=== PATIENT | female | born 1955 | race Caucasian/White ===

== ENCOUNTER 2020-06-11 09:13 | Outpatient (CLI) | payer MEDICARE, SELFPAY ==
--- NOTE | ~2020-06-11 | MM_ITS ---
EXAMINATION: MM screening gricel BI w marion HISTORY: Screening TECHNIQUE: Craniocaudal and mediolateral oblique 3-D tomosynthesis images were obtained and synthetic 2-D images were generated. CAD analysis was submitted and interpreted. COMPARISON: Comparison to multiple prior studies sequentially, with oldest reviewed study dated 01/23. BREAST PARENCHYMAL COMPOSITION: There are scattered areas of fibroglandular density. FINDINGS: Stable benign-appearing right breast mass, lower central right breast. There is no evidence of suspicious mass, calcification, or architectural distortion to suggest malignancy in either breas t. There has been no suspicious interval change. IMPRESSION: 1. No mammographic evidence of malignancy. 2. Recommend routine screening mammography in one year. BI-RADS Category 2: Benign finding(s). Reviewed, dictated and finalized at location A. S AND MERCHANDISING ASSOCIATE
== END 2020-06-11 09:14 | disposition home or self-care (01) ==
LOC: ANHIMG 09:18
PROVIDERS: PCP Family Medicine; Visit Provider Nurse Practitioner Family
DX: Z12.31 Encounter for screening mammogram for malignant neoplasm of breast (principal)
CPT/HCPCS: 77063; 77067

== ENCOUNTER 2022-03-26 09:38 | Outpatient (CLI) | payer MEDICARE, SELFPAY ==
--- NOTE | ~2022-03-26 | XR_ITS ---
EXAMINATION: XR chest 2V 03/26/2022 10:04 INDICATION: Cardiac murmur PROCEDURE: 2 view chest COMPARISON: No prior studies for comparison. FINDINGS: The lungs are clear. The cardiomediastinal silhouette is within normal limits. There are no pleural effusions. There is no pneumothorax suspected. IMPRESSION: 1: NO ACUTE CARDIOPULMONARY DISEASE. Reviewed, dictated and finalized at location A.
--- NOTE | ~2022-03-26 | XR_ITS ---
EXAMINATION: XR lumbar spine 2-3V DATE: 03/26/2022 10:04 INDICATION: Lumbago with sciatica TECHNIQUE: Anteroposterior and lateral views of the lumbar spine, and cone-down lateral view of the l umbosacral junction were obtained. COMPARISON: None. FINDINGS: Evaluation is limited by osteopenia and patient body habitus which obscures fine bone detail. Alignme nt is normal. Transitional lumbosacral segment. Lumbarized on the right and sacralized on the left wi th 4 more cephalad nonrib-bearing lumbar segments. Vertebral body heights are normal. Multilevel mild disc height loss and mild degenerative endplate changes throughout the lumbar spine. 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 Persistent at least moderate multilevel facet osteoarthritis. Osteoarthritis at the bilate ral sacroiliac joints. IMPRESSION: 1. Mild lumbar spondylosis with transitional lumbosacral segment. 2. Bilateral sacral iliac osteoarthritis. 3. Evaluation somewhat limited by osteopenia and patient body habitus which limits assessment of fine bone detail. Reviewed, dictated and finalized at location B. IMPRESSION: 1. Mild lumbar spondylosis with transitional lumbosacral segment. 2. Bilateral sacral iliac osteoarthritis. 3. Evaluation somewhat limited by osteopenia and patient body habitus which adler its assessment of fine bone detail.
--- NOTE | 2022-03-26 10:09 | ECG_ITS ---
Measurements Intervals [place] Rate: 74 P: 67 NC: 145 QRS: -37 QRSD: 113 T: 32 QT: 398 QTc: 443 Interpretive Statements SINUS RHYTHM LEFT AXIS DEVIATION NO PREVIOUS ECG AVAILABLE FOR COMPARISON Electronically Signed On 03-26-2022 14:56:08 CDT by Jasiel Nguyen M.D.
[2022-03-26 10:15] LABS: Cholesterol 155 mg/dL (0-200); HDL Direct 36 mg/dL; Triglycerides 103 mg/dL (<150)
[2022-03-26 10:26] LABS: LDL Cholesterol Direct 85 mg/dL
== END 2022-03-26 09:39 | disposition home or self-care (01) ==
LOC: ANHLAB 09:39
PROVIDERS: PCP Family Medicine; Visit Provider Nurse Practitioner Family
DX: E78.5 Hyperlipidemia, unspecified (principal); M54.40 Lumbago with sciatica, unspecified side; R01.1 Cardiac murmur, unspecified; M47.896 Other spondylosis, lumbar region; M53.3 Sacrococcygeal disorders, not elsewhere classified
CPT/HCPCS: 36415; 71046; 72100; 80061; 93005

== ENCOUNTER 2022-04-10 13:24 | Outpatient (CLI) | payer MEDICARE, SELFPAY ==
--- NOTE | 2022-04-10 13:38 | ECHO_ITS ---
Patient Info Name: Evon Sanchez Age: 66 years : 1955 Gender: Female Ht: 63 in Wt: 180 lbs BSA: 1.94 m2 HR: 73 bpm BP: 124 / 76 mmHg Technical Quality: Good Exam Date: 04/10/2022 2:32 PM Exam Location: [facility] Patient Status: Outpatient Admit Date: 04/10/2022 Staff Ordering Physician: Dara Tate NP Covered Buckle Assembler: Alva Blackburn RDCS Attending Provider: Dara Tate NP Referring Physician: Bebeto SUAREZ; Exam Type: CA echo doppler color flow Study Info Indications - CARDIAC MURMUR Complete two-dimensional, color flow and Doppler transthoracic echocardiogram is performed. Summary 1. Complete two-dimensional, color flow and Doppler transthoracic echocardiogram is performed. 2. Left ventricular chamber dimension is normal. 3. Left ventricular systolic function is normal, estimated at 55-60%. 4. The left ventricular diastolic function is grade I diastolic dysfunction. 5. E/e' 10 is mildly elevated. 6. Left atrial chamber dimension is mildly enlarged. 7. There is mild aortic valve sclerosis. 8. There is mild mitral valve regurgitation. 9. No pulmonary hypertension, estimated pulmonary arterial systolic pressure is 38 mmHg. Left Ventricle E/e' 10 is mildly elevated. Left ventricular chamber dimension is normal. Left ventricular systolic function is normal, estimated at 55-60%. The left ventricular diastolic function is grade I diastolic dysfunction. Right Ventricle Right ventricular chamber dimension is normal. Right ventricular systolic function is normal. Left Atria Left atrial chamber dimension is mildly enlarged. Right Atria Right atrial chamber dimension is normal. Aortic Valve The aortic valve is trileaflet. There is mild aortic valve sclerosis. There is no aortic valve stenosis. There is no aortic valve regurgitation. Pulmonic Valve There is no pulmonic regurgitation. Mitral Valve There is no mitral valve stenosis. There is mild mitral valve regurgitation. Tricuspid Valve There is no tricuspid valve regurgitation. No pulmonary hypertension, estimated pulmonary arterial systolic pressure is 38 mmHg. Pericardium/Pleural There is no pericardial effusion. Inferior Vena Cava Normal inferior vena cava with >50% collapse upon inspiration consistent with normal right atrial pressure, 5 mmHg. Aorta The aortic root size at the sinus of Valsalva is normal. Left Ventricular Outflow Tract Name Value Normal LVOT 2D LVOT Diameter 2.0 cm LVOT Doppler LVOT Peak Gradient 6 mmHg LVOT Mean Gradient 3 mmHg LVOT VTI 24 cm LVOT VTI/AV VTI Ratio 0.7 LVOT Stroke Volume 78 ml LVOT CO 16.7 l/min LVOT CI 8.6 l/min/m2 Mitral Valve Name Value Normal
--- NOTE | 2022-04-15 12:39 | WPDHOLTEREM ---
Holter/Event Monitor Holter/Event Monitor Date of procedure: 04/10/22 Holter/Event Procedure: 48 Hr Holter Monitor Indications: Murmur Conclusion: 1. 48 hour holter monitor on 04/10/22. 2. Predominant rhythm is sinus rhythm. HR range 55-112 bpm; average HR 78 bpm. 3. There are 194 premature supraventricular complexes and 3 supraventricular couplets. There are 2 episodes of atrial tachycardia, fastest at 158 bpm and longest lasted 4 beats. 4. There are 9,480 premature ventricular complexes, 10 ventricular couplets, 1 ventricular triplet and 1,773 ventricular trigeminy. No ventricular tachycardia. 5. No sinoatrial or atrioventricular blocks. No significant pauses greater than 2 seconds. 6. No symptoms available for correlation.
== END 2022-04-10 13:25 | disposition home or self-care (01) ==
PROVIDERS: PCP Family Medicine; Visit Provider Nurse Practitioner Family
DX: R01.1 Cardiac murmur, unspecified (principal); I34.0 Nonrheumatic mitral (valve) insufficiency
CPT/HCPCS: 93225; 93226; 93306

== ENCOUNTER 2022-05-15 13:48 | Outpatient (CLI) | payer MEDICARE, SELFPAY ==
--- NOTE | ~2022-05-15 | MM_ITS ---
EXAMINATION: MM screening gricel BI w marion HISTORY: Screening mammogram TECHNIQUE: Craniocaudal and mediolateral oblique 3-D tomosynthesis images were obtained and synthetic 2-D images were generated. CAD analysis was submitted and interpreted. COMPARISON: 06/11/2020, 08/22/2018, 05/19/2016, 04/02/2014 bilateral screening mammogram examinations BREAST PARENCHYMAL COMPOSITION: There are scattered areas of fibroglandular density. FINDINGS: Stable mild fibroglandular asymmetry. Scattered bilateral benign calcifications. There is n o evidence of suspicious mass, calcification, or architectural distortion to suggest malignancy in ei ther breast. There has been no suspicious interval change. IMPRESSION: 1. No mammographic evidence of malignancy. 2. Recommend routine screening mammography in one year. BI-RADS Category 2: Benign finding(s). Reviewed, dictated and finalized at location A. SCAPE FOREMAN
--- NOTE | ~2022-05-15 | DEXA_ITS ---
Bone Density Report Name: BAILEY MCKEON Age: 66 Sex: Female Ethnicity: White Date of : 1955 Indication: postmenopausal; screening for osteoporosis; height loss; Referring Provider: LEI MARTINO Study: Bone densitometry was performed. Exam Date: May 15, 2022 Accession number: [id number] Bone Density: Region BMD T-score Z-score Classification AP Spine(L1-L4) 0.755 -2.7 -0.6 Osteoporosis Femoral Neck (Left) 0.462 -3.5 -1.8 Osteoporosis Total Hip (Left) 0.665 -2.3 -0.8 Osteopenia Femoral Neck (Right) 0.517 -3.0 -1.3 Osteoporosis Total Hip (Right) 0.616 -2.7 -1.2 Osteoporosis Total Hip Mean 0.640 -2.5 -1.0 Osteoporosis World Health Organization criteria for BMD impression classify patients as: Normal (T-score at or above -1.0), Osteopenia (T-score between -1.0 and -2.5), or Osteoporosis (T-score at or below -2.5). 10-year Fracture Risk: FRAX not reported because: Some T-score for Spine Total or Hip Total or Femoral Neck at or below -2.5 Clinical Information Provided by Patient: Has used the following medications: Vitamin D, Calcium Patient maximum height was 63.5 Menopause Age: 47 Does not regularly consume dairy products Drinks caffeinated beverages Onset of menses at age 11 Number of children 0 Impression: The patient has osteoporosis, based on the Left Femoral Neck T-score. Discussion: INCREASED RISK OF FRACTURE. BONE DENSITY IS UNDESIRABLY LOW AT ONE OR MORE SKELETAL SITES, CONSISTENT WITH POSTMENOPAUSAL OSTEOPOROSIS. This patient's lowest T-score meets the World Health Organization's (WHO) criteria for osteoporosis at one or more sites (T-score -2.5 or below). In untreated patients, the risk of osteoporotic fracture increases approximately two-fold for each 1.0 SD decrease in T-score. Low bone density is not the only risk factor for fracture; also consider factors such as patient's age, frailty or poor health, risk of falling, risk of injury, previous osteoporotic fracture, family history of osteoporosis, cigarette smoking, low body weight, etc. Not everyone with low bone mineral density has osteoporosis; osteomalacia and other metabolic bone disorders should also be considered. Patients who have osteoporosis should be evaluated for specific diseases and conditions (secondary causes) that may cause or contribute to bone loss. The [place] Association of Clinical Endocrinologists (AACE) and National Osteoporosis Foundation (NOF) recommend pharmacologic intervention for all postmenopausal women whose T-score is in this range. The patient should follow a healthful lifestyle (good nutrition with adequate calcium and vitamin D, and appropriate weight-bearing exercise). Follow-Up: Consider a repeat BMD and Vertebral Fracture Assessment (VFA) exam in 2 years or sooner if medically
== END 2022-05-15 13:49 | disposition home or self-care (01) ==
LOC: ANHIMG 13:53
PROVIDERS: PCP Family Medicine; Visit Provider Family Medicine
DX: Z12.31 Encounter for screening mammogram for malignant neoplasm of breast (principal); M81.0 Age-related osteoporosis without current pathological fracture; M85.852 Other specified disorders of bone density and structure, left thigh
CPT/HCPCS: 77063; 77067; 77080

== ENCOUNTER 2022-06-03 12:04 | Outpatient (CLI) | payer MEDICARE, SELFPAY ==
[2022-06-03 15:34] LABS: Basophils Percent Auto 0.7 % (0.2-1.2); Eosinophils Absolute Auto 0.1 K/mm3 (0-0.3); Eosinophils Percent Auto 1.4 % (0-4.4); Hematocrit 37.5 % (37.0-47.0); Hemoglobin 11.2 g/dL (12.0-15.0); Immature Granulocyte Absolute 0.01 K/mm3 (0.00-0.031); Immature Granulocyte Percent A 0.2 % (0-0.5); Lymphocytes Percent Auto 30.4 % (18.3-44.2); Mean Corpuscular HGB Conc 29.9 g/dl (32-36); Mean Corpuscular Hemoglobin 31.9 pg (26-34); Mean Corpuscular Volume 106.8 fl (80-100); Monocytes Absolute Auto 0.5 K/mm3 (0.1-0.6); Monocytes Percent Auto 12.6 % (2.6-8.5); Neutrophils Absolute Auto 2.3 K/mm3 (1.3-6.7); Neutrophils Percent Auto 54.7 % (45.5-73.1); Platelet Count Result 209 k/mm3 (150-375); Red Blood Count 3.51 M/mm3 (4.2-5.4); Red Cell Distribution Width 19.1 % (11.5-14.5); White Blood Count 4.3 K/mm3 (4.5-10.0)
[2022-06-03 15:40] LABS: Add Urine Microscopic? YES; Appearance Urine Slightly Cloudy (Clear); Bilirubin Urine Negative (Negative); Blood Urine 1+ (Negative); Color Urine Light Yellow (Yellow); Glucose Urine UA Negative (Negative); Ketones Urine Negative (Negative); Leukocyte Esterase Ur Negative LEU/UL (Negative); Nitrate Urine Negative (Negative); Protein Urine Trace mg/dL (Negative); Specific Grav Ur >= 1.030 (1.001-1.035); Urobilinogen Urine 0.2 mg/dL (<2.0); pH Urine 5.5 (5.0-9.0)
[2022-06-03 15:46] LABS: INR 1.2; Prothrombin Time 14.6 Seconds (11.1-14.7)
[2022-06-03 15:47] LABS: Partial Thromboplastin Time 26.1 SECONDS (22.3-36.8)
[2022-06-03 15:53] LABS: Mucus Urine Rare /lpf; Squamous Epithelial Cell Urine Rare /hpf (Few)
[2022-06-03 15:54] LABS: Albumin Level 3.8 g/dL (3.5-5.1); Anion Gap 1 mmol/L (8-16); Blood Urea Nitrogen 26 mg/dL (7-17); Calcium 13.3 mg/dL (8.4-10.2); Carbon Dioxide 29 mmol/L (22-30); Chloride 105 mmol/L (98-107); Estimated Glomerular Filt Rate 28; Glucose 90 mg/dL (65-110); Potassium 4.4 mmol/L (3.4-5.0); Sodium 135 mmol/L (137-145)
[2022-06-03 16:22] LABS: Urine Cotinine NEGATIVE
[2022-06-03 17:02] LABS: Hemoglobin A1C 5.6 % (<5.7)
[2022-06-03 17:52] LABS: Platelet Estimate Adequate (Adequate); Schistocytes None Seen (NORMAL)
[2022-06-03 17:53] LABS: Anisocytosis 2+ (NORMAL); Hypochromasia 1+ (NORMAL)
== END 2022-06-03 12:05 | disposition home or self-care (01) ==
PROVIDERS: PCP Family Medicine; Visit Provider Orthopaedic Surgery
DX: M17.11 Unilateral primary osteoarthritis, right knee (principal); Z01.818 Encounter for other preprocedural examination
CPT/HCPCS: 80048; 80307; 81001; 82040; 83036; 85025; 85610; 85730; 87081

== ENCOUNTER 2022-06-07 10:22 | Inpatient (IN) | payer MEDICARE, SELFPAY ==
[2022-06-07] VITALS (25 sets, daily range): BP systolic 103–131; BP diastolic 50–79; PULSE 79–89; RESP 16–24; TEMP 28.8–37.2; O2SAT 89–100; BMI 31.1
--- NOTE | ~2022-06-07 | CT_ITS ---
EXAMINATION: CT lumbar spine wo con DATE: 06/07/2022 13:01 INDICATION: 3 months of worsening low back pain. TECHNIQUE: Computed tomography (CT) of the lumbar spine was performed without intravenous contrast. A utomated exposure control and iterative reconstruction technique were employed. The dose-length produ ct was 1077.08 mGy-cm. COMPARISON: None FINDINGS: Alignment is normal. Vertebral body heights are normal. No evident fracture. Sensitivity for nondispl aced fracture is however decreased by marked diffuse spotty osteopenia suggesting presence of numerou s small lytic lesions throughout all of the visualized bones. At multiple locations there appears be associated endosteal scalloping suggesting this related to widespread lytic bone lesions such as in t he setting of multiple myeloma or metastatic disease. Larger and more definitive 1.5 cm lytic lesion at the right sacral ala with central soft tissue density. Transitional L5 segment, sacralized on the left. There is moderate disc height loss at T11-T12 and mild to moderate disc height loss at L4-L5. T here are multilevel disc bulges from T11-T12 through L4-L5 resulting in multilevel mild central canal stenosis. Multilevel moderate bilateral lumbar facet osteoarthritis. This contributes to multilevel neural foraminal stenosis, moderate severity bilaterally at L4-L5 and mild at the remaining lumbar le vels. Mild atelectasis in the bilateral posterior sulci. Coarse calcifications at the atrophic uterus likely chronic degeneration due to fibroids. Paravertebral soft tissues are otherwise unremarkable. IMPRESSION: 1. Innumerable small lytic lesions throughout the visualized bones with larger 1.5 cm lytic lesion at the right sacral ala most suspicious for multiple myeloma with differential including other lytic me tastatic disease. 2. Mild to moderate lumbar spondylosis. No evident acute osseous abnormality although sensitivity for nondisplaced fractures decreased due to the marked diffuse osteopenia and lytic bone disease.. Reviewed, dictated and finalized at location A. ILLUSTRATOR IMPRESSION: 1. Innumerable small lytic lesions throughout the visualized bones with larger 1.5 cm lytic lesion at the right sacral ala most suspicious for multiple myelom a with differential including other lytic metastatic disease. 2. Mild to moderate lumbar spondylosis. No evident acute osseous abnormality al though sensitivity for nondisplaced fractures decreased due to the marked diffu se osteopenia and lytic bone disease..
--- NOTE | ~2022-06-07 | MR_ITS ---
EXAMINATION: MR lumbar spine wo con DATE: 06/15/2022 13:38 INDICATION: Back pain. TECHNIQUE: Magnetic resonance imaging (MRI) of the lumbar spine was performed without intravenous con trast. COMPARISON: CT lumbar spine 06/07/2022 FINDINGS: L5 is a transitional segment. There is 3 mm retrolisthesis of L1 and L2. There is mild glass or mirror inspector homar anterior wedging of T11 vertebral body. There are Schmorl's nodes at multiple levels. There is wi despread increased T2-weighted signal intensity and decreased T1-weighted signal intensity in the bon e marrow of all bones. There is severely decreased disc height at T10-T11, moderately decreased disc height at T11-T12, mildly decreased disc height at T12-L1, severely decreased disc at L1-L2, mildly d ecreased disc height at L2-L3 and L3-L4, and severely decreased disc height at L4-L5. The distal spin al cord signal intensity is normal. The conus medullaris is at L1-L2. There is a 7.3 cm cyst in left kidney. The following disc levels are specifically discussed: L1-L2: The disc is bulging. There is severe bilateral facet joint osteoarthritis. There is mild bilat eral neural foraminal stenosis. There is mild central canal stenosis. L2-L3: The disc is bulging. There is moderate bilateral facet joint osteoarthritis. There is mild tino ateral neural foraminal stenosis. There is mild central canal stenosis. L3-L4: The disc is bulging and has an annular fissure. There is moderate right and severe left facet joint osteoarthritis. There is mild bilateral neural foraminal stenosis. There is mild central canal stenosis. L4-L5: The disc is bulging and has an annular fissure. There is severe bilateral facet joint osteoart hritis. There is mild bilateral neural foraminal stenosis. There is mild central canal stenosis. L5-S1: The disc does not extend beyond the endplate margin. There is no facet joint hypertrophy. Ther e is no neural foraminal stenosis. There is no central canal stenosis. IMPRESSION: 1. Widespread abnormal bone marrow signal intensity suspicious for multiple myeloma. 2. Severe lumbar spondylosis. Reviewed, dictated and finalized at location A. OR ENLISTED ADVISOR IMPRESSION: 1. Widespread abnormal bone marrow signal intensity suspicious for multiple mye francois. 2. Severe lumbar spondylosis.
--- NOTE | ~2022-06-07 | US_ITS ---
EXAMINATION: US venous doppler [facility] DATE: 06/08/2022 15:34 INDICATION: hypoxia, elevated d dimer . TECHNIQUE: Grayscale images without and with compression and Doppler images of the bilateral lower ex tremity veins were obtained. COMPARISON: None FINDINGS: The right common femoral vein, profunda (deep) femoral vein, femoral vein, popliteal vein, peroneal v ein, posterior tibial veins, gastrocnemius vein, and greater saphenous vein are patent. The left common femoral vein, profunda femoral vein, femoral vein, popliteal vein, peroneal vein, pos terior tibial veins, gastrocnemius vein, and greater saphenous vein are patent. IMPRESSION: 1. Patent bilateral lower extremity veins. No evidence of deep venous thrombosis. Reviewed, dictated and finalized at location K. TTER IMPRESSION: 1. Patent bilateral lower extremity veins. No evidence of deep venous thrombos is.
--- NOTE | ~2022-06-07 | US_ITS ---
EXAMINATION: US renal BI DATE: 06/08/2022 15:34 INDICATION: Acute kidney injury TECHNIQUE: Multiple grayscale and Doppler ultrasound images of the kidneys were obtained. COMPARISON: None. FINDINGS: The right kidney measures 11.0 x 4.0 x 5.2 cm. The left kidney measures 11.8 x 6.1 x 6.3 cm. The kidn eys demonstrate increased parenchymal echogenicity. 6.9 cm simple left renal cyst There is no hydrone phrosis. The bladder is not visualized and likely decompressed. IMPRESSION: Medical renal disease. 6.9 cm simple left renal cyst. Bladder not visualized and likely decompressed. Reviewed, dictated and finalized at location K. MARKER INSTALLER IMPRESSION: Medical renal disease. 6.9 cm simple left renal cyst. Bladder not visualized an d likely decompressed.
--- NOTE | ~2022-06-07 | BM_ITS ---
EXAMINATION: CCL bone marrow asp w bx diag ORDER COMPLETED DATE: 06/10/2022 09:42 INDICATION: Hypercalcemia. TECHNIQUE: A time-out was performed to verify the patient's name, date of , and procedure to b e performed. The procedure including the risks and benefits was discussed with the patient. Risks dis cussed included bleeding, infection, nerve injury and allergic reaction. The patient understood the r isks and agreed to proceed. The skin overlying the right posterior iliac spine was prepped and draped in usual sterile fashion. Anesthetic was administered with 1% lidocaine subcutaneously. Moderate co nscious sedation was achieved with 25 mcg fentanyl IV. An 11 gauge needle was inserted into the ilium with fluoroscopic guidance. Unsuccessful attempt was made bone marrow aspiration. An 8 gauge needle was then inserted into the ilium with fluoroscopic guidance. 2 core bone marrow biopsy specimens were obtained, one placed in formalin and the second in a sterile cup for bone marrow smear. The needle w as removed and the entry site was cleaned and dressed. There were no immediate complications. A tota l of 9 fluoroscopic images were recorded. Fluoroscopy exposure time was 0.1 minutes. FINDINGS: Real-time fluoroscopy demonstrates the biopsy needle tip overlying the left posterior iliac spine. IMPRESSION: 1. Successful fluoroscopic guided bone marrow biopsy. 2. Dry tap with unsuccessful fluoroscopic guided bone marrow aspiration. Therefore a second core biop sy specimens was obtained for marrow smear. Reviewed, dictated and finalized at location A. FORCE MANAGEMENT ANALYST IMPRESSION: 1. Successful fluoroscopic guided bone marrow biopsy. 2. Dry tap with unsuccessful fluoroscopic guided bone marrow aspiration. Theref ore a second core biopsy specimens was obtained for marrow smear.
--- NOTE | ~2022-06-07 | XR_ITS ---
EXAMINATION: XR chest 1V portable DATE: 06/08/2022 07:35 INDICATION: Shortness of breath TECHNIQUE: frontal view of the chest was obtained. COMPARISON: Chest radiograph dated 06/07/22 FINDINGS: Diffuse patchy airspace opacities throughout both lungs. No pleural effusion or pneumothorax. The car diomediastinal silhouette is normal. IMPRESSION: 1. Diffuse patchy bilateral lung disease consistent with pulmonary edema or pneumonia. Reviewed, dictated and finalized at location A. OPHYSICIST IMPRESSION: 1. Diffuse patchy bilateral lung disease consistent with pulmonary edema or pne umonia.
--- NOTE | ~2022-06-07 | CT_ITS ---
EXAMINATION: CT brain wo con DATE: 06/07/2022 13:01 INDICATION: Altered mental status. Lethargy. TECHNIQUE: Computed tomography (CT) of the head was performed without intravenous contrast. Sagittal and coronal reconstructions were performed. The mA was adjusted according to patient size. Iterative reconstruction technique was employed. The dose-length product was 605.33 mGy-cm. COMPARISON: None FINDINGS: No acute intracranial hemorrhage, acute infarction or abnormal extra axial fluid collection. There is mild scattered white matter hypoattenuation consistent with chronic small vessel ischemic disease. Ventricles are normal and symmetric. No mass/mass effect. The orbits, paranasal sinuses and mastoid a ir cells are normal. IMPRESSION: 1. No acute intracranial process. 2. Mild scattered white matter hypoattenuation consistent with chronic small vessel ischemic disease. Reviewed, dictated and finalized at location A. ER WRAPPER IMPRESSION: 1. No acute intracranial process. 2. Mild scattered white matter hypoattenuation consistent with chronic small ve ssel ischemic disease.
--- NOTE | ~2022-06-07 | NM_ITS ---
EXAMINATION: NM pulmonary perfusion DATE: 06/07/2022 15:40 INDICATION: Positive d-dimer/troponin. Hypoxic upon arrival TECHNIQUE: 5.1 mCi Tc-99m MAA was administered intravenously for perfusion images. Scintigraphic imag es of the chest were obtained. COMPARISON: X-ray chest, same date. FINDINGS: Perfusion images show no defects. IMPRESSION: 1. Low probability for pulmonary embolism. Reviewed, dictated and finalized at location K. EL ENGINEER
--- NOTE | ~2022-06-07 | XR_ITS ---
EXAMINATION: XR chest 2V DATE: 06/07/2022 12:37 INDICATION: Hypoxia TECHNIQUE: frontal and lateral views of the chest were obtained. COMPARISON: Chest radiograph dated 03/26/2022 FINDINGS: Pulmonary vascular congestion with increased interstitial pattern with perihilar cuffing and mild pat jessi airspace opacities in the deep and mid to lower lung zones, right greater than left. No pleural e ffusion or pneumothorax. The cardiomediastinal silhouette is normal. IMPRESSION: 1. Pulmonary vascular congestion with interstitial and airspace opacities in the mid and lower lung z ones with differential including pulmonary edema or pneumonia. Reviewed, dictated and finalized at location A. AND SCENERY MAKER IMPRESSION: 1. Pulmonary vascular congestion with interstitial and airspace opacities in th e mid and lower lung zones with differential including pulmonary edema or pneum onia.
--- NOTE | ~2022-06-07 | XR_ITS ---
EXAMINATION: XR chest 2V Exam Date/Time: 06/10/2022 18:00 GENERAL CLAIMS AGENT HISTORY: sob Comparison: 06/09/2022. RESULT: Lines, tubes, and devices: None. Lungs and pleura: Unchanged bilateral patchy airspace disease, diffuse reticular opacities, and aravind stinct vessels. The lateral view is limited by overlying artifact. Cardiomediastinal silhouette: Stable cardiomegaly. Other: No acute osseous or upper abdominal finding. IMPRESSION: Grossly unchanged pulmonary opacities likely representing mild pulmonary edema. Reviewed, dictated and finalized at location K. RAL CLAIMS AGENT
--- NOTE | ~2022-06-07 | XR_ITS ---
Clinical Indication: Shortness of breath AP and lateral views of the chest: Comparison: 06/08/2022 Findings: Extensive bilateral airspace disease is markedly improved from prior exam, probable minimal residual bibasilar haziness. Probable small pleural effusions on lateral view. Cardiomediastinal isaiah houette is within normal limits. Bones and soft tissues are unremarkable. Impression: Extensive bilateral airspace disease is markedly improved from prior exam, with probable minimal resi dual bibasilar haziness. This could reflect minimal residual pulmonary edema. Probable small pleural effusions on lateral view. Reviewed, dictated and finalized at location . CLEANER Impression: Extensive bilateral airspace disease is markedly improved from prior exam, with probable minimal residual bibasilar haziness. This could reflect minimal resid ual pulmonary edema. Probable small pleural effusions on lateral view.
--- NOTE | ~2022-06-07 | US_ITS ---
EXAMINATION: US right upper quadrant DATE: 06/15/2022 14:39 INDICATION: Elevated liver enzymes TECHNIQUE: Multiple grayscale and Doppler ultrasound images of the right upper quadrant were obtained . COMPARISON: None available. FINDINGS: The visualized portions of the pancreas are normal. The liver is normal with normal echogen icity and echotexture. No surface nodularity. Normal hepatopetal flow in the main portal vein. The ga llbladder is mildly distended. Gallbladder sludge. No wall thickening or pericholecystic fluid. The c ommon bile duct measures 5 mm. There was no sonographic Godoy sign. IMPRESSION: Mild gallbladder hydrops with gallbladder sludge. Otherwise normal right upper quadrant ultrasound fi ndings. Reviewed, dictated and finalized at location K. RATORY COORDINATOR IMPRESSION: Mild gallbladder hydrops with gallbladder sludge. Otherwise normal right upper quadrant ultrasound findings.
--- NOTE | 2022-06-07 11:50 | ECG_ITS ---
Measurements Intervals [place] Rate: 84 P: 63 WV: 156 QRS: -23 QRSD: 97 T: 71 QT: 309 QTc: 365 Interpretive Statements SINUS RHYTHM NONSPECIFIC T-WAVE ABNORMALITY BORDERLINE ECG COMPARED TO ECG 03/26/2022 10:14:06 T-WAVE ABNORMALITY NOW PRESENT Electronically Signed On 06-07-2022 15:55:33 REPRODUCTIVE ENDOCRINOLOGIST by Kaushik Lea M.D.
[2022-06-07 12:13] LABS: Basophils Percent Auto 0.1 % (0.2-1.2); Hematocrit 33.7 % (37.0-47.0); Hemoglobin 10.6 g/dL (12.0-15.0); Immature Granulocyte Absolute 0.06 K/mm3 (0.00-0.031); Immature Granulocyte Percent A 0.6 % (0-0.5); Lymphocytes Absolute Auto 0.65 K/mm3 (0.9-3.2); Lymphocytes Percent Auto 6.8 % (18.3-44.2); Mean Corpuscular HGB Conc 31.5 g/dl (32-36); Mean Corpuscular Hemoglobin 32.3 pg (26-34); Mean Corpuscular Volume 102.7 fl (80-100); Mean Platelet Volume 10.1 fl (7.4-10.4); Monocytes Absolute Auto 0.8 K/mm3 (0.1-0.6); Monocytes Percent Auto 8.3 % (2.6-8.5); Neutrophils Percent Auto 84.2 % (45.5-73.1); Nucleated Red Blood Cells Perc 0.3 % (0.0-0.2); Platelet Count Result 191 k/mm3 (150-375); Red Blood Count 3.28 M/mm3 (4.2-5.4); Red Cell Distribution Width 18.9 % (11.5-14.5); White Blood Count 9.5 K/mm3 (4.5-10.0)
--- NOTE | 2022-06-07 12:14 | ED.BACK ---
HPI - Back Pain/Injury General Chief Complaint: Back Pain/Injury <RADHA Sebastian Last Filed: 06/07/22 19:28> Stated Complaint: low back pain for 3 months <RADHA Sebastian Last Filed: 06/07/22 19:28> Time Seen by Provider: 06/07/22 11:02 <RADHA Sebastian Last Filed: 06/07/22 19:28> Source: patient and family <RADHA Sebastian Last Filed: 06/07/22 19:28> Mode of arrival: EMS <RADHA Sebastian Last Filed: 06/07/22 19:28> Limitations: no limitations <RADHA Sebastian Last Filed: 06/07/22 19:28> History of Present Illness HPI Narrative: Patient is a 66 y/o female who presents to the ED via EMS with c/o low back pain. Patient reports having progressively worsening low back pain over the last 3 months. She has had outpatient x-ray imaging and is scheduled to undergo MRI in June. She reports having worsening pain since Wednesday. She is currently taking a Medrol Dosepak, but has not tried anything further for pain. Sister at bedside does report patient has been increasingly lethargic over the last couple days as well. Patient denies any urinary or bowel incontinence, saddle anesthesia, abdominal pain, nausea, vomiting, fevers. Patient was noted to be hypoxic upon arrival with oxygenation in the upper 70s, low 80s. She does not appear to be in respiratory distress. No tachypnea. Patient denies feeling short of breath. Denies chest pain. Denies BLE edema, recent long distance travel, Hx of blood clots. <RADHA Sebastian Last Filed: 06/07/22 19:28> Related Data Home Medications: Home Medications Medication Instructions Recorded Confirmed calcium carb-ergocalciferol (vit 1 tablet PO BID 06/03/22 06/07/22 D2) 600 mg calcium-200 unit tablet multivitamin 1 tablet PO DAILY 06/03/22 06/07/22 famotidine 20 mg tablet 20 mg PO DAILY 06/07/22 06/07/22 sulfamethoxazole 800 1 tablet PO DAILY 06/07/22 06/07/22 mg-trimethoprim 160 mg tablet methylprednisolone 4 mg tablets in See Rx Instructions .Route .COMPLEX 06/08/22 06/08/22 a dose pack <Rekha Boykin PA-C - Last Filed: 06/07/22 19:28> Allergies/Adverse Reactions: Allergies Allergy/AdvReac Type Severity Reaction Status Date / Time meloxicam AdvReac Palpitations, Verified 06/03/22 14:23 SHORTNESS OF BREATH <Rekha Boykin PA-C - Last Filed: 06/07/22 19:28> Review of Systems Review of Systems: CONSTITUTIONAL: Denies fever, chills, or sweats. ENT: Denies rhinorrhea, congestion, sore throat. CARDIOVASCULAR: Denies chest pain, palpitations, or BLE edema. RESPIRATORY: Denies cough or dyspnea. GASTROINTESTINAL: Denies abdominal pain, nausea, vomiting. GENITOURINARY: Denies incontinence, dysuria or hematuria. MUSCULOSKELETAL: Reports low back pain. NEUROLOGIC: Reports lethargy. Denies headache, numbness, or weakness. 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 <Rekha Boykin PA-C - Last Filed: 06/07/22 19:28> Family History Family History: Family History Father Lung cancer Mother Sibling No
[2022-06-07 12:17] LABS: Alveolar/Arterial O2 Gradient 143.7 mmHg; Base Excess ABG 4.4 mEq/l (+/-2.0); Carboxyhemoglobin 1.1 % THb (0-2.0); Fractional Inspired Oxygen 36 %; Methemoglobin ABG 0.2 %THb (0-1.5); Oxygen Content ABG 15.2 %vol (16.0-22.0); Oxygen Saturation ABG 95.1 % (95.0-100.0); Oxyhemoglobin 91.3 % THb (90.0-100.0); PCO2 ABG 37.9 mmHg (35.0-45.0); PO2 FiO2 Ratio Arterial Blood 1.92 %; Reduced Hemoglobin 7.4 %THb (0-5.0); Total Hemoglobin 11.8 g/dL (12.0-18.0); pH ABG 7.486 (7.350-7.450)
[2022-06-07 12:18] LABS: Device NASAL CANNULA; Modified Allen's Test Pass; Site Drawn RIGHT RADIAL
[2022-06-07 12:23] LABS: INR 1.3
[2022-06-07 12:24] LABS: Partial Thromboplastin Time 20.7 SECONDS (22.3-36.8)
[2022-06-07 12:34] LABS: Alanine Aminotransferase 21 U/L (6-35); Albumin Level 3.4 g/dL (3.5-5.1); Alkaline Phosphatase 122 U/L (38-126); Anion Gap 0 mmol/L (8-16); Aspartate Amino Transferase 54 U/L (14-36); Bilirubin,Total 1.3 mg/dL (0.2-1.3); Blood Urea Nitrogen 69 mg/dL (7-17); Carbon Dioxide 31 mmol/L (22-30); Chloride 100 mmol/L (98-107); D Dimer 2.35 ug/mL (<0.48); Estimated CRCL calculation 19 ml/min; Estimated Glomerular Filt Rate 18; Glucose 122 mg/dL (65-110); Potassium 4.1 mmol/L (3.4-5.0); Sodium 131 mmol/L (137-145)
[2022-06-07 12:38] LABS: NT Pro B Type Natriuretic Pept 9720 pg/mL (5-100); Troponin I 0.429 ng/mL (0.000-0.034)
[2022-06-07 12:40] LABS: Calcium 15.6 mg/dL (8.4-10.2)
[2022-06-07 12:54] LABS: Influenza A QL RT-PCR Negative (Negative); Influenza B QL RT-PCR Negative (Negative); SARS-CoV-2 RNA PCR Negative
[2022-06-07] MEDS: SODIUM CHLORIDE 0.9% IV 1,000 ML 999 ML IV CONT (13:14)
[2022-06-07] MEDS: SODIUM CHLORIDE 0.9% IV 1,000 ML 100 ML IV CONT (14:32)
[2022-06-07 14:52] LABS: Add Urine Microscopic? YES; Appearance Urine Clear (Clear); Bilirubin Urine Negative (Negative); Blood Urine Trace-Intact (Negative); Color Urine Light Yellow (Yellow); Glucose Urine UA Negative (Negative); Ketones Urine Negative (Negative); Leukocyte Esterase Ur Negative LEU/UL (Negative); Nitrate Urine Negative (Negative); Protein Urine Trace mg/dL (Negative); Specific Grav Ur >= 1.030 (1.001-1.035); Urobilinogen Urine 0.2 mg/dL (<2.0); pH Urine 5.5 (5.0-9.0)
--- NOTE | 2022-06-07 15:00 | PM.IMHP ---
H&P: HPI History of Present Illness Date/Time: 06/07/22 15:00 Chief Complaint: Back pain. Narrative: This is a very pleasant 66-year-old female with degenerative joint disease, hyperlipidemia, and GERD who presented to the ED via EMS from home for evaluation of back pain. 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 Initially she tried to tough it out but eventually ended up seeing a chiropractor about a month after her pain started though that did not help her much. She was seen at her doctor's office at the beginning of March and she was prescribed meloxicam and cyclobenzaprine. X-rays of the lumbar spine showed mild lumbar spondylosis with transitional lumbosacral segment and bilateral sacroiliac osteoarthritis though exam was somewhat limited due to osteopenia and body habitus. During that visit she was reportedly found to have a new murmur and was sent for an echocardiogram (normal LV systolic function with an EF estimated 55 to 60%, grade 1 diastolic dysfunction, mild left atrial enlargement, mild mitral valve regurgitation) and a 48 hour Holter monitor (predominant sinus rhythm with 2 episodes of atrial tachycardia and a high volume of PVCs with no reports of shortness of breath, chest pain, palpitations, near-syncope, etcetera). Unfortunately her back pain has continued to worsen and she now has constant, aching pain in the low back with frequent sharp shooting pain into the hips, worse with movement and weight-bearing. She was prescribed a Medrol Dosepak per Dr. Alford a few days ago as her severe low back pain has started to affect her mobility (she is scheduled to have her right knee replaced on 06/17/2022). The steroids have not helped thus far. The last couple of days she has developed nausea and vomiting and she is constipated which is unusual for her. Her last good bowel movement was well over 4 days ago. She goes on to say that her appetite has been poor for the past 2.5 months which she believes is related to the back pain and she has lost approximately 22 pounds. This morning she got up to let her dog outside to the bathroom and at that time she felt almost suddenly short of breath and had sensations of racing heart. After speaking with her sister she decided to come in for evaluation. On arrival to triage her SpO2 was 89% on room air and she is currently on 4 liters with oxygen levels in the mid to upper 90s; other vital signs were stable. Chest x-ray showed pulmonary vascular congestion with interstitial and airspace opacities in the mid and lower lung zones. Labs were significant for a macrocytic anemia, sodium 131, potassium 4.1, BUN 69, creatinine 2.60, calcium 15.6, phosphorus 7.2, magnesium 1.7, BUN 69, creatinine 2.60, troponin 0.429, proBNP 9720, D-dimer 2.35. V/Q scan showed low probability for pulmonary embolism. Brain CT showed no acute intracranial process but did note multiple lytic lesions throughout the skull suspicious for multiple myeloma. Lumbar spine CT showed innumerable small lytic lesions throughout the visualized bones suspicious for multiple myeloma as well. EKG showed a sinus rhythm with nonspecific T-wave abnormalities. She is being admitted in this setting for further workup. Review of Systems Review of Systems: Twelve systems were reviewed. She denies confusion and mental fog but seems to process things slowly during our discussions. No abdominal pain. She denies fever, chills, and sweats. She has not noticed any swollen lymph nodes. No headache or neck ache. No vertigo. She denies focal weakness and paresthesias. No saddle anesthesia. Urine output has declined a bit. No hematuria, dysuria, or symptoms of kidney stones. She denies chest pain and pleuritic pain. No orthopnea, paroxysmal nocturnal dyspnea, or lower extremity edema. No history of venous thromboembolism. She has not noticed any rash or lesions. No synco
[2022-06-07 15:07] LABS: RBC Urine 0-2 /hpf (0-2); WBC Urine 0-3 /hpf
[2022-06-07] MEDS: ZOLEDRONIC ACID 4 MG/100 ML 100 ML 400 MG IVPB (15:36)
--- NOTE | 2022-06-07 15:44 | PC.NURSE ---
1540 Attempted to call IMU to see if RN had questions, RN unavailable. Told her that pt will be up by 1600.
--- NOTE | 2022-06-07 16:08 | PDONCCN ---
HPI - Date of Consult Date/Time: 06/07/22 16:08 Primary Care Provider: Herman Ruff MD - Consult Narrative Reason for consult: lytic bone lesions hypercacemia possible myeloma Narrative: Evon Sanchez is a 66 year old female presented with progressive low back pain -she was scheduled for knee surgery and noted to have an elevated creatinine upon admission to the ER Cr 2.[address] of spine multiple lytic lesions suggestive of lymphoma. she denies history of malignanct pain has been progressive recentlt noted contipation decreased O2 sat noted with abnormal CXR Review of Systems - Review of Systems All systems reviewed & are unremarkable except as noted in HPI and bel - Constitutional Reports anorexia - Cardiovascular Reports shortness of breath causing sudden awakening - Gastrointestinal Reports constipation - Musculoskeletal Reports back pain PMFSH Medical History: Medical History (Last Reviewed 06/07/22 @ 12:16 by Rekha Boykin PA-C) Arthritis BMI 32.0-32.9,adult Dysphagia, unspecified Gastroesophageal reflux disease with esophagitis Left knee DJD Osteoporosis 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 Other Diabetes mellitus Family history of coronary artery disease Family history of lung cancer Family history of osteoarthritis - Social History Social History: Social History (Last Reviewed 06/07/22 @ 12:16 by Rekha Boykin PA-C) Gender Identity: Gender identity (if verbalized by the patient): Female Alcohol Use: Alcohol intake: current Alcohol use details: Occasional Substance Use: Substance use: never Substance use type: does not use Others: Spiritual care concerns: No Smoking Status: Smoking status: Former smoker Tobacco type: cigarettes Second hand tobacco smoke exposure: Yes Smoking end date: 12/12/02 Smoking Pack-years: Smoking packs per day: 1 Smoking cigarettes per day: 20.0 Years smoked: 30 Smoking pack-years: 30.00 Exam - Vital Signs Vital Signs - 24 hr 06/07/22 11:01 06/07/22 11:18 06/07/22 11:38 Temperature 37.2 C Pulse Rate 88 86 Respiratory Rate 16 Blood Pressure 116/58 L Pulse Oximetry 89 L 90 Oxygen Delivery Room Air Room Air Oxygen Flow Rate 06/07/22 11:31 06/07/22 11:37 06/07/22 11:46 Temperature Pulse Rate 84 84 88 Respiratory Rate 23 H 17 16 Blood Pressure 114/60 114/60 118/63 Pulse Oximetry 97 98 94 Oxygen Delivery Oxygen Flow Rate 06/07/22 11:30 06/07/22 12:00 06/07/22 12:15 Temperature Pulse Rate 85 84 Respiratory Rate 23 H 24 H Blood Pressure 107/62 110/61 Pulse Oximetry 90 95 95 Oxygen Delivery Nasal Cannula Oxygen Flow Rate 4 06/07/22 13:03 06/07/22 13:16 06/07/22 13:31 Temperature Pulse Rate 83 79 80 Respiratory Rate 19 23 H 21 H Blood Pressure 119/63 119/52 L 120/63 Pulse Oximetry 99 99 97 Oxygen Delivery Oxygen Flow Rate 06/07/22 13:45 06/07/22 14:00 06/07/22 15:57 Temperature Pulse Rate 80 79 82 Respiratory Rate 18 22 H 23 H Blood Pressure 122/58 L 114/60 Pulse Oximetry 98 95 Oxygen Delivery Oxygen Flow Rate 06/07/22 14:15 06/07/22 14:31 06/07/22 14:46 Temperature Pulse Rate 80 81 83 Respiratory Rate 20 20 21 H Blood Pressure 122/63 130/63 123/79 Pulse Oximetry 97 98 99 Oxygen Delivery Oxygen Flow Rate 06/07/22 15:01 Temperature Pulse Rate 80 Respiratory Rate 20 Blood Pressure 103/54 L Pulse Oximetry 100 Oxygen Delivery Oxygen Flow Rate - Exam HEENT: EOMI
--- NOTE | 2022-06-07 16:29 | ADMGEN ---
This patient, Evon Sanchez, was admitted to IMU Room 213-01 at 1625. Patient/family oriented to hospital policies and general routines including ID bracelet, bed and alarms, visiting hours, pain management, procedures, bathroom and other care routines, personal items, smoking policy, room service/diet, and visiting hours. Information on how to activate the Rapid Response Team has been discussed. Patient/Family are encouraged to report perceived risks to care and to ask questions if they do not understand what they are told or what they should do.
[2022-06-07 16:41] LABS: Magnesium 1.7 mg/dL (1.6-2.3); Phosphorus 7.2 mg/dL (2.5-4.5)
[2022-06-07 17:04] LABS: Troponin I 0.514 ng/mL (0.000-0.034)
[2022-06-07] MEDS: SODIUM CHLORIDE 0.9% IV 1,000 ML 80 ML IV CONT (19:18)
[2022-06-07] MEDS: fentaNYL (*CRX) 12 MCG PATCH TRANSDERM (19:19)
[2022-06-07 20:04] LABS: Troponin I 0.429 ng/mL (0.000-0.034)
[2022-06-08] VITALS (20 sets, daily range): BP systolic 103–127; BP diastolic 48–65; PULSE 89–97; RESP 12–36; TEMP 36.5–37.1; O2SAT 84–98; BMI 31.1
[2022-06-08 04:50] LABS: Hematocrit 32.7 % (37.0-47.0); Hemoglobin 10.1 g/dL (12.0-15.0); Mean Corpuscular HGB Conc 30.9 g/dl (32-36); Mean Corpuscular Hemoglobin 32.4 pg (26-34); Mean Corpuscular Volume 104.8 fl (80-100); Mean Platelet Volume 10.3 fl (7.4-10.4); Platelet Count Result 180 k/mm3 (150-375); Red Blood Count 3.12 M/mm3 (4.2-5.4); Red Cell Distribution Width 18.5 % (11.5-14.5)
[2022-06-08 05:09] LABS: Alanine Aminotransferase 19 U/L (6-35); Albumin Level 2.9 g/dL (3.5-5.1); Alkaline Phosphatase 107 U/L (38-126); Anion Gap 2 mmol/L (8-16); Aspartate Amino Transferase 39 U/L (14-36); Bilirubin,Total 0.7 mg/dL (0.2-1.3); Blood Urea Nitrogen 71 mg/dL (7-17); Carbon Dioxide 27 mmol/L (22-30); Chloride 104 mmol/L (98-107); Estimated CRCL calculation 20 ml/min; Estimated Glomerular Filt Rate 20; Glucose 109 mg/dL (65-110); Sodium 133 mmol/L (137-145)
[2022-06-08 05:18] LABS: Calcium 14.5 mg/dL (8.4-10.2)
[2022-06-08 05:43] LABS: Magnesium 1.5 mg/dL (1.6-2.3); Phosphorus 6.3 mg/dL (2.5-4.5)
[2022-06-08 05:55] LABS: Thyroid Stimulating Hormone Reflex 0.933 uIU/mL (0.465-4.68)
--- NOTE | 2022-06-08 07:31 | PM.IMPN ---
Progress Note: A&P Assessment and Plan (1) Acute respiratory failure with hypoxia: Code(s): J96.01 - Acute respiratory failure with hypoxia Status: Acute Assessment and Plan: Unsure of etiologies, suspect pneumonia, continue antibiotics Follow-up blood cultures (2) Acute kidney injury: Code(s): N17.9 - Acute kidney failure, unspecified Status: Acute Assessment and Plan: Appreciate nephrology consultation, still pending, improving (3) Elevated troponin: Code(s): R77.8 - Other specified abnormalities of plasma proteins Status: Acute Assessment and Plan: Follow-up echo, echo from March 2022 showed an EF of 55-60% with grade 1 diastolic function, no significant valvular abnormality, no pulmonary hypertension (4) Lytic lesion of bone on x-ray: Code(s): M89.9 - Disorder of bone, unspecified Status: Acute Assessment and Plan: Multiple lytic bone lesions in the pelvis, vertebrae, and skull most concerning for multiple myeloma given other findings. Serum immunofixation and protein electrophoresis have been obtained and are pending. [place] as needed for pain, oncology concern for multiple myeloma, appreciate consultation (5) Hypercalcemia: Code(s): E83.52 - Hypercalcemia Status: Acute Assessment and Plan: Appreciate nephrology consultation as well as Oncology, she may need calcitonin, monitor (6) Back pain: Code(s): M54.9 - Dorsalgia, unspecified Status: Acute Assessment and Plan: Continue fentanyl patch, [place] as needed Plan DVT prophylaxis with Lovenox GI prophylaxis with Pepcid Code status full code Subjective Date/time seen: 06/08/22 07:31 Interval history: No overnight events noted. Still short of breath. No nausea, vomiting or diarrhea. No fevers or chills. States her pain is consistent. Review of Systems Review of Systems: 12 point review of systems was assessed and was negative except as noted in the HPI Exam Narrative: General: Appears somewhat uncomfortable, short of breath and a little bit of pain, 96% on 6 L high-flow HEENT: Atraumatic, normocephalic, mucous membranes moist CV: Regular rate and rhythm, S1, S2 Lungs: Clear to auscultation bilaterally, no rales or crackles noted, no wheezes, good air entry Abdomen: Soft, nontender, nondistended Extremities: Normal to inspection Skin: No rashes noted, no lesions or wounds seen Objective Data Vital Signs Vital Signs: Vital Signs - 24 hr 06/07/22 11:01 06/07/22 11:18 06/07/22 11:38 Temperature 99.0 F Pulse Rate 88 86 Respiratory Rate 16 Blood Pressure 116/58 L Pulse Oximetry 89 L 90 Oxygen Delivery Room Air Room Air Oxygen Flow Rate 06/07/22 11:31 06/07/22 11:37 06/07/22 11:46 Temperature Pulse Rate 84 84 88 Respiratory Rate 23 H 17 16 Blood Pressure 114/60 114/60 118/63 Pulse Oximetry 97 98 94 Oxygen Delivery Oxygen Flow Rate 06/07/22 11:30 06/07/22 12:00 06/07/22 12:15 Temperature Pulse Rate 85 84 Respiratory Rate 23 H 24 H Blood Pressure 107/62 110/61 Pulse Oximetry 90 95 95 Oxygen Delivery Nasal Cannula Oxygen Flow Rate 4 06/07/22 13:03 06/07/22 13:16 06/07/22 13:31 Temperature Pulse Rate 83 79 80 Respiratory Rate 19 23 H 21 H Blood Pressure 119/63 119/52 L 120/63 Pulse Oximetry 99 99 97 Oxygen Delivery Oxygen Flow Rate 06/07/22 13:45 06/07/22 14:00 06/07/22 15:57 Temperature Pulse Rate 80 79 82 Respiratory Rate 18 22 H 23 H Blood Pressure 122/58 L 114/60 Pulse Oximetry 98 95 Oxygen Delivery Oxygen Flow Rate 06/07/22 14:15 06/07/22 14:31 06/07/22 14:46 Temperature Pulse Rate 80 81 83 Respiratory Rate 20 20 21 H Blood Pressure 122/63 130/63 123/79 Pulse Oximetry 97 98 99 Oxygen Delivery Oxygen Flow Rate 06/07/22 15:01 06/07/22 16:46 06/07/22 18:00 Temperature 97.0 F L Pulse Rate 80 84 85 Respiratory Rate 20 2
[2022-06-08] MEDS: FUROSEMIDE INJ 40 MG/4 ML VIAL IV PUSH (07:33)
[2022-06-08] MEDS: MULTIVITAMINS THERAPEUTIC TAB (*BKC) 1 TABLET PO (08:29)
[2022-06-08] MEDS: FAMOTIDINE 20 MG TABLET PO (08:29)
[2022-06-08] MEDS: WATER FOR IRRIGATION, STERILE 1,000 ML BOTTLE 1000 ML (08:30)
--- NOTE | 2022-06-08 13:48 | WPDONCPN ---
Progress Note: A/P - Additional Plan likely Myeloma with CT Findings and elevated protein consider initiating therapy once diagnosis is confirmed - Time Spent With Patient Total time spent is greater than 50% in coordination of care (as documented) at patient's floor/unit and/or counseling patient: 15 - 25 minutes Subjective Interval history: pain better on Fentany patch but she is very somnolent renal function only somewhat improved will await renal input re need for dialysis as hydration has been problematic Review of Systems - Review of Systems All systems reviewed & are unremarkable except as noted in HPI and bel Exam Vital signs: Temp Pulse Resp BP Pulse Ox O2 Del Method O2 Flow Rate 36.7 C 90 12 121/60 96 High Flow Nasal Cannula 6 06/08/22 12:00 06/08/22 12:00 06/08/22 12:00 06/08/22 12:00 06/08/22 12:00 06/08/22 12:00 06/08/22 12:00 - Constitutional moderate distress PN: Objective Data - Labs CBC & Chem 7: 06/08/22 04:38 06/08/22 04:38 Labs: Laboratory Results - last 24 hr 06/07/22 06/07/22 06/07/22 14:43 16:09 16:09 WBC RBC Hgb Hct MCV MCH MCHC RDW Plt Count MPV Sodium Potassium Chloride Carbon Dioxide Anion Gap BUN Creatinine Estim Creat Clear Calc Estimated GFR Glucose Calcium Phosphorus 7.2 H Magnesium 1.7 Total Bilirubin AST ALT Alkaline Phosphatase Troponin I 0.514 H* Total Protein Albumin TSH (Reflex) PTH Intact Urine Color Light yellow Urine Appearance Clear Urine pH 5.5 Ur Specific [place] >= 1.030 Urine Protein Trace Urine Glucose (UA) Negative Urine Ketones Negative Ur Blood (Man) Trace-intact Urine Nitrate Negative Urine Bilirubin Negative Urine Urobilinogen 0.2 Leukocyte Esterase Rfl Negative Urine RBC 0-2 Urine WBC 0-3 06/07/22 06/07/22 06/08/22 16:10 19:12 04:38 WBC 8.0 RBC 3.12 L Hgb 10.1 L Hct 32.7 L MCV 104.8 H MCH 32.4 MCHC 30.9 L RDW 18.5 H Plt Count 180 MPV 10.3 Sodium Potassium Chloride Carbon Dioxide Anion Gap BUN Creatinine Estim Creat Clear Calc Estimated GFR Glucose Calcium Phosphorus Magnesium Total Bilirubin AST ALT Alkaline Phosphatase Troponin I 0.429 H* Total Protein Albumin TSH (Reflex) PTH Intact Cancelled Urine Color Urine Appearance Urine pH Ur Specific [place] Urine Protein Urine Glucose (UA) Urine Ketones Ur Blood (Man) Urine Nitrate Urine Bilirubin Urine Urobilinogen Leukocyte Esterase Rfl Urine RBC Urine WBC 06/08/22 06/08/22 06/08/22 04:38 04:38 04:38 WBC RBC Hgb Hct MCV MCH MCHC RDW Plt Count MPV Sodium 133 L Potassium 4.0 Chloride 104 Carbon Dioxide 27 Anion Gap 2 L BUN 71 H Creatinine 2.40 H Estim Creat Clear Calc 20 Estimated GFR 20 L Glucose 109 Calcium 14.5 H Phosphorus 6.3 H Magnesium 1.5 L Total Bilirubin 0.7 AST 39 H ALT 19 Alkaline Phosphatase 107 Troponin I Total Protein 9.0 H Albumin 2.9 L TSH (Reflex) 0.933 PTH Intact Urine Color Urine Appearance Urine pH Ur Specific [place] Urine Protein Urine Glucose (UA) Urine Ketones Ur Blood (Man) Urine Nitrate Urine Bilirubin Urine Urobilinogen Leukocyte Esterase Rfl Urine RBC Urine WBC
--- NOTE | 2022-06-08 16:45 | PM.CNNEP ---
Assessment and Plan Assessment and plan (1) Acute kidney injury: Code(s): N17.9 - Acute kidney failure, unspecified Status: Acute Assessment and Plan: the patient has acute kidney injury. Her baseline creatinine is normal at about 1.0. On the she had some blood work done at showed a creatinine of 1.8 then yesterday at admission it was up to 2.6 and today is down to 2.4. The high creatinine could be from several issues. The patient does have the hypercalcemia. Hypercalcemia inhibits ROMK and so acts like a loop diuretic. She probably has not been eating or drinking all that well so she could be dehydrated. The creatinine has improved a little bit overnight. She could have myeloma kidney. This might present with light chains in the urine. The dipstick shows no protein but would not continuous pickling line pickler light chains. Will see what the quantitative urine protein to creatinine ratio shows. If this is the case then the creatinine generally would not have improved. Amyloidosis can affect the kidneys and make the creatinine higher but usually she has albuminuria and on dipstick this was not the case. At this point we could do a kidney biopsy however I am not sure would change anything because the patient is probably going to get treatment for multiple myeloma. If the creatinine does not continue to improve or if there is question about the diagnosis we could do a biopsy at that point. In the meantime will give another dose of diuretics to get the patient out of heart failure. Then we can give fluid and diuretics to eduardo the calcium out. Will give Calcitonin to reduce the calcium levels acutely and the patient got Salkum drowned K acid last night to give a longer-term hypocalcemic affect. (2) Back pain: Code(s): M54.9 - Dorsalgia, unspecified Status: Acute Assessment and Plan: The patient has lytic lesions explaining the pain. It is likely that the patient has multiple myeloma but we are waiting for the immuno fix to come back. Unfortunately these are send outs and take several days to come back. Discussed with and he is going to do a bone marrow tomorrow. (3) Hypercalcemia: Code(s): E83.52 - Hypercalcemia Status: Acute Assessment and Plan: The patient's calcium is very high. This is likely due to myeloma. Because she is so sleepy I will give Calcitonin. She received zoledronic acid last night. (4) Acute respiratory failure with hypoxia: Code(s): J96.01 - Acute respiratory failure with hypoxia Status: Acute Assessment and Plan: Giving Lasix to treat volume overload History of Present Illness Reason for Consult Consult date: 06/08/22 Chief Complaint Chief complaint: Multiple Myeloma, KYLIE, hypercalcemia, acute resp f History of Present Illness Narrative: Evon is a very pleasant 66-year-old lady who has multiple medical problems including hyperlipidemia, GERD, osteoarthritis, dysphagia, vitamin-D deficiency, and osteoporosis. The patient came in the hospital because of back pain. She has been having problems since late January. She saw chiropractor for a while which did not help. She went to her PCP office was given cyclobenzaprine and meloxicam. She went to see Dr. Alford who prescribed a Medrol Dosepak. But nothing seemed to were she decided to come to the emergency room because of that. Along the way the she also developed some shortness of breath. In the ER she was evaluated. Chest x-ray showed pulmonary edema. Her oxygenation showed 89% on room air. Radiology revealed multiple lytic lesions. Labs showed a high total protein in the low albumin and a creatinine that was elevated and a Calcium that was very high. The patient was admitted. Hematology saw the patient and feels that this is probably multiple myeloma. She was given zoledronic acid for the high calcium yesterday afternoon. Because of
[2022-06-08] MEDS: FUROSEMIDE INJ 40 MG/4 ML VIAL 20 MG IV PUSH (17:41)
[2022-06-08] MEDS: ENOXAPARIN 30 MG/0.3 ML SYRINGE SUB-Q (17:42)
[2022-06-08 18:00] LABS: Creatine Kinase 21 U/L (30-135)
[2022-06-08 18:16] LABS: Creatinine Urine 51.8 mg/dL; Total Protein Urine Random 45 mg/dL; Ur Ttl Prot Creatinine Ratio 0.87 mg/mg (0-0.20)
[2022-06-08 18:17] LABS: Urea Random Urine 661 MG/DL
[2022-06-08 18:21] LABS: Sodium Urine Random 53 meq/L
[2022-06-08] MEDS: CALCITONIN SALMON INJ 400 UNITS/2 ML VIAL 320 UNITS SUB-Q (20:48)
[2022-06-09] VITALS (18 sets, daily range): BP systolic 103–123; BP diastolic 53–63; PULSE 87–98; RESP 18–28; TEMP 36.6–36.9; O2SAT 91–97
[2022-06-09 05:06] LABS: Hemoglobin 9.6 g/dL (12.0-15.0); Mean Corpuscular Hemoglobin 31.5 pg (26-34); Mean Corpuscular Volume 101.6 fl (80-100); Mean Platelet Volume 10.2 fl (7.4-10.4); Platelet Count Result 169 k/mm3 (150-375); Red Blood Count 3.05 M/mm3 (4.2-5.4); Red Cell Distribution Width 18.4 % (11.5-14.5); White Blood Count 5.8 K/mm3 (4.5-10.0)
[2022-06-09 05:16] LABS: Anion Gap 2 mmol/L (8-16); Blood Urea Nitrogen 72 mg/dL (7-17); Carbon Dioxide 32 mmol/L (22-30); Chloride 98 mmol/L (98-107); Estimated CRCL calculation 19 ml/min; Estimated Glomerular Filt Rate 19; Glucose 105 mg/dL (65-110); Phosphorus 3.7 mg/dL (2.5-4.5); Potassium 3.4 mmol/L (3.4-5.0); Sodium 132 mmol/L (137-145)
[2022-06-09] MEDS: CALCITONIN SALMON INJ 400 UNITS/2 ML VIAL 320 UNITS SUB-Q ×2 (10:57→20:41)
[2022-06-09] MEDS: FAMOTIDINE 20 MG TABLET PO (10:58)
[2022-06-09] MEDS: MULTIVITAMINS THERAPEUTIC TAB (*BKC) 1 TABLET PO (10:58)
--- NOTE | 2022-06-09 11:48 | PM.PNNEP ---
Progress Note: A&P Assessment and Plan (1) Acute kidney injury: Code(s): N17.9 - Acute kidney failure, unspecified Status: Acute Assessment and Plan: the patient has acute kidney injury. Her baseline creatinine is normal at about 1.0. renal ultrasound shows some increased echogenicity. Normal kidney size 1 simple cyst on the left S a FENA is non pre renal. Fractional excretion of urea is also non pre renal. She has 870 mg of protein per g of creatinine. CPK is not elevated she has an elevated creatinine. Possibilities include: Myeloma kidney. She does have some protein in the urine. We are waiting for SPEP and UPEP. She is going to have a bone marrow biopsy today. If this is positive she will get treatment anyway. Dehydration which is unlikely because she was volume overloaded on admission and had to get diuretics. She could be pre renal if her cardiac function is bad. An echocardiogram is pending. Results of hypercalcemia. She could have nephrocalcinosis. Will check a KUB to see if this is the case. It is unlikely that she has amyloidosis with the low amount of protein that she has in her urine. Her creatinine has remained stable. Of course she is getting diuretics also. Will repeat a chest x-ray to see where we are with the fluid. If it is better we can reduce the diuretics. That may help the creatinine to get better. At this point will get a chest x-ray. Her diuretics are on hold right now. Repeat labs in the morning long discussion with daughter and grandson (2) Back pain: Code(s): M54.9 - Dorsalgia, unspecified Status: Acute Assessment and Plan: The patient has lytic lesions explaining the pain. It is likely that the patient has multiple myeloma but we are waiting for the immuno fix to come back. Unfortunately these are send outs and take several days to come back. Discussed with and he is going to do a bone marrow tomorrow. (3) Hypercalcemia: Code(s): E83.52 - Hypercalcemia Status: Acute Assessment and Plan: The patient's calcium is very high. This is likely due to myeloma. the patient's calcium is come down to 11 will continue the Calcitonin for now and the zoledronic acid will be longer-term solution. Ultimately treatment of the alleged myeloma, once diagnosed, is going to be needed to keep the calcium from going back up. (4) Acute respiratory failure with hypoxia: Code(s): J96.01 - Acute respiratory failure with hypoxia Status: Acute Assessment and Plan: Flo is on hold. She looks more comfortable. Will check a chest x-ray in the morning Subjective Date/time seen: 06/09/22 11:48 Interval history: Abiodun is feeling better today. She is less sleepy but still tired. Speech is less slurred. No shortness of breath today. Review of Systems Cardiovascular: Cardiovascular: Reports no additional cardiovascular complaints Respiratory: Respiratory: Reports no additional respiratory complaints Gastrointestinal: Gastrointestinal: Reports no additional gastrointestinal complaints Genitourinary: Genitourinary: Reports no additional female genitourinary complaints Exam Narrative: WDWN in NAD skin no rash head ncat lungs Rare crackles at the bases cor reg no rub abd BS+ nontender and soft ext no edema. Objective Data Vital Signs Vital Signs: Vital Signs - 24 hr 06/08/22 12:00 06/08/22 12:00 06/08/22 12:00 Temperature 98.1 F Pulse Rate 90 90 Respiratory Rate 12 Blood Pressure 121/60 Pulse Oximetry 98 96 Oxygen Delivery High Flow Nasal Cannula Oxygen Flow Rate 6 06/08/22 14:00 06/08/22 16:00 06/08/22 16:00 Temperature 98.7 F Pulse Rate 90 90 90 Respiratory Rate 30 H Blood Pressure 105/57 L Pulse Oximetry 93 Oxygen Delivery Oxygen Flow Rate 06/08/22 16:00 06/08/22 18:00 06/08/22 20:00 Temperature 98.
--- NOTE | 2022-06-09 12:08 | PM.IMPN ---
Progress Note: A&P Assessment and Plan (1) Acute respiratory failure with hypoxia: Code(s): J96.01 - Acute respiratory failure with hypoxia Status: Acute Assessment and Plan: Unsure of etiologies, suspect pneumonia, continue antibiotics, currently on rocephin and azithromycin which was started on 06/07 (2) Acute kidney injury: Code(s): N17.9 - Acute kidney failure, unspecified Status: Acute Assessment and Plan: Appreciate nephrology consultation, BUN and creatinine slightly worse today, monitor (3) Elevated troponin: Code(s): R77.8 - Other specified abnormalities of plasma proteins Status: Acute Assessment and Plan: Follow-up echo, echo from March 2022 showed an EF of 55-60% with grade 1 diastolic function, no significant valvular abnormality, no pulmonary hypertension 06/09: Echo performed this morning, report still pending (4) Lytic lesion of bone on x-ray: Code(s): M89.9 - Disorder of bone, unspecified Status: Acute Assessment and Plan: Multiple lytic bone lesions in the pelvis, vertebrae, and skull most concerning for multiple myeloma given other findings. Serum immunofixation and protein electrophoresis have been obtained and are pending. [place] as needed for pain, oncology concern for multiple myeloma, appreciate consultation 06/09: Bone marrow biopsy planned for tomorrow (5) Hypercalcemia: Code(s): E83.52 - Hypercalcemia Status: Acute Assessment and Plan: Appreciate nephrology consultation as well as Oncology, she may need calcitonin, monitor 06/09: Calcium down to 11 today, continue to monitor (6) Back pain: Code(s): M54.9 - Dorsalgia, unspecified Status: Acute Assessment and Plan: Continue fentanyl patch, [place] as needed Plan DVT prophylaxis with Lovenox GI prophylaxis with Pepcid Code status full code Subjective Date/time seen: 06/09/22 12:08 Interval history: No overnight events noted. Somewhat short of breath, about the same as yesterday. No nausea, vomiting or diarrhea. No fevers or chills. Review of Systems Review of Systems: 12 point review of systems was assessed and was negative except as noted in the HPI Exam Narrative: General: A little short of breath, stable HEENT: Atraumatic, normocephalic, mucous membranes moist CV: Regular rate and rhythm, S1, S2 Lungs: Clear to auscultation bilaterally, no rales or crackles noted, no wheezes, good air entry Abdomen: Soft, nontender, nondistended Extremities: Normal to inspection Skin: No rashes noted, no lesions or wounds seen Objective Data Vital Signs Vital Signs: Vital Signs - 24 hr 06/08/22 14:00 06/08/22 16:00 06/08/22 16:00 Temperature 98.7 F Pulse Rate 90 90 90 Respiratory Rate 30 H Blood Pressure 105/57 L Pulse Oximetry 93 Oxygen Delivery Oxygen Flow Rate 06/08/22 16:00 06/08/22 18:00 06/08/22 20:00 Temperature 98.0 F Pulse Rate 90 95 Respiratory Rate 18 Blood Pressure 118/54 L Pulse Oximetry 96 94 Oxygen Delivery High Flow Nasal Cannula Oxygen Flow Rate 4 06/08/22 20:00 06/08/22 20:18 06/08/22 20:00 Temperature Pulse Rate Respiratory Rate Blood Pressure 118/54 L 120/65 Pulse Oximetry 94 Oxygen Delivery High Flow Nasal Cannula Oxygen Flow Rate 4 06/08/22 22:51 06/08/22 20:00 06/08/22 22:00 Temperature 97.8 F Pulse Rate 95 94 95 Respiratory Rate 18 Blood Pressure 103/48 L Pulse Oximetry 94 Oxygen Delivery Oxygen Flow Rate 06/09/22 00:00 06/09/22 02:00 06/09/22 00:00 Temperature Pulse Rate 94 96 Respiratory Rate Blood Pressure Pulse Oximetry 94 Oxygen Delivery High Flow Nasal Cannula Oxygen Flow Rate 4 06/09/22 04:00 06/09/22 04:00 06/09/22 04:00 Temperature 97.9 F Pulse Rate 95 98 Respiratory Rate 20 Blood Pressure 119/55 L Pulse Oximetry 95 97 Oxygen Delivery High Flow Nasal C
[2022-06-09] MEDS: ENOXAPARIN 30 MG/0.3 ML SYRINGE SUB-Q (18:15)
[2022-06-09] MEDS: HYDROcodone/acetaminophen (*CRX) 5-325 MG TABLET 1 TAB PO (20:40)
--- NOTE | 2022-06-09 22:23 | ECHO_ITS ---
Patient Info Name: Evon Sanchez Age: 66 years : 1955 Gender: Female Ht: 62 in Wt: 172 lbs BSA: 1.88 m2 HR: 96 bpm BP: 127 / 63 mmHg Heart Rhythm: Sinus Rhythm Technical Quality: Fair Exam Date: 06/09/2022 9:43 AM Exam Location: [facility] Pulmonary Patient Status: Inpatient Admit Date: 06/08/2022 Staff Ordering Physician: Naomie Mar PA-C Check Inspector: Dariela Arita RDCS Attending Provider: Korey Sorto MD Referring Physician: Isabela CONCEPCION; Exam Type: CA echo doppler color flow Study Info Indications - elevated troponin, bnp Complete two-dimensional, color flow and Doppler transthoracic echocardiogram is performed. Summary 1. Complete two-dimensional, color flow and Doppler transthoracic echocardiogram is performed. 2. Left ventricular chamber dimension is normal. 3. Left ventricular systolic function is normal, estimated at 60-65%. 4. There is no increased left ventricular wall thickness. 5. The left ventricular diastolic function is normal. 6. There is mild aortic valve sclerosis. 7. There is mild to moderate aortic valve stenosis with a peak velocity of 234 cm/s, mean gradient of 13 mmHg, and aortic valve area of 1.4 cm2. 8. There is trace tricuspid valve regurgitation. 9. Mild pulmonary hypertension, estimated pulmonary arterial systolic pressure is 37 mmHg. Left Ventricle Left ventricular chamber dimension is normal. Left ventricular systolic function is normal, estimated at 60-65%. There is no increased left ventricular wall thickness. The left ventricular diastolic function is normal. Right Ventricle Right ventricular chamber dimension is normal. Right ventricular systolic function is normal. Left Atria Left atrial chamber dimension is normal. Right Atria Right atrial chamber dimension is normal. Aortic Valve The aortic valve is probable trileaflet. There is mild aortic valve sclerosis. There is mild to moderate aortic valve stenosis with a peak velocity of 234 cm/s, mean gradient of 13 mmHg, and aortic valve area of 1.4 cm2. There is no aortic valve regurgitation. Pulmonic Valve The pulmonic valve is normal. There is mild pulmonic regurgitation. Mitral Valve The mitral valve has thickened leaflets. There is trace mitral valve regurgitation. The mitral valve annulus is mildly calcified. Tricuspid Valve The tricuspid valve leaflets are normal. There is trace tricuspid valve regurgitation. Mild pulmonary hypertension, estimated pulmonary arterial systolic pressure is 37 mmHg. Pericardium/Pleural The pericardium appears normal. There is no pericardial effusion. Inferior Vena Cava Dilated inferior vena cava with <50% collapse upon inspiration consistent with elevated right atrial pressure, 10 mmHg. Aorta The aortic root size at the sinus of Valsalva is normal. Left Ventricular Outflow Tract Name Value Normal LVOT 2D LVOT Diameter 2.0 cm LVOT Doppler LVOT Peak Gradient 4 mmHg LVOT Mean Gradient 2 mmHg LVOT VTI 18 cm LVOT VT
[2022-06-10] VITALS (15 sets, daily range): BP systolic 92–107; BP diastolic 48–54; PULSE 78–89; RESP 18–20; TEMP 36.4–36.8; O2SAT 95–99
[2022-06-10 05:17] LABS: INR 1.3; Prothrombin Time 15.7 Seconds (11.1-14.7)
[2022-06-10 05:28] LABS: Anion Gap 2 mmol/L (8-16); Blood Urea Nitrogen 66 mg/dL (7-17); Calcium 9.3 mg/dL (8.4-10.2); Carbon Dioxide 31 mmol/L (22-30); Chloride 98 mmol/L (98-107); Estimated CRCL calculation 23 ml/min; Estimated Glomerular Filt Rate 23; Glucose 108 mg/dL (65-110); Phosphorus 3.7 mg/dL (2.5-4.5); Sodium 131 mmol/L (137-145)
[2022-06-10 08:14] LABS: Hematocrit 30.1 % (37.0-47.0); Hemoglobin 9.2 g/dL (12.0-15.0); Mean Corpuscular HGB Conc 30.6 g/dl (32-36); Mean Corpuscular Hemoglobin 32.1 pg (26-34); Mean Corpuscular Volume 104.9 fl (80-100); Mean Platelet Volume 10.5 fl (7.4-10.4); Platelet Count Result 172 k/mm3 (150-375); Red Blood Count 2.87 M/mm3 (4.2-5.4); Red Cell Distribution Width 18.1 % (11.5-14.5); White Blood Count 4.1 K/mm3 (4.5-10.0)
[2022-06-10] MEDS: HYDROcodone/acetaminophen (*CRX) 5-325 MG TABLET 1 TAB PO (08:18)
[2022-06-10] MEDS: MORPHINE SULFATE (*CRX) 2 MG/ML INJ 1 MG IV PUSH (08:19)
--- NOTE | 2022-06-10 08:58 | WPDMODSED ---
Moderate Sedation Note-Pt Data Patient Data Diagnosis: hypercalcemia Present Complaint: diffuse pain Procedure to be performed/Plan: bone marrow biopsy Allergies Allergy/AdvReac Type Severity Reaction Status Date / Time meloxicam AdvReac Palpitations, Verified 06/03/22 14:23 SHORTNESS OF BREATH Home Medications Medication Instructions Recorded Confirmed Type calcium carb-ergocalciferol (vit 1 tablet PO BID 06/03/22 06/07/22 History D2) 600 mg calcium-200 unit tablet multivitamin 1 tablet PO DAILY 06/03/22 06/07/22 History famotidine 20 mg tablet 20 mg PO DAILY 06/07/22 06/07/22 History sulfamethoxazole 800 1 tablet PO DAILY 06/07/22 06/07/22 History mg-trimethoprim 160 mg tablet methylprednisolone 4 mg tablets in See Rx Instructions .Route .COMPLEX 06/08/22 06/08/22 History a dose pack Current Medications: Active Medications Acetaminophen (Acetaminophen 325 Mg Tablet) 650 mg PO Q6H PRN PRN Reason: Mild Pain (1-3) or Fever Hydrocodone Bitart/Acetaminophen (Hydrocodone/Acetaminophen (*Crx) 5-325 Mg Tablet) 1 tab PO Q4H PRN PRN Reason: Pain Rated 4-6 Last Admin: 06/10/22 08:18 Dose: 1 tab Calcitonin [place] (Calcitonin [place] Inj 400 Units/2 Ml Vial) 320 units SUB-Q Q12H [facility] Stop: 06/11/22 09:01 Last Admin: 06/09/22 20:41 Dose: 320 units Enoxaparin Sodium (Enoxaparin 30 Mg/0.3 Ml Syringe) 30 mg SUB-Q Q24H [facility] Last Admin: 06/09/22 18:15 Dose: 30 mg Famotidine (Famotidine 20 Mg Tablet) 20 mg PO DAILY [facility] Last Admin: 06/09/22 10:58 Dose: 20 mg Fentanyl (Fentanyl (*Crx) 12 Mcg Patch) 12 mcg TRANSDERM Q72HR [facility] Last Admin: 06/07/22 19:19 Dose: 12 mcg Ceftriaxone Sodium/Dextrose (Rocephin 1 Gm/D5w 50 Ml) 1 gm in 50 mls @ 100 mls/hr IVPB DAILY@2100 [place] Last Infusion: 06/09/22 21:15 Dose: Infused Azithromycin (Zithromax) 500 mg in 250 mls @ 250 mls/hr IVPB DAILY@2100 [place] Last Infusion: 06/09/22 22:30 Dose: Infused Morphine Sulfate (Morphine Sulfate (*Crx) 2 Mg/Ml Inj) 1 mg IV PUSH Q3HR PRN PRN Reason: Pain Rated 4-6 Last Admin: 06/10/22 08:19 Dose: 1 mg Multivitamins Therapeutic (Multivitamins Therapeutic Tab (*Bkc)) 1 tablet PO DAILY [facility] Last Admin: 06/09/22 10:58 Dose: 1 tablet Sedation/Anesthesia: No previous sedation/anesthesia problems (including family history). 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 Family History Family History Father Lung cancer Mother Sibling No problems noted. Other Diabetes mellitus Family history of coronary artery disease Family history of lung cancer Family history of osteoarthritis Social History Social History Social History: Surrogate medical decision maker: Polly Seth, sister. Code status: Full code. Smoking packs per day: 1 Smoking cigarettes per day: 20.0 Years smoked: 30 Smoking pack-years: 30.00 Smoking status: Former smoker Tobacco type: cigarettes Second hand tobacco smoke exposure: Yes Smoking end date: 12/12/02 Alcohol intake: current Alcohol use details: Occasional alcohol use in moderation. Substance use: never Substance use type: does not use Lack of Transportation: No Lack of Food: Never True Current Housing: I Have Housing Concerned About Future Housing: No Difficulty Paying Gas/Electric Bills: No Difficulty Paying for Meds: No Currently Unemployed: No Ed
[2022-06-10] MEDS: CALCITONIN SALMON INJ 400 UNITS/2 ML VIAL 320 UNITS SUB-Q ×2 (10:12→20:05)
[2022-06-10] MEDS: FAMOTIDINE 20 MG TABLET PO (10:12)
[2022-06-10] MEDS: MULTIVITAMINS THERAPEUTIC TAB (*BKC) 1 TABLET PO (10:12)
[2022-06-10] MEDS: fentaNYL (*CRX) 12 MCG PATCH TRANSDERM (10:22)
--- NOTE | 2022-06-10 11:31 | PM.IMPN ---
Progress Note: A&P Assessment and Plan (1) Acute respiratory failure with hypoxia: Code(s): J96.01 - Acute respiratory failure with hypoxia Status: Acute Assessment and Plan: Unsure of etiologies, suspect pneumonia, continue antibiotics, currently on rocephin and azithromycin which was started on 06/07 Volume overload versus pneumonia Diuresis on hold due to renal dysfunction. Repeat chest x-ray with marked improvement in extensive bilateral airspace disease. BNP elevated at 9720 Continue Rocephin and azithromycin for pneumonia. (2) Acute kidney injury: Code(s): N17.9 - Acute kidney failure, unspecified Status: Acute Assessment and Plan: Appreciate nephrology consultation, BUN and creatinine slightly worse today, monitor Cr upto 1.8 was normal back in July Renal ultrasound with no hydronephrosis CK normal Possible myeloma kidney workup in progress. (3) Elevated troponin: Code(s): R77.8 - Other specified abnormalities of plasma proteins Status: Acute Assessment and Plan: Follow-up echo, echo from March 2022 showed an EF of 55-60% with grade 1 diastolic function, no significant valvular abnormality, no pulmonary hypertension 06/09: Echo EF 60-65% [id number] aortic valve stenosis. Mild pulmonary hypertension. No significant other valvular abnormalities. (4) Lytic lesion of bone on x-ray: Code(s): M89.9 - Disorder of bone, unspecified Status: Acute Assessment and Plan: Multiple lytic bone lesions in the pelvis, vertebrae, and skull most concerning for multiple myeloma given other findings. Serum immunofixation and protein electrophoresis have been obtained and are pending. [place] as needed for pain, oncology concern for multiple myeloma, appreciate consultation Status post bone marrow biopsy 06/10 (5) Hypercalcemia: Code(s): E83.52 - Hypercalcemia Status: Acute Assessment and Plan: Appreciate nephrology consultation as well as Oncology, started on calcitonin Calcium is improved down to normal 06/10. Admission calcium of 15.6 SPEP UPEP pending PTH RP pending (6) Back pain: Code(s): M54.9 - Dorsalgia, unspecified Status: Acute Assessment and Plan: Continue fentanyl patch, [place] as needed Plan DVT prophylaxis with Lovenox GI prophylaxis with Pepcid Code status full code Subjective Date/time seen: 06/10/22 11:31 Interval history: Chart reviewed. Patient little groggy today likely from the sedation from the biopsy earlier today. Mildly confused as well. Denies shortness of breath. Denies any chest pain. Review of Systems Review of Systems: All systems reviewed & are unremarkable except as noted in HPI and below Exam Narrative: General: Mildly confused somnolent but just at sedation not in acute distress HEENT: Atraumatic, normocephalic, mucous membranes moist CV: Regular rate and rhythm, S1, S2 Lungs: Coarse breath sounds bilaterally not in respiratory distress Abdomen: Soft, nontender, nondistended Extremities: Normal to inspection Skin: No rashes noted, no lesions or wounds seen Objective Data Vital Signs Vital Signs: Vital Signs - 24 hr 06/09/22 12:30 06/09/22 16:38 06/09/22 12:00 Temperature 98.5 F 98.4 F Pulse Rate 97 93 92 Respiratory Rate 18 22 H Blood Pressure 123/63 103/53 L Pulse Oximetry 96 91 Oxygen Delivery Oxygen Flow Rate 06/09/22 14:00 06/09/22 16:00 06/09/22 16:00 Temperature Pulse Rate 91 98 Respiratory Rate Blood Pressure Pulse Oximetry 95 Oxygen Delivery High Flow Therapy with Na Oxygen Flow Rate 5 06/09/22 12:00 06/09/22 18:00 06/09/22 20:00 Temperature Pulse Rate 95 Respiratory Rate Blood Pressure 117/58 L Pulse Oximetry 93 Oxygen Delivery High Flow Therapy with Na Oxygen Flow Rate 4 06/09/22 20:00 06/09/22 20:00 06/09/22 23:12 Temperature 97.9 F 98.0 F Pulse Rate 95 87 R
[2022-06-10] MEDS: POTASSIUM CHLORIDE 20 MEQ TABLET 40 MEQ PO (12:34)
--- NOTE | 2022-06-10 12:44 | P.PNNP_ITS ---
Progress Note: A&P Assessment and Plan (1) Acute kidney injury: Code(s): N17.9 - Acute kidney failure, unspecified Status: Acute Assessment and Plan: * baseline creatinine runs around 1.0mg/dl * evaluation to date: * renal ultrasound with some increased echogenicity and simple cyst on left * FeNA and FeUrea are non-prerenal * moderate proteinuria (~ 870mg) noted * CPK not elevated * suspicion falls on myeloma kidney * fluctuations in creatinine could also be related to diuretics * follow-up on bone marrow biopsy * if inconclusive, consider renal biopsy(?) (2) Acute respiratory failure with hypoxia: Code(s): J96.01 - Acute respiratory failure with hypoxia Status: Acute Assessment and Plan: * unclear etiology but suspect pneumonia * continue antibiotics, currently on rocephin and azithromycin which was started on 06/07 * diuresis on hold due to renal dysfunction * continue current therapy (3) Hypercalcemia: Code(s): E83.52 - Hypercalcemia Status: Acute Assessment and Plan: * quite elevated on admission * now in normal range s/p Zometa and calcitonin * ultimately, if she does have MM, treatment of that with keep Ca++ stable (4) Back pain: Code(s): M54.9 - Dorsalgia, unspecified Status: Acute Assessment and Plan: * presumably secondary to lytic lesions * follow-up on bone marrow biopsy * Hem/Onc following Will continue to follow. Subjective Date/time seen: 06/10/22 12:44 Chart reviewed -- assuming care from Dr. Hylton; a bit groogy/confused on my visit (presumably due to sedation she received earlier today for bone marrow biopsy); however, denies any acute complaints at this time; no issues overnight or earlier this AM. Exam Narrative: General: confused female in NAD Heart: normal S1 and S2; no rub Lungs: coarse breath sounds Abdomen: soft, nontender, nondistended, positive bowel sounds Extremities: no cyanosis or clubbing; no edema Skin: warm and dry Objective Data Vital Signs Vital Signs: Vital Signs Temp Pulse Resp BP Pulse Ox O2 Del Method O2 Flow Rate 06/10/22 12:00 95 High Flow Therapy with Na 5 06/10/22 12:00 78 06/10/22 12:36 97.5 F L 83 18 96/54 L 97 06/10/22 10:00 78 06/10/22 08:00 87 06/10/22 08:00 95 High Flow Therapy with Na 5 06/10/22 06:00 86 06/10/22 04:00 97.9 F 88 20 106/48 L 95 06/10/22 04:00 88 06/10/22 04:00 95 High Flow Therapy with Na 5 06/10/22 02:00 87 06/10/22 00:00 97 High Flow Therapy with Na 5 06/10/22 00:00 87 06/09/22 22:00 90 06/09/22 20:00 95 06/09/22 23:12 98.0 F 87 18 121/57 L 97 06/09/22 20:00 96 High Flow Therapy with Na 5 06/09/22 20:00 97.9 F 95 20 117/58 L 96 06/09/22 20:00 117/58 L 06/09/22 18:00 95 Intake/Output Intake/Output: Intake & Output 06/07/22 06/08/22 06/09/22 06/10/22 23:59 23:59 23:59 23:59 Intake Total 1250 1074 700 550 Output Total 150 2700 1550 400 Balance 7691 -0091 -282 150 Meds/Results Medications:
--- NOTE | 2022-06-10 12:44 | PM.PNNEP ---
Progress Note: A&P Assessment and Plan (1) Acute kidney injury: Code(s): N17.9 - Acute kidney failure, unspecified Status: Acute Assessment and Plan: baseline creatinine runs around 1.0mg/dl evaluation to date: renal ultrasound with some increased echogenicity and simple cyst on left FeNA and FeUrea are non-prerenal moderate proteinuria (~ 870mg) noted CPK not elevated suspicion falls on myeloma kidney fluctuations in creatinine could also be related to diuretics follow-up on bone marrow biopsy if inconclusive, consider renal biopsy(?) (2) Acute respiratory failure with hypoxia: Code(s): J96.01 - Acute respiratory failure with hypoxia Status: Acute Assessment and Plan: unclear etiology but suspect pneumonia continue antibiotics, currently on rocephin and azithromycin which was started on 06/07 diuresis on hold due to renal dysfunction continue current therapy (3) Hypercalcemia: Code(s): E83.52 - Hypercalcemia Status: Acute Assessment and Plan: quite elevated on admission now in normal range s/p Zometa and calcitonin ultimately, if she does have MM, treatment of that with keep Ca++ stable (4) Back pain: Code(s): M54.9 - Dorsalgia, unspecified Status: Acute Assessment and Plan: presumably secondary to lytic lesions follow-up on bone marrow biopsy Hem/Onc following Will continue to follow. Subjective Date/time seen: 06/10/22 12:44 Chart reviewed -- assuming care from Dr. Hylton; a bit groogy/confused on my visit (presumably due to sedation she received earlier today for bone marrow biopsy); however, denies any acute complaints at this time; no issues overnight or earlier this AM. Exam Narrative: General: confused female in NAD Heart: normal S1 and S2; no rub Lungs: coarse breath sounds Abdomen: soft, nontender, nondistended, positive bowel sounds Extremities: no cyanosis or clubbing; no edema Skin: warm and dry Objective Data Vital Signs Vital Signs: Vital Signs Temp Pulse Resp BP Pulse Ox O2 Del Method O2 Flow Rate 06/10/22 12:00 95 High Flow Therapy with Na 5 06/10/22 12:00 78 06/10/22 12:36 97.5 F L 83 18 96/54 L 97 06/10/22 10:00 78 06/10/22 08:00 87 06/10/22 08:00 95 High Flow Therapy with Na 5 06/10/22 06:00 86 06/10/22 04:00 97.9 F 88 20 106/48 L 95 06/10/22 04:00 88 06/10/22 04:00 95 High Flow Therapy with Na 5 06/10/22 02:00 87 06/10/22 00:00 97 High Flow Therapy with Na 5 06/10/22 00:00 87 06/09/22 22:00 90 06/09/22 20:00 95 06/09/22 23:12 98.0 F 87 18 121/57 L 97 06/09/22 20:00 96 High Flow Therapy with Na 5 06/09/22 20:00 97.9 F 95 20 117/58 L 96 06/09/22 20:00 117/58 L 06/09/22 18:00 95 Intake/Output Intake/Output: Intake & Output 06/07/22 06/08/22 06/09/22 06/10/22 23:59 23:59 23:59 23:59 Intake Total 1250 1074 700 550 Output Total 150 2700 1550 400 Balance 1100 -1626 -850 150 Meds/Results Medications: Active Medications Generic Name Dose Route Start Last Admin Trade Name Freq PRN Reason Stop Dose Admin Acetaminophen 650 mg 06/07/22 22:23 Acetaminophen 325 Mg Tablet PO Q6H PRN Mild Pain (1-3) or Fever Hydrocodone Bitart/Acetaminophen 1 tab 06/08/22 16:01 06/10/22 08:18 Hydrocodone/Acetaminophen (*Crx) 5-325 Mg Tablet PO 1 tab Q4H PRN Administration Pain Rated 4-6 Calcitonin [place] 320 units 06/08/22 21:00 06/10/22 10:12 Calcitonin [place] Inj 400 Units/2 Ml Vial SUB-Q 06/11/22 09:01 320 units Q12H HERBERTH Administration Enoxaparin Sodium 30 mg 06/08/22 17:00 06/09/22 18:15 Enoxaparin 30 Mg/0.3 Ml Syringe SUB-Q 30 mg Q24H HERBERTH Administration Famotidine 20 mg 06/08/22 09:00 06/10/22 10:12 Famotidine 20 Mg Tablet PO 20 mg DA
[2022-06-11] VITALS (17 sets, daily range): BP systolic 94–115; BP diastolic 47–56; PULSE 80–89; RESP 18–24; TEMP 36.2–36.6; O2SAT 96–99
[2022-06-11 05:01] LABS: Basophils Percent Auto 0.5 % (0.2-1.2); Eosinophils Absolute Auto 0.2 K/mm3 (0-0.3); Eosinophils Percent Auto 5.4 % (0-4.4); Hematocrit 27.1 % (37.0-47.0); Hemoglobin 8.5 g/dL (12.0-15.0); Immature Granulocyte Absolute 0.01 K/mm3 (0.00-0.031); Immature Granulocyte Percent A 0.2 % (0-0.5); Lymphocytes Absolute Auto 0.66 K/mm3 (0.9-3.2); Lymphocytes Percent Auto 16.3 % (18.3-44.2); Mean Corpuscular HGB Conc 31.4 g/dl (32-36); Mean Corpuscular Hemoglobin 31.8 pg (26-34); Mean Corpuscular Volume 101.5 fl (80-100); Mean Platelet Volume 9.9 fl (7.4-10.4); Monocytes Absolute Auto 0.5 K/mm3 (0.1-0.6); Monocytes Percent Auto 11.6 % (2.6-8.5); Neutrophils Absolute Auto 2.7 K/mm3 (1.3-6.7); Platelet Count Result 162 k/mm3 (150-375); Red Blood Count 2.67 M/mm3 (4.2-5.4); Red Cell Distribution Width 17.9 % (11.5-14.5); White Blood Count 4.1 K/mm3 (4.5-10.0)
[2022-06-11 05:12] LABS: Alanine Aminotransferase 16 U/L (6-35); Albumin Level 2.8 g/dL (3.5-5.1); Alkaline Phosphatase 96 U/L (38-126); Anion Gap 2 mmol/L (8-16); Aspartate Amino Transferase 44 U/L (14-36); Bilirubin,Total 0.2 mg/dL (0.2-1.3); Blood Urea Nitrogen 69 mg/dL (7-17); Calcium 8.1 mg/dL (8.4-10.2); Carbon Dioxide 28 mmol/L (22-30); Chloride 95 mmol/L (98-107); Estimated CRCL calculation 24 ml/min; Estimated Glomerular Filt Rate 25; Glucose 102 mg/dL (65-110); Magnesium 1.7 mg/dL (1.6-2.3); Potassium 3.3 mmol/L (3.4-5.0); Sodium 125 mmol/L (137-145)
[2022-06-11] MEDS: FAMOTIDINE 20 MG TABLET PO (11:08)
[2022-06-11] MEDS: MULTIVITAMINS THERAPEUTIC TAB (*BKC) 1 TABLET PO (11:08)
--- NOTE | 2022-06-11 12:32 | PM.PNNEP ---
Progress Note: A&P Assessment and Plan (1) Acute kidney injury: Code(s): N17.9 - Acute kidney failure, unspecified Status: Acute Assessment and Plan: baseline creatinine runs around 1.0mg/dl evaluation to date: renal ultrasound with some increased echogenicity and simple cyst on left FeNA and FeUrea are non-prerenal moderate proteinuria (~ 870mg) noted CPK not elevated suspicion falls on myeloma kidney fluctuations in creatinine could also be related to diuretics and pneumonia follow-up on bone marrow biopsy if inconclusive, consider renal biopsy(?) (2) Acute respiratory failure with hypoxia: Code(s): J96.01 - Acute respiratory failure with hypoxia Status: Acute Assessment and Plan: unclear etiology but suspect pneumonia continue antibiotics, currently on rocephin and azithromycin which was started on 06/07 diuresis on hold due to renal dysfunction continue current therapy (3) Hypercalcemia: Code(s): E83.52 - Hypercalcemia Status: Acute Assessment and Plan: quite elevated on admission now in normal range s/p Zometa and calcitonin ultimately, if she does have MM, treatment of that with keep Ca++ stable (4) Back pain: Code(s): M54.9 - Dorsalgia, unspecified Status: Acute Assessment and Plan: presumably secondary to lytic lesions follow-up on bone marrow biopsy Hem/Onc following Will continue to follow. Subjective Date/time seen: 06/11/22 12:32 No real significant change at this time; seems a bit more interactive today; respiratory status seems relatively stable; no other acute issues/events voiced or to report; no apparent distress noted. Exam Narrative: General: elderly female in NAD Heart: normal S1 and S2; no rub Lungs: coarse breath sounds Abdomen: soft, nontender, nondistended, positive bowel sounds Extremities: no cyanosis or clubbing; no edema Skin: warm and intact Objective Data Vital Signs Vital Signs: Vital Signs Temp Pulse Resp BP Pulse Ox O2 Del Method O2 Flow Rate 06/11/22 12:00 83 24 H 96 High Flow Therapy with Na 5 06/11/22 12:00 82 06/11/22 12:33 97.6 F 83 24 H 101/49 L 96 06/11/22 10:00 84 06/11/22 08:00 84 06/11/22 08:00 88 24 H 96 High Flow Therapy with Na 5 06/11/22 09:24 88 94/50 L 06/11/22 09:24 97.1 F L 84 24 H 96/47 L 96 06/11/22 08:42 97.1 F L 84 24 H 96/47 L 96 06/11/22 06:00 82 06/11/22 04:00 89 20 96 High Flow Therapy with Na 5 06/11/22 04:00 81 06/11/22 04:00 97.6 F 81 18 98/50 L 97 06/11/22 02:00 84 06/11/22 00:00 80 06/11/22 00:00 89 20 96 High Flow Therapy with Na 5 06/10/22 23:30 98.1 F 85 20 92/53 L 98 06/10/22 22:00 83 06/10/22 20:00 86 06/10/22 20:00 97.6 F 85 18 99/50 L 99 06/10/22 20:00 99/50 L 06/10/22 20:00 89 20 96 High Flow Therapy with Na 5 06/10/22 18:00 89 06/10/22 16:59 98.3 F 85 20 107/53 L 96 06/10/22 16:00 85 06/10/22 16:00 95 High Flow Therapy with Na 5 Intake/Output Intake/Output: Intake & Output 06/08/22 06/09/22 06/10/22 06/11/22 23:59 23:59 23:59 23:59 Intake Total 1074 700 720 650 Output Total 2700 1550 1200 600 Balance -6573 -850 -041 50 Meds/Results Medications: Active Medications Generic Name Dose Route Start Last Admin Trade Name Freq PRN Reason Stop Dose Admin Acetaminophen 650 mg 06/07/22 22:23 Acetaminophen 325 Mg Tablet PO Q6H PRN Mild Pain (1-3) or Fever Hydrocodone Bitart/Acetaminophen 1 tab 06/08/22 16:01 06/10/22 08:18 Hydrocodone/Acetaminophen (*Crx) 5-325 Mg Tablet PO 1 tab Q4H PRN Administration Pain Rated 4-6 Enoxaparin Sodium 30 mg 06/08/22 17:00 06/09/22 18:15 Enoxaparin 30 Mg/0.3 Ml Syringe SUB-Q 30 mg Q24H HERBERTH Administration Famoti
--- NOTE | 2022-06-11 12:32 | P.PNNP_ITS ---
Progress Note: A&P Assessment and Plan (1) Acute kidney injury: Code(s): N17.9 - Acute kidney failure, unspecified Status: Acute Assessment and Plan: * baseline creatinine runs around 1.0mg/dl * evaluation to date: * renal ultrasound with some increased echogenicity and simple cyst on left * FeNA and FeUrea are non-prerenal * moderate proteinuria (~ 870mg) noted * CPK not elevated * suspicion falls on myeloma kidney * fluctuations in creatinine could also be related to diuretics and pneumonia * follow-up on bone marrow biopsy * if inconclusive, consider renal biopsy(?) (2) Acute respiratory failure with hypoxia: Code(s): J96.01 - Acute respiratory failure with hypoxia Status: Acute Assessment and Plan: * unclear etiology but suspect pneumonia * continue antibiotics, currently on rocephin and azithromycin which was started on 06/07 * diuresis on hold due to renal dysfunction * continue current therapy (3) Hypercalcemia: Code(s): E83.52 - Hypercalcemia Status: Acute Assessment and Plan: * quite elevated on admission * now in normal range s/p Zometa and calcitonin * ultimately, if she does have MM, treatment of that with keep Ca++ stable (4) Back pain: Code(s): M54.9 - Dorsalgia, unspecified Status: Acute Assessment and Plan: * presumably secondary to lytic lesions * follow-up on bone marrow biopsy * Hem/Onc following Will continue to follow. Subjective Date/time seen: 06/11/22 12:32 No real significant change at this time; seems a bit more interactive today; respiratory status seems relatively stable; no other acute issues/events voiced or to report; no apparent distress noted. Exam Narrative: General: elderly female in NAD Heart: normal S1 and S2; no rub Lungs: coarse breath sounds Abdomen: soft, nontender, nondistended, positive bowel sounds Extremities: no cyanosis or clubbing; no edema Skin: warm and intact Objective Data Vital Signs Vital Signs: Vital Signs Temp Pulse Resp BP Pulse Ox O2 Del Method O2 Flow Rate 06/11/22 12:00 83 24 H 96 High Flow Therapy with Na 5 06/11/22 12:00 82 06/11/22 12:33 97.6 F 83 24 H 101/49 L 96 06/11/22 10:00 84 06/11/22 08:00 84 06/11/22 08:00 88 24 H 96 High Flow Therapy with Na 5 06/11/22 09:24 88 94/50 L 06/11/22 09:24 97.1 F L 84 24 H 96/47 L 96 06/11/22 08:42 97.1 F L 84 24 H 96/47 L 96 06/11/22 06:00 82 06/11/22 04:00 89 20 96 High Flow Therapy with Na 5 06/11/22 04:00 81 06/11/22 04:00 97.6 F 81 18 98/50 L 97 06/11/22 02:00 84 06/11/22 00:00 80 06/11/22 00:00 89 20 96 High Flow Therapy with Na 5 06/10/22 23:30 98.1 F 85 20 92/53 L 98 06/10/22 22:00 83 06/10/22 20:00 86 06/10/22 20:00 97.6 F 85 18 99/50 L 99 06/10/22 20:00 99/50 L 06/10/22 20:00 89 20 96 High Flow Therapy with Na 5 06/10/22 18:00 89 06/10/22 16:59 98.3 F 85 20 107/53 L 96 06/10/22 16:00 85 06/10/22 16:00 95 High Flow Therapy with Na 5 Intake/Output Intake/Output:
--- NOTE | 2022-06-11 15:14 | PM.IMPN ---
Progress Note: A&P Assessment and Plan (1) Acute respiratory failure with hypoxia: Code(s): J96.01 - Acute respiratory failure with hypoxia Status: Acute Assessment and Plan: Unsure of etiologies, suspect pneumonia, continue antibiotics, currently on rocephin and azithromycin which was started on 06/07 Volume overload versus pneumonia Diuresis on hold due to renal dysfunction. Repeat chest x-ray with marked improvement in extensive bilateral airspace disease. BNP elevated at 9720 Continue Rocephin and azithromycin for pneumonia. Will discontinue azithromycin (2) Acute kidney injury: Code(s): N17.9 - Acute kidney failure, unspecified Status: Acute Assessment and Plan: Appreciate nephrology consultation, BUN and creatinine slightly worse today, monitor Cr upto 1.8 was normal back in July Renal ultrasound with no hydronephrosis CK normal Possible myeloma kidney workup in progress. (3) Elevated troponin: Code(s): R77.8 - Other specified abnormalities of plasma proteins Status: Acute Assessment and Plan: Follow-up echo, echo from March 2022 showed an EF of 55-60% with grade 1 diastolic function, no significant valvular abnormality, no pulmonary hypertension 06/09: Echo EF 60-65% [id number] aortic valve stenosis. Mild pulmonary hypertension. No significant other valvular abnormalities. (4) Lytic lesion of bone on x-ray: Code(s): M89.9 - Disorder of bone, unspecified Status: Acute Assessment and Plan: Multiple lytic bone lesions in the pelvis, vertebrae, and skull most concerning for multiple myeloma given other findings. Serum immunofixation and protein electrophoresis have been obtained and are pending. [place] as needed for pain, oncology concern for multiple myeloma, appreciate consultation Status post bone marrow biopsy 06/10 (5) Hypercalcemia: Code(s): E83.52 - Hypercalcemia Status: Acute Assessment and Plan: Appreciate nephrology consultation as well as Oncology, started on calcitonin Calcium is improved down to normal 06/10. Admission calcium of 15.6 SPEP UPEP pending PTH RP pending (6) Back pain: Code(s): M54.9 - Dorsalgia, unspecified Status: Acute Assessment and Plan: Continue fentanyl patch, [place] as needed She seemed more sleepy will stop her fentanyl patch Plan DVT prophylaxis with Lovenox GI prophylaxis with Pepcid Code status full code Disposition: Will order PT OT and start ambulating may need rehabilitation Subjective Date/time seen: 06/11/22 15:14 Interval history: No overnight events reported. Discussed with the nursing staff. Discussed with family. Feels sleepy and weak Review of Systems Review of Systems: All systems reviewed & are unremarkable except as noted in HPI and below Exam Narrative: General: Mildly confused more awake, not in acute distress HEENT: Atraumatic, normocephalic, mucous membranes moist CV: Regular rate and rhythm, S1, S2 Lungs: Coarse breath sounds bilaterally not in respiratory distress Abdomen: Soft, nontender, nondistended Extremities: Normal to inspection Skin: No rashes noted, no lesions or wounds seen Objective Data Vital Signs Vital Signs: Vital Signs - 24 hr 06/10/22 16:00 06/10/22 16:00 06/10/22 16:59 Temperature 98.3 F Pulse Rate 85 85 Respiratory Rate 20 Blood Pressure 107/53 L Pulse Oximetry 95 96 Oxygen Delivery High Flow Therapy with Na Oxygen Flow Rate 5 06/10/22 18:00 06/10/22 20:00 06/10/22 20:00 Temperature Pulse Rate 89 89 Respiratory Rate 20 Blood Pressure 99/50 L Pulse Oximetry 96 Oxygen Delivery High Flow Therapy with Na Oxygen Flow Rate 5 06/10/22 20:00 06/10/22 20:00 06/10/22 22:00 Temperature 97.6 F Pulse Rate 85 86 83 Respiratory Rate 18 Blood Pressure 99/50 L Pulse Oximetry 99 Oxygen Delivery Oxygen Flow Rate 06/10/22 23:30 06/11
[2022-06-11] MEDS: POTASSIUM CHLORIDE 20 MEQ PACKET (FOR LIQUID) 40 MEQ PO (17:50)
[2022-06-12] VITALS (16 sets, daily range): BP systolic 91–110; BP diastolic 37–56; PULSE 74–88; RESP 16–20; TEMP 35.8–36.7; O2SAT 95–99
[2022-06-12] MEDS: HYDROcodone/acetaminophen (*CRX) 5-325 MG TABLET 1 TAB PO ×2 (04:54→10:30)
[2022-06-12 05:08] LABS: Basophils Percent Auto 0.3 % (0.2-1.2); Eosinophils Absolute Auto 0.2 K/mm3 (0-0.3); Eosinophils Percent Auto 5.3 % (0-4.4); Hematocrit 27.9 % (37.0-47.0); Hemoglobin 8.8 g/dL (12.0-15.0); Immature Granulocyte Absolute 0.02 K/mm3 (0.00-0.031); Immature Granulocyte Percent A 0.5 % (0-0.5); Lymphocytes Absolute Auto 0.49 K/mm3 (0.9-3.2); Mean Corpuscular HGB Conc 31.5 g/dl (32-36); Mean Corpuscular Hemoglobin 32.4 pg (26-34); Mean Corpuscular Volume 102.6 fl (80-100); Mean Platelet Volume 10.3 fl (7.4-10.4); Monocytes Absolute Auto 0.4 K/mm3 (0.1-0.6); Monocytes Percent Auto 10.4 % (2.6-8.5); Neutrophils Absolute Auto 2.7 K/mm3 (1.3-6.7); Neutrophils Percent Auto 70.5 % (45.5-73.1); Nucleated Red Blood Cells Perc 0.8 % (0.0-0.2); Platelet Count Result 184 k/mm3 (150-375); Red Blood Count 2.72 M/mm3 (4.2-5.4); Red Cell Distribution Width 17.9 % (11.5-14.5); White Blood Count 3.8 K/mm3 (4.5-10.0)
[2022-06-12 05:18] LABS: Alanine Aminotransferase 18 U/L (6-35); Albumin Level 2.8 g/dL (3.5-5.1); Alkaline Phosphatase 106 U/L (38-126); Anion Gap 3 mmol/L (8-16); Aspartate Amino Transferase 54 U/L (14-36); Bilirubin,Total 0.4 mg/dL (0.2-1.3); Blood Urea Nitrogen 63 mg/dL (7-17); Calcium 8.3 mg/dL (8.4-10.2); Carbon Dioxide 27 mmol/L (22-30); Chloride 101 mmol/L (98-107); Estimated CRCL calculation 32 ml/min; Estimated Glomerular Filt Rate 35; Glucose 94 mg/dL (65-110); Magnesium 1.7 mg/dL (1.6-2.3); Potassium 3.3 mmol/L (3.4-5.0); Sodium 131 mmol/L (137-145)
[2022-06-12] MEDS: FAMOTIDINE 20 MG TABLET PO (09:06)
[2022-06-12] MEDS: MULTIVITAMINS THERAPEUTIC TAB (*BKC) 1 TABLET PO (09:06)
[2022-06-12] MEDS: POTASSIUM CHLORIDE 20 MEQ TABLET 40 MEQ PO (09:06)
--- NOTE | 2022-06-12 10:52 | PCNFU ---
Nutrition Follow-Up Complete: Inadequate energy intake related to altered GI tolerance as evidenced by c/o nausea and vomiting. Goal:PO intake 75% of meals and supplements. Pt slowly progressing towards goal. Pt current nutrition is Heart healthy. Nutrition recommendation: Change supplement back to Ensure Clear per preference Last recorded weight is 78.4 kg - stable at this time Bowel Motility: No BM recorded at this time. Labs Reviewed: hgb:8.8, HCT:27.9, Alb:2.8, NA:131, K:3.3, BUN:63, Cr:1.5 Meds Noted: MVI, Ca/Vit D Skin: WNL Additional Notes: Pt continues on a heart healthy diet, intake poor at 10-20% of meals. Ensure compact in place, noted pt prefers Ensure Clear, will change order back. 1800ml fluid restriction in place and noted. Continue to encourage intake of meals and supplements. Monitor intake, tolerance, wt, labs. Follow up in 5 days.
--- NOTE | 2022-06-12 12:00 | PM.PNNEP ---
Progress Note: A&P Assessment and Plan (1) Acute kidney injury: Code(s): N17.9 - Acute kidney failure, unspecified Status: Acute Assessment and Plan: baseline creatinine runs around 1.0mg/dl evaluation to date: renal ultrasound with some increased echogenicity and simple cyst on left FeNA and FeUrea are non-prerenal moderate proteinuria (~ 870mg) noted CPK not elevated suspicion falls on myeloma kidney fluctuations in creatinine could also be related to diuretics and pneumonia follow-up on bone marrow biopsy if inconclusive, consider renal biopsy(?) (2) Acute respiratory failure with hypoxia: Code(s): J96.01 - Acute respiratory failure with hypoxia Status: Acute Assessment and Plan: unclear etiology but suspect pneumonia continue antibiotics, currently on rocephin and azithromycin which was started on 06/07 diuresis on hold due to renal dysfunction continue current therapy (3) Hypercalcemia: Code(s): E83.52 - Hypercalcemia Status: Acute Assessment and Plan: quite elevated on admission now in normal range s/p Zometa and calcitonin ultimately, if she does have MM, treatment of that with keep Ca++ stable (4) Back pain: Code(s): M54.9 - Dorsalgia, unspecified Status: Acute Assessment and Plan: presumably secondary to lytic lesions follow-up on bone marrow biopsy Hem/Onc following Long and extensive discussion (> 20 minutes) with family and friend at bedside regarding her renal dysfunction and concern for multiple myeloma (pathology pending) as potential cause for renal failure. Will continue to follow. Subjective Date/time seen: 06/12/22 12:00 A bit more conversive/talkative at the time of my visit; family and friend at bedside at the time of my visit; respiratory status/breathing seems relatively stable; improvement in renal function noted by AM labs; no apparent distress voiced. Exam Narrative: General: elderly female in NAD Heart: normal S1 and S2; no rub Lungs: coarse breath sounds Abdomen: soft, nontender, nondistended, positive bowel sounds Extremities: no cyanosis or clubbing; no edema Skin: no rash Objective Data Vital Signs Vital Signs: Vital Signs Temp Pulse Resp BP Pulse Ox O2 Del Method O2 Flow Rate 06/12/22 12:00 76 06/12/22 10:00 77 06/12/22 08:40 98 Nasal Cannula 2 06/12/22 08:40 78 06/12/22 10:27 Nasal Cannula 2 06/12/22 08:07 81 98/42 L 06/12/22 08:06 96.7 F L 78 18 91/37 L 98 06/12/22 08:05 96.7 F L 78 18 91/37 L 98 06/12/22 06:00 74 06/12/22 05:00 95 Nasal Cannula 2 06/12/22 04:00 84 06/12/22 04:00 88 06/12/22 02:00 86 06/12/22 00:00 99 Nasal Cannula 4 06/12/22 00:00 85 06/11/22 23:48 97.9 F 81 20 115/54 L 99 06/11/22 22:00 80 06/11/22 20:00 81 06/11/22 20:00 98 High Flow Therapy with Na 5 06/11/22 20:00 97.6 F 82 18 115/56 L 98 06/11/22 20:00 115/56 L 06/11/22 18:00 85 06/11/22 17:03 97.6 F 81 18 103/52 L 99 Intake/Output Intake/Output: Intake & Output 06/09/22 06/10/22 06/11/22 06/12/22 23:59 23:59 23:59 23:59 Intake Total 700 720 820 720 Output Total 1550 1200 1000 300 Balance -850 -480 -180 420 Meds/Results Medications: Active Medications Generic Name Dose Route Start Last Admin Trade Name Freq PRN Reason Stop Dose Admin Acetaminophen 650 mg 06/07/22 22:23 Acetaminophen 325 Mg Tablet PO Q6H PRN Mild Pain (1-3) or Fever Hydrocodone Bitart/Acetaminophen 1 tab 06/08/22 16:01 06/12/22 10:30 Hydrocodone/Acetaminophen (*Crx) 5-325 Mg Tablet PO 1 tab Q4H PRN Administration Pain Rated 4-6 Dexamethasone 8 mg 06/12/22 13:25 06/12/22 14:29 Dexamethasone 4 Mg Tablet PO 06/17/22 13:24 8 mg DAILY@0800 HERBERTH Administration E
--- NOTE | 2022-06-12 12:00 | P.PNNP_ITS ---
Progress Note: A&P Assessment and Plan (1) Acute kidney injury: Code(s): N17.9 - Acute kidney failure, unspecified Status: Acute Assessment and Plan: * baseline creatinine runs around 1.0mg/dl * evaluation to date: * renal ultrasound with some increased echogenicity and simple cyst on left * FeNA and FeUrea are non-prerenal * moderate proteinuria (~ 870mg) noted * CPK not elevated * suspicion falls on myeloma kidney * fluctuations in creatinine could also be related to diuretics and pneumonia * follow-up on bone marrow biopsy * if inconclusive, consider renal biopsy(?) (2) Acute respiratory failure with hypoxia: Code(s): J96.01 - Acute respiratory failure with hypoxia Status: Acute Assessment and Plan: * unclear etiology but suspect pneumonia * continue antibiotics, currently on rocephin and azithromycin which was started on 06/07 * diuresis on hold due to renal dysfunction * continue current therapy (3) Hypercalcemia: Code(s): E83.52 - Hypercalcemia Status: Acute Assessment and Plan: * quite elevated on admission * now in normal range s/p Zometa and calcitonin * ultimately, if she does have MM, treatment of that with keep Ca++ stable (4) Back pain: Code(s): M54.9 - Dorsalgia, unspecified Status: Acute Assessment and Plan: * presumably secondary to lytic lesions * follow-up on bone marrow biopsy * Hem/Onc following Long and extensive discussion (> 20 minutes) with family and friend at bedside regarding her renal dysfunction and concern for multiple myeloma (pathology pending) as potential cause for renal failure. Will continue to follow. Subjective Date/time seen: 06/12/22 12:00 A bit more conversive/talkative at the time of my visit; family and friend at bedside at the time of my visit; respiratory status/breathing seems relatively stable; improvement in renal function noted by AM labs; no apparent distress voiced. Exam Narrative: General: elderly female in NAD Heart: normal S1 and S2; no rub Lungs: coarse breath sounds Abdomen: soft, nontender, nondistended, positive bowel sounds Extremities: no cyanosis or clubbing; no edema Skin: no rash Objective Data Vital Signs Vital Signs: Vital Signs Temp Pulse Resp BP Pulse Ox O2 Del Method O2 Flow Rate 06/12/22 12:00 76 06/12/22 10:00 77 06/12/22 08:40 98 Nasal Cannula 2 06/12/22 08:40 78 06/12/22 10:27 Nasal Cannula 2 06/12/22 08:07 81 98/42 L 06/12/22 08:06 96.7 F L 78 18 91/37 L 98 06/12/22 08:05 96.7 F L 78 18 91/37 L 98 06/12/22 06:00 74 06/12/22 05:00 95 Nasal Cannula 2 06/12/22 04:00 84 06/12/22 04:00 88 06/12/22 02:00 86 06/12/22 00:00 99 Nasal Cannula 4 06/12/22 00:00 85 06/11/22 23:48 97.9 F 81 20 115/54 L 99 06/11/22 22:00 80 06/11/22 20:00 81 06/11/22 20:00 98 High Flow Therapy with Na 5 06/11/22 20:00 97.6 F 82 18 115/56 L 98 06/11/22 20:00 115/56 L 06/11/22 18:00 85 06/11/22 17:03 97.6 F 81 18 103/52 L 99 Intake/Output Intake/Output:
[2022-06-12] MEDS: DEXAMETHASONE 4 MG TABLET 8 MG PO (14:29)
--- NOTE | 2022-06-12 18:14 | PM.IMPN ---
Progress Note: A&P Assessment and Plan (1) Acute respiratory failure with hypoxia: Code(s): J96.01 - Acute respiratory failure with hypoxia Status: Acute Assessment and Plan: Unsure of etiologies, suspect pneumonia, continue antibiotics, currently on rocephin and azithromycin which was started on 06/07 Volume overload versus pneumonia Diuresis on hold due to renal dysfunction. Repeat chest x-ray with marked improvement in extensive bilateral airspace disease. BNP elevated at 9720 Continue Rocephin and azithromycin for pneumonia. Will discontinue azithromycin (2) Acute kidney injury: Code(s): N17.9 - Acute kidney failure, unspecified Status: Acute Assessment and Plan: Appreciate nephrology consultation, BUN and creatinine slightly worse today, monitor Cr upto 1.8 was normal back in July Renal ultrasound with no hydronephrosis CK normal Possible myeloma kidney workup in progress. (3) Elevated troponin: Code(s): R77.8 - Other specified abnormalities of plasma proteins Status: Acute Assessment and Plan: Follow-up echo, echo from March 2022 showed an EF of 55-60% with grade 1 diastolic function, no significant valvular abnormality, no pulmonary hypertension 06/09: Echo EF 60-65% [id number] aortic valve stenosis. Mild pulmonary hypertension. No significant other valvular abnormalities. (4) Lytic lesion of bone on x-ray: Code(s): M89.9 - Disorder of bone, unspecified Status: Acute Assessment and Plan: Multiple lytic bone lesions in the pelvis, vertebrae, and skull most concerning for multiple myeloma given other findings. Serum immunofixation and protein electrophoresis have been obtained and are pending. [place] as needed for pain, oncology concern for multiple myeloma, appreciate consultation Status post bone marrow biopsy 06/10 Will start Decadron 8 mg pulse dose for 5 days as suggested by adhesion tester (5) Hypercalcemia: Code(s): E83.52 - Hypercalcemia Status: Acute Assessment and Plan: Appreciate nephrology consultation as well as Oncology, started on calcitonin Calcium is improved down to normal 06/10. Admission calcium of 15.6 SPEP UPEP pending PTH RP pending Intact PTH normal (6) Back pain: Code(s): M54.9 - Dorsalgia, unspecified Status: Acute Assessment and Plan: Continue fentanyl patch, [place] as needed She seemed more sleepy will stop her fentanyl patch currently more awake Plan DVT prophylaxis with Lovenox GI prophylaxis with Pepcid Code status full code Disposition: Seen by PT OT. Needs acute rehab Time Spent With Patient Time: Discussed with Hematology-Oncology today Discussed with the family at bedside Subjective Date/time seen: 06/12/22 18:14 Interval history: No overnight events. Looks more awake. Discussed with family at bedside. Still we week. Work with therapy this morning. Review of Systems Review of Systems: All systems reviewed & are unremarkable except as noted in HPI and below Exam Narrative: General: Mildly confused more awake, not in acute distress HEENT: Atraumatic, normocephalic, mucous membranes moist CV: Regular rate and rhythm, S1, S2 Lungs: Coarse breath sounds bilaterally not in respiratory distress Abdomen: Soft, nontender, nondistended Extremities: Normal to inspection Skin: No rashes noted, no lesions or wounds seen Objective Data Vital Signs Vital Signs: Vital Signs - 24 hr 06/11/22 20:00 06/11/22 20:00 06/11/22 20:00 Temperature 97.6 F Pulse Rate 82 Respiratory Rate 18 Blood Pressure 115/56 L 115/56 L Pulse Oximetry 98 98 Oxygen Delivery High Flow Therapy with Na Oxygen Flow Rate 5 06/11/22 20:00 06/11/22 22:00 06/11/22 23:48 Temperature 97.9 F Pulse Rate 81 80 81 Respiratory Rate 20 Blood Pressure 115/54 L Pulse Oximetry 99 Oxygen Delivery Oxygen Flow Rate 06/12/22 00:00 06/12/22
[2022-06-12 20:57] LABS: Abnormal Protein Band 1 5.4 g/dL; Albumin 3.1 g/dL (3.8-4.8); Alpha 1 Globulin 0.4 g/dL (0.2-0.3); Alpha 2 Globulin 0.9 g/dL (0.5-0.9); Beta 1 Globulin 0.4 g/dL (0.4-0.6); Gamma Globulin 5.8 g/dL (0.8-1.7)
[2022-06-13] VITALS (7 sets, daily range): BP systolic 95–112; BP diastolic 42–59; PULSE 80–91; RESP 16–20; TEMP 36.4–36.9; O2SAT 93–97
[2022-06-13 04:59] LABS: Basophils Percent Auto 0.4 % (0.2-1.2); Eosinophils Percent Auto 0.2 % (0-4.4); Hematocrit 29.5 % (37.0-47.0); Hemoglobin 9.1 g/dL (12.0-15.0); Immature Granulocyte Absolute 0.04 K/mm3 (0.00-0.031); Immature Granulocyte Percent A 0.7 % (0-0.5); Lymphocytes Absolute Auto 0.48 K/mm3 (0.9-3.2); Lymphocytes Percent Auto 8.8 % (18.3-44.2); Mean Corpuscular HGB Conc 30.8 g/dl (32-36); Mean Corpuscular Hemoglobin 31.5 pg (26-34); Mean Corpuscular Volume 102.1 fl (80-100); Mean Platelet Volume 10.3 fl (7.4-10.4); Monocytes Absolute Auto 0.3 K/mm3 (0.1-0.6); Monocytes Percent Auto 5.7 % (2.6-8.5); Neutrophils Absolute Auto 4.6 K/mm3 (1.3-6.7); Neutrophils Percent Auto 84.2 % (45.5-73.1); Platelet Count Result 212 k/mm3 (150-375); Red Blood Count 2.89 M/mm3 (4.2-5.4); Red Cell Distribution Width 17.2 % (11.5-14.5); White Blood Count 5.5 K/mm3 (4.5-10.0)
[2022-06-13 05:04] LABS: Alanine Aminotransferase 22 U/L (6-35); Alkaline Phosphatase 123 U/L (38-126); Anion Gap 1 mmol/L (8-16); Aspartate Amino Transferase 51 U/L (14-36); Bilirubin,Total 0.3 mg/dL (0.2-1.3); Blood Urea Nitrogen 55 mg/dL (7-17); Calcium 8.8 mg/dL (8.4-10.2); Carbon Dioxide 25 mmol/L (22-30); Chloride 102 mmol/L (98-107); Estimated CRCL calculation 34 ml/min; Estimated Glomerular Filt Rate 37; Glucose 150 mg/dL (65-110); Magnesium 1.6 mg/dL (1.6-2.3); Potassium 4.1 mmol/L (3.4-5.0); Sodium 128 mmol/L (137-145)
[2022-06-13] MEDS: NEOMYCIN/POLYMYXIN/BACITRACIN OINTMENT PACKET 1 PACKET (07:03)
[2022-06-13] MEDS: DEXAMETHASONE 4 MG TABLET 8 MG PO (09:20)
[2022-06-13] MEDS: FAMOTIDINE 20 MG TABLET PO (09:20)
[2022-06-13] MEDS: MULTIVITAMINS THERAPEUTIC TAB (*BKC) 1 TABLET PO (09:20)
[2022-06-13] MEDS: HYDROcodone/acetaminophen (*CRX) 5-325 MG TABLET 1 TAB PO (09:20)
--- NOTE | 2022-06-13 09:40 | PCOTNOTE ---
Attempted occupational therapy evaluation this date. Pt refused due to increased pain and still trying to eat. Following.
--- NOTE | 2022-06-13 12:02 | PM.PNNEP ---
Progress Note: A&P Assessment and Plan (1) Acute kidney injury: Code(s): N17.9 - Acute kidney failure, unspecified Status: Acute Assessment and Plan: some improvement noted baseline creatinine runs around 1.0mg/dl evaluation to date: renal ultrasound with some increased echogenicity and simple cyst on left FeNA and FeUrea are non-prerenal moderate proteinuria (~ 870mg) noted CPK not elevated suspicion falls on myeloma kidney fluctuations in creatinine could also be related to previous use of diuretics along pneumonia follow-up on bone marrow biopsy if inconclusive, consider renal biopsy(?) (2) Acute respiratory failure with hypoxia: Code(s): J96.01 - Acute respiratory failure with hypoxia Status: Acute Assessment and Plan: unclear etiology but suspect pneumonia on antibiotics -- to complete full course today diuresis on hold due to renal dysfunction continue current therapy (3) Hypercalcemia: Code(s): E83.52 - Hypercalcemia Status: Acute Assessment and Plan: quite elevated on admission now in normal range s/p Zometa and calcitonin ultimately, if she does have MM, treatment of that with keep Ca++ stable (4) Back pain: Code(s): M54.9 - Dorsalgia, unspecified Status: Acute Assessment and Plan: presumably secondary to lytic lesions follow-up on bone marrow biopsy Hem/Onc following Will continue to follow. Subjective Date/time seen: 06/13/22 12:02 Seems to be doing reasonably well at the time of my visit -- mentation continues to slowly improve; respiratory status seems stable if not better; major complaint is that of back pain. Exam Narrative: General: elderly female in NAD Heart: normal S1 and S2; no rub Lungs: coarse breath sounds Abdomen: soft, nontender, nondistended, positive bowel sounds Extremities: no cyanosis or clubbing; no edema Skin: no nodules Objective Data Vital Signs Vital Signs: Vital Signs Temp Pulse Resp BP Pulse Ox O2 Del Method 06/13/22 12:00 97.6 F 80 16 112/53 L 97 06/13/22 08:00 85 06/13/22 08:00 Room Air 06/13/22 08:00 98.4 F 85 20 99/53 L 95 06/13/22 04:00 97.9 F 83 16 104/56 L 93 06/13/22 04:00 86 06/13/22 00:00 84 06/12/22 20:00 110/56 L 06/13/22 00:00 98.1 F 81 18 109/59 L 94 06/12/22 20:00 109/56 L 06/12/22 20:00 84 06/12/22 20:00 Room Air 06/12/22 20:00 98.1 F 81 16 109/56 L 97 06/12/22 17:17 96.4 F L 78 20 103/45 L 99 06/12/22 16:00 77 Intake/Output Intake/Output: Intake & Output 06/10/22 06/11/22 06/12/22 06/13/22 23:59 23:59 23:59 23:59 Intake Total 720 820 920 740 Output Total 1200 1000 850 900 Balance -480 -180 70 -160 Meds/Results Medications: Active Medications Generic Name Dose Route Start Last Admin Trade Name Freq PRN Reason Stop Dose Admin Acetaminophen 650 mg 06/07/22 22:23 Acetaminophen 325 Mg Tablet PO Q6H PRN Mild Pain (1-3) or Fever Hydrocodone Bitart/Acetaminophen 1 tab 06/08/22 16:01 06/13/22 09:20 Hydrocodone/Acetaminophen (*Crx) 5-325 Mg Tablet PO 1 tab Q4H PRN Administration Pain Rated 4-6 Dexamethasone 8 mg 06/12/22 13:25 06/13/22 09:20 Dexamethasone 4 Mg Tablet PO 06/17/22 13:24 8 mg DAILY@0800 HERBERTH Administration Enoxaparin Sodium 30 mg 06/08/22 17:00 06/09/22 18:15 Enoxaparin 30 Mg/0.3 Ml Syringe SUB-Q 30 mg Q24H HERBERTH Administration Famotidine 20 mg 06/08/22 09:00 06/13/22 09:20 Famotidine 20 Mg Tablet PO 20 mg DAILY HERBERTH Administration Ceftriaxone Sodium/Dextrose 1 gm in 50 mls @ 100 mls/hr 06/07/22 23:00 06/12/22 20:24 Rocephin 1 Gm/D5w 50 Ml IVPB 100 mls/hr DAILY@2100 HERBERTH Administration Morphine Sulfate 1 mg 06/07/22 18:38 06/10/22 08:19 Morphine Sulfate (*Crx) 2 Mg/Ml Inj IV PUSH 1 mg Q3HR PRN Administr
--- NOTE | 2022-06-13 12:02 | P.PNNP_ITS ---
Progress Note: A&P Assessment and Plan (1) Acute kidney injury: Code(s): N17.9 - Acute kidney failure, unspecified Status: Acute Assessment and Plan: * some improvement noted * baseline creatinine runs around 1.0mg/dl * evaluation to date: * renal ultrasound with some increased echogenicity and simple cyst on left * FeNA and FeUrea are non-prerenal * moderate proteinuria (~ 870mg) noted * CPK not elevated * suspicion falls on myeloma kidney * fluctuations in creatinine could also be related to previous use of diuretics along pneumonia * follow-up on bone marrow biopsy * if inconclusive, consider renal biopsy(?) (2) Acute respiratory failure with hypoxia: Code(s): J96.01 - Acute respiratory failure with hypoxia Status: Acute Assessment and Plan: * unclear etiology but suspect pneumonia * on antibiotics -- to complete full course today * diuresis on hold due to renal dysfunction * continue current therapy (3) Hypercalcemia: Code(s): E83.52 - Hypercalcemia Status: Acute Assessment and Plan: * quite elevated on admission * now in normal range s/p Zometa and calcitonin * ultimately, if she does have MM, treatment of that with keep Ca++ stable (4) Back pain: Code(s): M54.9 - Dorsalgia, unspecified Status: Acute Assessment and Plan: * presumably secondary to lytic lesions * follow-up on bone marrow biopsy * Hem/Onc following Will continue to follow. Subjective Date/time seen: 06/13/22 12:02 Seems to be doing reasonably well at the time of my visit -- mentation continues to slowly improve; respiratory status seems stable if not better; major complaint is that of back pain. Exam Narrative: General: elderly female in NAD Heart: normal S1 and S2; no rub Lungs: coarse breath sounds Abdomen: soft, nontender, nondistended, positive bowel sounds Extremities: no cyanosis or clubbing; no edema Skin: no nodules Objective Data Vital Signs Vital Signs: Vital Signs Temp Pulse Resp BP Pulse Ox O2 Del Method 06/13/22 12:00 97.6 F 80 16 112/53 L 97 06/13/22 08:00 85 06/13/22 08:00 Room Air 06/13/22 08:00 98.4 F 85 20 99/53 L 95 06/13/22 04:00 97.9 F 83 16 104/56 L 93 06/13/22 04:00 86 06/13/22 00:00 84 06/12/22 20:00 110/56 L 06/13/22 00:00 98.1 F 81 18 109/59 L 94 06/12/22 20:00 109/56 L 06/12/22 20:00 84 06/12/22 20:00 Room Air 06/12/22 20:00 98.1 F 81 16 109/56 L 97 06/12/22 17:17 96.4 F L 78 20 103/45 L 99 06/12/22 16:00 77 Intake/Output Intake/Output: Intake & Output 06/10/22 06/11/22 06/12/22 06/13/22 23:59 23:59 23:59 23:59 Intake Total 720 820 920 740 Output Total 1200 1000 850 900 Balance -480 -180 70 -160 Meds/Results Medications: Active Medications Generic Name Dose Route Start Last Admin Trade Name Freq PRN Reason Stop Dose Admin Acetaminophen 650 mg 06/07/22 22:23 Acetaminophen 325 Mg Tablet PO Q6H PRN Mild Pain (1-3) or Fever Hydrocodone Bitart/[place]
--- NOTE | 2022-06-13 14:23 | PM.IMPN ---
Progress Note: A&P Assessment and Plan (1) Acute respiratory failure with hypoxia: Code(s): J96.01 - Acute respiratory failure with hypoxia Status: Acute Assessment and Plan: Unsure of etiologies, suspect pneumonia, continue antibiotics, currently on rocephin and azithromycin which was started on 06/07 Volume overload versus pneumonia Diuresis on hold due to renal dysfunction. Repeat chest x-ray with marked improvement in extensive bilateral airspace disease. BNP elevated at 9720 Continue Rocephin and azithromycin for pneumonia. Discontinue azithromycin completes course of treatment for pneumonia will stop ceftriaxone as well (2) Acute kidney injury: Code(s): N17.9 - Acute kidney failure, unspecified Status: Acute Assessment and Plan: Appreciate nephrology consultation, BUN and creatinine slightly worse today, monitor Cr upto 1.8 was normal back in July Renal ultrasound with no hydronephrosis CK normal Possible myeloma kidney workup in progress. (3) Elevated troponin: Code(s): R77.8 - Other specified abnormalities of plasma proteins Status: Acute Assessment and Plan: Follow-up echo, echo from March 2022 showed an EF of 55-60% with grade 1 diastolic function, no significant valvular abnormality, no pulmonary hypertension 06/09: Echo EF 60-65% [id number] aortic valve stenosis. Mild pulmonary hypertension. No significant other valvular abnormalities. (4) Lytic lesion of bone on x-ray: Code(s): M89.9 - Disorder of bone, unspecified Status: Acute Assessment and Plan: Multiple lytic bone lesions in the pelvis, vertebrae, and skull most concerning for multiple myeloma given other findings. Serum immunofixation and protein electrophoresis have been obtained and are pending. [place] as needed for pain, oncology concern for multiple myeloma, appreciate consultation Status post bone marrow biopsy 06/10 Will start Decadron 8 mg pulse dose for 5 days as suggested by gang head saw operator (5) Hypercalcemia: Code(s): E83.52 - Hypercalcemia Status: Acute Assessment and Plan: Appreciate nephrology consultation as well as Oncology, started on calcitonin Calcium is improved down to normal 06/10. Admission calcium of 15.6 SPEP UPEP pending PTH RP pending Intact PTH normal (6) Back pain: Code(s): M54.9 - Dorsalgia, unspecified Status: Acute Assessment and Plan: Continue fentanyl patch, [place] as needed She seemed more sleepy will stop her fentanyl patch currently more awake Will increase [place] and methocarbamol Plan DVT prophylaxis with Lovenox GI prophylaxis with Pepcid Code status full code Disposition: Seen by PT OT. Needs acute rehab Subjective Date/time seen: 06/13/22 14:23 Interval history: No overnight events. Complains of pain in the back. Still feels weak. More awake and alert. Discussed pain option. No shortness of breath or chest pain or cough. Review of Systems Review of Systems: All systems reviewed & are unremarkable except as noted in HPI and below Exam Narrative: General: Alert and oriented x3 more awake, not in acute distress HEENT: Atraumatic, normocephalic, mucous membranes moist CV: Regular rate and rhythm, S1, S2 Lungs: Coarse breath sounds bilaterally not in respiratory distress Abdomen: Soft, nontender, nondistended Extremities: Normal to inspection Skin: No rashes noted, no lesions or wounds seen Objective Data Vital Signs Vital Signs: Vital Signs - 24 hr 06/12/22 16:00 06/12/22 17:17 06/12/22 20:00 Temperature 96.4 F L 98.1 F Pulse Rate 77 78 81 Respiratory Rate 20 16 Blood Pressure 103/45 L 109/56 L Pulse Oximetry 99 97 Oxygen Delivery 06/12/22 20:00 06/12/22 20:00 06/12/22 20:00 Temperature Pulse Rate 84 Respiratory Rate Blood Pressure 109/56 L Pulse Oximetry Oxygen Delivery Room Air 06/13/22 00:00 06/12/22 20:00 06/13/22
[2022-06-13] MEDS: HYDROcodone/acetaminophen (*CRX) 7.5-325 MG TABLET 1 TAB PO (14:51)
[2022-06-13] MEDS: ENOXAPARIN 30 MG/0.3 ML SYRINGE SUB-Q (17:54)
[2022-06-14] VITALS (9 sets, daily range): BP systolic 98–121; BP diastolic 55–72; PULSE 70–87; RESP 16–20; TEMP 36.1–36.6; O2SAT 97–100
[2022-06-14] MEDS: HYDROcodone/acetaminophen (*CRX) 7.5-325 MG TABLET 1 TAB PO ×3 (04:21→20:45)
[2022-06-14] MEDS: NEOMYCIN/POLYMYXIN/BACITRACIN OINTMENT PACKET 1 PACKET (04:22)
[2022-06-14 04:53] LABS: Basophils Percent Auto 0.1 % (0.2-1.2); Eosinophils Percent Auto 0.1 % (0-4.4); Hematocrit 30.3 % (37.0-47.0); Hemoglobin 9.2 g/dL (12.0-15.0); Immature Granulocyte Absolute 0.05 K/mm3 (0.00-0.031); Immature Granulocyte Percent A 0.6 % (0-0.5); Lymphocytes Absolute Auto 0.56 K/mm3 (0.9-3.2); Lymphocytes Percent Auto 7.2 % (18.3-44.2); Mean Corpuscular HGB Conc 30.4 g/dl (32-36); Mean Corpuscular Hemoglobin 31.4 pg (26-34); Mean Corpuscular Volume 103.4 fl (80-100); Mean Platelet Volume 10.2 fl (7.4-10.4); Monocytes Absolute Auto 0.8 K/mm3 (0.1-0.6); Monocytes Percent Auto 10.1 % (2.6-8.5); Neutrophils Absolute Auto 6.4 K/mm3 (1.3-6.7); Neutrophils Percent Auto 81.9 % (45.5-73.1); Nucleated Red Blood Cells Absolute Auto 0.1 K/mm3 (0.0-0.012); Nucleated Red Blood Cells Perc 0.6 % (0.0-0.2); Platelet Count Result 244 k/mm3 (150-375); Red Blood Count 2.93 M/mm3 (4.2-5.4); Red Cell Distribution Width 17.8 % (11.5-14.5); White Blood Count 7.8 K/mm3 (4.5-10.0)
[2022-06-14 05:16] LABS: Alanine Aminotransferase 61 U/L (6-35); Albumin Level 3.1 g/dL (3.5-5.1); Alkaline Phosphatase 207 U/L (38-126); Anion Gap 4 mmol/L (8-16); Aspartate Amino Transferase 98 U/L (14-36); Bilirubin,Total 0.4 mg/dL (0.2-1.3); Blood Urea Nitrogen 71 mg/dL (7-17); Calcium 8.8 mg/dL (8.4-10.2); Carbon Dioxide 23 mmol/L (22-30); Chloride 103 mmol/L (98-107); Estimated CRCL calculation 29 ml/min; Estimated Glomerular Filt Rate 32; Glucose 133 mg/dL (65-110); Magnesium 1.8 mg/dL (1.6-2.3); Potassium 3.7 mmol/L (3.4-5.0); Sodium 130 mmol/L (137-145)
--- NOTE | 2022-06-14 08:14 | PCOTNOTE ---
Attempted OT evaluation, pt refuses at this time as she is eating breakfast. RN aware. Will follow.
[2022-06-14] MEDS: MULTIVITAMINS THERAPEUTIC TAB (*BKC) 1 TABLET PO (08:59)
[2022-06-14] MEDS: DEXAMETHASONE 4 MG TABLET 8 MG PO (08:59)
[2022-06-14] MEDS: FAMOTIDINE 20 MG TABLET PO (09:00)
[2022-06-14] MEDS: LIDOCAINE 5% PATCH 1 PATCH TRANSDERM (09:00)
--- NOTE | 2022-06-14 12:08 | PM.PNNEP ---
Progress Note: A&P Assessment and Plan (1) Acute kidney injury: Code(s): N17.9 - Acute kidney failure, unspecified Status: Acute Assessment and Plan: some improvement noted baseline creatinine runs around 1.0mg/dl evaluation to date: renal ultrasound with some increased echogenicity and simple cyst on left FeNA and FeUrea are non-prerenal moderate proteinuria (~ 870mg) noted CPK not elevated suspicion falls on myeloma kidney fluctuations in creatinine could also be related to previous use of diuretics along pneumonia follow-up on bone marrow biopsy if inconclusive, consider renal biopsy(?) (2) Acute respiratory failure with hypoxia: Code(s): J96.01 - Acute respiratory failure with hypoxia Status: Acute Assessment and Plan: unclear etiology but suspect pneumonia on antibiotics -- to complete full course today diuresis on hold due to renal dysfunction continue current therapy (3) Hypercalcemia: Code(s): E83.52 - Hypercalcemia Status: Acute Assessment and Plan: quite elevated on admission now in normal range s/p Zometa and calcitonin ultimately, if she does have MM, treatment of that with keep Ca++ stable (4) Back pain: Code(s): M54.9 - Dorsalgia, unspecified Status: Acute Assessment and Plan: presumably secondary to lytic lesions follow-up on bone marrow biopsy Hem/Onc following Will continue to follow. Subjective Date/time seen: 06/14/22 12:08 Sitting up in chair eating lunch at the time of my visit; still with on/off back pain but tolerable; breathing/respiratory status seems to be doing quite well (off supplemental oxygen currently); overall, states she feels better; no apparent distress noted. Exam Narrative: General: elderly female in NAD Heart: normal S1 and S2; no rub Lungs: coarse breath sounds Abdomen: soft, nontender, nondistended, positive bowel sounds Extremities: no cyanosis or clubbing; no edema Skin: warm and intact Objective Data Vital Signs Vital Signs: Vital Signs Temp Pulse Resp BP Pulse Ox O2 Del Method 06/14/22 12:00 81 06/14/22 11:46 Room Air 06/14/22 12:08 97.0 F L 78 20 98/72 L 98 06/14/22 08:00 70 06/14/22 08:00 Room Air 06/14/22 08:16 97.2 F L 71 18 111/56 L 97 06/14/22 04:00 87 06/14/22 04:00 97 F L 84 16 109/62 98 06/14/22 00:00 80 06/13/22 23:56 97.8 F 81 20 97/51 L 96 06/13/22 20:00 82 06/13/22 20:00 Room Air 06/13/22 20:00 97.6 F 84 20 95/42 L 97 06/13/22 16:00 98 F 91 20 105/57 L 96 06/13/22 16:00 83 Intake/Output Intake/Output: Intake & Output 06/11/22 06/12/22 06/13/22 06/14/22 23:59 23:59 23:59 23:59 Intake Total 820 852 714 4271 Output Total 9713 121 1426 375 Balance -180 120 -565 705 Meds/Results Medications: Active Medications Generic Name Dose Route Start Last Admin Trade Name Freq PRN Reason Stop Dose Admin Acetaminophen 650 mg 06/07/22 22:23 Acetaminophen 325 Mg Tablet PO Q6H PRN Mild Pain (1-3) or Fever Hydrocodone Bitart/Acetaminophen 1 tab 06/13/22 14:26 06/14/22 09:02 Hydrocodone/Acetaminophen (*Crx) 7.5-325 Mg Tablet PO 1 tab Q4H PRN Administration Pain Rated 7-10 Dexamethasone 8 mg 06/12/22 13:25 06/14/22 08:59 Dexamethasone 4 Mg Tablet PO 06/17/22 13:24 8 mg DAILY@0800 HERBERTH Administration Enoxaparin Sodium 30 mg 06/08/22 17:00 06/13/22 17:54 Enoxaparin 30 Mg/0.3 Ml Syringe SUB-Q 30 mg Q24H HERBERTH Administration Famotidine 20 mg 06/08/22 09:00 06/14/22 09:00 Famotidine 20 Mg Tablet PO 20 mg DAILY HERBERTH Administration Lidocaine 1 patch 06/14/22 09:00 06/14/22 09:00 Lidocaine 5% Patch TRANSDERM 1 patch DAILY HERBERTH Administration Methocarbamol 750 mg 06/13/22 14:26 Methocarbamol 750 Mg Tablet PO QID PRN Back pain
--- NOTE | 2022-06-14 12:08 | P.PNNP_ITS ---
Progress Note: A&P Assessment and Plan (1) Acute kidney injury: Code(s): N17.9 - Acute kidney failure, unspecified Status: Acute Assessment and Plan: * some improvement noted * baseline creatinine runs around 1.0mg/dl * evaluation to date: * renal ultrasound with some increased echogenicity and simple cyst on left * FeNA and FeUrea are non-prerenal * moderate proteinuria (~ 870mg) noted * CPK not elevated * suspicion falls on myeloma kidney * fluctuations in creatinine could also be related to previous use of diuretics along pneumonia * follow-up on bone marrow biopsy * if inconclusive, consider renal biopsy(?) (2) Acute respiratory failure with hypoxia: Code(s): J96.01 - Acute respiratory failure with hypoxia Status: Acute Assessment and Plan: * unclear etiology but suspect pneumonia * on antibiotics -- to complete full course today * diuresis on hold due to renal dysfunction * continue current therapy (3) Hypercalcemia: Code(s): E83.52 - Hypercalcemia Status: Acute Assessment and Plan: * quite elevated on admission * now in normal range s/p Zometa and calcitonin * ultimately, if she does have MM, treatment of that with keep Ca++ stable (4) Back pain: Code(s): M54.9 - Dorsalgia, unspecified Status: Acute Assessment and Plan: * presumably secondary to lytic lesions * follow-up on bone marrow biopsy * Hem/Onc following Will continue to follow. Subjective Date/time seen: 06/14/22 12:08 Sitting up in chair eating lunch at the time of my visit; still with on/off back pain but tolerable; breathing/respiratory status seems to be doing quite well (off supplemental oxygen currently); overall, states she feels better; no apparent distress noted. Exam Narrative: General: elderly female in NAD Heart: normal S1 and S2; no rub Lungs: coarse breath sounds Abdomen: soft, nontender, nondistended, positive bowel sounds Extremities: no cyanosis or clubbing; no edema Skin: warm and intact Objective Data Vital Signs Vital Signs: Vital Signs Temp Pulse Resp BP Pulse Ox O2 Del Method 06/14/22 12:00 81 06/14/22 11:46 Room Air 06/14/22 12:08 97.0 F L 78 20 98/72 L 98 06/14/22 08:00 70 06/14/22 08:00 Room Air 06/14/22 08:16 97.2 F L 71 18 111/56 L 97 06/14/22 04:00 87 06/14/22 04:00 97 F L 84 16 109/62 98 06/14/22 00:00 80 06/13/22 23:56 97.8 F 81 20 97/51 L 96 06/13/22 20:00 82 06/13/22 20:00 Room Air 06/13/22 20:00 97.6 F 84 20 95/42 L 97 06/13/22 16:00 98 F 91 20 105/57 L 96 06/13/22 16:00 83 Intake/Output Intake/Output: Intake & Output 06/11/22 06/12/22 06/13/22 06/14/22 23:59 23:59 23:59 23:59 Intake Total 820 646 931 9839 Output Total 5084 900 4888 375 Balance -180 120 -565 705 Meds/Results Medications: Active Medications Generic Name Dose Route Start Last Admin Trade Name Georgi PRN Reason Stop Dose Admin Acetaminophen 650 mg 06/07/22 22:23 Acetaminophen 325 Mg Tablet PO Q6H PRN
--- NOTE | 2022-06-14 13:51 | PM.IMPN ---
Progress Note: A&P Assessment and Plan (1) Acute respiratory failure with hypoxia: Code(s): J96.01 - Acute respiratory failure with hypoxia Status: Acute Assessment and Plan: Unsure of etiologies, suspect pneumonia, continue antibiotics, currently on rocephin and azithromycin which was started on 06/07 Volume overload versus pneumonia Diuresis on hold due to renal dysfunction. Repeat chest x-ray with marked improvement in extensive bilateral airspace disease. BNP elevated at 9720 Discontinue azithromycin completes course of treatment for pneumonia will stop ceftriaxone as well (2) Acute kidney injury: Code(s): N17.9 - Acute kidney failure, unspecified Status: Acute Assessment and Plan: Appreciate nephrology consultation, BUN and creatinine slightly worse today, monitor Cr upto 1.8 was normal back in July Renal ultrasound with no hydronephrosis CK normal Possible myeloma kidney workup in progress. (3) Elevated troponin: Code(s): R77.8 - Other specified abnormalities of plasma proteins Status: Acute Assessment and Plan: Follow-up echo, echo from March 2022 showed an EF of 55-60% with grade 1 diastolic function, no significant valvular abnormality, no pulmonary hypertension 06/09: Echo EF 60-65% [id number] aortic valve stenosis. Mild pulmonary hypertension. No significant other valvular abnormalities. (4) Lytic lesion of bone on x-ray: Code(s): M89.9 - Disorder of bone, unspecified Status: Acute Assessment and Plan: Multiple lytic bone lesions in the pelvis, vertebrae, and skull most concerning for multiple myeloma given other findings. Serum immunofixation and protein electrophoresis have been obtained and are pending. [place] as needed for pain, oncology concern for multiple myeloma, appreciate consultation Status post bone marrow biopsy 06/10 Will start Decadron 8 mg pulse dose for 5 days as suggested by sheet metal shop supervisor (5) Hypercalcemia: Code(s): E83.52 - Hypercalcemia Status: Acute Assessment and Plan: Appreciate nephrology consultation as well as Oncology, started on calcitonin Calcium is improved down to normal 06/10. Admission calcium of 15.6 SPEP UPEP pending PTH RP pending Intact PTH normal (6) Back pain: Code(s): M54.9 - Dorsalgia, unspecified Status: Acute Assessment and Plan: Continue fentanyl patch, [place] as needed She seemed more sleepy will stop her fentanyl patch currently more awake Will increase [place] and methocarbamol Back pain started since all this without worsened April went to chiropractor and did 8 treatments Stone going pain will get MRI lumbar spine to further evaluate if any radiculopathy her stenosis Plan DVT prophylaxis with Lovenox GI prophylaxis with Pepcid Code status full code Disposition: Seen by PT OT. Needs acute rehab Subjective Date/time seen: 06/14/22 13:51 Interval history: No overnight events. Ongoing back pain. No abdominal pain nausea vomiting. Review of Systems Review of Systems: All systems reviewed & are unremarkable except as noted in HPI and below Exam Narrative: General: Alert and oriented x3 more awake, not in acute distress HEENT: Atraumatic, normocephalic, mucous membranes moist CV: Regular rate and rhythm, S1, S2 Lungs: Coarse breath sounds bilaterally not in respiratory distress Abdomen: Soft, nontender, nondistended Extremities: Normal to inspection Skin: No rashes noted, no lesions or wounds seen Objective Data Vital Signs Vital Signs: Vital Signs - 24 hr 06/13/22 16:00 06/13/22 16:00 06/13/22 20:00 Temperature 98 F 97.6 F Pulse Rate 83 91 84 Respiratory Rate 20 20 Blood Pressure 105/57 L 95/42 L Pulse Oximetry 96 97 Oxygen Delivery 06/13/22 20:00 06/13/22 20:00 06/13/22 23:56 Temperature 97.8 F Pulse Rate 82 81 Respiratory Rate 20 Blood Pressure 97/51 L Pulse Oximetry 96 Oxygen D
--- NOTE | 2022-06-14 14:58 | PC.NURSE ---
This patient, Evon Sanchez, was transferred to [304-1 ] on 06/14/22 at 1445. Personal belongings sent with patient. Report given to [Karin MEDRANO ]. Appropriate documentation sent with patient.
--- NOTE | 2022-06-14 15:07 | ADMGEN ---
This patient, Evon Sanchez, was admitted to 3 Med Surg Room 304-01 @ 5505. Patient/family oriented to hospital policies and general routines including ID bracelet, bed and alarms, visiting hours, pain management, procedures, bathroom and other care routines, personal items, smoking policy, room service/diet, and visiting hours. Information on how to activate the Rapid Response Team has been discussed. Patient/Family are encouraged to report perceived risks to care and to ask questions if they do not understand what they are told or what they should do.
[2022-06-14] MEDS: ENOXAPARIN 30 MG/0.3 ML SYRINGE SUB-Q (17:12)
[2022-06-15] VITALS (7 sets, daily range): BP systolic 105–119; BP diastolic 47–72; PULSE 70–85; RESP 16–18; TEMP 36.1–36.7; O2SAT 95–99
[2022-06-15 06:45] LABS: Basophils Percent Auto 0.1 % (0.2-1.2); Hematocrit 27.8 % (37.0-47.0); Hemoglobin 8.7 g/dL (12.0-15.0); Immature Granulocyte Absolute 0.11 K/mm3 (0.00-0.031); Immature Granulocyte Percent A 1.4 % (0-0.5); Lymphocytes Absolute Auto 0.69 K/mm3 (0.9-3.2); Lymphocytes Percent Auto 9.1 % (18.3-44.2); Mean Corpuscular HGB Conc 31.3 g/dl (32-36); Mean Corpuscular Hemoglobin 31.6 pg (26-34); Mean Corpuscular Volume 101.1 fl (80-100); Mean Platelet Volume 10.1 fl (7.4-10.4); Monocytes Absolute Auto 0.8 K/mm3 (0.1-0.6); Neutrophils Percent Auto 78.4 % (45.5-73.1); Nucleated Red Blood Cells Absolute Auto 0.1 K/mm3 (0.0-0.012); Nucleated Red Blood Cells Perc 1.1 % (0.0-0.2); Platelet Count Result 268 k/mm3 (150-375); Red Blood Count 2.75 M/mm3 (4.2-5.4); Red Cell Distribution Width 17.6 % (11.5-14.5); White Blood Count 7.6 K/mm3 (4.5-10.0)
[2022-06-15 07:13] LABS: Alanine Aminotransferase 253 U/L (6-35); Albumin Level 2.9 g/dL (3.5-5.1); Alkaline Phosphatase 194 U/L (38-126); Anion Gap 3 mmol/L (8-16); Aspartate Amino Transferase 389 U/L (14-36); Bilirubin,Total 0.5 mg/dL (0.2-1.3); Blood Urea Nitrogen 62 mg/dL (7-17); Carbon Dioxide 22 mmol/L (22-30); Chloride 106 mmol/L (98-107); Estimated CRCL calculation 33 ml/min; Estimated Glomerular Filt Rate 37; Glucose 103 mg/dL (65-110); Magnesium 1.6 mg/dL (1.6-2.3); Potassium 3.6 mmol/L (3.4-5.0); Sodium 131 mmol/L (137-145)
[2022-06-15] MEDS: FAMOTIDINE 20 MG TABLET PO (09:56)
[2022-06-15] MEDS: MULTIVITAMINS THERAPEUTIC TAB (*BKC) 1 TABLET PO (09:56)
[2022-06-15] MEDS: DEXAMETHASONE 4 MG TABLET 8 MG PO (09:56)
[2022-06-15] MEDS: LIDOCAINE 5% PATCH 1 PATCH TRANSDERM ×2 (09:56→13:50)
[2022-06-15 10:07] LABS: Hepatitis B Surface Antigen Negative (Negative)
[2022-06-15 10:13] LABS: HAV RESULT Negative (Negative); Hepatitis B Core IgM Result Negative (Negative)
[2022-06-15 10:25] LABS: Hepatitis C Virus Antibody Negative (Negative)
--- NOTE | 2022-06-15 12:07 | P.PNNP_ITS ---
Progress Note: A&P Assessment and Plan (1) Acute kidney injury: Code(s): N17.9 - Acute kidney failure, unspecified Status: Acute Assessment and Plan: * some improvement noted * baseline creatinine runs around 1.0mg/dl * evaluation to date: * renal ultrasound with some increased echogenicity and simple cyst on left * FeNA and FeUrea are non-prerenal * moderate proteinuria (~ 870mg) noted * CPK not elevated * suspicion falls on myeloma kidney * fluctuations in creatinine could also be related to previous use of diuretics along pneumonia * follow-up on bone marrow biopsy * if inconclusive, consider renal biopsy(?) (2) Acute respiratory failure with hypoxia: Code(s): J96.01 - Acute respiratory failure with hypoxia Status: Acute Assessment and Plan: * unclear etiology but suspect pneumonia * on antibiotics -- to complete full course today * diuresis on hold due to renal dysfunction * continue current therapy (3) Hypercalcemia: Code(s): E83.52 - Hypercalcemia Status: Acute Assessment and Plan: * quite elevated on admission * now in normal range s/p Zometa and calcitonin * ultimately, if she does have MM, treatment of that with keep Ca++ stable (4) Back pain: Code(s): M54.9 - Dorsalgia, unspecified Status: Acute Assessment and Plan: * presumably secondary to lytic lesions * follow-up on bone marrow biopsy * Hem/Onc following Will continue to follow. Subjective Date/time seen: 06/15/22 12:07 Overall, she seems to be doing relatively well; renal function remains relative ly stable as noted by trend of labs; no other acute issues/events voiced at this time. Exam Narrative: General: elderly female in NAD Heart: normal S1 and S2; no rub Lungs: coarse breath sounds Abdomen: soft, nontender, nondistended, positive bowel sounds Extremities: no cyanosis or clubbing; no edema Skin: no rash Objective Data Vital Signs Vital Signs: Vital Signs Temp Pulse Resp BP Pulse Ox O2 Del Method 06/15/22 12:00 79 06/15/22 08:00 70 06/15/22 12:00 96.9 F L 78 18 119/62 99 06/15/22 08:00 98.1 F 73 18 110/72 96 06/15/22 04:00 97.8 F 72 18 108/53 L 95 06/15/22 04:00 70 06/15/22 00:00 80 06/14/22 20:00 70 06/14/22 20:00 98 F 83 18 110/60 99 06/14/22 20:00 74 20 100 Room Air 06/14/22 16:00 74 06/14/22 15:32 97.4 F L 73 20 121/55 L 100 Intake/Output Intake/Output: Intake & Output 06/12/22 06/13/22 06/14/22 06/15/22 23:59 23:59 23:59 23:59 Intake Total 804 689 4775 240 Output Total 850 1425 1125 700 Balance 120 -565 195 -460 Meds/Results Medications: Active Medications Generic Name Dose Route Start Last Admin Trade Name Freq PRN Reason Stop Dose Admin Acetaminophen 650 mg 06/07/22 22:23 Acetaminophen 325 Mg Tablet PO Q6H PRN Mild Pain (1-3) or Fever Hydrocodone Bitart/Acetaminophen 1 tab 06/13/22 14:26 06/14/22 20:45 Hydrocodone/Acetaminophen (*Crx) 7.5-325 Mg Tablet PO 1 tab Q4H PRN Administration
--- NOTE | 2022-06-15 12:07 | PM.PNNEP ---
Progress Note: A&P Assessment and Plan (1) Acute kidney injury: Code(s): N17.9 - Acute kidney failure, unspecified Status: Acute Assessment and Plan: some improvement noted baseline creatinine runs around 1.0mg/dl evaluation to date: renal ultrasound with some increased echogenicity and simple cyst on left FeNA and FeUrea are non-prerenal moderate proteinuria (~ 870mg) noted CPK not elevated suspicion falls on myeloma kidney fluctuations in creatinine could also be related to previous use of diuretics along pneumonia follow-up on bone marrow biopsy if inconclusive, consider renal biopsy(?) (2) Acute respiratory failure with hypoxia: Code(s): J96.01 - Acute respiratory failure with hypoxia Status: Acute Assessment and Plan: unclear etiology but suspect pneumonia on antibiotics -- to complete full course today diuresis on hold due to renal dysfunction continue current therapy (3) Hypercalcemia: Code(s): E83.52 - Hypercalcemia Status: Acute Assessment and Plan: quite elevated on admission now in normal range s/p Zometa and calcitonin ultimately, if she does have MM, treatment of that with keep Ca++ stable (4) Back pain: Code(s): M54.9 - Dorsalgia, unspecified Status: Acute Assessment and Plan: presumably secondary to lytic lesions follow-up on bone marrow biopsy Hem/Onc following Will continue to follow. Subjective Date/time seen: 06/15/22 12:07 Overall, she seems to be doing relatively well; renal function remains relatively stable as noted by trend of labs; no other acute issues/events voiced at this time. Exam Narrative: General: elderly female in NAD Heart: normal S1 and S2; no rub Lungs: coarse breath sounds Abdomen: soft, nontender, nondistended, positive bowel sounds Extremities: no cyanosis or clubbing; no edema Skin: no rash Objective Data Vital Signs Vital Signs: Vital Signs Temp Pulse Resp BP Pulse Ox O2 Del Method 06/15/22 12:00 79 06/15/22 08:00 70 06/15/22 12:00 96.9 F L 78 18 119/62 99 06/15/22 08:00 98.1 F 73 18 110/72 96 06/15/22 04:00 97.8 F 72 18 108/53 L 95 06/15/22 04:00 70 06/15/22 00:00 80 06/14/22 20:00 70 06/14/22 20:00 98 F 83 18 110/60 99 06/14/22 20:00 74 20 100 Room Air 06/14/22 16:00 74 06/14/22 15:32 97.4 F L 73 20 121/55 L 100 Intake/Output Intake/Output: Intake & Output 06/12/22 06/13/22 06/14/22 06/15/22 23:59 23:59 23:59 23:59 Intake Total 205 225 6657 240 Output Total 850 1425 1125 700 Balance 120 -565 195 -460 Meds/Results Medications: Active Medications Generic Name Dose Route Start Last Admin Trade Name Freq PRN Reason Stop Dose Admin Acetaminophen 650 mg 06/07/22 22:23 Acetaminophen 325 Mg Tablet PO Q6H PRN Mild Pain (1-3) or Fever Hydrocodone Bitart/Acetaminophen 1 tab 06/13/22 14:26 06/14/22 20:45 Hydrocodone/Acetaminophen (*Crx) 7.5-325 Mg Tablet PO 1 tab Q4H PRN Administration Pain Rated 7-10 Dexamethasone 8 mg 06/12/22 13:25 06/15/22 09:56 Dexamethasone 4 Mg Tablet PO 06/17/22 13:24 8 mg DAILY@0800 HERBERTH Administration Enoxaparin Sodium 30 mg 06/08/22 17:00 06/14/22 17:12 Enoxaparin 30 Mg/0.3 Ml Syringe SUB-Q 30 mg Q24H HERBERTH Administration Famotidine 20 mg 06/08/22 09:00 06/15/22 09:56 Famotidine 20 Mg Tablet PO 20 mg DAILY HERBERTH Administration Lidocaine 1 patch 06/14/22 09:00 06/15/22 09:56 Lidocaine 5% Patch TRANSDERM 1 patch DAILY HERBERTH Administration Methocarbamol 750 mg 06/13/22 14:26 Methocarbamol 750 Mg Tablet PO QID PRN Back pain Morphine Sulfate 1 mg 06/07/22 18:38 06/10/22 08:19 Morphine Sulfate (*Crx) 2 Mg/Ml Inj IV PUSH 1 mg Q3HR PRN Administration Pain Rated 4-6 Multivitamins Therapeutic 1 tablet
[2022-06-15] MEDS: polyethylene glycoL 3350 17 GM POWD.PACK PO (15:12)
--- NOTE | 2022-06-15 16:30 | PM.IMPN ---
Progress Note: A&P Assessment and Plan (1) Acute respiratory failure with hypoxia: Code(s): J96.01 - Acute respiratory failure with hypoxia Status: Acute Assessment and Plan: Unsure of etiologies, suspect pneumonia, continue antibiotics, currently on rocephin and azithromycin which was started on 06/07 Volume overload versus pneumonia Diuresis on hold due to renal dysfunction. Repeat chest x-ray with marked improvement in extensive bilateral airspace disease. BNP elevated at 9720 Discontinue azithromycin completes course of treatment for pneumonia will stop ceftriaxone as well (2) Acute kidney injury: Code(s): N17.9 - Acute kidney failure, unspecified Status: Acute Assessment and Plan: Appreciate nephrology consultation, BUN and creatinine slightly worse today, monitor Cr upto 1.8 was normal back in July Renal ultrasound with no hydronephrosis CK normal Possible myeloma kidney workup in progress. (3) Elevated troponin: Code(s): R77.8 - Other specified abnormalities of plasma proteins Status: Acute Assessment and Plan: Follow-up echo, echo from March 2022 showed an EF of 55-60% with grade 1 diastolic function, no significant valvular abnormality, no pulmonary hypertension 06/09: Echo EF 60-65% [id number] aortic valve stenosis. Mild pulmonary hypertension. No significant other valvular abnormalities. (4) Lytic lesion of bone on x-ray: Code(s): M89.9 - Disorder of bone, unspecified Status: Acute Assessment and Plan: Multiple lytic bone lesions in the pelvis, vertebrae, and skull most concerning for multiple myeloma given other findings. Serum immunofixation and protein electrophoresis have been obtained and are pending. [place] as needed for pain, oncology concern for multiple myeloma, appreciate consultation Status post bone marrow biopsy 06/10 Will start Decadron 8 mg pulse dose for 5 days as suggested by refinish technician (5) Hypercalcemia: Code(s): E83.52 - Hypercalcemia Status: Acute Assessment and Plan: Appreciate nephrology consultation as well as Oncology, started on calcitonin Calcium is improved down to normal 06/10. Admission calcium of 15.6 SPEP UPEP pending PTH RP pending Intact PTH normal (6) Back pain: Code(s): M54.9 - Dorsalgia, unspecified Status: Acute Assessment and Plan: Continue fentanyl patch, [place] as needed She seemed more sleepy will stop her fentanyl patch currently more awake Will increase [place] and methocarbamol Back pain started since all this without worsened April went to chiropractor and did 8 treatments Stone going pain will get MRI lumbar spine to further evaluate if any radiculopathy her stenosis (7) Elevated liver enzymes: Code(s): R74.8 - Abnormal levels of other serum enzymes Status: Acute Assessment and Plan: Rise in LFTs noted bilirubin is normal Will get right upper quadrant ultrasound No offending agent medication gill Will get hepatitis panel Will continue to monitor LFTs Plan DVT prophylaxis with Lovenox GI prophylaxis with Pepcid Code status full code Disposition: Seen by PT OT. Needs acute rehab Subjective Date/time seen: 06/15/22 16:30 Interval history: No overnight events. Labs were reviewed. LFTs are slowly creeping up. Denies any abdominal pain. Back pain present. No nausea vomiting. Working with therapy. Discussed with the sister and the patient Review of Systems Review of Systems: All systems reviewed & are unremarkable except as noted in HPI and below Exam Narrative: General: Alert and oriented x3 more awake, not in acute distress HEENT: Atraumatic, normocephalic, mucous membranes moist CV: Regular rate and rhythm, S1, S2 Lungs: Coarse breath sounds bilaterally not in respiratory distress Abdomen: Soft, nontender, nondistended Extremities: Normal to inspection Skin: No rashes noted, no lesions or woun
[2022-06-15] MEDS: SENNA/DOCUSATE SODIUM TABLET 1 TAB PO (17:38)
[2022-06-15] MEDS: ENOXAPARIN 30 MG/0.3 ML SYRINGE SUB-Q (17:38)
[2022-06-16] VITALS (9 sets, daily range): BP systolic 103–118; BP diastolic 52–67; PULSE 76–83; RESP 14–16; TEMP 36.4–37.2; O2SAT 95–98
[2022-06-16 07:23] LABS: Basophils Percent Auto 0.1 % (0.2-1.2); Hematocrit 27.8 % (37.0-47.0); Hemoglobin 8.6 g/dL (12.0-15.0); Immature Granulocyte Absolute 0.17 K/mm3 (0.00-0.031); Immature Granulocyte Percent A 2.4 % (0-0.5); Lymphocytes Absolute Auto 0.54 K/mm3 (0.9-3.2); Lymphocytes Percent Auto 7.7 % (18.3-44.2); Mean Corpuscular HGB Conc 30.9 g/dl (32-36); Mean Corpuscular Hemoglobin 31.4 pg (26-34); Mean Corpuscular Volume 101.5 fl (80-100); Monocytes Absolute Auto 0.9 K/mm3 (0.1-0.6); Monocytes Percent Auto 13.1 % (2.6-8.5); Neutrophils Absolute Auto 5.4 K/mm3 (1.3-6.7); Neutrophils Percent Auto 76.7 % (45.5-73.1); Nucleated Red Blood Cells Absolute Auto 0.2 K/mm3 (0.0-0.012); Nucleated Red Blood Cells Perc 2.6 % (0.0-0.2); Platelet Count Result 300 k/mm3 (150-375); Red Blood Count 2.74 M/mm3 (4.2-5.4); Red Cell Distribution Width 17.8 % (11.5-14.5)
[2022-06-16 07:36] LABS: Alanine Aminotransferase 267 U/L (6-35); Albumin Level 2.9 g/dL (3.5-5.1); Alkaline Phosphatase 190 U/L (38-126); Anion Gap 3 mmol/L (8-16); Aspartate Amino Transferase 280 U/L (14-36); Bilirubin,Total 0.5 mg/dL (0.2-1.3); Blood Urea Nitrogen 49 mg/dL (7-17); Calcium 8.1 mg/dL (8.4-10.2); Carbon Dioxide 22 mmol/L (22-30); Chloride 106 mmol/L (98-107); Estimated CRCL calculation 35 ml/min; Estimated Glomerular Filt Rate 41; Glucose 102 mg/dL (65-110); Lipase 623 U/L (23-300); Magnesium 1.6 mg/dL (1.6-2.3); Potassium 3.8 mmol/L (3.4-5.0); Sodium 131 mmol/L (137-145)
[2022-06-16] MEDS: DEXAMETHASONE 4 MG TABLET 8 MG PO (08:49)
[2022-06-16] MEDS: polyethylene glycoL 3350 17 GM POWD.PACK PO (08:49)
[2022-06-16] MEDS: LIDOCAINE 5% PATCH 1 PATCH TRANSDERM (08:49)
[2022-06-16] MEDS: FAMOTIDINE 20 MG TABLET PO (08:49)
[2022-06-16] MEDS: SENNA/DOCUSATE SODIUM TABLET 1 TAB PO ×2 (08:49→16:53)
[2022-06-16] MEDS: MULTIVITAMINS THERAPEUTIC TAB (*BKC) 1 TABLET PO (08:49)
[2022-06-16] MEDS: HYDROcodone/acetaminophen (*CRX) 7.5-325 MG TABLET 1 TAB PO (08:52)
[2022-06-16] MEDS: methocarbamoL 750 MG TABLET PO ×2 (10:01→16:53)
--- NOTE | 2022-06-16 11:39 | P.PNNP_ITS ---
Progress Note: A&P Assessment and Plan (1) Acute kidney injury: Code(s): N17.9 - Acute kidney failure, unspecified Status: Acute Assessment and Plan: * some improvement noted * baseline creatinine runs around 1.0mg/dl * evaluation to date: * renal ultrasound with some increased echogenicity and simple cyst on left * FeNA and FeUrea are non-prerenal * moderate proteinuria (~ 870mg) noted * CPK not elevated * suspicion falls on myeloma kidney * fluctuations in creatinine could also be related to previous use of diuretics along pneumonia * follow-up on bone marrow biopsy * if inconclusive, consider renal biopsy(?) (2) Acute respiratory failure with hypoxia: Code(s): J96.01 - Acute respiratory failure with hypoxia Status: Acute Assessment and Plan: * unclear etiology but suspect pneumonia * completed course of antibiotics * diuresis on hold due to renal dysfunction (although volume status better) * continue current therapy (3) Hypercalcemia: Code(s): E83.52 - Hypercalcemia Status: Acute Assessment and Plan: * quite elevated on admission * now in normal range s/p Zometa and calcitonin * ultimately, if she does have MM, treatment of that with keep Ca++ stable (4) Back pain: Code(s): M54.9 - Dorsalgia, unspecified Status: Acute Assessment and Plan: * presumably secondary to lytic lesions * follow-up on bone marrow biopsy * Hem/Onc following Will continue to follow. Subjective Date/time seen: 06/16/22 11:39 Overall, continues to make slow and steady progress; breathing/respiratory status seems stable if not better; still with on/off back pain but pain medications seem adequate; no apparent distress voiced at this time. Exam Narrative: General: elderly female in NAD Heart: normal S1 and S2; no rub Lungs: coarse breath sounds Abdomen: soft, nontender, nondistended, positive bowel sounds Extremities: no cyanosis or clubbing; no edema Skin: no nodules Objective Data Vital Signs Vital Signs: Vital Signs Temp Pulse Resp BP Pulse Ox O2 Del Method 06/16/22 08:30 98.9 F 78 16 105/67 98 06/16/22 04:00 80 06/16/22 04:00 98.1 F 79 16 107/61 96 06/16/22 01:03 83 06/16/22 00:00 83 06/16/22 00:00 98.5 F 81 16 106/60 96 06/15/22 20:00 85 18 97 Room Air 06/15/22 20:00 85 06/15/22 20:00 98.1 F 83 18 105/47 L 97 06/15/22 17:37 80 06/15/22 16:00 97.3 F L 79 16 106/54 L 97 06/15/22 12:00 79 06/15/22 12:00 96.9 F L 78 18 119/62 99 Intake/Output Intake/Output: Intake & Output 06/13/22 06/14/22 06/15/22 06/16/22 23:59 23:59 23:59 23:59 Intake Total 860 1320 720 240 Output Total 1425 1125 1300 700 Balance -565 195 -398 -460 Meds/Results Medications: Active Medications Generic Name Dose Route Start Last Admin Trade Name Freq PRN Reason Stop Dose Admin Acetaminophen 650 mg 06/07/22 22:23 Acetaminophen 325 Mg Tablet PO Q6H PRN Mild Pain (1-3) or Fever Hydrocodone Bitart/Acetaminophen 1 tab 06/13/22 14:26 01
--- NOTE | 2022-06-16 11:39 | PM.PNNEP ---
Progress Note: A&P Assessment and Plan (1) Acute kidney injury: Code(s): N17.9 - Acute kidney failure, unspecified Status: Acute Assessment and Plan: some improvement noted baseline creatinine runs around 1.0mg/dl evaluation to date: renal ultrasound with some increased echogenicity and simple cyst on left FeNA and FeUrea are non-prerenal moderate proteinuria (~ 870mg) noted CPK not elevated suspicion falls on myeloma kidney fluctuations in creatinine could also be related to previous use of diuretics along pneumonia follow-up on bone marrow biopsy if inconclusive, consider renal biopsy(?) (2) Acute respiratory failure with hypoxia: Code(s): J96.01 - Acute respiratory failure with hypoxia Status: Acute Assessment and Plan: unclear etiology but suspect pneumonia completed course of antibiotics diuresis on hold due to renal dysfunction (although volume status better) continue current therapy (3) Hypercalcemia: Code(s): E83.52 - Hypercalcemia Status: Acute Assessment and Plan: quite elevated on admission now in normal range s/p Zometa and calcitonin ultimately, if she does have MM, treatment of that with keep Ca++ stable (4) Back pain: Code(s): M54.9 - Dorsalgia, unspecified Status: Acute Assessment and Plan: presumably secondary to lytic lesions follow-up on bone marrow biopsy Hem/Onc following Will continue to follow. Subjective Date/time seen: 06/16/22 11:39 Overall, continues to make slow and steady progress; breathing/respiratory status seems stable if not better; still with on/off back pain but pain medications seem adequate; no apparent distress voiced at this time. Exam Narrative: General: elderly female in NAD Heart: normal S1 and S2; no rub Lungs: coarse breath sounds Abdomen: soft, nontender, nondistended, positive bowel sounds Extremities: no cyanosis or clubbing; no edema Skin: no nodules Objective Data Vital Signs Vital Signs: Vital Signs Temp Pulse Resp BP Pulse Ox O2 Del Method 06/16/22 08:30 98.9 F 78 16 105/67 98 06/16/22 04:00 80 06/16/22 04:00 98.1 F 79 16 107/61 96 06/16/22 01:03 83 06/16/22 00:00 83 06/16/22 00:00 98.5 F 81 16 106/60 96 06/15/22 20:00 85 18 97 Room Air 06/15/22 20:00 85 06/15/22 20:00 98.1 F 83 18 105/47 L 97 06/15/22 17:37 80 06/15/22 16:00 97.3 F L 79 16 106/54 L 97 06/15/22 12:00 79 06/15/22 12:00 96.9 F L 78 18 119/62 99 Intake/Output Intake/Output: Intake & Output 06/13/22 06/14/22 06/15/22 06/16/22 23:59 23:59 23:59 23:59 Intake Total 860 1320 720 240 Output Total 1425 1125 1300 700 Balance -565 195 580 -460 Meds/Results Medications: Active Medications Generic Name Dose Route Start Last Admin Trade Name Freq PRN Reason Stop Dose Admin Acetaminophen 650 mg 06/07/22 22:23 Acetaminophen 325 Mg Tablet PO Q6H PRN Mild Pain (1-3) or Fever Hydrocodone Bitart/Acetaminophen 1 tab 06/13/22 14:26 06/16/22 08:52 Hydrocodone/Acetaminophen (*Crx) 7.5-325 Mg Tablet PO 1 tab Q4H PRN Administration Pain Rated 7-10 Dexamethasone 8 mg 06/12/22 13:25 06/16/22 08:49 Dexamethasone 4 Mg Tablet PO 06/17/22 13:24 8 mg DAILY@0800 HERBERTH Administration Enoxaparin Sodium 30 mg 06/08/22 17:00 06/15/22 17:38 Enoxaparin 30 Mg/0.3 Ml Syringe SUB-Q 30 mg Q24H HERBERTH Administration Famotidine 20 mg 06/08/22 09:00 06/16/22 08:49 Famotidine 20 Mg Tablet PO 20 mg DAILY HERBERTH Administration Lidocaine 1 patch 06/14/22 09:00 06/16/22 08:49 Lidocaine 5% Patch TRANSDERM 1 patch DAILY HERBERTH Administration Methocarbamol 750 mg 06/13/22 14:26 06/16/22 10:01 Methocarbamol 750 Mg Tablet PO 750 mg QID PRN Administration Back pain Multivitamins Therapeutic 1 tablet 06/08/22 09:0
[2022-06-16] MEDS: ENOXAPARIN 30 MG/0.3 ML SYRINGE SUB-Q (16:53)
--- NOTE | 2022-06-16 18:26 | PM.IMPN ---
Progress Note: A&P Assessment and Plan (1) Acute respiratory failure with hypoxia: Code(s): J96.01 - Acute respiratory failure with hypoxia Status: Acute Assessment and Plan: Unsure of etiologies, suspect pneumonia, continue antibiotics, currently on rocephin and azithromycin which was started on 06/07 Volume overload versus pneumonia Diuresis on hold due to renal dysfunction. Repeat chest x-ray with marked improvement in extensive bilateral airspace disease. BNP elevated at 9720 Discontinue azithromycin completes course of treatment for pneumonia will stop ceftriaxone as well (2) Acute kidney injury: Code(s): N17.9 - Acute kidney failure, unspecified Status: Acute Assessment and Plan: Appreciate nephrology consultation, BUN and creatinine slightly worse today, monitor Cr upto 1.8 was normal back in July Renal ultrasound with no hydronephrosis CK normal Possible myeloma kidney workup in progress. (3) Elevated troponin: Code(s): R77.8 - Other specified abnormalities of plasma proteins Status: Acute Assessment and Plan: Follow-up echo, echo from March 2022 showed an EF of 55-60% with grade 1 diastolic function, no significant valvular abnormality, no pulmonary hypertension 06/09: Echo EF 60-65% [id number] aortic valve stenosis. Mild pulmonary hypertension. No significant other valvular abnormalities. (4) Lytic lesion of bone on x-ray: Code(s): M89.9 - Disorder of bone, unspecified Status: Acute Assessment and Plan: Multiple lytic bone lesions in the pelvis, vertebrae, and skull most concerning for multiple myeloma given other findings. Serum immunofixation and protein electrophoresis have been obtained and are pending. [place] as needed for pain, oncology concern for multiple myeloma, appreciate consultation Status post bone marrow biopsy 06/10 Will start Decadron 8 mg pulse dose for 5 days as suggested by driver wheelchair (5) Hypercalcemia: Code(s): E83.52 - Hypercalcemia Status: Acute Assessment and Plan: Appreciate nephrology consultation as well as Oncology, started on calcitonin Calcium is improved down to normal 06/10. Admission calcium of 15.6 SPEP UPEP pending PTH RP pending Intact PTH normal (6) Back pain: Code(s): M54.9 - Dorsalgia, unspecified Status: Acute Assessment and Plan: Continue fentanyl patch, [place] as needed She seemed more sleepy will stop her fentanyl patch currently more awake Will increase [place] and methocarbamol Back pain started since all this without worsened April went to chiropractor and did 8 treatments Stone going pain will get MRI lumbar spine to further evaluate if any radiculopathy her stenosis (7) Elevated liver enzymes: Code(s): R74.8 - Abnormal levels of other serum enzymes Status: Acute Assessment and Plan: Rise in LFTs noted bilirubin is normal Right upper quadrant ultrasound mild gallbladder distention without pericholecystic fluid. No offending agent medication gill Hepatitis panel negative LFTs slightly better today Will continue to trend No abdominal pain nausea vomiting or any symptoms related. Plan DVT prophylaxis with Lovenox GI prophylaxis with Pepcid Code status full code Disposition: Seen by PT OT. Needs acute rehab. Transfer to rehab once LFTs continue to improve Subjective Date/time seen: 06/16/22 18:26 Interval history: No overnight events. Denies any complaints working with therapy. No abdominal pain nausea vomiting. Labs are reviewed with the patient and her sister. Review of Systems Review of Systems: All systems reviewed & are unremarkable except as noted in HPI and below Exam Narrative: General: Alert and oriented x3 more awake, not in acute distress HEENT: Atraumatic, normocephalic, mucous membranes moist CV: Regular rate and rhythm, S1, S2 Lungs: Coarse breath sounds bilaterally not in respiratory
[2022-06-17 05:56] VITALS: BP 108/57; PULSE 80; RESP 16; TEMP 36.6; O2SAT 97
[2022-06-17 06:38] LABS: Hematocrit 29.2 % (37.0-47.0); Hemoglobin 8.9 g/dL (12.0-15.0); Immature Granulocyte Absolute 0.14 K/mm3 (0.00-0.031); Immature Granulocyte Percent A 1.9 % (0-0.5); Lymphocytes Absolute Auto 0.73 K/mm3 (0.9-3.2); Lymphocytes Percent Auto 10.1 % (18.3-44.2); Mean Corpuscular HGB Conc 30.5 g/dl (32-36); Mean Corpuscular Hemoglobin 31.9 pg (26-34); Mean Corpuscular Volume 104.7 fl (80-100); Mean Platelet Volume 9.9 fl (7.4-10.4); Monocytes Percent Auto 13.9 % (2.6-8.5); Neutrophils Absolute Auto 5.3 K/mm3 (1.3-6.7); Neutrophils Percent Auto 74.1 % (45.5-73.1); Nucleated Red Blood Cells Absolute Auto 0.2 K/mm3 (0.0-0.012); Nucleated Red Blood Cells Perc 3.3 % (0.0-0.2); Platelet Count Result 310 k/mm3 (150-375); Red Blood Count 2.79 M/mm3 (4.2-5.4); Red Cell Distribution Width 18.4 % (11.5-14.5); White Blood Count 7.2 K/mm3 (4.5-10.0)
[2022-06-17 06:46] LABS: Alanine Aminotransferase 272 U/L (6-35); Albumin Level 2.9 g/dL (3.5-5.1); Alkaline Phosphatase 186 U/L (38-126); Anion Gap 3 mmol/L (8-16); Aspartate Amino Transferase 222 U/L (14-36); Bilirubin,Total 0.7 mg/dL (0.2-1.3); Blood Urea Nitrogen 45 mg/dL (7-17); Calcium 8.2 mg/dL (8.4-10.2); Carbon Dioxide 20 mmol/L (22-30); Chloride 110 mmol/L (98-107); Estimated CRCL calculation 35 ml/min; Estimated Glomerular Filt Rate 41; Glucose 86 mg/dL (65-110); Magnesium 1.6 mg/dL (1.6-2.3); Potassium 3.9 mmol/L (3.4-5.0); Sodium 133 mmol/L (137-145)
[2022-06-17] MEDS: SENNA/DOCUSATE SODIUM TABLET 1 TAB PO ×2 (08:46→17:32)
[2022-06-17] MEDS: FAMOTIDINE 20 MG TABLET PO (08:46)
[2022-06-17] MEDS: DEXAMETHASONE 4 MG TABLET 8 MG PO (08:46)
[2022-06-17] MEDS: polyethylene glycoL 3350 17 GM POWD.PACK PO (08:47)
[2022-06-17] MEDS: LIDOCAINE 5% PATCH 1 PATCH TRANSDERM (08:47)
[2022-06-17] MEDS: methocarbamoL 750 MG TABLET PO ×2 (08:47→17:32)
[2022-06-17] MEDS: HYDROcodone/acetaminophen (*CRX) 7.5-325 MG TABLET 1 TAB PO (08:47)
[2022-06-17] MEDS: MULTIVITAMINS THERAPEUTIC TAB (*BKC) 1 TABLET PO (08:47)
--- NOTE | 2022-06-17 09:12 | PCNFU ---
Nutrition Follow-Up Complete: Inadequate energy intake related to altered GI tolerance as evidenced by c/o nausea and vomiting. Goal: PO intake 75% of meals and supplements - progressing toward goal Pt current nutrition is Heart healthy diet. Fluid restriction 1800 ml/day. Intakes 50%. Nutrition recommendation: Continue heart healthy diet and Ensure Clear TID per patient preference. Last recorded weight is 72.6 kg. Weight loss -12 lbs since 06/12/22, likely related to diuresis, fluid restriction. Bowel Motility: +1 BM 06/17/22 Labs Reviewed: Hgb 8.9, Hct 29.3, Alb 2.9, Na 133, eGFR 41, BUN 45, Cre 1.3 Meds Noted: Dexamethsone, miralax Skin: WNL Additional Notes: Intakes and labs improving. Pt prefers Ensure Clear. Compliant with fluid restriction. No new recommendations. Agree with current diet and supplements. Encourage intakes Monitor intake, tolerance, wt, labs. Follow up in 5 days.
[2022-06-17 14:00] VITALS: BP 107/53; PULSE 73; RESP 18; TEMP 36.7; O2SAT 98
--- NOTE | 2022-06-17 15:37 | PM.PNNEP ---
Progress Note: A&P Assessment and Plan (1) Acute kidney injury: Code(s): N17.9 - Acute kidney failure, unspecified Status: Acute Assessment and Plan: some improvement noted baseline creatinine runs around 1.0mg/dl evaluation to date: renal ultrasound with some increased echogenicity and simple cyst on left FeNA and FeUrea are non-prerenal moderate proteinuria (~ 870mg) noted CPK not elevated suspicion falls on myeloma kidney fluctuations in creatinine could also be related to previous use of diuretics along pneumonia bone marrow biopsy results noted (2) Acute respiratory failure with hypoxia: Code(s): J96.01 - Acute respiratory failure with hypoxia Status: Acute Assessment and Plan: unclear etiology but suspect pneumonia completed course of antibiotics diuresis on hold due to renal dysfunction (although volume status better) continue current therapy (3) Hypercalcemia: Code(s): E83.52 - Hypercalcemia Status: Acute Assessment and Plan: quite elevated on admission now in normal range s/p Zometa and calcitonin ultimately, if she does have MM, treatment of that with keep Ca++ stable (4) Back pain: Code(s): M54.9 - Dorsalgia, unspecified Status: Acute Assessment and Plan: presumably secondary to lytic lesions follow-up on bone marrow biopsy Hem/Onc following Not much else to office -- will continue to follow intermittently Subjective Date/time seen: 06/17/22 15:37 Making slow improvement/progress at this time; renal function seems relatively stable; no apparent distress noted; pain control adequate with current medications; no other issues/events overnight or earlier this AM. Exam Narrative: General: elderly female in NAD Heart: normal S1 and S2; no rub Lungs: coarse breath sounds Abdomen: soft, nontender, nondistended, positive bowel sounds Extremities: no cyanosis or clubbing; no edema Skin: warm and intact Objective Data Vital Signs Vital Signs: Vital Signs Temp Pulse Resp BP Pulse Ox O2 Del Method 06/17/22 14:00 98.1 F 73 18 107/53 L 98 06/17/22 05:56 97.9 F 80 16 108/57 L 97 06/16/22 23:13 95 Room Air 06/16/22 20:00 80 16 103/52 L 96 06/16/22 20:00 81 14 96 Room Air Intake/Output Intake/Output: Intake & Output 06/14/22 06/15/22 06/16/22 06/17/22 23:59 23:59 23:59 23:59 Intake Total 1320 720 660 488 Output Total 1125 7953 1450 Balance 942 -706 -576 007 Meds/Results Medications: Active Medications Generic Name Dose Route Start Last Admin Trade Name Freq PRN Reason Stop Dose Admin Acetaminophen 650 mg 06/07/22 22:23 Acetaminophen 325 Mg Tablet PO Q6H PRN Mild Pain (1-3) or Fever Hydrocodone Bitart/Acetaminophen 1 tab 06/13/22 14:26 06/17/22 08:47 Hydrocodone/Acetaminophen (*Crx) 7.5-325 Mg Tablet PO 1 tab Q4H PRN Administration Pain Rated 7-10 Enoxaparin Sodium 30 mg 06/08/22 17:00 06/17/22 17:32 Enoxaparin 30 Mg/0.3 Ml Syringe SUB-Q 30 mg Q24H HERBERTH Administration Famotidine 20 mg 06/08/22 09:00 06/17/22 08:46 Famotidine 20 Mg Tablet PO 20 mg DAILY HERBERTH Administration Lidocaine 1 patch 06/14/22 09:00 06/17/22 08:47 Lidocaine 5% Patch TRANSDERM 1 patch DAILY HERBERTH Administration Methocarbamol 750 mg 06/13/22 14:26 06/17/22 17:32 Methocarbamol 750 Mg Tablet PO 750 mg QID PRN Administration Back pain Multivitamins Therapeutic 1 tablet 06/08/22 09:00 06/17/22 08:47 Multivitamins Therapeutic Tab (*Bkc) PO 1 tablet DAILY HERBERTH Administration Polyethylene Glycol 17 gm 06/15/22 14:00 06/17/22 08:47 Polyethylene Glycol 3350 17 Gm Powd.Pack PO 17 gm QAM HERBERTH Administration Senna/Docusate Sodium 1 tab 06/15/22 17:00 06/17/22 17:32 Senna/Docusate Sodium Tablet PO 1 tab BID HERBERTH Administration Radiology Results: ITS Imp
--- NOTE | 2022-06-17 15:37 | PM.IMPN ---
Progress Note: A&P Assessment and Plan (1) Acute respiratory failure with hypoxia: Code(s): J96.01 - Acute respiratory failure with hypoxia Status: Acute Assessment and Plan: Unsure of etiologies, suspect pneumonia, continue antibiotics, currently on rocephin and azithromycin which was started on 06/07 Volume overload versus pneumonia Diuresis on hold due to renal dysfunction. Repeat chest x-ray with marked improvement in extensive bilateral airspace disease. BNP elevated at 9720 Discontinue azithromycin completes course of treatment for pneumonia will stop ceftriaxone as well 06/17/2021 interval history: patient states feeling little better denies any complaint of chest pain or shortness breath, denies any bony pain, patient is seen by Nephrology as patient has acute kidney injury suspect secondary to multiple myeloma workup is in progress will continue to monitor. (2) Acute kidney injury: Code(s): N17.9 - Acute kidney failure, unspecified Status: Acute Assessment and Plan: Appreciate nephrology consultation, BUN and creatinine slightly worse today, monitor Cr upto 1.8 was normal back in July Renal ultrasound with no hydronephrosis CK normal Possible myeloma kidney workup in progress. (3) Elevated troponin: Code(s): R77.8 - Other specified abnormalities of plasma proteins Status: Acute Assessment and Plan: Follow-up echo, echo from March 2022 showed an EF of 55-60% with grade 1 diastolic function, no significant valvular abnormality, no pulmonary hypertension 06/09: Echo EF 60-65% [id number] aortic valve stenosis. Mild pulmonary hypertension. No significant other valvular abnormalities. (4) Lytic lesion of bone on x-ray: Code(s): M89.9 - Disorder of bone, unspecified Status: Acute Assessment and Plan: Multiple lytic bone lesions in the pelvis, vertebrae, and skull most concerning for multiple myeloma given other findings. Serum immunofixation and protein electrophoresis have been obtained and are pending. [place] as needed for pain, oncology concern for multiple myeloma, appreciate consultation Status post bone marrow biopsy 06/10 Will start Decadron 8 mg pulse dose for 5 days as suggested by gasoline truck crane operator (5) Hypercalcemia: Code(s): E83.52 - Hypercalcemia Status: Acute Assessment and Plan: Appreciate nephrology consultation as well as Oncology, started on calcitonin Calcium is improved down to normal 06/10. Admission calcium of 15.6 SPEP UPEP pending PTH RP pending Intact PTH normal (6) Back pain: Code(s): M54.9 - Dorsalgia, unspecified Status: Acute Assessment and Plan: Continue fentanyl patch, [place] as needed She seemed more sleepy will stop her fentanyl patch currently more awake Will increase [place] and methocarbamol Back pain started since all this without worsened April went to chiropractor and did 8 treatments Stone going pain will get MRI lumbar spine to further evaluate if any radiculopathy her stenosis (7) Elevated liver enzymes: Code(s): R74.8 - Abnormal levels of other serum enzymes Status: Acute Assessment and Plan: Rise in LFTs noted bilirubin is normal Right upper quadrant ultrasound mild gallbladder distention without pericholecystic fluid. No offending agent medication gill Hepatitis panel negative LFTs slightly better today Will continue to trend No abdominal pain nausea vomiting or any symptoms related. Plan DVT prophylaxis with Lovenox GI prophylaxis with Pepcid Code status full code Disposition: Seen by PT OT. Needs acute rehab. Transfer to rehab once LFTs continue to improve Subjective Date/time seen: 06/17/22 15:37 Interval history: No overnight events. Denies any complaints working with therapy. No abdominal pain nausea vomiting. Labs are reviewed with the patient and her sister. 06/17/2021 interval history: patient states feeling anni
--- NOTE | 2022-06-17 15:37 | P.PNNP_ITS ---
Progress Note: A&P Assessment and Plan (1) Acute kidney injury: Code(s): N17.9 - Acute kidney failure, unspecified Status: Acute Assessment and Plan: * some improvement noted * baseline creatinine runs around 1.0mg/dl * evaluation to date: * renal ultrasound with some increased echogenicity and simple cyst on left * FeNA and FeUrea are non-prerenal * moderate proteinuria (~ 870mg) noted * CPK not elevated * suspicion falls on myeloma kidney * fluctuations in creatinine could also be related to previous use of diuretics along pneumonia * bone marrow biopsy results noted (2) Acute respiratory failure with hypoxia: Code(s): J96.01 - Acute respiratory failure with hypoxia Status: Acute Assessment and Plan: * unclear etiology but suspect pneumonia * completed course of antibiotics * diuresis on hold due to renal dysfunction (although volume status better) * continue current therapy (3) Hypercalcemia: Code(s): E83.52 - Hypercalcemia Status: Acute Assessment and Plan: * quite elevated on admission * now in normal range s/p Zometa and calcitonin * ultimately, if she does have MM, treatment of that with keep Ca++ stable (4) Back pain: Code(s): M54.9 - Dorsalgia, unspecified Status: Acute Assessment and Plan: * presumably secondary to lytic lesions * follow-up on bone marrow biopsy * Hem/Onc following Not much else to office -- will continue to follow intermittently Subjective Date/time seen: 06/17/22 15:37 Making slow improvement/progress at this time; renal function seems relatively stable; no apparent distress noted; pain control adequate with current medications; no other issues/events overnight or earlier this AM. Exam Narrative: General: elderly female in NAD Heart: normal S1 and S2; no rub Lungs: coarse breath sounds Abdomen: soft, nontender, nondistended, positive bowel sounds Extremities: no cyanosis or clubbing; no edema Skin: warm and intact Objective Data Vital Signs Vital Signs: Vital Signs Temp Pulse Resp BP Pulse Ox O2 Del Method 06/17/22 14:00 98.1 F 73 18 107/53 L 98 06/17/22 05:56 97.9 F 80 16 108/57 L 97 06/16/22 23:13 95 Room Air 06/16/22 20:00 80 16 103/52 L 96 06/16/22 20:00 81 14 96 Room Air Intake/Output Intake/Output: Intake & Output 06/14/22 06/15/22 06/16/22 06/17/22 23:59 23:59 23:59 23:59 Intake Total 1320 720 660 488 Output Total 1125 1300 1450 Balance 547 -450 -137 686 Meds/Results Medications: Active Medications Generic Name Dose Route Start Last Admin Trade Name Freq PRN Reason Stop Dose Admin Acetaminophen 650 mg 06/07/22 22:23 Acetaminophen 325 Mg Tablet PO Q6H PRN Mild Pain (1-3) or Fever Hydrocodone Bitart/Acetaminophen 1 tab 06/13/22 14:26 06/17/22 08:47 Hydrocodone/Acetaminophen (*Crx) 7.5-325 Mg Tablet PO 1 tab Q4H PRN Administration Pain Rated 7-10 Enoxaparin Sodium 30 mg 06/08/22 17:00 06/17/22 17:32 Enoxaparin 30 Mg/0.3 Ml Syringe SUB-Q 30 mg Q24H HERBERTH Administration Famotidine 20 mg 06/08/22
[2022-06-17] MEDS: ENOXAPARIN 30 MG/0.3 ML SYRINGE SUB-Q (17:32)
[2022-06-17 21:23] VITALS: BP 122/53; PULSE 79; RESP 16; TEMP 36.4; O2SAT 98
[2022-06-18 01:30] LABS: Abnormal Protein Band 1 7 mg/dL; Abnormal Protein Band 2 5 mg/dL; Creatinine, Random Urine 105 mg/dL (20-275); Total Protein/Creatinine Ratio 467 mg/g creat (24-184)
[2022-06-18 06:42] VITALS: BP 119/63; PULSE 87; RESP 16; TEMP 36.7; O2SAT 98
[2022-06-18] MEDS: SENNA/DOCUSATE SODIUM TABLET 1 TAB PO (07:27)
[2022-06-18] MEDS: polyethylene glycoL 3350 17 GM POWD.PACK PO (07:28)
[2022-06-18] MEDS: methocarbamoL 750 MG TABLET PO (07:28)
[2022-06-18] MEDS: HYDROcodone/acetaminophen (*CRX) 7.5-325 MG TABLET 1 TAB PO (07:28)
[2022-06-18] MEDS: LIDOCAINE 5% PATCH 1 PATCH TRANSDERM (07:28)
[2022-06-18] MEDS: FAMOTIDINE 20 MG TABLET PO (07:28)
[2022-06-18] MEDS: MULTIVITAMINS THERAPEUTIC TAB (*BKC) 1 TABLET PO (07:28)
--- NOTE | 2022-06-18 10:32 | PM.IMHP ---
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 Family History Family History Father Lung cancer Mother Sibling No problems noted. Other Diabetes mellitus Family history of coronary artery disease Family history of lung cancer Family history of osteoarthritis Social History Social History Social History: Surrogate medical decision maker: Polly Seth, sister. Code status: Full code. Smoking packs per day: 1 Smoking cigarettes per day: 20.0 Years smoked: 30 Smoking pack-years: 30.00 Smoking status: Former smoker Tobacco type: cigarettes Second hand tobacco smoke exposure: Yes Smoking end date: 12/12/02 Alcohol intake: current Alcohol use details: Occasional alcohol use in moderation. Substance use: never Substance use type: does not use Lack of Transportation: No Lack of Food: Never True Current Housing: I Have Housing Concerned About Future Housing: No Difficulty Paying Gas/Electric Bills: No Difficulty Paying for Meds: No Currently Unemployed: No Education: High School Diploma/GED Difficulty w/ Childcare or Family Care: No Living arrangements: alone Additional living arrangements comments: Patient lives alone in [place]. 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 Spiritual care concerns: No Meds Home Medications and Allergies Home Medications Medication Instructions Recorded Confirmed Type calcium carb-ergocalciferol (vit 1 tablet PO BID 06/03/22 06/07/22 History D2) 600 mg calcium-200 unit tablet multivitamin 1 tablet PO DAILY 06/03/22 06/07/22 History famotidine 20 mg tablet 20 mg PO DAILY 06/07/22 06/07/22 History sulfamethoxazole 800 1 tablet PO DAILY 06/07/22 06/07/22 History mg-trimethoprim 160 mg tablet methylprednisolone 4 mg tablets in See Rx Instructions .Route .COMPLEX 06/08/22 06/08/22 History a dose pack hydrocodone 7.5 mg-acetaminophen 1 tablet PO Q4H PRN Pain Rated 06/18/22 Rx 325 mg tablet 7-10 #12 tabs Allergies Allergy/AdvReac Type Severity Reaction Status Date / Time meloxicam AdvReac Palpitations, Verified 06/03/22 14:23 SHORTNESS OF BREATH Vital Signs Vital Signs - 24 hr 06/17/22 14:00 06/17/22 21:23 06/17/22 21:30 Temperature 98.1 F 97.6 F Pulse Rate 73 79 Respiratory Rate 18 16 Blood Pressure 107/53 L 122/53 L Pulse Oximetry 98 98 Oxygen Delivery Room Air 06/18/22 06:42 Temperature 98.0 F Pulse Rate 87 Respiratory Rate 16 Blood Pressure 119/63 Pulse Oximetry 98 Oxygen Delivery
--- NOTE | 2022-06-29 13:54 | PM.DS ---
DS: Admitting Diagnosis Discharge Date 06/18/22 Admitting Diagnosis back pain DS: Discharge Diagnosis Discharge Diagnosis (1) Acute respiratory failure with hypoxia: Code(s): J96.01 - Acute respiratory failure with hypoxia Status: Acute (2) Acute kidney injury: Code(s): N17.9 - Acute kidney failure, unspecified Status: Acute (3) Elevated troponin: Code(s): R77.8 - Other specified abnormalities of plasma proteins Status: Acute (4) Lytic lesion of bone on x-ray: Code(s): M89.9 - Disorder of bone, unspecified Status: Acute (5) Hypercalcemia: Code(s): E83.52 - Hypercalcemia Status: Acute (6) Back pain: Code(s): M54.9 - Dorsalgia, unspecified Status: Acute (7) Elevated liver enzymes: Code(s): R74.8 - Abnormal levels of other serum enzymes Status: Acute DS: Summary Hospital Course Reason for hospitalization: Back pain. Narrative: This is a very pleasant 66-year-old female with degenerative joint disease, hyperlipidemia, and GERD who presented to the ED via EMS from home for evaluation of back pain. 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 Initially she tried to tough it out but eventually ended up seeing a chiropractor about a month after her pain started though that did not help her much. She was seen at her doctor's office at the beginning of March and she was prescribed meloxicam and cyclobenzaprine. X-rays of the lumbar spine showed mild lumbar spondylosis with transitional lumbosacral segment and bilateral sacroiliac osteoarthritis though exam was somewhat limited due to osteopenia and body habitus. During that visit she was reportedly found to have a new murmur and was sent for an echocardiogram (normal LV systolic function with an EF estimated 55 to 60%, grade 1 diastolic dysfunction, mild left atrial enlargement, mild mitral valve regurgitation) and a 48 hour Holter monitor (predominant sinus rhythm with 2 episodes of atrial tachycardia and a high volume of PVCs with no reports of shortness of breath, chest pain, palpitations, near-syncope, etcetera). Unfortunately her back pain has continued to worsen and she now has constant, aching pain in the low back with frequent sharp shooting pain into the hips, worse with movement and weight-bearing. She was prescribed a Medrol Dosepak per Dr. Alford a few days ago as her severe low back pain has started to affect her mobility (she is scheduled to have her right knee replaced on 06/17/2022). The steroids have not helped thus far. The last couple of days she has developed nausea and vomiting and she is constipated which is unusual for her. Her last good bowel movement was well over 4 days ago. She goes on to say that her appetite has been poor for the past 2.5 months which she believes is related to the back pain and she has lost approximately 22 pounds. This morning she got up to let her dog outside to the bathroom and at that time she felt almost suddenly short of breath and had sensations of racing heart. After speaking with her sister she decided to come in for evaluation. On arrival to triage her SpO2 was 89% on room air and she is currently on 4 liters with oxygen levels in the mid to upper 90s; other vital signs were stable. Chest x-ray showed pulmonary vascular congestion with interstitial and airspace opacities in the mid and lower lung zones. Labs were significant for a macrocytic anemia, sodium 131, potassium 4.1, BUN 69, creatinine 2.60, calcium 15.6, phosphorus 7.2, magnesium 1.7, BUN 69, creatinine 2.60, troponin 0.429, proBNP 9720, D-dimer 2.35. V/Q scan showed low probability for pulmonary embolism. Brain CT showed no acute intracranial process but did note multiple lytic lesions throughout the skull suspicious for multiple myeloma. Lumbar spine CT showed innumerable small lytic lesions t
== END 2022-06-18 13:27 | disposition home health service (06) | DRG 189 ==
LOC: ANHED 12:41 → ANHIMU 16:18 → ANH3MEDSUR 06-14 15:07
PROVIDERS: Internal Medicine; Internal Medicine Hematology & Oncology; Internal Medicine Nephrology; Physician Assistant; Radiology Diagnostic Radiology; Admitting Provider Chiropractor; Emergency Provider Emergency Medicine; PCP Family Medicine; Visit Provider Family Medicine
PROC: 07DT3ZX Extraction of Bone Marrow, Percutaneous Approach, Diagnostic (ICD-10-PCS; principal; 2022-06-10 08:30)
DX: J96.01 Acute respiratory failure with hypoxia (principal); J18.9 Pneumonia, unspecified organism; N17.9 Acute kidney failure, unspecified; C90.00 Multiple myeloma not having achieved remission; R77.8 Other specified abnormalities of plasma proteins; E83.52 Hypercalcemia; M54.9 Dorsalgia, unspecified; E78.5 Hyperlipidemia, unspecified; K21.9 Gastro-esophageal reflux disease without esophagitis; M81.0 Age-related osteoporosis without current pathological fracture; M89.9 Disorder of bone, unspecified; Z20.822 Contact with and (suspected) exposure to COVID-19; Z85.118 Personal history of other malignant neoplasm of bronchus and lung; Z87.891 Personal history of nicotine dependence; Z79.899 Other long term (current) drug therapy
CPT/HCPCS: 36415; 36600; 38222; 51701; 70450; 71045; 71046; 72131; 72148; 76705; 76775; 78580; 80053; 80069; 80074; 81001; 82375; 82550; 82570; 82805; 83050; 83519; 83690; 83735; 83880; 83970; 84100; 84155; 84156; 84165; 84166; 84300; 84443; 84484; 84540; 85025; 85027; 85380; 85610; 85730; 86334; 86335; 87636; 88305; 88311; 88313; 88341; 88342; 88360; 88364; 88365; 93005; 93306; 93970; 96361; 96365; 96366; 96367; 96375; 97162; 97165; 97530; 97535; 99285; A9270; A9540; G0378; J0131; J0456; J0630; J0696; J1642; J1650; J1940; J2270; J3010; J3489; J7030; J7040; J8540

== ENCOUNTER 2022-06-22 17:15 | Outpatient (CLI) | payer MEDICARE, SELFPAY ==
[2022-06-22 18:06] LABS: Albumin Level 3.2 g/dL (3.5-5.1); Anion Gap 1 mmol/L (8-16); Blood Urea Nitrogen 21 mg/dL (7-17); Calcium 7.3 mg/dL (8.4-10.2); Carbon Dioxide 23 mmol/L (22-30); Chloride 103 mmol/L (98-107); Estimated Glomerular Filt Rate 49; Glucose 95 mg/dL (65-110); Potassium 3.9 mmol/L (3.4-5.0); Sodium 127 mmol/L (137-145)
== END 2022-06-22 17:16 | disposition home or self-care (01) ==
PROVIDERS: PCP Family Medicine; Visit Provider Internal Medicine Nephrology
DX: C90.00 Multiple myeloma not having achieved remission (principal); N17.9 Acute kidney failure, unspecified; E83.52 Hypercalcemia
CPT/HCPCS: 36415; 80069

== ENCOUNTER 2022-06-25 11:12 | Outpatient (CLI) | payer MEDICARE, SELFPAY ==
[2022-06-25 11:43] LABS: Creatinine Urine 32.8 mg/dL; Total Protein Urine Random 30 mg/dL; Ur Ttl Prot Creatinine Ratio 0.91 mg/mg (0-0.20)
== END 2022-06-25 11:13 | disposition home or self-care (01) ==
LOC: ANHLAB 11:13
PROVIDERS: Visit Provider Internal Medicine Nephrology
DX: N17.9 Acute kidney failure, unspecified (principal); E83.52 Hypercalcemia
CPT/HCPCS: 82570; 84156

== ENCOUNTER 2022-06-29 01:39 | Day surgery (SDC) | payer MEDICARE, SELFPAY ==
[2022-06-25 13:38] VITALS: BMI 30.5
--- NOTE | 2022-06-25 14:01 | PC.NURSE ---
Report to the Outpatient Waiting Room, entrance under the green pavilion located off [facility], at time _6:00AM on date __06/29/22 . Planned Procedure Time: __7:30AM . Time changes happen often and if your time is changed the preop area will call you the afternoon before. - You and your visitor will be asked to self-screen and do not enter if you have any COVID symptoms. - Only one visitor is requested with a max of two and NO children visitors are allowed at this time. - The patient visitor may be requested to leave or wait in car when not with patient due to distancing restrictions. - A mask is optional within the hospital. Patients may have clear liquids (water, carbonated beverages, clear teas, apple juice) until 3 hours prior to surgery with a maximum of 20 ounces. - No food from midnight until time of surgery. Take the following medications with a SIP of water the morning of surgery: __HYDROCODONE NEEDED, METHOCARBAMOL NEEDED___ Medications to discontinue per physician ____ALL VITAMINS/SUPPLEMENTS 3 DAYS PRE-OP Date to take last dose____06/25/22 Please no make-up, nail greek, hairspray, perfume, deodorant, or body powder the day of surgery. No jewelry (including any body piercings) or valuables the day of surgery, leave them at home. Please take a shower or bath the night before, or the morning of, surgery with an antibacterial soap. Wear comfortable, loose fitting clothing. Children are encouraged to wear pajamas. - Jewelry must be removed prior to entering the operating room. Rings and piercings that are not removed may be cut off. - The hospital will not accept responsibility for valuables. - Please leave all valuables, including medications, at home the day of surgery. If you are going home after surgery, a licensed customer service driver must drive you home. - NO public transportation without another adult if you receive anesthesia. - We recommend that an adult stay with you for 24 hours following discharge. - We also recommend that you do not drive, make important decision, drink alcoholic beverages, or take any drugs that were not prescribed by your health care provider for at least 24 hours after your discharge time. Follow any additional instructions given to you from your surgeon. If you or anyone in your household have experienced Covid symptoms in the past week, please notify your surgeon or the nurse liaison at the phone number below for possible testing. Telephone instructions given to _PATIENT'S SISTER, NAV,_and asked if any additional questions and then verbalized understanding. Patient advised to call surgeon office or pre surgery nurse liaison [phone] if any additional questions.
--- NOTE | ~2022-06-29 | XR_ITS ---
XR chest port-a-cath/central DATE: 06/29/2022 09:37 INDICATION: Port-A-Cath insertion TECHNIQUE: Portable upright AP views on 06/29/2022 at 0930 hours COMPARISON: 06/10/2022 AP and lateral chest FINDINGS: There is interval placement of a left internal jugular Port-A-Cath, catheter tip situated n ear the superior cavoatrial junction. No pneumothorax is evident. The lungs appear clear of infiltrate or consolidation. Heart size is like ly within normal range. No pulmonary vascular congestion or pleural effusion. Diffuse osteopenia. Left cervical rib. Osteophytic change at the glenohumeral joints, bilateral rotat or cuff atrophy. Degenerative spurring of the thoracic spine. IMPRESSION: Left Port-A-Cath catheter insertion, distal tip at superior cavoatrial junction; no pneum othorax Reviewed, dictated and finalized at [facility]. Reviewed, dictated and finalized at location [facility]. 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
--- NOTE | ~2022-06-29 | XR_ITS ---
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 TECHNIQUE: 1 fluoroscopic images of the chest were obtained during Port-A-Cath insertion performed by the surgeon. I was not present in the operating room. Fluoroscopy exposure time was 134.3 seconds. A ir Kerma 33.88 mGy. DAP [id number] mGym2. COMPARISON: None FINDINGS: The right internal jugular implanted port catheter terminates in the distal SVC. IMPRESSION: Fluoroscopic documentation of Port-A-Cath insertion. Please refer to the operative note for complete procedural details . Reviewed, dictated and finalized at location K. MILL TENDER IMPRESSION: Fluoroscopic documentation of Port-A-Cath insertion. Please refer to the operat alexy note for complete procedural details .
[2022-06-29] MEDS: LACTATED RINGERS 1,000 ML 30 ML IV CONT (06:51)
[2022-06-29 06:55] VITALS: BP 102/53; PULSE 79; RESP 20; TEMP 37.6; O2SAT 99
--- NOTE | 2022-06-29 06:57 | WPDANESEPPF ---
Anes - Initial Pre Proc Eval Procedure: Operation Date: 06/29/22 07:30 Proposed Procedures p Insertion Jose Cath - Tarik Akhtar MD Date/Time: 06/29/22 06:57 Surgeon: Tarik Akhtar MD Pre Op Diagnosis: Mult Myelomas not having achieve remission Patient Data Age: 66 Gender: F Height: 1.59 m Weight: 77 kg Allergies Allergy/AdvReac Type Severity Reaction Status Date / Time meloxicam AdvReac Palpitations, Verified 06/25/22 13:29 SHORTNESS OF BREATH Home Medications Medication Instructions Recorded Confirmed Type calcium carb-ergocalciferol (vit 1 tablet PO BID 06/03/22 06/25/22 History D2) 600 mg calcium-200 unit tablet multivitamin 1 tablet PO DAILY 06/03/22 06/25/22 History lidocaine 5 % topical patch 1 patch transdermal DAILY #5 ea 06/18/22 06/25/22 Rx (Lidoderm) methocarbamol 750 mg tablet 750 mg PO QID PRN Back pain #30 06/18/22 06/25/22 Rx tabs polyethylene glycol 3350 17 gram 17 g PO QAM #30 ea 06/18/22 06/25/22 Rx oral powder packet (Miralax) sennosides 8.6 mg-docusate sodium 1 tab PO BID #30 tabs 06/18/22 06/25/22 Rx 50 mg tablet (Senokot-S) famotidine 10 mg tablet 10 mg PO DAILY PRN Indigestion 06/25/22 06/25/22 History hydrocodone 5 mg-acetaminophen 325 1 tablet PO Q4H PRN Pain 06/25/22 06/25/22 History mg tablet nystatin 100,000 unit/gram topical 1 applic topical TID groin rash 06/25/22 06/25/22 Rx powder #60 grams Laboratory Tests 06/29/22 06/29/22 06:42 06:42 PT Pending INR Pending APTT Pending Sodium Pending Patient hx anesthesia problems: none Family hx anesthesia problems: none Results Review: All pre-operative results and documents have been reviewed as part of the pre-operative evaluation. 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 Family History Family History Father Lung cancer Mother Sibling No problems noted. Other Diabetes mellitus Family history of coronary artery disease Family history of lung cancer Family history of osteoarthritis Social History Social History Social History: Surrogate medical decision maker: Polly Seth, sister. Code status: Full code. Smoking packs per day: 1 Smoking cigarettes per day: 20.0 Years smoked: 30 Smoking pack-years: 30.00 Smoking status: Former smoker Tobacco type: cigarettes Second hand tobacco smoke exposure: Yes Smoking end date: 12/13/03 Alcohol intake: current Alcohol use details: Occasional alcohol use in moderation. Substance use: never Substance use type: does not use Lack of Transportation: No Lack of Food: Never True Current Housing: I Have Housing Concerned About Future Housing: No Difficulty Paying Gas/Electric Bills: No Difficulty Paying for Meds: No Currently Unemployed: No Education: High School Diploma/GED Difficulty w/ Childcare or Family Care: No Living arrangements: alone Additional living arrangements comments: Patient lives alone in [place]. 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 Spiritual care concerns: No Anes - Eval Final PreProcedure Day of Procedure 06/29/22 06:57 Patient weight: obese Heart: regular rate and rhythm Lungs: clear to auscultation Airway: Mallampati scale class II Neurological: alert and oriented Last or
[2022-06-29 07:01] LABS: Sodium 132 mmol/L (137-145)
[2022-06-29 07:24] LABS: INR 1.2; Partial Thromboplastin Time 25.1 SECONDS (22.3-36.8); Prothrombin Time 14.6 Seconds (11.1-14.7)
--- NOTE | 2022-06-29 07:31 | PM.IMHP ---
H&P: HPI History of Present Illness Date/Time: 06/29/22 07:31 Chief Complaint: Need for portacath Narrative: Pt with multiple myeloma, first diagnosis. She is to start chemotherapy and presents for placement of a portacatheter to administer the chemotx. Never had a central line or port in the IJ or SC veins. Review of Systems Review of Systems: The remainder of the review of systems to include constitutional, HEENT, cardiovascular, respiratory, GI, , integumentary, musculoskeletal, endocrine, immunologic, hematologic, psychiatric, and neurologic are all negative except for which is mentioned above in the HPI. 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 Family History Family History Father Lung cancer Mother Sibling No problems noted. Other Diabetes mellitus Family history of coronary artery disease Family history of lung cancer Family history of osteoarthritis Social History Social History Social History: Surrogate medical decision maker: Polly Seth, sister. Code status: Full code. Smoking packs per day: 1 Smoking cigarettes per day: 20.0 Years smoked: 30 Smoking pack-years: 30.00 Smoking status: Former smoker Tobacco type: cigarettes Second hand tobacco smoke exposure: Yes Smoking end date: 12/13/03 Alcohol intake: current Alcohol use details: Occasional alcohol use in moderation. Substance use: never Substance use type: does not use Lack of Transportation: No Lack of Food: Never True Current Housing: I Have Housing Concerned About Future Housing: No Difficulty Paying Gas/Electric Bills: No Difficulty Paying for Meds: No Currently Unemployed: No Education: High School Diploma/GED Difficulty w/ Childcare or Family Care: No Living arrangements: alone Additional living arrangements comments: Patient lives alone in [place]. 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: No Meds Home Medications and Allergies Home Medications Medication Instructions Recorded Confirmed Type calcium carb-ergocalciferol (vit 1 tablet PO BID 06/03/22 06/29/22 History D2) 600 mg calcium-200 unit tablet multivitamin 1 tablet PO DAILY 06/03/22 06/29/22 History lidocaine 5 % topical patch 1 patch transdermal DAILY #5 ea 06/18/22 06/29/22 Rx (Lidoderm) methocarbamol 750 mg tablet 750 mg PO QID PRN Back pain #30 06/18/22 06/29/22 Rx tabs polyethylene glycol 3350 17 gram 17 g PO QAM #30 ea 06/18/22 06/29/22 Rx oral powder packet (Miralax) sennosides 8.6 mg-docusate sodium 1 tab PO BID #30 tabs 06/18/22 06/29/22 Rx 50 mg tablet (Senokot-S) famotidine 10 mg tablet 10 mg PO DAILY PRN Indigestion 06/25/22 06/29/22 History hydrocodone 5 mg-acetaminophen 325 1 tablet PO Q4H PRN Pain 06/25/22 06/29/22 History mg tablet nystatin 100,000 unit/gram topical 1 applic topical TID groin rash 06/25/22 06/29/22 Rx powder #60 grams Allergies Allergy/AdvReac Type Severity Reaction Status Date / Time meloxicam AdvReac Palpitations, Verified 06/29/22 07:10 SHORTNESS OF BREATH Vital Signs Vital Signs - 24 hr 06/29/22 06:55 Temperature 37.6 C Pulse Rate 79 Respiratory Rate 20 Blood Pressure 102/53 L Pulse Oximetry 99 Oxygen Delivery Room Air Exam Const: General: comfortable and no acute distress HENMT:
--- NOTE | 2022-06-29 07:35 | WPDHPUPDATE1 ---
History and Physical Update Update Date/Time: 06/29/22 07:35 History and Physical has been reviewed, including an updated exam of the patient. There are NO changes in the patient's condition. Risks, benefits, and alternatives have been discussed and questions answered. Patient agrees to proceed with procedure.
[2022-06-29] MEDS: HEPARIN SODIUM 5,000 UNITS/ML VIAL 5000 UNITS IRRIGATION (07:41)
[2022-06-29] MEDS: ceFAZolin 2 GM/D5W 50 ML 2 GM/50 ML BAG IVPB (07:41)
[2022-06-29] MEDS: HEPARIN SODIUM 1,000 UNITS/ML VIAL 1000 UNITS IV PUSH (07:41)
--- NOTE | 2022-06-29 09:17 | W.PM.PROC2 ---
Procedure Note - Detailed Date of Procedure 06/29/22 Pre-op Diagnosis Mult Myelomas not having achieve remission Post-op Diagnosis Same Procedure Performed Placement of left internal jugular vein single-lumen port a catheter. Surgeon Tarik Akhtar MD [employer] Worker Lashon GUTIERREZ Anesthesia MAC Indications Patient has multiple myeloma that is to be treated with chemotherapy and presents for a Port-A-Cath replacement to start chemotherapy. Description of Procedure After informed consent was obtained the patient was brought to the operating room she is placed supine on the operating table and IV sedation was administered by anesthesia. The area the upper chest and bilateral and bilateral anterior neck was then prepped and draped in usual sterile fashion. the patient was then placed in the head-down Trendelenburg position and then 0.5 % Marcaine mixed with 2% lidocaine was then injected between the 2 heads of the left sternocleidomastoid muscle for local anesthetic effect. I then used an 18gauge spinal needle to cannulate the left internal jugular vein on the 1st pass without any difficulty. There was prompt return of dark venous appearing blood. The syringe was removed and the guidewire was passed through the needle and into the inferior vena cava. Intraoperative fluoroscopy was used to confirm placement of the guidewire in the proper position. I then anesthetized an area in the left anterior chest reason just below the medial 3rd of the left clavicle. A transverse incision was then made in this area with a scalpel and then dissection was carried down through the subcutaneous tissues to the anterior pectoralis major muscle. I then created a subcutaneous port pocket by dissecting subcutaneous tissues off of the muscle fascia with electrocautery and blunt finger dissection. I then anesthetized the area between the left anterior chest wall incision and the insertion site of the guidewire in the left anterior lateral neck. The site where the guidewire entered the skin was enlarged with a scalp a and then a 9 Serbian dual-lumen catheter was tunneled between the chest incision and the neck incision. I then advanced a dilator and break away sheath over the guidewire and then removed the guidewire and dilator. The catheter was advanced through the sheath and down into the right atrium of the heart. The sheath was then torn away leaving the catheter in place. Then once again utilizing intraoperative fluoroscopy I pulled back on the catheter until the tip was in the right atrial caval junction. The catheter was then cut to the appropriate length at the skin level and attached to the port. The port was then secured in the subcutaneous port pocket with 3 0 Prolene sutures in 3 positions to prevent the port from flipping. I then irrigated the incision sterile saline solution. The port was then accessed and it oziel back blood easily and was flushed with heparinized saline solution. I then close incision by placement of 3 0 Vicryl sutures in the subcutaneous tissues and then the skin edges were approximated utilizing a 4 0 Monocryl suture in a subcuticular fashion. The small left neck incision was also closed utilizing the same suture. One last access of the port was performed percutaneously and again oziel back blood easily and then was flushed with 5000 units of heparin in 5cc of saline solution. The patient tolerated the procedure well and there no complications. All sponges, needles, and instrument counts were correct at the end the procedure. Estimated blood loss procedure was 50cc. The patient was taken from the operating room to recovery in stable and satisfactory condition. A chest x-ray to confirm the placement of tip of the catheter and through rule out pneumothorax is pending at the time of dictation. Implants Nine Serbian single-lumen catheter attached to the port. Estimated Blood Loss 50 Drains No Packing No Complications No immediate complications Condition Sta
[2022-06-29 09:20] VITALS: BP 96/49; PULSE 80; RESP 16; O2SAT 98
[2022-06-29 09:50] VITALS: BP 113/61; PULSE 81; RESP 16
== END 2022-06-29 10:35 | disposition home or self-care (01) ==
PROVIDERS: Anesthesiology; PCP Family Medicine; Visit Provider Surgery
PROC: (CPT 36561; principal; 2022-06-29 07:30)
DX: C41.9 Malignant neoplasm of bone and articular cartilage, unspecified (principal); K21.9 Gastro-esophageal reflux disease without esophagitis; E55.9 Vitamin D deficiency, unspecified; M81.0 Age-related osteoporosis without current pathological fracture; Z87.891 Personal history of nicotine dependence; E66.9 Obesity, unspecified; Z68.30 Body mass index [BMI] 30.0-30.9, adult
CPT/HCPCS: 36561; 36415; 77001; 84295; 85610; 85730; C1788; J0690; J1644; J2370; J2704; J3010; J7030; J7120

== ENCOUNTER 2022-07-02 07:57 | Outpatient (CLI) | payer MEDICARE, SELFPAY ==
--- NOTE | ~2022-07-02 | PE_ITS ---
EXAMINATION: PET skull to mid thigh DATE: 07/02/2022 10:10 INDICATION: Multiple myeloma. TECHNIQUE: Blood glucose level was 94 mg/dL. 10.104 mCi of 18-fluorodeoxyglucose (18-FDG) was adminis tered i.v. Low dose computed tomography (CT) images were acquired from the base of the brain to the p roximal thighs for attenuation correction and anatomic localization. Automated exposure control was e mployed. Dose-length product (DLP) was 721 mGy-cm. Positron emission tomography (PET) images were acq uired in the same distribution. COMPARISON: Lumbar spine MRI 06/15/2022 FINDINGS: Head/neck: There are no pathologically enlarged lymph nodes. There is increased activity in the oral cavity and glottis without abnormal CT correlate, likely physiologic. There are widespread lytic lesi ons of bone with increased activity. Chest: A calcified right lung nodule and calcified right hilar and mediastinal lymph nodes are consis tent with old granulomatous disease. No pleural effusion. The heart size is normal. No pericardial ef fusion. There are coronary artery calcifications. There is a left internal jugular port with tip in r ight atrium. There is a small sliding hiatal hernia. There are widespread lytic lesions of bone with increased activity. Abdomen/pelvis/proximal thighs: The liver and spleen are normal. The gallbladder is distended, likely secondary to fasting. The adrenal glands, pancreas, and right kidney are normal. There is a 6.6 cm c yst in left kidney. There are small calcified fibroids in the uterus. There are no dilated loops of b owel. The appendix is normal. There are no pathologically enlarged lymph nodes. There is no free intr aperitoneal fluid. There are widespread lytic lesions of bone with increased activity. IMPRESSION: 1. Widespread lytic lesions of bone with increased activity, consistent with multiple myeloma. Reviewed, dictated and finalized at location A. THERAPIST IMPRESSION: 1. Widespread lytic lesions of bone with increased activity, consistent with mu ltiple myeloma.
[2022-07-02 08:18] LABS: Glucose Point of Care 94 mg/dl (65-105)
== END 2022-07-02 07:58 | disposition home or self-care (01) ==
PROVIDERS: PCP Family Medicine; Visit Provider Internal Medicine Hematology & Oncology
DX: C90.00 Multiple myeloma not having achieved remission (principal)
CPT/HCPCS: 78815; A9552

== ENCOUNTER 2022-08-05 08:44 | Observation (INO) | payer MEDICARE, SELFPAY ==
[2022-08-05] VITALS (13 sets, daily range): BP systolic 122–140; BP diastolic 72–88; PULSE 63–96; RESP 16–18; TEMP 36.8–37.8; O2SAT 98–100; BMI 27.8
--- NOTE | ~2022-08-05 | CT_ITS ---
EXAMINATION: CT abdomen pelvis w con DATE: 08/05/2022 12:52 INDICATION: Abdominal pain, fever and vomiting TECHNIQUE: Computed tomography (CT) of the abdomen and pelvis was performed with 100 mL Omnipaque-350 intravenous contrast. Automated exposure control and iterative reconstruction technique were employe d. The dose-length product was 609.93 mGy-cm. COMPARISON: PET/CT dated 07/02/2022. FINDINGS: Lung bases are clear. Heart size is normal. No pericardial or pleural effusion. Small sliding-type hi atal hernia. There is edematous-appearing wall thickening at the gastroesophageal junction which coul d be related to reflux. Liver, gallbladder, spleen, pancreas, bilateral adrenal glands and right kidn ey are normal. 7 cm left renal cyst with thin curvilinear calcification along the periphery. There is mild to moderate colonic diverticulosis with right descending colon predominance. There is no adjac ent inflammatory change to suggest diverticulitis. Small bowel and appendix are normal. Very small fa t-containing umbilical hernia. Bladder is normal. Small calcite degenerated uterine fibroids. Bilater al adnexa are unremarkable. No free intraperitoneal gas or fluid. No pathologically enlarged abdomina l or pelvic lymphadenopathy. Numerous small lytic bone lesions throughout the axial and appendicular skeleton consistent with reported known history of multiple myeloma. IMPRESSION: 1. Small sliding-type hiatal hernia with edematous-appearing wall thickening at the gastroesophageal junction which may represent esophagitis related to provided history of vomiting. 2. No other acute intra-abdominal/pelvic process. Normal gallbladder and appendix. 3. Diverticulosis. 4. Innumerable lytic bone lesions consistent with known history of multiple myeloma. 5. Fibroid uterus. Reviewed, dictated and finalized at location A. GE BUFFER IMPRESSION: 1. Small sliding-type hiatal hernia with edematous-appearing wall thickening at the gastroesophageal junction which may represent esophagitis related to provi ded history of vomiting. 2. No other acute intra-abdominal/pelvic process. Normal gallbladder and append ix. 3. Diverticulosis. 4. Innumerable lytic bone lesions consistent with known history of multiple mye francois. 5. Fibroid uterus.
[2022-08-05 09:24] LABS: Basophils Percent Auto 0.2 % (0.2-1.2); Eosinophils Absolute Auto 0.2 K/mm3 (0-0.3); Eosinophils Percent Auto 2.9 % (0-4.4); Hematocrit 35.3 % (37.0-47.0); Hemoglobin 10.9 g/dL (12.0-15.0); Immature Granulocyte Absolute 0.02 K/mm3 (0.00-0.031); Immature Granulocyte Percent A 0.4 % (0-0.5); Lymphocytes Absolute Auto 0.13 K/mm3 (0.9-3.2); Lymphocytes Percent Auto 2.6 % (18.3-44.2); Mean Corpuscular HGB Conc 30.9 g/dl (32-36); Mean Corpuscular Hemoglobin 32.8 pg (26-34); Mean Corpuscular Volume 106.3 fl (80-100); Mean Platelet Volume 10.3 fl (7.4-10.4); Monocytes Absolute Auto 0.5 K/mm3 (0.1-0.6); Monocytes Percent Auto 9.8 % (2.6-8.5); Neutrophils Absolute Auto 4.3 K/mm3 (1.3-6.7); Neutrophils Percent Auto 84.1 % (45.5-73.1); Platelet Count Result 186 k/mm3 (150-375); Red Blood Count 3.32 M/mm3 (4.2-5.4); Red Cell Distribution Width 20.7 % (11.5-14.5); White Blood Count 5.1 K/mm3 (4.5-10.0)
[2022-08-05 09:35] LABS: Alanine Aminotransferase 16 U/L (6-35); Albumin Level 3.5 g/dL (3.5-5.1); Alkaline Phosphatase 111 U/L (38-126); Anion Gap 3 mmol/L (8-16); Aspartate Amino Transferase 28 U/L (14-36); Bilirubin,Total 0.7 mg/dL (0.2-1.3); Blood Urea Nitrogen 16 mg/dL (7-17); Calcium 7.7 mg/dL (8.4-10.2); Carbon Dioxide 24 mmol/L (22-30); Chloride 108 mmol/L (98-107); Estimated CRCL calculation 55 ml/min; Estimated Glomerular Filt Rate > 60; Glucose 113 mg/dL (65-110); Lipase 53 U/L (23-300); Potassium 3.8 mmol/L (3.4-5.0); Sodium 135 mmol/L (137-145)
[2022-08-05 09:48] LABS: Anisocytosis 2+ (NORMAL); Macrocytosis 1+ (NORMAL); Platelet Estimate Adequate (Adequate); Schistocytes None Seen (NORMAL)
[2022-08-05] MEDS: SODIUM CHLORIDE 0.9% IV 1,000 ML 999 ML IV CONT (10:49)
[2022-08-05] MEDS: ONDANSETRON INJ 4 MG/2 ML VIAL IV PUSH (10:49)
--- NOTE | 2022-08-05 10:53 | ED.NAVMDI ---
HPI - Nausea/Vomiting/Diarrhea General Chief complaint: Nausea/Vomiting/Diarrhea <Ann Shirley PA-C - Last Filed: 08/05/22 15:27> Stated complaint: N/V <Ann Shirley PA-C - Last Filed: 08/05/22 15:27> Time Seen by Provider: 08/05/22 10:36 <Ann Shirley PA-C - Last Filed: 08/05/22 15:27> Source: patient <RADHA Zepeda Last Filed: 08/05/22 15:27> Mode of arrival: ambulatory <RADHA Zepeda Last Filed: 08/05/22 15:27> Limitations: no limitations <Ann Shirley PA-C - Last Filed: 08/05/22 15:27> History of Present Illness HPI Narrative: This is a 66-year-old female that presents to the emergency department for progressive dysphagia noted over the last 4 days. Reports anytime she eats or drinks anything it comes back up. She is not overtly nauseous. Reports it feels like things are getting stuck and not passing. She did have a similar instance in the past and saw a field service tech in [place]. Reports she has had to have a dilation. She has history of multiple myeloma and is currently undergoing chemotherapy. Her last treatment was 1 week ago. She is having some epigastric abdominal discomfort, especially after she eats. Also noted to have a temperature today. Denies dysuria or diarrhea. <Ann Shirley PA-C - Last Filed: 08/05/22 15:27> Related Data Home medications: Home Medications Medication Instructions Recorded Confirmed calcium carb-ergocalciferol (vit 1 tablet PO BID 06/03/22 08/05/22 D2) 600 mg calcium-200 unit tablet multivitamin 1 tablet PO DAILY 06/03/22 08/05/22 famotidine 10 mg tablet 10 mg PO DAILY PRN Indigestion 06/25/22 08/05/22 acyclovir 200 mg capsule 400 mg PO BID 07/13/22 08/05/22 aspirin 81 mg tablet,delayed 81 mg PO DAILY 07/13/22 08/05/22 release dexamethasone 4 mg tablet 10 mg PO USEASDIRECTD 07/13/22 08/05/22 hydrocodone 7.5 mg-acetaminophen 1 tablet PO Q4H PRN Pain 07/13/22 08/05/22 325 mg tablet sulfamethoxazole 800 1 tablet PO 3XW 07/13/22 08/05/22 mg-trimethoprim 160 mg tablet polyethylene glycol 3350 17 gram 17 g PO QAM PRN Constipation 08/05/22 08/05/22 oral powder packet (Miralax) sennosides 8.6 mg-docusate sodium 1 tab PO BID PRN Constipation 08/05/22 08/05/22 50 mg tablet (Senokot-S) <Ann Shirley PA-C - Last Filed: 08/05/22 15:27> Allergies/Adverse reactions: Allergies Allergy/AdvReac Type Severity Reaction Status Date / Time meloxicam AdvReac Palpitations, Verified 08/05/22 08:51 SHORTNESS OF BREATH <Ann Shirley PA-C - Last Filed: 08/05/22 15:27> Review of Systems Review of Systems: CONSTITUTIONAL: Reports fever GASTROINTESTINAL: Reports abdominal pain, vomiting. Denies diarrhea. GENITOURINARY: Denies dysuria NEUROLOGIC: Reports generalized weakness. 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 Port-A-Cath in place 06/29/22 <Ann Shirley PA-C - Last Filed: 08/05/22 15:27> Family History Family History: Family History Father Lung cancer Mother Sibling No problems noted. Other Diabetes mellitus Fami
[2022-08-05 11:35] LABS: Influenza A QL RT-PCR Negative (Negative); Influenza B QL RT-PCR Negative (Negative); SARS-CoV-2 RNA PCR Negative
[2022-08-05] MEDS: PANTOPRAZOLE SODIUM IV 40 MG VIAL IV PUSH (13:20)
[2022-08-05 13:32] LABS: Appearance Urine Clear (Clear); Bilirubin Urine 1+ (Negative); Blood Urine Trace-lysed (Negative); Color Urine Yellow (Yellow); Glucose Urine UA Negative (Negative); Ketones Urine 2+ mg/dL (Negative); Leukocyte Esterase Ur Negative LEU/UL (Negative); Nitrate Urine Negative (Negative); Protein Urine 1+ mg/dL (Negative); Urobilinogen Urine 0.2 mg/dL (<2.0); pH Urine 5.5 (5.0-9.0)
[2022-08-05 13:43] LABS: Mucus Urine Few /lpf
[2022-08-05 13:44] LABS: Add Urine Microscopic? YES
--- NOTE | 2022-08-05 14:38 | ADMGEN ---
This patient, Evon Sanchez, was admitted to 3 [facility] Surg Room 327-01. Patient/family oriented to hospital policies and general routines including ID bracelet, bed and alarms, visiting hours, pain management, procedures, bathroom and other care routines, personal items, smoking policy, room service/diet, and visiting hours. Information on how to activate the Rapid Response Team has been discussed. Patient/Family are encouraged to report perceived risks to care and to ask questions if they do not understand what they are told or what they should do.
--- NOTE | 2022-08-05 16:42 | WPDGICN ---
Assessment and Plan Assessment and plan (1) Dysphagia: Qualifiers: Dysphagia type: unspecified Qualified Code(s): R13.10 - Dysphagia, unspecified Code(s): R13.10 - Dysphagia, unspecified Status: Acute Assessment and Plan: will proceed with egd, wonder if she had food bolus continue with iv fluids, she has not been hardly eating (2) Multiple myeloma: Qualifiers: Multiple myeloma remission status: unspecified Qualified Code(s): C90.00 - Multiple myeloma not having achieved remission Code(s): C90.00 - Multiple myeloma not having achieved remission Status: Acute Assessment and Plan: currently on treatment (3) Chronic anemia: Code(s): D64.9 - Anemia, unspecified Status: Acute Assessment and Plan: from myeloma (4) Dehydration: Code(s): E86.0 - Dehydration Status: Acute Assessment and Plan: she is hungry but can not eat egd to assess esophagus and then start diet, continue with ivf (5) Nausea and vomiting in adult: Code(s): R11.2 - Nausea with vomiting, unspecified Status: Acute Assessment and Plan: iv protonix egd GI Consult Note Consult date/time: 08/05/22 16:42 Reason for consult: dysphagia HPI: Evon Sanchez is a 66 year old female with multiple myeloma currently undergoing chemotherapy who had dysphagia that required esophageal dilation about 6-7 years ago. She says that since Wednesday after had pasta and chicken has not been able to keep food down because is not going down, initially not even saliva and finally came to ER and admitted for evaluation, she is having also difficulty to take her pills. Review of Systems Constitutional: Constitutional: Reports weakness Eyes: Eyes: Denies blurry vision ENT: Reports dysphagia Cardiovascular: Cardiovascular: Denies chest pain Respiratory: Respiratory: Denies cough Gastrointestinal: Gastrointestinal: Reports nausea and Reports vomiting Genitourinary: Genitourinary: Denies hematuria Musculoskeletal: Musculoskeletal: Denies neck pain Integumentary/Breasts: Skin/Breast: Denies rash Neurologic: Denies Abnormal speech present Psychiatric: Psychiatric: Denies behavioral changes [facility] Past Medical History Medical History (Updated 08/05/22 @ 16:47 by Riley Mukherjee MD) Arthritis Chronic anemia Dehydration Dysphagia, unspecified Gastroesophageal reflux disease with esophagitis Hyperlipidemia Left knee DJD Metastatic bone cancer Multiple myeloma Nausea and vomiting in adult Osteoporosis 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 Port-A-Cath in place 06/29/22 Family History Family History Father Lung cancer Mother Sibling No problems noted. Other Diabetes mellitus Family history of coronary artery disease Family history of lung cancer Family history of osteoarthritis Social History Social History Social History: Surrogate medical decision maker: Polly Seth, sister. Code status: Full code. Smoking packs per day: 1 Smoking cigarettes per day: 20.0 Years smoked: 30 Smoking pack-years: 30.00 Smoking status: Former smoker Tobacco type: cigarettes Second hand tobacco smoke exposure: Yes Smoking end date: 03/23/03 Alcohol intake: never Alcohol use details: Occasional alcohol use in moderation. Substance use: never Substance use type: does not use Lack of Transportation: No Lack of Food: Never True Current Housing: I Have Housing Concerned About Future Housing: No Difficulty Paying Gas/Electric Bills: No Difficulty Pay
--- NOTE | 2022-08-05 21:01 | PM.IMHP ---
H&P: HPI History of Present Illness Date/Time: 08/05/22 21:01 Chief Complaint: Nausea vomiting diarrhea Narrative: This is a 58 year female patient who is undergoing treatment for multiple myeloma which is not under control. The patient stated that she has had esophageal strictures in the past and had them dilatation. The patient stated that she is not able to get anything down into her stomach and feels that it just comes right back up. She just feels that things are getting stuck and not passing through. She has seen a GI and [place] in the past. She had her esophageal strictures dilatation did in the past. The patient is undergoing chemotherapy and is due for chemotherapy tomorrow but will not have it due to her symptoms. She sees Dr. Clark. She has multiple lytic bone lesions and is also receiving radiation. The patient has weekly chemotherapy treatments and she had hers 1 week ago. H&H is 10.9 and 35.3 which is her baseline. MCV is 106.3. Sodium is 135. Urine is positive for ketones. She is negative for influenza A/B and COVID. The patient was given IV Tylenol, IV fluids, Zofran and Protonix in the emergency room. The patient is being admitted to observation status on the date of service of 08/05/2022. Review of Systems Review of Systems: See HPI All systems reviewed & are unremarkable except as noted in HPI and below Constitutional: Constitutional: Reports as per HPI and Reports no additional constitutional complaints Eyes: Eyes: Reports as per HPI and Reports no additional eye complaints ENT: Reports system reviewed and no additional complaints, except as documented and Reports Normal hearing present Cardiovascular: Cardiovascular: Reports no additional cardiovascular complaints Respiratory: Respiratory: Reports no additional respiratory complaints and Reports no additional respiratory complaints Gastrointestinal: Gastrointestinal: Reports as per HPI and Reports no additional gastrointestinal complaints Musculoskeletal: Musculoskeletal: Reports no additional musculoskeletal complaints Integumentary/Breasts: Skin/Breast: Reports system reviewed and no additional complaints, except as docu and Reports as per HPI Neurologic: Reports system reviewed and no additional complaints, except as documented, Reports as per HPI and Reports Normal hearing present Psychiatric: Psychiatric: Reports no additional psychiatric complaints and Reports as per HPI Endocrine: Endocrine: Reports no additional endocrine complaints Hematologic/Lymphatic: Hematologic/Lymphatic: Reports no additional hematologic/lymphatic complaints Allergic/Immunologic: Allergic/Immunologic: Reports no additional allergic/immunologic complaints [facility] Past Medical History Medical History (Updated 08/06/22 @ 01:37 by Darlene Weaver NP) Arthritis Chronic anemia Dehydration Dysphagia, unspecified Gastroesophageal reflux disease with esophagitis History of esophageal dilatation Hyperlipidemia Left knee DJD Multiple myeloma With multiple lytic lesions not yet achieved remission Nausea and vomiting in adult Osteoporosis 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 Port-A-Cath in place 06/29/22 Family History Family History Father Lung cancer Mother Sibling No problems noted. Other Diabetes mellitus Family history of coronary artery disease Family history of lung cancer Family history of osteoarthritis Social History Social History (Updated 08/06/22 @ 01:32 by Darlene Weaver NP) Social History: The patient is and has no children. The patient is retired from [employer]. Surrogate medical decision maker:
[2022-08-05] MEDS: SODIUM CHLORIDE 0.9% IV 1,000 ML 75 ML IV CONT (21:49)
[2022-08-06 06:00] VITALS: BP 124/67; PULSE 79; RESP 16; TEMP 36.8; O2SAT 100
[2022-08-06 07:03] LABS: Basophils Percent Auto 0.3 % (0.2-1.2); Eosinophils Absolute Auto 0.1 K/mm3 (0-0.3); Hematocrit 31.6 % (37.0-47.0); Hemoglobin 9.5 g/dL (12.0-15.0); Immature Granulocyte Absolute 0.01 K/mm3 (0.00-0.031); Immature Granulocyte Percent A 0.3 % (0-0.5); Lymphocytes Absolute Auto 0.13 K/mm3 (0.9-3.2); Lymphocytes Percent Auto 3.5 % (18.3-44.2); Mean Corpuscular HGB Conc 30.1 g/dl (32-36); Mean Corpuscular Hemoglobin 32.8 pg (26-34); Mean Platelet Volume 10.4 fl (7.4-10.4); Monocytes Absolute Auto 0.6 K/mm3 (0.1-0.6); Monocytes Percent Auto 15.4 % (2.6-8.5); Neutrophils Absolute Auto 2.9 K/mm3 (1.3-6.7); Neutrophils Percent Auto 77.5 % (45.5-73.1); Platelet Count Result 164 k/mm3 (150-375); Red Cell Distribution Width 20.5 % (11.5-14.5); White Blood Count 3.7 K/mm3 (4.5-10.0)
[2022-08-06 07:20] LABS: Lactic Acid Reflex 0.9 mmol/L (0.7-2.0)
[2022-08-06 07:23] LABS: Alanine Aminotransferase 13 U/L (6-35); Albumin Level 3.1 g/dL (3.5-5.1); Alkaline Phosphatase 100 U/L (38-126); Anion Gap 3 mmol/L (8-16); Aspartate Amino Transferase 24 U/L (14-36); Bilirubin,Total 0.7 mg/dL (0.2-1.3); Blood Urea Nitrogen 13 mg/dL (7-17); Calcium 7.1 mg/dL (8.4-10.2); Carbon Dioxide 21 mmol/L (22-30); Chloride 112 mmol/L (98-107); Estimated CRCL calculation 60 ml/min; Estimated Glomerular Filt Rate > 60; Glucose 78 mg/dL (65-110); Lipase 50 U/L (23-300); Magnesium 1.8 mg/dL (1.6-2.3); Potassium 3.1 mmol/L (3.4-5.0); Sodium 136 mmol/L (137-145)
[2022-08-06 07:47] LABS: Thyroid Stimulating Hormone Reflex 0.729 uIU/mL (0.465-4.68)
--- NOTE | 2022-08-06 08:04 | PM.IMPN ---
Progress Note: A&P Assessment and Plan (1) Esophageal stricture: Code(s): K22.2 - Esophageal obstruction Status: Acute Assessment and Plan: EGD performed by GI today, showed esophagitis, gastritis and esophageal stricture Biopsies taken and pending, follow-up outpatient Stricture noted at the GE junction, dilation performed with good results Hiatal hernia found at the GE junction as well GI recommended repeat EGD in 6 weeks, okay to start soft diet and discharge home if able to tolerate po Also recommended PPI b.i.d. with Carafate q.a.c. x2 weeks (2) Multiple myeloma: Qualifiers: Multiple myeloma remission status: unspecified Qualified Code(s): C90.00 - Multiple myeloma not having achieved remission Code(s): C90.00 - Multiple myeloma not having achieved remission Status: Acute Assessment and Plan: Appreciate hematology/oncology consultation, due for chemotherapy soon Multiple lytic bone lesions, not in remission Plan DVT prophylaxis with SCDs GI prophylaxis with PPI Code status full code Subjective Date/time seen: 08/06/22 08:04 Objective Data Vital Signs Vital Signs: Vital Signs - 24 hr 08/05/22 08:47 08/05/22 10:28 08/05/22 10:29 Temperature 100.1 F H Pulse Rate 96 Respiratory Rate 16 Blood Pressure 126/78 126/85 Pulse Oximetry 98 99 99 Oxygen Delivery Room Air 08/05/22 10:30 08/05/22 10:31 08/05/22 10:46 Temperature Pulse Rate 80 Respiratory Rate 16 Blood Pressure 126/81 128/80 Pulse Oximetry 98 100 100 Oxygen Delivery 08/05/22 11:31 08/05/22 11:46 08/05/22 12:16 Temperature Pulse Rate 82 80 82 Respiratory Rate 16 16 16 Blood Pressure 135/87 129/88 140/73 Pulse Oximetry 100 100 100 Oxygen Delivery 08/05/22 13:21 08/05/22 13:54 08/05/22 16:00 Temperature 98.4 F Pulse Rate 80 63 81 Respiratory Rate 16 16 18 Blood Pressure 129/76 122/80 130/74 Pulse Oximetry 100 100 100 Oxygen Delivery 08/05/22 22:00 08/06/22 06:00 Temperature 98.2 F 98.2 F Pulse Rate 88 79 Respiratory Rate 18 16 Blood Pressure 122/72 124/67 Pulse Oximetry 99 100 Oxygen Delivery Intake/Output Intake/Output: Intake & Output 08/03/22 08/04/22 08/05/22 08/06/22 23:59 23:59 23:59 23:59 Intake Total 1100 0 Output Total 450 Balance 1100 -450 Meds/Results Medications: Active Medications Generic Name Dose Route Start Last Admin Trade Name Freq PRN Reason Stop Dose Admin Fentanyl Citrate 25 mcg 08/06/22 01:39 Fentanyl Citrate Inj (*Crx) 100 Mcg/2 Ml Vial IV PUSH Q4H PRN Pain Rated 7-10 Sodium Chloride 1,000 mls @ 75 mls/hr 08/05/22 21:30 08/05/22 21:49 Normal Saline Iv IV CONT 75 mls/hr .[id number] HERBERTH Administration Lidocaine 1 patch 08/06/22 09:00 Lidocaine 5% Patch TRANSDERM DAILY HERBERTH Pantoprazole Sodium 40 mg 08/06/22 09:00 Pantoprazole Sodium Iv 40 Mg Vial IV PUSH Q12HR HERBERTH Radiology Results: ITS Impressions Abdomen/Pelvis CT 08/05/22 12:53 IMPRESSION: 1. Small sliding-type hiatal hernia with edematous-appearing wall thickening at the gastroesophageal junction which may represent esophagitis related to provided history of vomiting. 2. No other acute intra-abdominal/pelvic process. Normal gallbladder and appendix. 3. Diverticulosis. 4. Innumerable lytic bone lesions consistent with known history of multiple myeloma. 5. Fibroid uterus. Labs Labs: Laboratory Results - last 24 hr 08/05/22 08/05/22 08/05/22 09:10 09:10 10:53 WBC 5.1 RBC 3.32 L Hgb 10.9 L Hct 35.3 L MCV 106.3 H MCH 32.8 MCHC 30.9 L RDW 20.7 H Plt Count 186 MPV 10.3 Immature Gran % (Auto) 0.4 Neut % (Auto) 84.1 H Lymph % (Auto) 2.6 L Christian % (Auto) 9.8 H Eos % (Auto) 2.9 Baso % (Auto) 0.2 Lymph # (Auto) 0.13 L Christian # (Auto) 0.5 Eos # (Auto) 0.2 Baso # (Auto) 0.0 Abs Immat Gran (auto) 0.
[2022-08-06 08:12] LABS: Anisocytosis 1+ (NORMAL); Platelet Estimate Adequate (Adequate); Schistocytes None Seen (NORMAL)
[2022-08-06] MEDS: LIDOCAINE 5% PATCH 1 PATCH TRANSDERM (08:29)
[2022-08-06] MEDS: PANTOPRAZOLE SODIUM IV 40 MG VIAL IV PUSH (08:29)
[2022-08-06 11:34] VITALS: BP 131/76; PULSE 77; RESP 18; TEMP 36.8; O2SAT 100
[2022-08-06] MEDS: LACTATED RINGERS 1,000 ML 150 ML IV CONT (11:36)
--- NOTE | 2022-08-06 11:52 | PC.NURSE ---
To GI Lab per samm at 1130. IV saline locked. Report given to MITCHELL Palmer.
[2022-08-06 12:36] VITALS: BP 110/70; PULSE 85; RESP 24; TEMP 36.8; O2SAT 100
[2022-08-06 12:46] VITALS: BP 126/71; PULSE 81; RESP 22; TEMP 36.8; O2SAT 100
[2022-08-06 12:56] VITALS: BP 127/69; PULSE 71; RESP 21; TEMP 36.8; O2SAT 100
[2022-08-06] MEDS: SODIUM CHLORIDE 0.9% IV 1,000 ML 75 ML IV CONT (13:21)
--- NOTE | 2022-08-06 13:45 | PC.NURSE ---
Returned from GI Lab. Report received from MITCHELL Huerta.
[2022-08-06 14:00] VITALS: BP 137/72; PULSE 76; RESP 18; TEMP 36.7; O2SAT 99
[2022-08-06 14:26] VITALS: BMI 27.8
--- NOTE | 2022-08-06 16:38 | PM.DS ---
DS: Admitting Diagnosis Discharge Date 08/06/22 Admitting Diagnosis dysphagia DS: Discharge Diagnosis Discharge Diagnosis (1) Esophageal stricture: Code(s): K22.2 - Esophageal obstruction Status: Acute Assessment and Plan: EGD performed by GI today, showed esophagitis, gastritis and esophageal stricture Biopsies taken and pending, follow-up outpatient Stricture noted at the GE junction, dilation performed with good results Hiatal hernia found at the GE junction as well GI recommended repeat EGD in 6 weeks, okay to start soft diet and discharge home if able to tolerate po Also recommended PPI b.i.d. with Carafate q.a.c. x2 weeks (2) Multiple myeloma: Qualifiers: Multiple myeloma remission status: unspecified Qualified Code(s): C90.00 - Multiple myeloma not having achieved remission Code(s): C90.00 - Multiple myeloma not having achieved remission Status: Acute Assessment and Plan: Appreciate hematology/oncology consultation, due for chemotherapy soon Multiple lytic bone lesions, not in remission Plan DVT prophylaxis with SCDs GI prophylaxis with PPI Code status full code DS: Summary Hospital Course Hospital Course: 66-year-old female with dysphagia and history of recurrent esophageal strictures requiring dilation, presenting with dysphagia again. GI was consulted and did an EGD finding another esophageal stricture that required dilation. She tolerated p.o. quite well afterwards. See above for details. Time Spent with Patient Time attestation: Total time spent providing and/or coordinating discharge services: DS: Data Data Completed and Pending Pending studies at discharge: Pending at discharge 08/06/22 12:26 Surgical [PTH] Routine Labs on day of discharge: Labs from last 24 hours 08/06/22 08/06/22 08/06/22 06:05 06:05 06:05 WBC RBC Hgb Hct MCV MCH MCHC RDW Plt Count MPV Immature Gran % (Auto) Neut % (Auto) Lymph % (Auto) Barron % (Auto) Eos % (Auto) Baso % (Auto) Lymph # (Auto) Barron # (Auto) Eos # (Auto) Baso # (Auto) Abs Immat Gran (auto) Absolute Neuts (auto) Absolute Nucleated RBC Nucleated RBC % Platelet Estimate Anisocytosis Schistocytes Sodium 136 L Potassium 3.1 L Chloride 112 H Carbon Dioxide 21 L Anion Gap 3 L BUN 13 Creatinine 0.70 Estim Creat Clear Calc 60 Estimated GFR > 60 Glucose 78 Lactic Acid 0.9 Calcium 7.1 L Magnesium 1.8 Total Bilirubin 0.7 AST 24 ALT 13 Alkaline Phosphatase 100 Total Protein 8.0 Albumin 3.1 L Lipase 50 TSH (Reflex) 0.729 08/06/22 06:05 WBC 3.7 L RBC 2.90 L Hgb 9.5 L Hct 31.6 L MCV 109.0 H MCH 32.8 MCHC 30.1 L RDW 20.5 H Plt Count 164 MPV 10.4 Immature Gran % (Auto) 0.3 Neut % (Auto) 77.5 H Lymph % (Auto) 3.5 L Barron % (Auto) 15.4 H Eos % (Auto) 3.0 Baso % (Auto) 0.3 Lymph # (Auto) 0.13 L Barron # (Auto) 0.6 Eos # (Auto) 0.1 Baso # (Auto) 0.0 Abs Immat Gran (auto) 0.01 Absolute Neuts (auto) 2.9 Absolute Nucleated RBC 0.0 Nucleated RBC % 0.0 Platelet Estimate Adequate Anisocytosis 1+ Schistocytes None seen Sodium Potassium Chloride Carbon Dioxide Anion Gap BUN Creatinine Estim Creat Clear Calc Estimated GFR Glucose Lactic Acid Calcium Magnesium Total Bilirubin AST ALT Alkaline Phosphatase Total Protein Albumin Lipase TSH (Reflex) Discharge Plan Discharge Attending physician on discharge: Carly Herrera Consulting providers: Ann Shirley ; Carlos Clark ; Riley Mukherjee Discharging Clinician: Carly Herrera Patient Disposition: Home Health Service Activity: as tolerated Diet: as tolerated Discharge Instructions: Per Care Coordination. Patient to have [facility] for RN/PT/OT eval and treat [phone]
[2022-08-06] MEDS: SUCRALFATE SUSP 100 MG/ML 10 ML UDC 1000 MG PO (17:05)
== END 2022-08-06 18:00 | disposition home health service (06) ==
LOC: ANHED 11:43 → ANH3MEDSUR 14:08
PROVIDERS: Emergency Medicine; Internal Medicine Gastroenterology; Nurse Practitioner; Admitting Provider Chiropractor; Emergency Provider Physician Assistant; PCP Family Medicine; Visit Provider Student in an Organized Health Care Education/Training Program
PROC: 0DJ08ZZ Inspection of Upper Intestinal Tract, Via Natural or Artificial Opening Endoscopic (ICD-10-PCS; CPT 43235; principal; 2022-08-06 12:00)
DX: K21.00 Gastro-esophageal reflux disease with esophagitis, without bleeding (principal); K22.2 Esophageal obstruction; K44.9 Diaphragmatic hernia without obstruction or gangrene; K29.70 Gastritis, unspecified, without bleeding; Z20.822 Contact with and (suspected) exposure to COVID-19; C90.00 Multiple myeloma not having achieved remission; Z79.82 Long term (current) use of aspirin; Z79.891 Long term (current) use of opiate analgesic; Z79.899 Other long term (current) drug therapy
CPT/HCPCS: 43239; 43249; 36415; 74177; 80053; 81001; 83605; 83690; 83735; 84443; 85025; 87636; 88305; 88312; 88342; 96361; 96365; 96375; 96376; 99285; A9270; C1726; C9113; G0378; J0131; J2405; J2704; J7030; J7120; Q9967

== ENCOUNTER 2023-02-11 14:06 | Outpatient (CLI) | payer MEDICARE, SELFPAY ==
[2023-02-11 15:20] LABS: Albumin Level 3.5 g/dL (3.5-5.1); Anion Gap 5 mmol/L (8-16); Blood Urea Nitrogen 17 mg/dL (7-17); Calcium 8.9 mg/dL (8.4-10.2); Carbon Dioxide 27 mmol/L (22-30); Chloride 109 mmol/L (98-107); Estimated Glomerular Filt Rate > 60; Glucose 132 mg/dL (65-110); Phosphorus 3.8 mg/dL (2.5-4.5); Potassium 3.8 mmol/L (3.4-5.0); Sodium 141 mmol/L (137-145)
== END 2023-02-11 14:07 | disposition home or self-care (01) ==
LOC: ANHLAB 14:10
PROVIDERS: PCP Family Medicine; Visit Provider Internal Medicine Nephrology
DX: N17.9 Acute kidney failure, unspecified (principal); E83.52 Hypercalcemia
CPT/HCPCS: 36415; 80069

== ENCOUNTER 2023-02-16 10:17 | Outpatient (NON) | payer MEDICARE, SELFPAY ==
[2023-02-16 12:02] LABS: Creatinine Urine 82.4 mg/dL
[2023-02-16 12:39] LABS: Total Protein Urine Random < 5 mg/dL; Ur Ttl Prot Creatinine Ratio < 0.06 mg/mg (0-0.20)
== END 2023-02-16 10:18 | disposition home or self-care (01) ==
PROVIDERS: PCP Family Medicine; Visit Provider Internal Medicine Nephrology
DX: N17.9 Acute kidney failure, unspecified (principal)
CPT/HCPCS: 82570; 84156

== ENCOUNTER 2024-01-18 12:17 | Outpatient (CLI) | payer MEDICARE, SELFPAY ==
--- NOTE | 2024-01-18 | ECHO_ITS ---
Patient Info Name: Evon Sanchez Age: 68 years : 1955 Gender: Female Ht: 63 in Wt: 178 lbs BSA: 1.92 m2 HR: 55 bpm BP: 140 / 84 mmHg Heart Rhythm: Bradycardia Technical Quality: Good Exam Date: 01/18/2024 12:38 PM Exam Location: Echo Lab Patient Status: Outpatient Admit Date: 01/18/2024 Staff Ordering Physician: Karthik, Korey PUENTE Railway Switchman: Rohan Alvarado RDCS Attending Provider: YOLANDA, IVON Exam Type: CA echo doppler color flow Study Info Indications - PALPATATION Complete two-dimensional, color flow and Doppler transthoracic echocardiogram is performed. Summary 1. Complete two-dimensional, color flow and Doppler transthoracic echocardiogram is performed. 2. Left ventricular chamber dimension is normal. 3. Left ventricular systolic function is normal, estimated at 60-65%. 4. The left ventricular diastolic function is grade I diastolic dysfunction. 5. E/e' 13 is mildly elevated. 6. There is moderate aortic valve sclerosis. 7. There is mild aortic valve stenosis with a peak velocity of 265 cm/s, mean gradient of 17 mmHg, and aortic valve area of 1.6 cm2. 8. There is mild to moderate aortic valve regurgitation. 9. The mitral valve has moderately calcified annulus. 10. There is mild mitral valve regurgitation. 11. There is mild tricuspid valve regurgitation. 12. Mild pulmonary hypertension, estimated pulmonary arterial systolic pressure is 42 mmHg. Left Ventricle E/e' 13 is mildly elevated. Left ventricular chamber dimension is normal. Left ventricular systolic function is normal, estimated at 60-65%. The left ventricular diastolic function is grade I diastolic dysfunction. Right Ventricle Right ventricular systolic function is normal and with normal TAPSE 2.6 cm. Right ventricular chamber dimension is normal. Left Atria Left atrial chamber dimension is normal. Right Atria Right atrial chamber dimension is normal. Aortic Valve The aortic valve is trileaflet. There is moderate aortic valve sclerosis. There is mild aortic valve stenosis with a peak velocity of 265 cm/s, mean gradient of 17 mmHg, and aortic valve area of 1.6 cm2. There is mild to moderate aortic valve regurgitation. Pulmonic Valve There is no pulmonic regurgitation. Mitral Valve The mitral valve has moderately calcified annulus. There is no mitral valve stenosis. There is mild mitral valve regurgitation. Tricuspid Valve There is mild tricuspid valve regurgitation. Mild pulmonary hypertension, estimated pulmonary arterial systolic pressure is 42 mmHg. Pericardium/Pleural There is no pericardial effusion. Inferior Vena Cava Normal inferior vena cava with >50% collapse upon inspiration consistent with normal right atrial pressure, 5 mmHg. Aorta The aortic root size at the sinus of Valsalva is normal. Left Ventricular Outflow Tract Name Value Normal LVOT 2D LVOT Diameter 1.8 cm LVOT Doppler LVOT Peak Gradient 13 mmHg LVOT Mean Gradient 7 mmHg LVOT VTI 48 cm LVOT VTI/AV VTI Ratio 0.7 LVOT Stroke Volume 117 ml LVOT CO
== END 2024-01-18 12:18 | disposition home or self-care (01) ==
LOC: ANHCARD 12:18
PROVIDERS: PCP Family Medicine
DX: Z79.899 Other long term (current) drug therapy (principal); I08.3 Combined rheumatic disorders of mitral, aortic and tricuspid valves
CPT/HCPCS: 93306

== ENCOUNTER 2024-11-17 14:17 | Outpatient (CLI) | payer MEDICARE, SELFPAY ==
--- NOTE | ~2024-11-17 | MM_ITS ---
EXAMINATION: MM screening gricel BI w marion HISTORY: Screening TECHNIQUE: Craniocaudal and mediolateral oblique 3-D tomosynthesis images were obtained and synthetic 2-D images were generated. CAD analysis was submitted and interpreted. COMPARISON: Comparison to multiple prior studies sequentially, with oldest reviewed study dated 11/2015. BREAST PARENCHYMAL COMPOSITION: There are scattered areas of fibroglandular density. FINDINGS: There is no evidence of suspicious mass, calcification, or architectural distortion to sugg est malignancy in either breast. There has been no suspicious interval change. IMPRESSION: 1. No mammographic evidence of malignancy. 2. Recommend routine screening mammography in one year. BI-RADS Category 1: Negative Reviewed, dictated and finalized at location []
--- OUTSIDE RECORDS SUMMARY | 2024-11-17 14:21 | XMS_ITS | Encounter Summary ---
Author Organization [facility] Address [address] [facility] [place] [address] Care Team Providers Care Accredited Farm Manager Name Role Phone Unavailable Primary Care Provider Unavailabl e Encounter Details Date Type Department Care Team (Late st Contact Info) Description 06/16/2022 Lab Requisition [facility] Care Pathology Lab [address] [place] [address] Albino Lagos MD [facility] [address] [address] Illness, unspecified Social History Tobacco Use Types Packs/Day Years Used Date Smoking Tobacco: Never Assessed Comments Unknown Sex and Gender Information Value Date Recorded Sex Assigned at Not on file Legal Sex Female 7:39 AM CDT Gender Identity Not on file Sexual Orientation Not on file documented as of this encounter Plan of Treatment Not on file documented as of this encounter Visit Diagnoses Diagnosis Illness, unspecified documented in this encounter
--- OUTSIDE RECORDS SUMMARY | 2024-11-17 14:21 | XMS_ITS | Encounter Summary ---
Author Organization [facility] Address [address] [facility] [address] Care Team Providers Care Dental Receptionist Name Role Phone Unavailable Primary Care Provider Unavailabl e Encounter Details Date Type Department Care Team (Late st Contact Info) Description 06/16/2022 Lab Requisition [facility] Care Pathology Lab [address] [place] [address] Albino Lagos MD [facility] [address] [address] Illness, unspecified Social History Tobacco [...] on file documented as of this encounter Procedures Procedure Name Priority Date/Time Associated Diagnosis Comments BONE MARROW BIOPSY (STL) Routine 06/09/2022 9:30 AM [employer] Illness, unspecified documented in this encounter Results * BONE MARROW BIOPSY (STL) (06/09/2022 9:30 AM [employer]) Case Report Bone Marrow Patholog y Report Case: [id number] Authorizing Provider: Albino Lagos MD Collected: 06/09/2022 09:30 AM Ordering Location: [facility] Care Pathology Lab Received: 06/16/2022 12:33 PM Pathologist: Zoraida Crain Mai, DO Specimen: Bone Marrow Core 06/17/2022 12:54 PM [employer] U PATHOLOGY LAB Final Diagnosis Bone marrow, aspirate, touch imprint, core biopsy: - Plasma cell myeloma (80-90% involvement by CD138) - See description Peripheral blood: - Anemia with rouleaux formation - Adequate leukocytes without circulating plasma cells 06/17/2022 12:54 PM [facility] PATHOLOGY LAB at [address] [employer] AP Comment The bone marrow specimen shows 80-90% involvement by a kappa restricted plasma cell population consistent with plasma cell myeloma. Correlation with clinical findings and relevant cytogenetic/molecular testing is required. 06/17/2022 12:54 PM [facility] PATHOLOG[facility] Peripheral Smear Description 06/07/22 Short CBC data from provided report Leukocytes: Adequate with no circulating plasma cells Erythrocytes: Decreased (no MCV or MCHC provided), rouleaux formation present Platelets: Adequate with no significant abnormality 06/17/2022 12:54 PM [facility] PATH[facility] Bone Marrow Aspirate Aspirate smears and touch imprints are hypocellular and aspiculate, precluding an accurate manual differential count. Scanning shows peripheral blood elements. Storage iron (by special stain): Decreased stainable storage iron but sample is suboptimal (aspiculate, hemodilute). Control is appropriately reactive. Sideroblastic iron (by special stain): No ring sideroblasts but sample is suboptimal with insufficient erythroids to evaluate 06/17/2022 12:54 PM [facility] PATHOLOG[facility] Bone Marrow Core Biopsy and Clot Section Description The core biopsy is fragmented with 1.1 cm of evaluable marrow. Cellularity is estimated at 90% with effacement of the marrow compartment by plasma cells. The background shows some residual trilineage hematopoiesis. No clot section submitted. Due to uninformative aspirate smears and touch imprints, immunohistochemical and in situ hybridization stains are performed on the core biopsy in the [facility] Department of Pathology, with appropriately reactive controls, and demonstrate the following: CD34: No increase in blasts CD138: Stains aggregates of plasma cells, 80-90% of marrow cellularity Emory/lambda in situ hybridization: Emory restriction CD3: Stains scattered background T cells CD20: Stains rare background B cells 06/17/2022 12:54 PM [facility] PATHOLOGY [facility] Flow Cytometry Summary Not provided 06/17/2022 12:54 PM [facility] PATH[facility]Y [facility] Clinical History Multiple small lytic lesions throughout the skill suspicious for myeloma 06/17/2022 12:54 PM [facility] PATHOLOGY LAB Materials Received Received are 14 slides and one block (A1) labeled [id number] along with a copy of the outside pathology report. The materials originate from [place] [id number]. All original materials are returned to the referring institution, along with a copy of our final report. 06/17/2022 12:54 PM [facility] PATH[facility] Disclaimer The performance characteristics of all immunohistochemical and indirect immunofluorescence stains (if any) cited in this report were determined by the Histopathology Laboratory of [facility]. Some of these tests were developed by our own laboratory and have not been cleared or approved by the US Food and Drug Administration. The FDA does not require this test to go through premarket FDA review. These tests are used for clinical purposes. They should not be regarded as investigational or for research. This laboratory is certified under the Clinical Laboratory Improvement Amendments (CLIA) as qualified to perform high complexity clinical laboratory testing. This case has been personally reviewed and interpreted by the attending (teaching) pathologist. 06/17/2022 12:54 PM [facility] PATH[facility] Embedded Images 06/17/2022 12:54 PM [facility] PATHOLOGY LAB Pathology/Cytolo gy BONE MARROW SPECIMEN / Unknown 06/09/2022 9:30 AM [employer] 06/16/2022 12:33 PM [employer] Albino Lagos MD LAB - PATHOLOGY/CYTOLOGY ORDERAB LES Final Result Performing Organization Address City/State/[facility] Co de Phone Number [facility] PATHOLOGY LAB [address] [place], [place] [id number] [place] [address] documented in this encounter Visit Diagnoses Diagnosis Illness, unspecified documented in this encounter
--- OUTSIDE RECORDS SUMMARY | 2024-11-17 14:21 | XMS_ITS | Clinical Summary ---
Author Organization [facility] antonella [facility] Address [address] [facility] [place] [address] Care Team Providers Care Hairspring Truing Inspector Name Role Phone Hermna Ruff MD Primary Care Provider [phone] Allergies Active Allergy Reactions Criticality Noted Date Comments Meloxicam Palpitations Low 06/22/2022 Medications multivitamin (DAILY-TREVOR) tablet Take 1 Tablet by mouth daily. Active lidocaine (LIDODERM) 5 % Adhesive Patch, Medicated Apply 1 Patch to affected area every 24 hours. Active methocarbamoL (ROBAXIN) 750 mg tabletIndicati ons:Multiple myeloma not having achieved remission (CMS/HCC) Take 1 Tablet (750 mg) by mouth 4 times daily. 120 Tablet 3 Active HYDROcodone-ac etaminophen (NORCO) 7.5-325 mg TabletIndicati ons:Multiple myeloma not having achieved remission (CMS/HCC) Take 1 Tablet by mouth every 4 hours as needed for Pain, Moderate. Max Daily Amount: 4 Tablets 120 Tablet 3 Active Calcium Carb-Vit D3-Magnesium 250-200-125 mg-unit-mg Capsule Take 1 Tablet by mouth 4 times daily. Active Magnesium Hydroxide 400 mg (170 mg magnesium) Tablet, Chewable Take 400 mg by mouth daily. Active dexAMETHasone (DECADRON) 4 mg tablet Take 10 tablets by mouth every Wednesday. 120 Tablet 2 4 Active ondansetron (ZOFRAN ODT) 4 mg Tablet, Rapid DissolveIndica tions:Multiple myeloma not having achieved remission (CMS/HCC) Take 1 Tablet (4 mg) by mouth every 8 hours as needed for Nausea/Emesi s. Dissolve tablet on top of tongue, then swallow with saliva. 30 Tablet 3 4 Active aspirin (ECOTRIN EC) 81 mg Tablet, Delayed Release (E.C.) Take 81 mg by mouth daily. Active pantoprazole (PROTONIX) 40 mg Tablet, Delayed Release (E.C.)Indicati ons:Multiple myeloma not having achieved remission (CMS/HCC) take 1 tablet every day 90 Tablet 3 4 Active ferrous fumarate 89 mg (29 mg iron) Tablet 89 mg. Active acyclovir (ZOVIRAX) 200 mg capsuleIndicat ions:Multiple myeloma not having achieved remission (CMS/HCC) TAKE 2 CAPSULES TWICE DAILY 360 Capsule 3 5 Active sulfamethoxazo le-trimethopri m (BACTRIM DS) 800-160 mg tablet Take 1 tablet by mouth Wednesday, Wednesday, Wednesday. 15 Tablet 2 5 Active acyclovir (ZOVIRAX) 400 mg tablet TAKE 1 TABLET BY MOUTH TWICE A DAY 180 Tablet 1 5 Active gabapentin (NEURONTIN) 300 mg capsuleIndicat ions:Multiple myeloma not having achieved remission (CMS/HCC) TAKE 2 CAPSULES (600 MG) BY MOUTH 2 TIMES DAILY. 120 Capsule 2 5 Active pomalidomide (Pomalyst) 4 mg capsuleIndicat ions:Multiple myeloma not having achieved remission (CMS/HCC) TAKE 1 CAPSULE BY MOUTH EVERY DAY FOR 21 DAYS ON, FOLLOWED BY 7 DAYS OFF 21 Capsule 5 Active gabapentin (NEURONTIN) 300 mg capsuleIndicat ions:Multiple myeloma not having achieved remission (CMS/HCC) Take 2 Capsules (600 mg) by mouth 2 times daily. 120 Capsule 2 5 025 Discontinued pomalidomide (Pomalyst) 4 mg capsuleIndicat ions:Multiple myeloma not having achieved remission (CMS/HCC) TAKE 1 CAPSULE BY MOUTH EVERY DAY FOR 21 DAYS ON, FOLLOWED BY 7 DAYS OFF 21 Capsule 5 025 Discontinued Active Problems Problem Noted Date Diagnosed Date Metastasis to bone 02/09/2023 Multiple myeloma not having achieved remission 0 06/22/2022 Encounters Date Type Department Care Team Description 11/13/2024 Orders Only [facility] Oncology and Hematology - [address] [place] [phone] Carlos Clark MD Multiple myeloma not having achieved remission (CMS/HCC) 11/12/2024 Refill [facility] Oncology and Hematology [facility] [address] [place] [phone] Carlos Clark MD Multiple myeloma not having achieved remission (CMS/HCC) 11/10/2024 Orders Only [facility] Oncology and Hematology [facility] [address] [place] [phone] Carlos Clark MD 11/06/2024 Refill [facility] Oncology and Hematology [facility] [address] [place] [phone] Carlos Clark MD Multiple myeloma not having achieved remission (CMS/HCC) 11/06/2024 Orders Only [facility] Oncology and Hematology [facility] [address] [place] [phone] Carlos Clark MD Multiple myeloma not having achieved remission (CMS/HCC) 11/02/2024 Orders Only [facility] Oncology and Hematology [facility] [address] [place] [address] Carlos Clark MD 11/02/2024 External Device Data STL ABSTRACTION Provider, Abstract 11/01/2024 External Device Data STL ABSTRACTION Provider, Abstract 11/01/2024 External Device Data STL ABSTRACTION Provider, Abstract 10/31/2024 9:30 AM CDT Office Visit [facility] Oncology [facility] Hematology [facility] [address] [place] [address] Carlos Clark MD Multiple myeloma not having achieved remission (CMS/HCC) (Primary Dx) 10/31/2024 External Device Data STL ABSTRACTION Provider, Abstract 10/31/2024 Orders Only [facility] Oncology and Hematology [facility] [address] [place] [address] Carlos Clark MD 10/30/2024 Orders Only [facility] Oncology and Hematology - [address] [place] [address] Carlos Clark MD Multiple myeloma not having achieved remission (CMS/HCC) 10/27/2024 Orders Only [facility] Oncology and Hematology - [address] [place] [phone] Carlos Clark MD 10/26/2024 Orders Only [facility] Oncology and Hematology - [address] [place] [phone] Carlos Clark MD 10/23/2024 Orders Only [facility] Oncology and Hematology - [address] [place] [address] Carlos Clark MD Multiple myeloma not having achieved remission (CMS/HCC) 10/16/2024 Orders Only [facility] Oncology and Hematology - [place] [address] [place] [phone] Carlos Clark MD Multiple myeloma not having achieved remission (CMS/HCC) 10/12/2024 Refill [facility] Oncology and Hematology - [place] [address] [place] [address] Carlos Clark MD 10/11/2024 Orders Only [facility] Oncology and Hematology - [address] [place] [address] Carlos Clark MD 10/11/2024 Refill [facility] Oncology and Hematology - [address] [place] [address] Carlos Clark MD Multiple myeloma not having achieved remission (CMS/HCC) 10/09/2024 Refill [facility] Oncology and Hematology - [address] [place] [address] Dinah Tovar MD 10/09/2024 Orders Only [facility] Oncology and Hematology - [address] Carlos Clark MD Multiple myeloma not having achieved remission (CMS/HCC) 10/02/2024 Orders Only [facility] Oncology and Hematology - [address] Carlos Clark MD Multiple myeloma not having achieved remission (CMS/HCC) 09/25/2024 Orders Only [facility] Oncology and Hematology - [address] Carlos Clark MD Multiple myeloma not having achieved remission (CMS/HCC) 09/19/2024 Refill [facility] Oncology and Hematology - [address] Carlos Clark MD Multiple myeloma not having achieved remission (CMS/HCC) 09/18/2024 Orders Only [facility] Oncology and Hematology - [address] Carlos Clark MD Multiple myeloma not having achieved remission (CMS/HCC) 09/13/2024 Orders Only [facility] Oncology and Hematology - [address] Carlos Clark MD 09/12/2024 Orders Only [facility] Oncology and Hematology - [address] Carlos Clark MD 09/11/2024 Orders Only [facility] Oncology and Hematology - [address] Carlos Clark MD Multiple myeloma not having achieved remission (CMS/HCC) 09/06/2024 Orders Only [facility] Oncology and Hematology - [address] [place] [address] Carlos Clark MD 09/04/2024 Orders Only [facility] Oncology and Hematology [facility] [address] [place] [address] Carlos Clark MD Multiple myeloma not having achieved remission (CMS/HCC) 08/28/2024 Orders Only [facility] Oncology and Hematology [facility] [address] [place] [address] Carlos Clark MD Multiple myeloma not having achieved remission (CMS/HCC) 08/21/2024 Orders Only [facility] Oncology and Hematology [facility] [address] [place] [address] Carlos Clark MD Multiple myeloma not having achieved remission (CMS/HCC) from Last 3 Months Family History Medical History Relation Name Comments No Known Problems Brother Lung Cancer Father No Known Problems Mother No Known Problems Sister 1 No Known Problems Sister 2 Relation Name Status Comments Brother Alive Father Mother Sister 1 Alive Sister 2 Alive Social History Tobacco Use Types Packs/Day Years Used Date Smoking Tobacco: Never Smokeless Tobacco: Never Tobacco Cessation:Counseling Given: Not Answered Alcohol Use Standard Drinks/Week Comments Yes 0 (1 standard drink = 0.6 oz pur e alcohol) social Comments Unknown Sex and Gender Information Value Date Recorded Sex Assigned at Not on file Legal Sex Female 1:21 PM [employer] Gender Identity Not on file Sexual Orientation Not on file Last Filed Vital Signs Vital Sign Reading Time Taken Comments Blood Pressure 98/61 10/31/2024 9:32 AM CDT Pulse 57 10/31/2024 9:32 AM CDT Temperature 36.6 C (97.9 F) 10/31/2024 9:32 AM CDT Respiratory Rate 15 10/31/2024 9:32 AM CDT Oxygen Saturation 95% 10/31/2024 9:32 AM CDT Inhaled Oxygen Concentration - - Weight 83.1 kg (183 lb 3.2 oz) 10/31/2024 9:32 A M CDT Height 157.5 cm (5' 2) 08/27/2022 8:45 AM CDT Body Mass Index 33.51 08/27/2022 8:45 AM CDT Plan of Treatment Upcoming Encounters Date Type Department Care Team (Late st Contact Info) Description 01/23/2025 9:00 AM CDT Office Visit [facility] Oncology and Hematology - [address] [facility] [address] [place] [address] Carlos Clark MD [address] [facility] [address] [place] [address] Health Maintenance Due Date Last Done Comments DTAP/TDAP/TD VACCINES (1 - Tdap) 1972 PNEUMOCOCCAL VACCINE 50+ YEA RS (1 of 2 - PCV) 1972 ZOSTER VACCINE (1 of 2) 1972 BREAST CANCER SCREENING 1993 COLORECTAL SCREENING 1998 Colorectal Cancer Screening 1998 FIT-DNA Q 3 years 1998 FIT/FOBT Q 1 year 1998 Flex Sig/CT Colonography Q 5 years 1998 RSV VACCINE (60+ or ) (1 - Risk 60-74 years 1-dose series) 2013 OSTEOPOROSIS SCREENING 2018 INFLUENZA VACCINE (#1) 2024 3, 05/01/2022, 05/19/2021, Additional history exists Procedures Procedure Name Priority Date/Time Associated Diagnosis Comments BASIC METABOLIC PANEL Routine 11/07/2024 3:58 PM CDT COMPREHENSIVE METABOLIC PANEL Routine 11/07/2024 3:57 PM CDT PROTEIN ELECTROPHORESIS, CSF Routine 10/30/2024 1:26 PM CDT IGG Routine 10/25/2024 2:49 PM CDT KAPPA/LAMBDA LIGHT CHAINS Routine 2024 1:38 PM CDT COMPREHENSIVE METABOLIC PANEL Routine 10/25/2024 11:43 AM CDT COMPREHENSIVE METABOLIC PANEL Routine 10/10/2024 8:59 AM CDT BASIC METABOLIC PANEL Routine 10/10/2024 7:49 AM CDT CBC MIXED CELL DIFFERENTIAL Routine 10/10/2024 7:48 AM CDT IMMUNOGLOBULINS IGG IGA IGM Routine 09/25/2024 3:35 PM CDT BASIC METABOLIC PANEL Routine 09/12/2024 1:27 PM CDT CBC MIXED CELL DIFFERENTIAL Routine 09/12/2024 1:26 PM CDT COMPREHENSIVE METABOLIC PANEL Routine 09/12/2024 10:25 AM CDT IMMUNOGLOBULINS IGG IGA IGM Routine 09/04/2024 1:30 PM CDT from Last 3 Months Results * BASIC METABOLIC PANEL (11/07/2024 3:58 PM CDT) Only the most recent of3 resultswithin the time period is included. Blood us Carlos Clark MD CHEMISTRY ORDERABLES Final Resu lt * COMPREHENSIVE METABOLIC PANEL (11/07/2024 3:57 PM CDT) Only the most recent of4 resultswithin the time period is included. Blood us Carlos Clark MD CHEMISTRY ORDERABLES Final Resu lt * PROTEIN ELECTROPHORESIS, CSF (10/30/2024 1:26 PM CDT) Cerebrospinal fluid CEREBROSPINAL FLUID / Unknown us Carlos Clark MD BODY FLUIDS AND STOOLS Final Re sult * IGG (10/25/2024 2:49 PM CDT) Blood us Carlos Clark MD CHEMISTRY ORDERABLES Final Resu lt * KAPPA/LAMBDA, FREE LIGHT CHAINS (10/25/2024 1:38 PM CDT) Blood us Carlos Clark MD CHEMISTRY ORDERABLES Final Resu lt * CBC MIXED CELL DIFFERENTIAL (10/10/2024 7:48 AM CDT) Only the most recent of2 resultswithin the time period is included. Blood Carlos Clark MD HEMATOLOGY ORDERABLES Final Res ult * IMMUNOGLOBULINS IGG IGA IGM (09/25/2024 3:35 PM CDT) Only the most recent of2 resultswithin the time period is included. Blood Carlos Clark MD CHEMISTRY ORDERABLES Final Resu lt from Last 3 [place] [address] [employer] [facility] [place] [address] [employer] [facility] Care Teams Hairspring Truing Inspector Relationship Specialty Start Date End Date Herman Ruff MD [address] [place] [address] PCP - General Family Practice 06/22/22
--- OUTSIDE RECORDS SUMMARY | 2024-11-17 14:21 | XMS_ITS | Encounter Summary ---
Author Organization [facility] [place] Address [address] [place] [address] Phone Care Team Providers Care Budget Record Clerk Name Role Phone Herman Ruff MD Primary Care Provider [phone] Carlos Clark MD Unavailable [phone] Encounter Details Date Type Department Care Team (Latest Contact Info) Description 06/09/2022 Orders Only [facility] Scanning, Provider Social History Tobacco Use Types Packs/Day Years Used Date Smoking Tobacco: Never Assessed Comments Unknown Sex and Gender Information Value Date Recorded Sex Assigned at Not on file Legal Sex Female 7:37 AM MECHANICAL MANUFACTURING ENGINEER Gender Identity Not on file Sexual Orientation Not on file documented as of this encounter Plan of Treatment Not on file documented as of this encounter Procedures Procedure Name Priority Date/Time Associated Diagnosis Comments SCAN - LABS 06/09/2022 documented in this encounter Results * SCAN - LABS (06/09/2022) us Provider Scanning Final Result documented in this encounter Visit Diagnoses Not on filedocumented in this encounter Additional Health Concerns Infection Onset Date Last Indicated Resolved Time Diarrhea 08/03/2023 08/05/2023 08/05/2023 10:5 9 PM MECHANICAL MANUFACTURING ENGINEER Diarrhea 08/10/2023 08/10/2023 08/10/2023 10:5 3 AM MECHANICAL MANUFACTURING ENGINEER C. difficile suspected Comment:C diff test pending 08/16/2023 08/16/2023 08/16/2023 8 :24 PM MECHANICAL MANUFACTURING ENGINEER Rotavirus suspected 08/16/2023 08/16/2023 08/16/19 10:09 PM MECHANICAL MANUFACTURING ENGINEER Norovirus suspected 08/16/2023 08/16/2023 08/16/19 12:02 PM MECHANICAL MANUFACTURING ENGINEER documented as of this encounter Care Teams Budget Record Clerk Relationship Specialty Start Date End Date Herman Ruff MD PCP - General Family Medicine 10/29/22 Carlos Clark MD [address] [id number] Referring Physician Hematology 11/02/22 documented as of this encounter
--- OUTSIDE RECORDS SUMMARY | 2024-11-17 14:21 | XMS_ITS | Clinical Summary ---
Author Organization [facility] Address [address] [place] [address] Care Team Providers Care Cafe Operator Name Role Phone Unavailable Primary Care Provider Unavailabl e Source Comments [facility],non-owned Affiliates and Associated Physician Practices is amultiple site organization consisting of ambulatory clinics and hospital sitesin [place], [place], [place] and [place]. This disclosure is being madepursuant to the Care Everywhere program and may not contain all information available regarding this patient. Last updated 18.[facility] [place] [employer] Social History Tobacco Use Types Packs/Day Years Used Date Smoking Tobacco: Never Assessed Comments Unknown Sex and Gender Information Value Date Recorded Sex Assigned at Not on file Legal Sex Female 7:39 AM CDT Gender Identity Not on file Sexual Orientation Not on file Plan of Treatment Health Maintenance Due Date Last Done Comments BONE DENSITY TESTING 1955 COLOGUARD (AGES 45-75) - COL ON CA SCREENING 1955 COLON MONITORING 1953 COLONOSCOPY - COLON CA SCREENING 1953 CT COLONOGRAPHY - COLON CA SCREENING 1955 Colorectal Cancer Screening 1955 FIT - COLON CA SCREENING 1953 FLEX SIG - COLON CA SCREENING 1953 LIPID TESTING 1953 MAMMOGRAM 1953 HEPATITIS C SCREENING 08/08/1971 DTAP/TDAP/TD VACCINES (1 - Tdap) 1972 PNEUMOCOCCAL VACCINE 50+ (1 of 1 - PCV) 08/13/2003 ZOSTER VACCINE (1 of 2) 08/13/2003 COVID-19 VACCINE ( - 2023-2 5 season) 2024 DEPRESSION SCREENING 06/14/2024 INFLUENZA VACCINE (Season Ended) 2025 Respiratory Syncytial Virus (RSV) Vaccine Pt: or over 60 yrs (1 - 1-dose 75+ series) 2028 HEPATITIS B VACCINE Aged Out No longe r eligible based on patient's age to complete this topic HIB VACCINE Aged Out No longer eligi ble based on patient's age to complete this topic HPV VACCINE Aged Out No longer eligi ble based on patient's age to complete this topic MENINGOCOCCAL (Group B) VACC INE SHARED DECISION-MAKING Aged Out No longer eligibl e based on patient's age to complete this topic MENINGOCOCCAL GROUPS A/C/Y/W VACCINE Aged Out No longer eligible b ased on patient's age to complete this topic
--- OUTSIDE RECORDS SUMMARY | 2024-11-17 14:21 | XMS_ITS | Encounter Summary ---
Author Organization [facility] [employer] [facility] Address [address] [place] [address] Care Team Providers Care Steersman Name Role Phone Herman Ruff MD Primary Care Provider [phone] Encounter Details Date Type Department Care Team (Late Contact Info) Description 11/13/2024 Orders Only [facility] Oncology and Hematology - [address] [place] [address] Carlos Clark MD [facility] [employer] [address] [place] [phone] Multiple myeloma not having achieved remission (CMS/HCC) Social History Tobacco Use Types Packs/Day Years Used Date Smoking Tobacco: Never Smokeless Tobacco: Never Alcohol Use Standard Drinks/Week Comments Yes 0 (1 standard drink = 0.6 oz pur e alcohol) social Comments Unknown Sex and Gender Information Value Date Recorded Sex Assigned at Not on file 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 Gender Identity Not on file Sexual Orientation Not on file documented as of this encounter Plan of Treatment Upcoming Encounters Date Type Department Care Team (Late st Contact Info) Description 01/23/2025 9:00 AM CDT Office Visit [facility] Oncology and Hematology - [address] [place] [address] Carlos Clark MD [address] [place] [address] documented as of this encounter Visit Diagnoses Diagnosis Multiple myeloma not having achieved remission (CMS/HCC) Multiple myeloma, without mention of having achieved remission documented in this encounter Care Teams Steersman Relationship Specialty Start Date End Date Herman Ruff MD [address] [place] [address] PCP - General Family Practice 06/22/22 documented as of this encounter
--- OUTSIDE RECORDS SUMMARY | 2024-11-17 14:21 | XMS_ITS | Encounter Summary ---
Author Organization [facility] Address [address] [facility] [place] [address] Care Team Providers Care Sales Operations Consultant Name Role Phone Unavailable Primary Care Provider Unavailabl e Encounter Details Date Type Department Care Team (Late st Contact Info) Description 06/12/2022 Lab Requisition [facility] Care Pathology Lab [address] [place] [address] Albino Lagos MD [facility] [address] [address] Social History Tobacco Use Types Packs/Day Years Used Date Smoking Tobacco: Never Assessed Comments Unknown Sex and Gender Information Value Date Recorded Sex Assigned at Not on file Legal Sex Female 7:39 AM CDT Gender Identity Not on file Sexual Orientation Not on file documented as of this encounter Plan of Treatment Not on file documented as of this encounter Visit Diagnoses Not on filedocumented in this encounter
--- OUTSIDE RECORDS SUMMARY | 2024-11-17 14:21 | XMS_ITS | Continuity of Care Document ---
Author Organization [facility] Address [address] [place] [address] [address] [place] [address] Phone Care Team Providers Care Internet Architect Name Role Phone Sanjeev Martinez Unavailable Unavailable Advance Directives Directive Yes / No Effective Date File Name No Information Encounters Encounter Description Practice Location Reason(s) For Visit Diagnoses Date Provider Providers Copied on Encounter [facility], [id number] [place] [address] [address], [place], [place], [id number], [place] tel:[phone] [facility] No Information [address] , [address], [place], [address], [place]. tel:[phone] Family History Family Member Type Diagnosis Age At Onset No Information Payers Payer name Insurance type Covered republican ID Authoriza tion(s) [place] [id number] Social History Type Description Quantity Date Captured [...]
--- OUTSIDE RECORDS SUMMARY | 2024-11-17 14:21 | XMS_ITS ---
Author Organization [facility] Address [address] [place] [address] Care Team Providers Care Pourer Buggy Ladle Name Role Phone Herman Ruff MD Primary Care Provider [phone] Carlos Clark MD Unavailable [phone] Active Problems Patient Care Coordination No te Formatting of this note is d ifferent from the original. BMT Inpatient Care Coordination Overview Diagnosis MM Floor 9800 Treatment Plan Reason for Admission Auto Transplant/IEC Planning BMT/IEC Plan Melph Auto 07/30/2023 HLA typing/IDMs [] Insurance Approval [] Discharge Planning Anticipated Discharge Date 08/15 Patient Education Completed [x] DC bag/ed/upcoming appts with pt and friend 08/12 Issue to be Resolved Before Discharge Discharge Disposition home Requests Sent to Case Management, Pharmacy PA Team, or Medical Assistants Post-Discharge Follow-Up Living Situation/Distance from [place], [place] Caregiver Lab/Transfusion Frequency Venous Access & Care implanted vascular device Local Oncologist Contact Phone: Fax: Post-Discharge Office Visit (H30) RV 08/19 Miscellaneous Notes: Problem Noted Date Diagnosed Date Autologous donor of stem cells 12/16/2022 Multiple myeloma not having achieved remission 0 06/22/2022 Cancer Staging:Clinical:Stage IIIB- Unsigned Current Treatment and Therapy Plans Adult BMT/ONC - Blood and/or Platelet Administration for Outpatient* Plan Start Date:08/13/2023 Plan Provider:Yo Landers MD Linked Problems Multiple myeloma not having achieved remission (HCC) Treatment Medications No medications scheduled. Electrolyte Replacement & Hydration Therapy Plan* Plan Start Date:08/13/2023 Plan Provider:Yo Landers MD Linked Problems Multiple myeloma not having achieved remission (HCC) Treatment Medications No medications scheduled. IV Maintenance Therapy Plan* Plan Start Date:08/13/2023 Plan Provider:Yo Landers MD Linked Problems Multiple myeloma not having achieved remission (HCC) Treatment Medications No medications scheduled. Other Current Plans BMT Adult Blood and Platelet Administration for Inpatient* Plan Start Date: 08/08/2023 Plan Provider:Jose Munson MD Treatment Medications No medications scheduled. Past Treatment and Therapy Plans Oncology Chemotherapy Treatment Plan Name Start Date Discontinue Date Treatment Medications Discontinue Reason Plan Provider Cycles BMT - Standard Hematopoietic Progenitor Cell Mobilization (Auto) Standard GCSF and Plerixafor (Mozobil) 3 07/05/2023 plerixafor (MOZOBIL) Therapy Complete Yo Landers MD 1 of 1 cycle started Oncology Treatment (2) Plan Name Start Date Discontinue Date Treatment Medications Discontinue Reason Plan Provider Cycles INPT - Melphalan - BMT 07/27/2023 08/24/2023 melphalan (ALKERAN) IVPB in 250 mL Therapy Complete Yo Landers MD 1 of 1 cycle started PHERESIS Plan Name Start Date Discontinue Date Treatment Medications Discontinue Reason Plan Provider Apheresis Cellular Therapy Cell Collection 05/25/2023 08/24/2023 No medications scheduled. Therapy Complete Yo Landers MD Lifetime Dose Tracking * Chemical Lifetime Dose Automatic Entry Manual Entr y Fluoro Time 0.2 minutes 0.2 minutes 0 minutes Air kerma at the reference point (Ka,r) 3 mGy 3 mGy 0 mGy Treatment Summaries Multiple myeloma not having achieved remission (HCC)* Images from the original note were not included. [facility] [address] [place] [address] This Survivorship Care Plan is a cancer treatment summary and follow-up plan and is provided to youto keep with your health care records and to share with your primary care provider or any of your doctors and nurses. This summary is a brief record of major aspects of your transplant, not a detailed or comprehensiverecord of your care. We will continue to monitor your post-transplant status and help arrange follow-up care if applicable. You should review this with your cancer provider. Treatment Summary and Survivorship Care Plan for Hematologic Malignancies/Transplant and Cellular Therapy Program General Information Patient name Evon Sanchez (home) Date of 1955 Health Care Providers (Including Names, Institutions) Provider Name: Contact Information: Referring Provider Carlos Clark MD [phone] Primary Care Physician Herman Ruff MD [phone] BMT Physician/ Advanced Practice Provider Yo Landers MD/Marilin Sanchez, [facility] [phone] Media Services Specialist Snehal Lange RN [phone] Trashman Tierra Hammond, [facility] [phone] Oncology History Overview Note 07/22/2022 - Daratumumab/Velcade/Dexamethasone --> Revlimid added 09/10/2022 (until 11/30/2022) 02/12/2023 - Daratumumab/Pomalidomide/Dexamethasone --> Gabriela only (for cell collection) 05/25/2023 - Stem cells collected (then resumed Gabriela) 07/29/2023 - Melph/Auto SCT Multiple myeloma not having achieved remission (CMS/HCC) (HCC) 06/22/2022 Initial Diagnosis Multiple myeloma not having achieved remission (CMS/HCC) (HCC) Treatment Summary Cancer Diagnosis Information Multiple myeloma not having achieved remission (CMS/HCC) (HCC) 06/22/2022 Initial Diagnosis Multiple myeloma not having achieved remission (CMS/HCC) (HCC) Patient Active Problem List Diagnosis Multiple myeloma not having achieved remission (CMS/HCC) (HCC) Autologous donor of stem cells Past Medical History: Diagnosis Date Cancer (CMS/HCC) (HCC) Adverse Drug Reaction/Allergies Meloxicam Family History Cancer Cancer-related family history is not on file. Genetic/hereditaryrisk factor(s) or predisposing condition: Will complete FISH at today's visit/BMBX Cancer Staging Cancer Staging Multiple myeloma not having achieved remission (CMS/HCC) (HCC) Staging form: Multiple Myeloma, AJCC V6 - Clinical: Stage IIIB - Unsigned Staging comments: No FISH, No Beta2 or LDH at diagnosis. Systemic Therapy (chemotherapy, hormonal therapy, other) BMT - Standard Hematopoietic Progenitor Cell Mobilization (Auto) Standard GCSF and Plerixafor (Mozobil) Treatment goal [No plan goal] Status Inactive Start Date 05/21/2023 End Date 05/26/2023 Provider Yo Landers MD Chemotherapy filgrastim-sndz (ZARXIO) subcutaneous injection 780 mcg, 10 mcg/kg = 780 mcg, subcutaneous, Once, 1 of 1 cycle Administration: 780 mcg (05/21/2023), 780 mcg (05/22/2023), 780 mcg (05/23/2023), 780 mcg (05/24/2023) INPT - Melphalan - BMT Treatment goal [No plan goal] Status Inactive Start Date 07/27/2023 End Date 08/03/2023 Provider Yo Landers MD Chemotherapy melphalan (ALKERAN) 320 mg in sodium chloride 0.9% 250 mL IVPB, 200 mg/m2 = 320 mg, intravenous, Once, 1 of 1 cycle Administration: 320 mg (07/27/2023) filgrastim-sndz (ZARXIO) syringe 480 mcg, 480 mcg (100 % of original dose 480 mcg), subcutaneous, Every 24 hours, 1 of 1 cycle Dose modification: 480 mcg (original dose 480 mcg, Cycle 1, Reason: Weight GREATER than or EQUAL to80 kg) Administration: 480 mcg (08/03/2023), 480 mcg (08/04/2023), 480 mcg (08/05/2023), 480 mcg (08/06/2023),480 mcg (08/07/2023), 480 mcg (08/08/2023), 480 mcg (08/09/2023), 480 mcg (08/10/2023), 480 mcg (08/11/2023), 480 mcg (2023) Surgery Past Surgical History: Procedure Laterality Date CENTRAL LINE PLACEMENT > 5 YEARS N/A 05/24/2023 REMOVE TUNNELED LINE Left 08/13/2023 TUNNELED LINE PLACEMENT > 5 YEARS N/A 07/26/2023 Radiation Radiation Treatments No radiation treatments to show. (Treatments may have been administered in another system.) Cellular Therapy & Transplant Date Transplant Type Source Conditioning Regimen 07/29/2023 HCT Type: autologous Donor Type: autologous INPT - MELPHALAN - BMT Lab Results Lab Results Component Value Date [id number] 100 12/18/2022 DLCOPREPRED 65 12/18/2022 25HYDROVITD 38 08/18/2023 WBC 7.3 08/31/2023 HGB 8.6 (L) 08/31/2023 LABPLAT 94 (L) 08/31/2023 NEUTROABS 4.8 08/31/2023 BUNSER 8 08/31/2023 CREATININE 0.50 (L) 08/31/2023 BILITOT 0.4 08/31/2023 ALKPHOS 123 08/31/2023 AST 17 08/31/2023 ALT 9 08/31/2023 Tumor Marker History Latest Ref Rng & Units 07/06/2023 09:39 07/26/2023 08:14 07/27/2023 19:45 08/24/2023 13:09 Tumor Markers Fibrinogen 170 - 400 mg/dL 560 588 Immunoglobulin G 700 - 1,600 mg/dL 1,640.0 509 Immunoglobulin A 70 - 400 mg/dL <50.0 <50 Immunoglobulin M 40 - 230 mg/dL <25.0 <25 [place]/Lambda light chains free with ratio 0.26 - 1.65 0.26 - 1.65 >1.70 See Comment 0.79 [place] light chain, free 0.33 - 1.94 mg/dL 0.33 - 1.94 mg/dL 1.02 <0.08 0.15 Lambda light chain, free 0.57 - 2.63 mg/dL <0.60 <0.60 Protein, sr 6.2 - 8.2 g/dL 6.9 4.9 Albumin 3.2 - 5.0 g/dL 3.4 2.7 Alpha-1 globulin 0.2 - 0.4 g/dL 0.4 0.4 Alpha-2 globulin 0.5 - 1.0 g/dL 1.0 0.7 Beta-1 globulin 0.3 - 0.6 g/dL 0.4 0.3 Beta-2 globulin 0.2 - 0.6 g/dL 0.3 0.2 Gamma globulin 0.5 - 1.7 g/dL 1.4 0.5 Rstr Pk Gamma 0.0 - 0.0 g/dL 1.2 0.4 SPEP interp Please see comment Please see comment CRAB criteria C = calcium elevation R = renal (elevation in creatinine) A = anemia (hgb <10) B = bone lesions Definitions of response (per International Myeloma Working Group): CR = Complete response - no quantifiable M-protein (spike), no paraprotein/monoclonal protein present on immunofixation, BMBX with <5% plasma cells. Stringent CR - CR as above PLUS normal serum free light chains and no clonal cells in bone marrow biopsy by immunohistochemistry VGPR = very good partial response - serum M-protein detectable by immunofixation but not on electrophoresis or >=90% reduction in serum M-protein CA = partial response - >=50% reduction of serum M-protein If the M-protein is unmeasurable, a >=50% decrease in the difference between involved and uninvolved FLC levels is required in place of the M-protein criteria. Minimal response - >=25% but <=49% reduction of serum M-protein Complications/Late Effects These are symptoms/side effects that you could experience following an autologous stem cell transplant: low red blood cell count (anemia) low white blood cell count (neutropenia) low platelet count (thrombocytopenia) tingling, numbness or pain in hands/feet (neuropathy) memory or concentration loss change in weight insomnia nausea/vomiting sexual problems buildup of fluid in arms, legs or neck (lymphedema) menopausal symptoms fatigue muscle/joint pain loss of appetite skin changes cardiac dysfunction pulmonary dysfunction emotional difficulties endocrine abnormalities infertility secondary malignancies Follow up Schedule of Follow-Up Visits and Tests Coordinating Provider Exam When/How often Primary Care Physician (PCP): Herman Ruff MD History & physical and review of symptoms, vital signs including BP, lung exam Labs (CBC/diff, retic count, CMP, fasting glucose, fasting lipid profile, thyroid panel, PSA if applicable) Mammogram (if indicated) Colonoscopy Yearly Yearly after age 40 Every 5-10 years (or more often if recommended by GI), ages 45 to 75 based on personal and family history. Beginning at least: age 45, 10 years prior to diagnosis of GI cancer in close relative OR sooner per GI recommendation (whichever comes first) Bone Health: Carlos Clark MD Zometa - For a total duration of 2 years -Zometa monthly x12 doses, then x4 doses quarterly Vitamin D level Calcium and Vitamin D supplementation: May be required based on levels (Continue current dosing) For 2 years total duration. - Notify MD and dentist if you need dental extractions as Zometa should be held before and after Yearly Medical Oncologist: Carlos Clark MD Myeloma Treatment- DPD x2 cycles, followed by Daratumumab and Pomalyst maintenance. Close monitoring for safety and efficacy recommended while on maintenance therapy. BMT Physician: Yo Landers MD Return office visit as desired or with concern for progressive disease Dentist Dental exam Every 6 to 12 months Premedicate for cleaning: Not indicated per BMT Smoking Cessation Discuss options Every visit Patient Self skin and breast/testicular exam Wear sunscreen! Monthly Revaccination Revaccination schedule post stem cell transplant: COVID Revaccination Schedule Post Transplant, to begin after Day 90 Updated ([id number] Formula) mRNA vaccine Number of updated ([id number] Formula) mRNA doses indicated Interval between doses Moderna 3 Dose 1 and Dose 2: 4 weeks Dose 2 and Dose 3: At least 4 weeks GeoOptics 3 Dose 1 and Dose 2: 3 weeks Dose 2 and Dose 3: At least 4 weeks - For auto: Begin below vaccines 6 months post transplant - NO LIVE VACCINES recommended with dual maintenance therapy Vaccines per CDC guidelines, follow CDC recommendations for adjustments to table below: Series 1 >6 mo Series 2 >8 mo Series 3 >12 mo Series 4 >15 mo Series 5 >18 mo Series 6 >24 mo Series 7 >27 mo Ongoing Influenza Inactivated or recombinant only; No LIVE vacc Yearly at the start of flu season; if > Day 90 post transplant Prevnar-20 x x x x DTaP x x Tetanus every 10 years Tdap x Hib x x x Hep B x x x Check Hep B surface Ab (goal >10) Shingrix x x Polio x x x bDTaP (diphtheria tetanus pertussis vaccine) is preferred, however, if only Tdap (tetanus toxoid-reduced diphtheria-toxoid reduced acellular pertussis vaccine) is available (for example, because DTaPis not licensed for adults), administer Tdap. Acellular pertussis vaccine is preferred, but the whole-cell pertussis vaccine should be used if it is the only pertussis vaccine available. cONLY administer MMR if patient is >= 24 months post-transplant, off chemotherapy, no IVIG x11 months, and seronegative for measles, mumps, and/or rubella dHBV recommended for all patients post-transplant. Consider addition of Hepatitis A in at risk patients. May consider combination Hepatitis A and B vaccination (Twinrix??) if both are indicated. Recommendations Ms. Sanchez is 99 days post ASCT. We will complete a 100 day re-evaluation today, including a BMBX. Following the results of her 100d re-evaluation, we recommend initiation of maintenance therapy. The patient progressed on induction therapy, and required salvage treatment prior to transplant. She continues to have measurable disease post transplant. We are unaware of her risk, due to no FISH testing at diagnosis, however she has been functionally high risk (with progression on induction and continued measurable disease post transplant). If patient has continue disease at this evaluation, we are recommended consolidation therapy with DPD x2 cycles, followed by Daratumumab and Pomalyst maintenance. Close monitoring for safety and efficacy while on continued treatment is recommended. The patient should continue Aspirin and HSV prophylaxis. The patient reports receiving Daratumumab IV previously, however, we recommend subq dosing for subsequent dosing. In addition to post-transplant maintenance chemotherapy, the patient should also continue bisphosphonate therapy for a total of two years. She has been treated with Zometa, and should continue this monthly x12 total doses, and then quarterly x4 doses, to make 2 full years of therapy. COVID vaccines recommended. A flu shot is OK to give, should be given in season. Other Post transplant revaccinations should be completed starting at 6 months post transplant. These are due to be started after 01/27/24. Please see above survivorship care plan for additional information, including vaccination table with recommendations and intervals. Ms. Sanchez's return office visit will remain open with us at this time, however, we are happy to assist in her care in the future if necessary. Ms. Sanchez will return to Dr. Clark's care at thistime for maintenance therapy and monitoring. She knows to contact us with any questions, concerns, or changes in condition prior to her upcoming appointment. Marilin Sanchez NP Resources Resources you may be interested in: [employer] Cancer Survivors Network Cancer Survivors Network is a vibrant community established by people just like you whose lives have been touched by cancer. We hope you'll find strength and inspiration from our personal stories, discussions and expressions of caring. http://csn.cancer.org Be the Match We provide support and resources for all patients, caregivers and familiars throughout the transplant process. You can turn to us for one-on-one support and educational resources to help you navigateyour transplant journey. https://bethematch.org National Cancer Nocatee Accurate, up-to-date, comprehensive cancer information from the U.S. government's principal agency for cancer research. http://www.cancer.gov Eating Hints?? Before, During, and After Cancer Treatment https://www.cancer.gov/publication/patient-education/eating-hints National Coalition for Cancer Survivorship We advocate for quality cancer care for all individuals touched by cancer. https://canceradvocacy.org National Heart, Lung and Blood Nocatee We provide helpful information and resources designed to help your family stay healthy. https://www.nhlbi.gov/health/educational/webcan/ [facility] http://www.[facility] Multiple Myeloma Research Foundation (MMRF) Charitable organization dedicated to multiple myeloma. The MMRF provides resources to connect patients with the people, institutions, treatments, and clinical trials they need. https://themmrf.org/ International Myeloma Foundation (IMF) The IMF is dedicated to improving the quality of life of myeloma patients while working toward prevention and a cure through four founding principles: Research, Education, Support, and Advocacy. https://www.myeloma.org/ Myeloma Crowd The Myeloma Crowd is a division of the [employer], a patient-driven, nonprofit organization that empowers patients with rare diseases at each step of her disease journey--from diagnosis, through Education, care and on to a cure. https://www.myelomacrowd.org/ Resolved Problems Problem Noted Date Diagnosed Date Resolved Date Multiple myeloma in relapse 07/27/2023 08/23/2023
--- OUTSIDE RECORDS SUMMARY | 2024-11-17 14:21 | XMS_ITS | Referral Summary ---
Author Organization [facility] Address [address] [place] [address] Care Team Providers Care Cable Ferryboat Operator Name Role Phone Herman Ruff MD Primary Care Provider [phone] Carlos Clark MD Unavailable Allergies Active Allergy Reactions Criticality Noted Date Comments Meloxicam Palpitations Low 06/22/2022 Medications multivitamin tabletIndications: Multiple myeloma not having achieved remission (HCC) Take 1 tablet by mouth daily Active pantoprazole DR (PROTONIX) 40 mg EC tabletIndications: Multiple myeloma not having achieved remission (HCC) Take 1 tablet (40 mg total) by mouth daily 09/09/19 23 Active calcium carbonate (CALCIUM 600 ORAL) Take 600 mg by mouth 4 (four) times a day Active acyclovir (ZOVIRAX) 400 mg tabletIndications: Prophylaxis, Medical Take 1 tablet (400 mg total) by mouth 3 (three) times a day 90 tablet 08/20/19 24 Active Additional Information Patient taking differently:400 mg oral2 times daily, Indications: Prophylaxis, Medical, Reported on 07/05/2024 nystatin cream Apply topically 08/23/19 24 Active gabapentin (NEURONTIN) 300 mg capsule TAKE 2 CAPSULES (600 MG) BY MOUTH 2 TIMES DAILY. 10/22/19 24 Active dexAMETHasone (DECADRON) 4 mg tablet TAKE 10 TABLETS BY MOUTH EVERY WEDNESDAY. 12/01/19 24 Active ondansetron ODT (ZOFRAN-ODT) 4 mg disintegrating tablet DISSOLVE 1 TABLET ON TOP OF THE TONGUE AND SWALLOW EVERY 8 HOURS NEEDED FOR NAUSEA AND VOMITING 12/15/19 24 Active Pomalyst 4 mg capsule Take 1 capsule (4 mg total) by mouth daily 12/13/19 24 Active sulfamethoxazole-t rimethoprim (BACTRIM DS) 800-160 mg per tablet 3 (three) times a week 12/15/19 24 Active magnesium oxide 400 mg magnesium capsule Take by mouth daily Active aspirin 81 mg enteric coated tablet Take 1 tablet (81 mg total) by mouth daily Active zoledronic acid 4 mg/5 mL injection Infuse into a venous catheter every 30 (thirty) days Active daratumumab (DARZALEX) 20 mg/mL solutionIndication s:multiple myeloma Infuse into a venous catheter once a week Active Darzalex Faspro 1,800 mg-30,000 unit/15 mL solution 06/12/20 24 Active ferrous fumarate 89 mg (29 mg iron) tablet 89 mg Active magnesium hydroxide 400 mg (170 mg magnesium) tablet,chewable Take 400 mg by mouth daily Active ascorbic acid (ascorbic acid with barrie hips) 500 mg tablet,chewable Acti ve Active Problems Patient Care Coordination No te [...] Medical Assistants Post-Discharge Follow-Up Living Situation/Distance from [place], [place] Caregiver Lab/Transfusion Frequency Venous Access & Care implanted vascular device Local Oncologist Contact Phone: Fax: Post-Discharge Office Visit (H30) RV 08/19 Miscellaneous Notes: Problem Noted Date Diagnosed Date Autologous donor of stem cells 12/16/2022 Multiple myeloma not having achieved remission 0 06/22/2022 Cancer Staging:Clinical:Stage IIIB- Unsigned Resolved Problems Problem Noted Date Diagnosed Date Resolved Date Multiple myeloma in relapse 07/27/2023 08/23/2023 Immunizations Immunization Administration Dates Next Due Influenza, Quad, Adjuvantated, Intramuscular 11/2020 Influenza, Quadrivalent, Brigid l Culture-based MDCK, Preservative Free, Antibiotic Free, Intramuscular 04/27/2023 Influenza, Quadrivalent, Hig h Dose, Preservative Free, Intrr 05/01/2022,04/04/2020 Influenza, Quadrivalent, Split, Intramuscular Influenza, Trivalent, IM (MDV) 04/19/2013 Influenza, Trivalent, Preservative Free, Intramu scular 05/18/2016 Social History Tobacco Use Types Packs/Day Years Used Date Smoking Tobacco: Former Cigarettes - 2002 Smokeless Tobacco: Never Tobacco Cessation:Counseling Given: Not Answered [facility] Utilities Answer Date Recorded In the past 12 months has Publer, [employer], oil, or water Sling threatened to shut off services in your home? No 08/19/2023 Social Connection and Isolat ion Panel [NHANES] Answer Date Recorded In a typical week, how many times do you talk on the phone with family, friends, or neighbors? More than three times a week 08/19/2023 How often do you get togethe r with friends or relatives? More than three times a week 08/19/2023 How often do you attend chur ch or quaker services? Never 08/19/2023 Do you belong to any clubs o r organizations such as nondenominational groups, unions, fraternal or athletic groups, or school groups? Yes 08/19/2023 How often do you attend meet ings of the clubs or organizations you belong to? More than 4 times per year 08/19/2023 Are you , , di vorced, , never , or living with a partner? 08/19/2023 AUDIT-C Answer Date Recorded Q1: How often do you have a drink containing alcohol? Never 08/13/2023 Q2: How many drinks containi ng alcohol do you have on a typical day when you are drinking? Patient does not drink Q3: How often do you have si x or more drinks on one occasion? Never 08/13/2023 Overall Financial Resource Strain (CARDIA) Answe r Date Recorded How hard is it for you to pa y for the very basics like food, housing, medical care, and heating? Not hard at all 08/19/2023 PHQ-2 Answer Date Recorded PHQ-2 Total Score 0 08/19/2023 Hunger Vital Sign Answer Date Recorded Within the past 12 months, y ou worried that your food would run out before you got the money to buy more. Never true 08/19/19 24 Within the past 12 months, t he food you bought just didn't last and you didn't have money to get more. Never true 08/19/2023 PRAPARE - Transportation Answer Date Re corded In the past 12 months, has l ack of transportation kept you from medical appointments or from getting medications? No 12/2023 In the past 12 months, has l ack of transportation kept you from meetings, work, or from getting things needed for daily living? No 08/19/2023 Housing Stability Vital Sign Answer Alden e Recorded In the last 12 months, was t here a time when you were not able to pay the mortgage or rent on time? No 08/19/2023 In the last 12 months, how many places have you lived? 1 08/19/2023 In the last 12 months, was t here a time when you did not have a steady place to sleep or slept in a chcf (including now)? No 08/19/2023 Personal Safety Answer Date Recorded Have you ever been in or are you currently in a harmful physical or emotional relationship or is someone making you feel afraid or unsafe? Denies 08/13/2023 Comments No Sex and Gender Information Value Date Recorded Sex Assigned at Not on file Legal Sex Female 7:37 AM WAITANGI TRIBUNAL MEMBER Gender Identity Not on file Sexual Orientation Not on file Last Filed Vital Signs Vital Sign Reading Time Taken Comments Blood Pressure 135/83 07/05/2024 2:39 PM WAITANGI TRIBUNAL MEMBER Pulse 68 07/05/2024 2:39 PM WAITANGI TRIBUNAL MEMBER Temperature 36.3 C (97.4 F) 07/05/2024 2:39 PM WAITANGI TRIBUNAL MEMBER Respiratory Rate 18 11/05/2023 1:10 PM CDT Oxygen Saturation 98% 07/05/2024 2:39 PM WAITANGI TRIBUNAL MEMBER Inhaled Oxygen Concentration - - Weight 83.9 kg (185 lb) 07/05/2024 2:39 PM WAITANGI TRIBUNAL MEMBER Height 161.3 cm (5' 3.5) 07/05/2024 2:39 PM WAITANGI TRIBUNAL MEMBER Body Mass Index 32.26 07/05/2024 2:39 PM WAITANGI TRIBUNAL MEMBER Plan of Treatment Not on file Medical Devices Implanted Type Area Road Freight Brake Coupler Device Identifier Shelf Expiration Date Model / Serial / Lot Isidro Gallia Power-Trialysis 13fr 15cm 3 Lumen Power Straight Kit Catheter [id number] - [id number] Implanted:Qty: 1 on 05/24/2023 at [facility] Isidro Artur 05/13/2024 [id number] / / [id number] [place] [address] [place] MEDICARE HMO [facility] [place] [address] TRANSPLANT HUMANA MEDICARE RISK Advance Directives For more information, please contact: [phone] * Full Code (Latest Code Status on File) Date Activated Date Inactivated Comments 07/27/2023 7:20 PM 08/20/2023 8:12 PM * Full Code Date Activated Date Inactivated Comments 07/26/2023 9:25 AM 07/27/2023 5:35 AM * Full Code Date Activated Date Inactivated Comments 05/24/2023 9:24 AM 05/25/2023 5:41 AM Care Teams Cable Ferryboat Operator Relationship Specialty Start Date End Date Herman Ruff MD PCP - General Family Medicine 10/29/22 Carlos Clark MD [address] [id number] Referring Physician Hematology 11/02/22
--- OUTSIDE RECORDS SUMMARY | 2024-11-17 14:21 | XMS_ITS | Clinical Summary ---
Author Organization [facility] Address [address] [place] [address] Care Team Providers Care Shaper Setter Name Role Phone Herman Ruff MD Primary Care Provider [phone] Carlos Clark MD Unavailable [phone] Allergies Active Allergy Reactions Criticality Noted Date [...] Medical Assistants Post-Discharge Follow-Up Living Situation/Distance from [place], [place] Caregiver Lab/Transfusion Frequency Venous Access & [...] Influenza, Trivalent, Preservative Free, Intramu scular 05/18/2016 Surgical History Surgery Date Site/Laterality Comments CENTRAL LINE PLACEMENT > 5 YEARS 05/24/2023 N/A TUNNELED LINE PLACEMENT > 5 YEARS 07/26/2023 N/A REMOVE TUNNELED LINE 08/13/2023 Left Medical History Medical History Date Comments Cancer (HCC) Family History Medical History Relation Name Comments No Known Problems Father No Known Problems Mother Diabetes Mother's Brother Relation Name Status Comments Father Mother Mother's Brother Social History Tobacco Use Types Packs/Day Years Used Date Smoking Tobacco: Former Cigarettes 1 3 - 2002 Smokeless Tobacco: Never Tobacco Cessation:Counseling Given: Not Answered [facility] Utilities Answer Date Recorded In the past 12 months has [employer]Runner, [employer], or water Jumbas threatened to shut off services in your [...] 08/19/2023 How often do you attend chur or protestant services? Never 08/19/2023 Do you belong to any clubs o r organizations such as religion groups, unions, fraternal or athletic groups, or [...] you are drinking? Patient does not drink 03/01/202 4 Q3: How often do you have si [...] place to sleep or slept in a long-term (including now)? No 08/19/2023 Personal Safety Answer Date Recorded Have you ever been in or are you currently in a harmful physical or emotional relationship or is someone making you feel afraid or unsafe? Denies 08/13/2023 Comments No Sex and Gender Information Value Date Recorded Sex Assigned at Not on file Legal Sex Female 7:37 AM STRATEGIC PARTNERSHIP REPRESENTATIVE Gender Identity Not on file Sexual Orientation Not on file Obstetrics History Last Filed Vital Signs Vital Sign Reading Time Taken Comments Blood Pressure 135/83 07/05/2024 2:39 PM STRATEGIC PARTNERSHIP REPRESENTATIVE Pulse 68 07/05/2024 2:39 PM STRATEGIC PARTNERSHIP REPRESENTATIVE Temperature 36.3 C (97.4 F) 07/05/2024 2:39 PM STRATEGIC PARTNERSHIP REPRESENTATIVE Respiratory Rate 18 11/05/2023 1:10 PM CDT Oxygen Saturation 98% 07/05/2024 2:39 PM STRATEGIC PARTNERSHIP REPRESENTATIVE Inhaled Oxygen Concentration - - Weight 83.9 kg (185 lb) 07/05/2024 2:39 PM STRATEGIC PARTNERSHIP REPRESENTATIVE Height 161.3 cm (5' 3.5) 07/05/2024 2:39 PM STRATEGIC PARTNERSHIP REPRESENTATIVE Body Mass Index 32.26 07/05/2024 2:39 PM STRATEGIC PARTNERSHIP REPRESENTATIVE Plan of Treatment Health Maintenance Due Date Last Done Comments Breast Cancer Screening-Mammogram 1955 Colon Cancer Screening-Colonoscopy 1955 Hepatitis C Screening 1955 Osteoporosis Screening-Bone Density Scan 1955 Well Visit 65+ 2018 Depression Screening 07/08/2024 07/08/2023 Fall Risk Assessment 08/19/2024 08/20/2023 Covid-19 Vaccine (6 - Pfizer risk season) 2024 04/23/2024, 11/19/2023, 04/17/2021, Additional history exists DTaP/Tdap/Td Vaccine (4 - Td or Tdap) 09/25/2034 09/25/2024, 05/23/2024, 03/23/2024 Influenza Vaccine Completed 04/23/2024, , 05/01/2022, Additional history exists Zoster Vaccine Completed 05/23/2024, 03/23/2024 Hepatitis B Screening Completed 09/25/2024 , 05/23/2024, 03/23/2024 Pneumococcal vaccine 65+ Completed 025, 05/23/2024, 03/23/2024 Medical Devices Implanted Type Area Emu Farmer Device Identifier Shelf Expiration Date Model / Serial / Lot Parakweet Power-Trialysis 13fr 15cm 3 Lumen Power Straight Kit Catheter [id number] - [id number] Implanted:Qty: 1 on 05/24/2023 at [facility] Isidro Artur 05/13/2024 [id number] / / [id number] Insurance [employer] MEDICARE [place] [id number] [place] [id number] TRANSPLANT HU[employer] MEDICARE RISK Advance Directives For more information, please contact: [phone] * Full Code (Latest Code Status on File) Date Activated Date Inactivated Comments 07/27/2023 7:20 PM 08/20/2023 8:12 PM * Full Code Date Activated Date Inactivated Comments 07/26/2023 9:25 AM 07/27/2023 5:35 AM * Full Code Date Activated Date Inactivated Comments 05/24/2023 9:24 AM 05/25/2023 5:41 AM Care Teams Shaper Setter Relationship Specialty Start Date End Date Herman Ruff MD PCP - General Family Medicine 10/29/22 Carlos Clark MD [address] [phone] Referring Physician Hematology 11/02/22
--- OUTSIDE RECORDS SUMMARY | 2024-11-17 14:21 | XMS_ITS | Encounter Summary ---
Author Organization [facility] Address [address] [place] [address] Care Team Providers Care Route Salesman Name Role Phone Herman Ruff MD Primary Care Provider [phone] Carlos Clark MD Unavailable [phone] Encounter Details Date Type Department Care Team (Late st Contact Info) Description 07/22/2023 Telephone [facility] Radiology [address] [place] [address] Estela Tomlinson, MITCHELL Social History Tobacco Use Types Packs/Day Years Used Date Smoking Tobacco: Former Cigarettes 1 2002 Smokeless Tobacco: Never AUDIT-C Answer Date Recorded Q1: How often do you have a drink containing alcohol? Monthly or less 05/24/2023 Q2: How many drinks containi ng alcohol do you have on a typical day when you are drinking? Patient does not drink Q3: How often do you have si x or more drinks on one occasion? Never 05/24/2023 Personal Safety Answer Date Recorded Getting School Help Needed Denies 05/24 Comments No Sex and Gender Information Value Date Recorded Sex Assigned at Not on file Legal Sex Female 7:37 AM MATH AND SCIENCES DEPARTMENT CHAIR Gender Identity Not on file Sexual Orientation Not on file documented as of this encounter Plan of Treatment Not on file documented as of this encounter Visit Diagnoses Not on filedocumented in this encounter Additional Health Concerns Infection Onset Date Last Indicated Resolved Time Diarrhea 08/03/2023 08/05/2023 08/05/2023 10:5 9 PM MATH AND SCIENCES DEPARTMENT CHAIR Diarrhea 08/10/2023 08/10/202308/10/2023 10:5 3 AM MATH AND SCIENCES DEPARTMENT CHAIR C. difficile suspected Comment:C diff test pending 08/16/2023 08/16/2023 08/16/2023 8 :24 PM MATH AND SCIENCES DEPARTMENT CHAIR Rotavirus suspected 08/16/2023 08/16/2023 08/16/19 10:09 PM MATH AND SCIENCES DEPARTMENT CHAIR Norovirus suspected 08/16/2023 08/16/2023 08/16/19 12:02 PM MATH AND SCIENCES DEPARTMENT CHAIR documented as of this encounter Care Teams Route Salesman Relationship Specialty Start Date End Date Herman Ruff MD PCP - General Family Medicine 10/29/22 Carlos Clark MD [address] [phone] Referring Physician Hematology 11/02/22 documented as of this encounter
== END 2024-11-17 14:18 | disposition home or self-care (01) ==
LOC: ANHIMG 14:19
PROVIDERS: PCP Family Medicine
DX: Z12.31 Encounter for screening mammogram for malignant neoplasm of breast (principal)
CPT/HCPCS: 77063; 77067

== ENCOUNTER 2024-11-29 12:56 | Outpatient (CLI) | payer MEDICARE, SELFPAY ==
--- NOTE | ~2024-11-29 | DEXA_ITS ---
Bone Density Report Name: BAILEY MCKEON Age: 69 Sex: Female Ethnicity: White Date of : 1955 Indication: postmenopausal osteoporosis; height loss; cancer; Referring Provider: ALONZO ALVAREZ Study: Bone densitometry was performed. Exam Date: November 29, 2024 Accession number: [id number] Bone Density: Region BMD T-score Z-score Classification AP Spine(L1-L4) 1.073 0.2 2.4 Normal Femoral Neck (Left) 0.614 -2.1 -0.2 Osteopenia Total Hip (Left) 0.728 -1.8 -0.2 Osteopenia Femoral Neck (Right) 0.561 -2.6 -0.7 Osteoporosis Total Hip (Right) 0.703 -2.0 -0.4 Osteopenia Total Hip Mean 0.716 -1.9 -0.3 Osteopenia World Health Organization criteria for BMD impression classify patients as: Normal (T-score at or above -1.0), Osteopenia (T-score between -1.0 and -2.5), or Osteoporosis (T-score at or below -2.5). 10-year Fracture Risk: FRAX not reported because: Some T-score for Spine Total or Hip Total or Femoral Neck at or below -2.5 Previous Exams: Region Exam Age BMD T-score BMD Change BMD Change Date g/cm2 vs Baseline vs Previous AP Spine (L1-L4) 11/29/2024 69 1.073 0.2 0.318 (42.1%)* 0.318 (42.1%)* 05/15/2022 66 0.755 -2.7 Total Hip(Left) 11/29/2024 69 0.728 -1.8 0.063 (9.5%)* 0.063 (9.5%)* 05/15/2022 66 0.665 -2.3 Total Hip(Right) 11/29/2024 69 0.703 -2.0 0.087 (14.2%)* 0.087 (14.2%)* 05/15/2022 66 0.616 -2.7 *Denotes significance at 95% confidence level, LSC for AP Spine = 0.022 g/cm2, LSC for Total Hip = 0.027 g/cm2 Clinical Information Provided by Patient: Has used the following medications: Vitamin D, Calcium Has the following medical conditions: Cancer Patient maximum height was 63.5 Menopause Age: 47 Does not regularly consume dairy products Drinks caffeinated beverages Onset of menses at age 11 Number of children 0 Impression: The patient has osteoporosis, based on the Right Femoral Neck T-score. No significant bone loss was observed. Discussion: INCREASED RISK OF FRACTURE. BONE DENSITY IS UNDESIRABLY LOW AT ONE OR MORE SKELETAL SITES, CONSISTENT WITH POSTMENOPAUSAL OSTEOPOROSIS. This patient's lowest T-score meets the World Health Organization's (WHO) criteria for osteoporosis at one or more sites (T-score -2.5 or below). In untreated patients, the risk of osteoporotic fracture increases approximately two-fold for each 1.0 SD decrease in T-score. Low bone density is not the only risk factor for fracture; also consider factors such as patient's age, frailty or poor health, risk of falling, risk of injury, previous osteoporotic fracture, family history of osteoporosis, cigarette smoking, low body weight, etc. Not everyone with low bone mineral density has osteoporosis; osteomalacia and other metabolic bone disorders should also be considered. Patients who have osteoporosis should be evaluated for specific diseases and conditions (secondary causes) that may cause or contribute to bone loss. The [place] Association of Clinical Endocrinologists (AACE) and National Osteoporosis Foundation (NOF) recommend pharmacologic intervention for all postmenopausal women whose T-score is in this range. The patient should follow a healthful lifestyle (good nutrition with adequate calcium and vitamin D, and appropriate weight-bearing exercise). Follow-Up: Consider a repeat BMD and Vertebral Fracture Assessment (VFA) exam in 2 years or sooner if medically necessary, to reassess this patient's status. Reported by: ROBBIE on 11/29/2024 1:45:00 PM. Reviewed, dictated and finalized at location A.
--- OUTSIDE RECORDS SUMMARY | 2024-11-29 14:26 | XMS_ITS ---
Author Organization [facility] Address [address] [place] [address] Care Team Providers Care Senior Cytogenetics Laboratory Director Name Role Phone Herman Ruff MD Primary Care Provider [phone] Cralos Clark MD Unavailable [phone] Active Problems Patient Care Coordination No [...] Medical Assistants Post-Discharge Follow-Up Living Situation/Distance from [place], [place] Caregiver Lab/Transfusion Frequency Venous Access & [...] from the original note were not included. [facility] [address] [place] [address] This Survivorship Care Plan is a cancer [...] Contact Information: Referring Provider Carlos Clark MD [phone] Primary Care Physician Herman Ruff MD [phone] BMT Physician/ Advanced Practice Provider Yo Landers MD/Marilin Sanchez, [facility] [phone] Household Appliances Service Technician Snehal Lange RN [phone] Facsimile Machine Operator Tierra Hammond, [facility] [phone] Oncology History Overview Note 07/22/2022 - Daratumumab/Velcade/Dexamethasone [...] Lab Results Lab Results Component Value Date [id number] 100 12/18/2022 DLCOPREPRED 65 12/18/2022 [id number] 38 [...] M 40 - 230 mg/dL <25.0 <25 [place]/Lambda light chains free with ratio 0.26 - 1.65 0.26 - 1.65 >1.70 See Comment 0.79 [place] light chain, free 0.33 - 1.94 mg/dL [...] electrophoresis or >=90% reduction in serum M-protein DE = partial response - >=50% reduction of [...] Transplant, to begin after Day 90 Updated ([id number] Formula) mRNA vaccine Number of updated ([id number] Formula) mRNA doses indicated Interval between doses Moderna 3 Dose 1 and Dose 2: 4 weeks Dose 2 and Dose 3: At least 4 weeks [facility] 3 Dose 1 and Dose 2: 3 [...] Resources Resources you may be interested in: [place] [employer] Cancer Survivors Network Cancer Survivors [...] you navigateyour transplant journey. https://bethematch.org National Cancer [place] Accurate, up-to-date, comprehensive cancer information from the U.S. government's principal agency for cancer research. http://www.cancer.gov Eating Hints?? Before, During, and After Cancer Treatment https://www.cancer.gov/publication/patient-education/eating-hints National Coalition for Cancer Survivorship We advocate for quality cancer care for all individuals touched by cancer. https://canceradvocacy.org National Heart, Lung and Blood [place] We provide helpful information and resources designed to help your family stay healthy. https://www.nhlbi.gov/health/educational/webcan/ [facility] http://www.[facility] Multiple Myeloma Research Foundation [...] Myeloma Crowd is a division of the [employer], a patient-driven, nonprofit organization that empowers patients with rare diseases at each step of her disease journey--from diagnosis, through Education, care and on to a cure. https://www.myelomacrowd.org/ Resolved Problems Problem Noted Date Diagnosed Date Resolved Date Multiple myeloma in relapse 07/27/2023 08/23/2023
--- OUTSIDE RECORDS SUMMARY | 2024-11-29 14:27 | XMS_ITS | Encounter Summary ---
Author Organization [facility] Healthcare Address [address] [place] [address] Care Team Providers Care Type Soldering Machine Tender Name Role Phone Herman Ruff MD Primary Care Provider [phone] Carlos Clark MD Unavailable Encounter Details Date Type Department Care Team (Late st Contact Info) Description 07/22/2023 Telephone [facility] Radiology [address] [place] [address] Estela Tomlinson, MITCHELL Social History Tobacco Use [...] on file Legal Sex Female 7:37 AM INSPECTOR WIRE PRODUCTS Gender Identity Not on file Sexual Orientation Not on file documented as of this encounter Plan of Treatment Not on file documented as of this encounter Visit Diagnoses Not on filedocumented in this encounter Additional Health Concerns Infection Onset Date Last Indicated Resolved Time Diarrhea 08/03/2023 08/05/2023 08/05/2023 10:5 9 PM INSPECTOR WIRE PRODUCTS Diarrhea 08/10/2023 08/10/202308/10/2023 10:5 3 AM INSPECTOR WIRE PRODUCTS C. difficile suspected Comment:C diff test pending 08/16/2023 08/16/2023 08/16/2023 8 :24 PM INSPECTOR WIRE PRODUCTS Rotavirus suspected 08/16/2023 08/16/2023 08/16/19 10:09 PM INSPECTOR WIRE PRODUCTS Norovirus suspected 08/16/2023 08/16/2023 08/16/19 12:02 PM INSPECTOR WIRE PRODUCTS documented as of this encounter Care Teams Type Soldering Machine Tender Relationship Specialty Start Date End Date Herman Ruff MD PCP - General Family Medicine 10/29/22 Carlos Clark MD [address] [phone] Referring Physician Hematology 11/02/22 documented as of this encounter
--- OUTSIDE RECORDS SUMMARY | 2024-11-29 14:27 | XMS_ITS | Encounter Summary ---
Author Organization [facility] Address [address] [facility] [place] [address] Care Team Providers Care Dry Kiln Feeder Name Role Phone Unavailable Primary Care Provider Unavailabl e Encounter Details Date Type Department Care Team (Late st Contact Info) Description 06/12/2022 Lab Requisition [facility] Care Pathology Lab [address] [place] [address] Albino Lagos MD [facility] [address] [phone] Social History Tobacco Use Types [...]
--- OUTSIDE RECORDS SUMMARY | 2024-11-29 14:27 | XMS_ITS | Encounter Summary ---
Author Organization [facility] Address [address] [facility] [place] [address] Care Team Providers Care Manager Benefit Name Role Phone Unavailable Primary Care Provider Unavailabl e Encounter Details Date Type Department Care Team (Late st Contact Info) Description 06/16/2022 Lab Requisition [facility] Care Pathology Lab [address] [place] [address] Albino Lagos MD [facility] [address] [phone] Illness, unspecified Social History Tobacco [...]
--- OUTSIDE RECORDS SUMMARY | 2024-11-29 14:27 | XMS_ITS | Clinical Summary ---
Author Organization [facility]ella [facility] Address [address] [place] [address] Care Team Providers Care Salt Washer Harvesting Station Name Role Phone Herman Ruff MD Primary Care Provider [phone] Allergies Active Allergy Reactions Criticality Noted Date [...] Encounters Date Type Department Care Team Description 11/27/2024 Orders Only [facility] Oncology and Hematology - Jakub [address] [place] [phone] Carlos Clark MD Multiple myeloma not having achieved remission (CMS/HCC) 11/22/2024 Abstract [facility] Oncology and Hematology - Jakub [address] [place] [phone] Carlos Clark MD 11/20/2024 Orders Only [facility] Oncology and Hematology - Jakub [address] [place] [phone] Carlos Clark MD Multiple myeloma not having achieved remission (CMS/HCC) 11/13/2024 Orders Only [facility] Oncology and Hematology - Jakub Alan [address] [place] [phone] Carlos Clark MD Multiple myeloma not having achieved remission (CMS/HCC) 11/12/2024 Refill [facility] Oncology and Hematology Jakub [address] Carlos Clark MD Multiple myeloma not having achieved remission (CMS/HCC) 11/10/2024 Orders Only [facility] Oncology and Hematology - Jakub [address] [place] [phone] Carlos Clark MD 11/06/2024 Refill [facility] Oncology and Hematology - Jakub [address] [place] [phone] Carlos Clark MD Multiple myeloma not having achieved remission (CMS/HCC) 11/06/2024 Orders Only [facility] Oncology and Hematology - Jakub [address] [place] [phone] Carlos Clark MD Multiple myeloma not having achieved remission (CMS/HCC) 11/02/2024 Orders Only [facility] Oncology and Hematology - Jakub [address] Carlos Santos MD 11/02/2024 External Device Data STL ABSTRACTION Provider, Abstract 11/01/2024 External Device Data STL ABSTRACTION Provider, Abstract 11/01/2024 External Device Data STL ABSTRACTION Provider, Abstract 10/31/2024 9:30 AM CDT Office Visit [facility] Oncology and Hematology - Jakub [address] [place] [phone] Carlos Clark MD Multiple myeloma not having achieved remission (CMS/HCC) (Primary Dx) 10/31/2024 External Device Data STL ABSTRACTION Provider, Abstract 10/31/2024 Orders Only [facility] Oncology and Hematology - Jakub [address] [place] [address] Carlos Clark MD 10/30/2024 Orders Only [facility] Oncology and Hematology - Jakub [address] [place] [address] Carlos Clark MD Multiple myeloma not having achieved remission (CMS/HCC) 10/27/2024 Orders Only [facility] Oncology and Hematology - Jakub [address] [place] [address] Carlos Clark MD 10/26/2024 Orders Only [facility] Oncology and Hematology - Jakub [address] [place] [address] Carlos Clark MD 10/23/2024 Orders Only [facility] Oncology and Hematology - Jakub [address] [place] [address] Carlos Clark MD Multiple myeloma not having achieved remission (CMS/HCC) 10/16/2024 Orders Only [facility] Oncology and Hematology - Jakub [address] [place] [address] Carlos Clark MD Multiple myeloma not having achieved remission (CMS/HCC) 10/12/2024 Refill [facility] Oncology and Hematology - Jakub [address] Carlos Clark MD 10/11/2024 Orders Only [facility] Oncology and Hematology - Jakub [address] Carlos Clark MD 10/11/2024 Refill [facility] Oncology and Hematology - Jakub [address] [place] [phone] Carlos Clark MD Multiple myeloma not having achieved remission (CMS/HCC) 10/09/2024 Refill [facility] Oncology and Hematology - Jakub [address] [place] [phone] Dinah Tovar MD 10/09/2024 Orders Only [facility] Oncology and Hematology - Jakub [address] Carlos Clark MD Multiple myeloma not having achieved remission (CMS/HCC) 10/02/2024 Orders Only [facility] Oncology and Hematology - Jakub [address] Carlos Clark MD Multiple myeloma not having achieved remission (CMS/HCC) 09/25/2024 Orders Only [facility] Oncology and Hematology - Jakub [address] [place] [phone] Carlos Clark MD Multiple myeloma not having achieved remission (CMS/HCC) 09/19/2024 Refill [facility] Oncology and Hematology - Jakub [address] Carlos Clark MD Multiple myeloma not having achieved remission (CMS/HCC) 09/18/2024 Orders Only [facility] Oncology and Hematology - Jakub [address] [place] [phone] Carlos Clark MD Multiple myeloma not having achieved remission (CMS/HCC) 09/13/2024 Orders Only [facility] Oncology and Hematology - Jakub [address] Carlos Clark MD 09/12/2024 Orders Only [facility] Oncology and Hematology - Jakub [address] [place] [phone] Carlos Clark MD 09/11/2024 Orders Only [facility] Oncology and Hematology - Jakub [address] [place] [phone] Carlos Clark MD Multiple myeloma not having achieved remission (CMS/HCC) 09/06/2024 Orders Only [facility] Oncology and Hematology - Jakub [address] Carlos Clark MD 09/04/2024 Orders Only [facility] Oncology and Hematology - Jakub [address] Carlos Clark MD Multiple myeloma not [...] on file Legal Sex Female 1:21 PM PRODUCTION FINISHER Gender Identity Not on file Sexual Orientation [...] Description 01/23/2025 9:00 AM CDT Office Visit [facility] Oncology and Hematology - Allred [address] [facility] [address] [place] [address] Carlos Clark MD [address] [facility] [address] [place] [address] Health Maintenance Due Date Last [...] Procedure Name Priority Date/Time Associated Diagnosis Comments IMMUNOGLOBULINS IGG IGA IGM Routine 11/20/2024 3:17 PM CDT BASIC METABOLIC PANEL Routine 11/07/2024 3:58 PM [...] CDT from Last 3 Months Results * IMMUNOGLOBULINS IGG IGA IGM (11/20/2024 3:17 PM CDT) Only the most recent of3 resultswithin the time period is included. Blood us Carlos Clark MD CHEMISTRY ORDERABLES Final Resu lt * BASIC METABOLIC PANEL (11/07/2024 3:58 PM [...] * IGG (10/25/2024 2:49 PM CDT) Blood Carlos Clark MD CHEMISTRY ORDERABLES Final Resu lt * KAPPA/LAMBDA, FREE LIGHT CHAINS (10/25/2024 1:38 PM CDT) Blood Carlos Clark MD CHEMISTRY ORDERABLES Final Resu lt * CBC MIXED CELL DIFFERENTIAL (10/10/2024 7:48 AM CDT) Only the most recent of2 resultswithin the time period is included. Blood Carlos Clark MD HEMATOLOGY ORDERABLES Final Res ult from Last [address] [place] [address] Donate Your Desktop [facility] Donate Your Desktop [facility] Care Teams Salt Washer Harvesting Station Relationship Specialty Start Date End Date Herman Ruff MD [address] [place] [address] PCP - General Family Practice 06/22/22
--- OUTSIDE RECORDS SUMMARY | 2024-11-29 14:27 | XMS_ITS | Clinical Summary ---
Author Organization [facility] [employer] Address [address] [place] [address] Care Team Providers Care Travel Freight And Passenger Agent Name Role Phone Unavailable Primary Care Provider Unavailabl e Source Comments [facility],non-owned Affiliates and Associated Physician Practices is amultiple site organization consisting of ambulatory clinics and hospital sitesin [place], [place], [place] and [place]. This disclosure is being madepursuant to the Care Everywhere program and may not contain all information available regarding this patient. Last updated 18.[facility] [employer] Social History Tobacco Use Types Packs/Day Years [...]
--- OUTSIDE RECORDS SUMMARY | 2024-11-29 14:27 | XMS_ITS | Continuity of Care Document ---
Author Organization [facility] Address [address] [place] [address] [address] [place] [address] Phone Care Team Providers Care Basketball Scout Name Role Phone Sanjeev Martinez Unavailable Unavailable Advance Directives Directive Yes / No Effective Date File Name No Information Encounters Encounter Description Practice Location Reason(s) For Visit Diagnoses Date Provider Providers Copied on Encounter [facility], [id number] [place] [address] [address], [place], [place], [id number], [place] tel:[phone] [facility] No Information [address] , [address], [place], [address], [place]. tel:[phone] Family History Family Member Type Diagnosis Age At Onset No Information Payers Payer name Insurance type Covered constitution party ID Authoriza tion(s) [place] [id number] Social History Type Description Quantity Date Captured [...]
--- OUTSIDE RECORDS SUMMARY | 2024-11-29 14:27 | XMS_ITS | Encounter Summary ---
Author Organization [facility] Address [address] [place] [address] Phone Care Team Providers Care File System Installer Name Role Phone Herman Ruff MD Primary Care Provider [phone] Carlos Clark MD Unavailable [phone] Encounter Details Date Type Department Care Team (Latest Contact Info) Description 06/09/2022 Orders Only [facility] Scanning, Provider Social History Tobacco Use Types Packs/Day Years Used Date Smoking Tobacco: Never Assessed Comments Unknown Sex and Gender Information Value Date Recorded Sex Assigned at Not on file Legal Sex Female 7:37 AM INTERACTIVE DIGITAL MEDIA SPECIALIST Gender Identity Not on file Sexual Orientation [...] Diarrhea 08/03/2023 08/05/2023 08/05/2023 10:5 9 PM INTERACTIVE DIGITAL MEDIA SPECIALIST Diarrhea 08/10/2023 08/10/2023 08/10/2023 10:5 3 AM INTERACTIVE DIGITAL MEDIA SPECIALIST C. difficile suspected Comment:C diff test pending 08/16/2023 08/16/2023 08/16/2023 8 :24 PM INTERACTIVE DIGITAL MEDIA SPECIALIST Rotavirus suspected 08/16/2023 08/16/2023 08/16/19 10:09 PM INTERACTIVE DIGITAL MEDIA SPECIALIST Norovirus suspected 08/16/2023 08/16/2023 08/16/19 12:02 PM INTERACTIVE DIGITAL MEDIA SPECIALIST documented as of this encounter Care Teams File System Installer Relationship Specialty Start Date End Date Herman Ruff MD PCP - General Family Medicine 10/29/22 Carlos Clark MD [address] [phone] Referring Physician Hematology 11/02/22 documented as of this encounter
--- OUTSIDE RECORDS SUMMARY | 2024-11-29 14:27 | XMS_ITS | Encounter Summary ---
Author Organization [facility] Address [address] [place] [address] Care Team Providers Care Test Automation Architect Name Role Phone Unavailable Primary Care Provider Unavailabl e Encounter Details Date Type Department Care Team (Late st Contact Info) Description 06/16/2022 Lab Requisition [facility] Care Pathology Lab [address] [place] [address] Albino Lagos MD [facility] [address] [address] Illness, unspecified Social History Tobacco [...] MARROW BIOPSY (STL) Routine 06/09/2022 9:30 AM ELASTIC ASSEMBLER Illness, unspecified documented in this encounter Results * BONE MARROW BIOPSY (STL) (06/09/2022 9:30 AM ELASTIC ASSEMBLER) Case Report Bone Marrow Patholog y Report Case: [id number] Authorizing Provider: Albino Lagos MD Collected: 06/09/2022 09:30 AM Ordering Location: [facility] Care Pathology Lab Received: 06/16/2022 12:33 PM Pathologist: Zoraida Crain Mai, DO Specimen: Bone Marrow Core 06/17/2022 12:54 PM ELASTIC ASSEMBLER U PATHOLOGY LAB Final Diagnosis Bone marrow, aspirate, touch imprint, core biopsy: - Plasma cell myeloma (80-90% involvement by CD138) - See description Peripheral blood: - Anemia with rouleaux formation - Adequate leukocytes without circulating plasma cells 06/17/2022 12:54 PM [facility] PATHOLOGY LAB at [address] ELASTIC ASSEMBLER AP Comment The bone marrow specimen shows 80-90% involvement by a kappa restricted plasma cell population consistent with plasma cell myeloma. Correlation with clinical findings and relevant cytogenetic/molecular testing is required. 06/17/2022 12:54 PM [facility] Peripheral Smear Description 06/07/22 Short CBC data from provided report Leukocytes: Adequate with no circulating plasma cells Erythrocytes: Decreased (no MCV or MCHC provided), rouleaux formation present Platelets: Adequate with no significant abnormality 06/17/2022 12:54 PM [facility] Bone Marrow Aspirate Aspirate smears [...] insufficient erythroids to evaluate 06/17/2022 12:54 PM [facility] Bone Marrow Core Biopsy and [...] performed on the core biopsy in the [facility] Department of Pathology, with appropriately reactive controls, and demonstrate the following: CD34: No increase in blasts CD138: Stains aggregates of plasma cells, 80-90% of marrow cellularity Sun/lambda in situ hybridization: Sun restriction CD3: Stains scattered background T cells CD20: Stains rare background B cells 06/17/2022 12:54 PM [facility] Flow Cytometry Summary Not provided 06/17/2022 12:54 PM [facility] Clinical History Multiple small lytic lesions throughout the skill suspicious for myeloma 06/17/2022 12:54 PM [facility] Materials Received Received are 14 slides and one block (A1) labeled [id number] along with a copy of the outside pathology report. The materials originate from [place] [id number]. All original materials are returned to the referring institution, along with a copy of our final report. 06/17/2022 12:54 PM [facility] Disclaimer The performance characteristics of all immunohistochemical and indirect immunofluorescence stains (if any) cited in this report were determined by the Histopathology Laboratory of [facility]. Some of these tests were developed by [...] the attending (teaching) pathologist. 06/17/2022 12:54 PM [facility] Embedded Images 06/17/2022 12:54 PM [facility] Pathology/Cytolo gy BONE MARROW SPECIMEN / Unknown 06/09/2022 9:30 AM ELASTIC ASSEMBLER 06/16/2022 12:33 PM ELASTIC ASSEMBLER Albino Lagos MD LAB - PATHOLOGY/CYTOLOGY ORDERAB LES Final Result Performing Organization Address City/State/[facility] Co de Phone Number [facility] PATHOLOGY LAB [address] [place], [place] [address] [place] [address] documented in this encounter Visit Diagnoses Diagnosis Illness, unspecified documented in this encounter
--- OUTSIDE RECORDS SUMMARY | 2024-11-29 14:27 | XMS_ITS | Referral Summary ---
Author Organization [facility] Address [address] [place] [address] Care Team Providers Care Gum Puller Name Role Phone Herman Ruff MD Primary Care Provider [phone] Carlos Clark MD Unavailable [phone] Allergies Active Allergy Reactions Criticality Noted [...] Medical Assistants Post-Discharge Follow-Up Living Situation/Distance from [place], [place] Caregiver Lab/Transfusion Frequency Venous Access & [...] Tobacco: Never Tobacco Cessation:Counseling Given: Not Answered [facility] Utilities Answer Date Recorded In the past 12 months has [employer], [employer], oil, or water [employer] threatened to shut off services in your [...] often do you attend chur ch or uatsdin services? Never 08/19/2023 Do you belong to any clubs o r organizations such as adventism groups, unions, fraternal or athletic groups, or [...] place to sleep or slept in a half-way (including now)? No 08/19/2023 Personal Safety Answer Date Recorded Have you ever been in or are you currently in a harmful physical or emotional relationship or is someone making you feel afraid or unsafe? Denies 08/13/2023 Comments No Sex and Gender Information Value Date Recorded Sex Assigned at Not on file Legal Sex Female 7:37 AM AIRPLANE RIGGER Gender Identity Not on file Sexual Orientation Not on file Last Filed Vital Signs Vital Sign Reading Time Taken Comments Blood Pressure 135/83 07/05/2024 2:39 PM AIRPLANE RIGGER Pulse 68 07/05/2024 2:39 PM AIRPLANE RIGGER Temperature 36.3 C (97.4 F) 07/05/2024 2:39 PM AIRPLANE RIGGER Respiratory Rate 18 11/05/2023 1:10 PM CDT Oxygen Saturation 98% 07/05/2024 2:39 PM AIRPLANE RIGGER Inhaled Oxygen Concentration - - Weight 83.9 kg (185 lb) 07/05/2024 2:39 PM AIRPLANE RIGGER Height 161.3 cm (5' 3.5) 07/05/2024 2:39 PM AIRPLANE RIGGER Body Mass Index 32.26 07/05/2024 2:39 PM AIRPLANE RIGGER Plan of Treatment Not on file Medical Devices Implanted Type Area Crm Marketing Manager Device Identifier Shelf Expiration Date Model / Serial / Lot Isidro [place] Power-Trialysis 13fr 15cm 3 Lumen Power Straight Kit Catheter [id number] - [id number] Implanted:Qty: 1 on 05/24/2023 at [facility] Isidro [place] 05/13/2024 [id number] / / [id number] [place] [address] [id number] MEDICARE HMO [facility] [place] [address] TRANSPLANT HU[employer] MEDICARE RISK Advance Directives For more information, please contact: [phone] * Full Code (Latest Code Status on File) Date Activated Date Inactivated Comments 07/27/2023 7:20 PM 08/20/2023 8:12 PM * Full Code Date Activated Date Inactivated Comments 07/26/2023 9:25 AM 07/27/2023 5:35 AM * Full Code Date Activated Date Inactivated Comments 05/24/2023 9:24 AM 05/25/2023 5:41 AM Care Teams Gum Puller Relationship Specialty Start Date End Date Herman Ruff MD PCP - General Family Medicine 10/29/22 Carlos Clark MD [address] [phone] Referring Physician Hematology 11/02/22
--- OUTSIDE RECORDS SUMMARY | 2024-11-29 14:27 | XMS_ITS | Clinical Summary ---
Author Organization [facility] Address [address] [place] [address] Care Team Providers Care Marine Service Operator Name Role Phone Herman Ruff MD Primary Care Provider [phone] Carlos Clark MD Unavailable [phone] Allergies Active Allergy Reactions Criticality Noted [...] Medical Assistants Post-Discharge Follow-Up Living Situation/Distance from [place], [place] Caregiver Lab/Transfusion Frequency Venous Access & [...] Tobacco: Never Tobacco Cessation:Counseling Given: Not Answered [facility] Utilities Answer Date Recorded In the past 12 months has [employer], [employer], or water [employer] threatened to shut off services in your [...] How often do you attend chur or restoration services? Never 08/19/2023 Do you belong to any clubs o r organizations such as gnosticist groups, unions, fraternal or athletic groups, or [...] place to sleep or slept in a fpc (including now)? No 08/19/2023 Personal Safety Answer Date Recorded Have you ever been in or are you currently in a harmful physical or emotional relationship or is someone making you feel afraid or unsafe? Denies 08/13/2023 Comments No Sex and Gender Information Value Date Recorded Sex Assigned at Not on file Legal Sex Female 7:37 AM FRONT OFFICE AGENT Gender Identity Not on file Sexual Orientation Not on file Obstetrics History Last Filed Vital Signs Vital Sign Reading Time Taken Comments Blood Pressure 135/83 07/05/2024 2:39 PM FRONT OFFICE AGENT Pulse 68 07/05/2024 2:39 PM FRONT OFFICE AGENT Temperature 36.3 C (97.4 F) 07/05/2024 2:39 PM FRONT OFFICE AGENT Respiratory Rate 18 11/05/2023 1:10 PM CDT Oxygen Saturation 98% 07/05/2024 2:39 PM FRONT OFFICE AGENT Inhaled Oxygen Concentration - - Weight 83.9 kg (185 lb) 07/05/2024 2:39 PM FRONT OFFICE AGENT Height 161.3 cm (5' 3.5) 07/05/2024 2:39 PM FRONT OFFICE AGENT Body Mass Index 32.26 07/05/2024 2:39 PM FRONT OFFICE AGENT Plan of Treatment Health Maintenance Due Date [...] 05/23/2024, 03/23/2024 Medical Devices Implanted Type Area Chili Pepper Grinder Device Identifier Shelf Expiration Date Model / Serial / Lot Kaiima Power-Trialysis 13fr 15cm 3 Lumen Power Straight Kit Catheter [id number] - [id number] Implanted:Qty: 1 on 05/24/2023 at [facility] Isidro Artur 05/13/2024 [id number] / / [id number] Insurance [employer] MEDICARE [place] [id number] [address] TRANSPLANT [employer] MEDICARE RISK Advance Directives For more information, please contact: [phone] * Full Code (Latest Code Status on File) Date Activated Date Inactivated Comments 07/27/2023 7:20 PM 08/20/2023 8:12 PM * Full Code Date Activated Date Inactivated Comments 07/26/2023 9:25 AM 07/27/2023 5:35 AM * Full Code Date Activated Date Inactivated Comments 05/24/2023 9:24 AM 05/25/2023 5:41 AM Care Teams Marine Service Operator Relationship Specialty Start Date End Date Herman Ruff MD PCP - General Family Medicine 10/29/22 Carlos Clark MD [address] [phone] Referring Physician Hematology 11/02/22
--- OUTSIDE RECORDS SUMMARY | 2024-11-29 14:27 | XMS_ITS | Encounter Summary ---
Author Organization [facility] Address [address] [place] [address] Care Team Providers Care Gas Well Drilling Manager Name Role Phone Herman Ruff MD Primary Care Provider [phone] Encounter Details Date Type Department Care Team (Late Contact Info) Description 11/27/2024 Orders Only [facility] Oncology and Hematology - [address] [place] [address] Carlos Clark MD [facility] [address] [place] [address] Multiple myeloma not having achieved remission (CMS/HCC) Social History Tobacco Use Types Packs/Day Years Used Date Smoking Tobacco: Never Smokeless Tobacco: Never Alcohol Use Standard Drinks/Week Comments Yes 0 (1 standard drink = 0.6 oz pur e alcohol) social Comments Unknown Sex and Gender Information Value Date Recorded Sex Assigned at Not on file Legal Sex Female 1:21 PM ETL ANALYST Gender Identity Not on file Sexual Orientation Not on file documented as of this encounter Plan of Treatment Upcoming Encounters Date Type Department Care Team (Late st Contact Info) Description 01/23/2025 9:00 AM CDT Office Visit [facility] Oncology and Hematology - Jakub [address] [place] [address] Carlos Clark MD [address] [place] [address] documented as of this encounter Visit Diagnoses Diagnosis Multiple myeloma not having achieved remission (CMS/HCC) Multiple myeloma, without mention of having achieved remission documented in this encounter Care Teams Gas Well Drilling Manager Relationship Specialty Start Date End Date Herman Ruff MD [address] [place] [address] PCP - General Family Practice 06/22/22 documented as of this encounter
== END 2024-11-29 12:57 | disposition home or self-care (01) ==
PROVIDERS: PCP Family Medicine; Visit Provider Nurse Practitioner Family
DX: M81.0 Age-related osteoporosis without current pathological fracture (principal); M85.89 Other specified disorders of bone density and structure, multiple sites; Z13.820 Encounter for screening for osteoporosis
CPT/HCPCS: 77080

== ENCOUNTER 2025-01-02 11:10 | Outpatient (CLI) | payer MEDICARE, SELFPAY ==
--- OUTSIDE RECORDS SUMMARY | 2025-01-02 11:14 | XMS_ITS | Encounter Summary ---
Author Organization [facility] Address [address] [facility] [place] [address] Care Team Providers Care Supervisor Mechanic Boilermaking Name Role Phone Unavailable Primary Care Provider Unavailabl e Encounter Details Date Type Department Care Team (Late st Contact Info) Description 06/12/2022 Lab Requisition [facility] Care Pathology Lab [address] [place] [address] Albino Lagos MD [facility] [address] [address] Social History Tobacco Use Types [...]
--- OUTSIDE RECORDS SUMMARY | 2025-01-02 11:14 | XMS_ITS | Continuity of Care Document ---
Author Organization [facility] Address [address] [place] [address] [address] [place] [address] Phone Care Team Providers Care Dump Truck Operator Name Role Phone Sanjeev Martinez Unavailable Unavailable Advance Directives Directive Yes / No Effective Date File Name No Information Encounters Encounter Description Practice Location Reason(s) For Visit Diagnoses Date Provider Providers Copied on Encounter [facility], [id number] [place] [address] [address], [place], [place], [id number], [place] tel:[phone] [facility] No Information [address] , [address], [place], [address], [place]. tel:[phone] Family History Family Member Type Diagnosis Age At Onset No Information Payers Payer name Insurance type Covered democrat ID Authoriza tion(s) [place] [id number] Social History Type Description Quantity Date Captured [...]
--- OUTSIDE RECORDS SUMMARY | 2025-01-02 11:14 | XMS_ITS | Clinical Summary ---
Author Organization [facility] Address [address] [facility] [place] [address] Care Team Providers Care Caramel Cutter Helper Name Role Phone Unavailable Primary Care Provider Unavailabl e Source Comments [facility],non-owned Affiliates and Associated Physician Practices is amultiple site organization consisting of ambulatory clinics and hospital sitesin [place], [place], [place] and [place]. This disclosure is being madepursuant to the Care Everywhere program and may not contain all information available regarding this patient. Last updated 18.[facility] [employer] Social History Tobacco Use Types Packs/Day Years [...] season) 2024 DEPRESSION SCREENING 06/14/2024 INFLUENZA VACCINE (#1) 2025 Respiratory Syncytial Virus (RSV) Vaccine Pt: [...]
--- OUTSIDE RECORDS SUMMARY | 2025-01-02 11:14 | XMS_ITS | Encounter Summary ---
Author Organization [facility] Address [address] [place] [address] Phone Care Team Providers Care Long Chain Quiller Tender Name Role Phone Herman Ruff MD Primary Care Provider [phone] Carlos Clark MD Unavailable [phone] Encounter Details Date Type Department Care Team (Latest Contact Info) Description 06/09/2022 Orders Only [facility] Scanning, Provider Social History Tobacco Use Types Packs/Day Years Used Date Smoking Tobacco: Never Assessed Comments Unknown Sex and Gender Information Value Date Recorded Sex Assigned at Not on file Legal Sex Female 7:37 AM TOOL ADJUSTER Gender Identity Not on file Sexual Orientation [...] Diarrhea 08/03/2023 08/05/2023 08/05/2023 10:5 9 PM TOOL ADJUSTER Diarrhea 08/10/2023 08/10/2023 08/10/2023 10:5 3 AM TOOL ADJUSTER C. difficile suspected Comment:C diff test pending 08/16/2023 08/16/2023 08/16/2023 8 :24 PM TOOL ADJUSTER Rotavirus suspected 08/16/2023 08/16/2023 08/16/19 10:09 PM TOOL ADJUSTER Norovirus suspected 08/16/2023 08/16/2023 08/16/19 12:02 PM TOOL ADJUSTER documented as of this encounter Care Teams Long Chain Quiller Tender Relationship Specialty Start Date End Date Herman Ruff MD PCP - General Family Medicine 10/29/22 Carlos Clark MD [address] [phone] Referring Physician Hematology 11/02/22 documented as of this encounter
--- OUTSIDE RECORDS SUMMARY | 2025-01-02 11:14 | XMS_ITS | Encounter Summary ---
Author Organization [facility] Address [address] [place] [address] Care Team Providers Care Bonding Machine Tender Name Role Phone Herman Ruff MD Primary Care Provider [phone] Carlos Clark MD Unavailable [phone] Encounter Details Date Type Department Care Team (Late st Contact Info) Description 07/22/2023 Telephone [facility] Radiology [address] [place] [address] Estela Tomlinson, [place] Social History Tobacco Use [...] on file Legal Sex Female 7:37 AM DOOR TRIMMER Gender Identity Not on file Sexual Orientation Not on file documented as of this encounter Plan of Treatment Not on file documented as of this encounter Visit Diagnoses Not on filedocumented in this encounter Additional Health Concerns Infection Onset Date Last Indicated Resolved Time Diarrhea 08/03/2023 08/05/2023 08/05/2023 10:5 9 PM DOOR TRIMMER Diarrhea 08/10/2023 08/10/202308/10/2023 10:5 3 AM DOOR TRIMMER C. difficile suspected Comment:C diff test pending 08/16/2023 08/16/2023 08/16/2023 8 :24 PM DOOR TRIMMER Rotavirus suspected 08/16/2023 08/16/2023 08/16/19 10:09 PM DOOR TRIMMER Norovirus suspected 08/16/2023 08/16/2023 08/16/19 12:02 PM DOOR TRIMMER documented as of this encounter Care Teams Bonding Machine Tender Relationship Specialty Start Date End Date Herman Ruff MD PCP - General Family Medicine 10/29/22 Carlos Clark MD [address] [phone] Referring Physician Hematology 11/02/22 documented as of this encounter
--- OUTSIDE RECORDS SUMMARY | 2025-01-02 11:14 | XMS_ITS | Encounter Summary ---
Author Organization [facility] Address [address] [place] [address] Care Team Providers Care Willow Worker Name Role Phone Unavailable Primary Care Provider Unavailabl e Encounter Details Date Type Department Care Team (Late st Contact Info) Description 06/16/2022 Lab Requisition [facility] Care Pathology Lab [address] [place] [address] Albino Lagos MD [facility] [address] [address] Illness, unspecified Social History Tobacco [...]
--- OUTSIDE RECORDS SUMMARY | 2025-01-02 11:14 | XMS_ITS | Referral Summary ---
Author Organization [facility] Address [address] [place] [address] Care Team Providers Care Lockstitch Front Maker Name Role Phone Herman Ruff MD Primary Care Provider [phone] Carlos Clark MD Unavailable [phone] Encounters Date Type Department Care Team Description 12/05/[address] [place] [address] [facility] Medical Office Building [address] [place] [address] Familia Lawton MD from Last 3 Months Allergies Active Allergy Reactions Criticality Noted Date [...] Medical Assistants Post-Discharge Follow-Up Living Situation/Distance from [place], [place] Caregiver Lab/Transfusion Frequency Venous Access & Care implanted vascular device Local Oncologist Contact Phone: Fax: Post-Discharge Office Visit (H30) 08/19 Miscellaneous Notes: Problem Noted Date Diagnosed [...] Years Used Date Smoking Tobacco: Former Cigarettes 2002 Smokeless Tobacco: Never Tobacco Cessation:Counseling Given: Not Answered [facility] Utilities Answer Date Recorded In the past 12 months has e [employer], gas, oil, or water [employer] threatened to shut off services in your [...] often do you attend chur ch or gnosticist services? Never 08/19/2023 Do you belong to any clubs o r organizations such as congregation groups, unions, fraternal or athletic groups, or [...] place to sleep or slept in a jail (including now)? No 08/19/2023 Personal Safety Answer Date Recorded Have you ever been in or are you currently in a harmful physical or emotional relationship or is someone making you feel afraid or unsafe? Denies 08/13/2023 Comments No Sex and Gender Information Value Date Recorded Sex Assigned at Not on file Legal Sex Female 7:37 AM DRUM SANDER OFFBEARER Gender Identity Not on file Sexual Orientation Not on file Last Filed Vital Signs Vital Sign Reading Time Taken Comments Blood Pressure 135/83 07/05/2024 2:39 PM DRUM SANDER OFFBEARER Pulse 68 07/05/2024 2:39 PM DRUM SANDER OFFBEARER Temperature 36.3 C (97.4 F) 07/05/2024 2:39 PM DRUM SANDER OFFBEARER Respiratory Rate 18 11/05/2023 1:10 PM CDT Oxygen Saturation 98% 07/05/2024 2:39 PM DRUM SANDER OFFBEARER Inhaled Oxygen Concentration - - Weight 83.9 kg (185 lb) 07/05/2024 2:39 PM DRUM SANDER OFFBEARER Height 161.3 cm (5' 3.5) 07/05/2024 2:39 PM DRUM SANDER OFFBEARER Body Mass Index 32.26 07/05/2024 2:39 PM DRUM SANDER OFFBEARER Plan of Treatment Not on file Medical Devices Implanted Type Area Hammer Driver Device Identifier Shelf Expiration Date Model / Serial / Lot Savalanche Power-Trialysis 13fr 15cm 3 Lumen Power Straight Kit Catheter [id number] - [id number] Implanted:Qty: 1 on 05/24/[address] [facility] Isidro Irwin 05/13/2024 [id number] / / [id number] [place] [address] [place] [address] HU[employer] MEDICARE HMO TRANSPLANT HU[employer] MEDICARE RISK Advance Directives For more information, please contact: [phone] * Full Code (Latest Code Status on File) Date Activated Date Inactivated Comments 07/27/2023 7:20 PM 08/20/2023 8:12 PM * Full Code Date Activated Date Inactivated Comments 07/26/2023 9:25 AM 07/27/2023 5:35 AM * Full Code Date Activated Date Inactivated Comments 05/24/2023 9:24 AM 05/25/2023 5:41 AM Care Teams Lockstitch Front Maker Relationship Specialty Start Date End Date Herman Ruff MD PCP - General Family Medicine 10/29/22 Carlos Clark MD [address] [address] Referring Physician Hematology 11/02/22
--- OUTSIDE RECORDS SUMMARY | 2025-01-02 11:14 | XMS_ITS | Clinical Summary ---
Author Organization [facility] Address [address] [place] [address] Care Team Providers Care Church History Professor Name Role Phone Herman Ruff MD Primary Care Provider [phone] Carlos Clark MD Unavailable [phone] Allergies Active Allergy Reactions Criticality Noted [...] Medical Assistants Post-Discharge Follow-Up Living Situation/Distance from [place], [place] Caregiver Lab/Transfusion Frequency Venous Access & Care implanted vascular device Local Oncologist Contact Phone: Fax: Post-Discharge Office Visit (H30) RV 08/19 Miscellaneous Notes: Problem Noted Date Diagnosed Date Autologous donor of stem cells 12/16/2022 Multiple myeloma not having achieved remission 0 06/22/2022 Cancer Staging:Clinical:Stage IIIB- Unsigned Resolved Problems Problem Noted Date Diagnosed Date Resolved Date Multiple myeloma in relapse 07/27/2023 08/23/2023 Encounters Date Type Department Care Team Description 12/05/2024 Telephone [facility] Cardiology [facility] Medical Office Building [address] [place] [address] Familia Lawton MD from Last 3 Months Immunizations Immunization Administration Dates Next Due Influenza, Quad, Adjuvantated, Intramuscular 11/2020 Influenza, Quadrivalent, Briigd l Culture-based MDCK, Preservative Free, Antibiotic Free, [...] Used Date Smoking Tobacco: Former Cigarettes 1 973 - 2002 Smokeless Tobacco: Never Tobacco Cessation:Counseling Given: Not Answered [facility] Utilities Answer Date Recorded In the past 12 months has e [employer], gas, oil, or water [employer] threatened to shut off services in your [...] often do you attend chur ch or mormon services? Never 08/19/2023 Do you belong to any clubs o r organizations such as restorationist groups, unions, fraternal or athletic groups, or [...] place to sleep or slept in a prison (including now)? No 08/19/2023 Personal Safety Answer Date Recorded Have you ever been in or are you currently in a harmful physical or emotional relationship or is someone making you feel afraid or unsafe? Denies 08/13/2023 Comments No Sex and Gender Information Value Date Recorded Sex Assigned at Not on file Legal Sex Female 7:37 AM FLEECE TIER Gender Identity Not on file Sexual Orientation Not on file Obstetrics History Last Filed Vital Signs Vital Sign Reading Time Taken Comments Blood Pressure 135/83 07/05/2024 2:39 PM FLEECE TIER Pulse 68 07/05/2024 2:39 PM FLEECE TIER Temperature 36.3 C (97.4 F) 07/05/2024 2:39 PM FLEECE TIER Respiratory Rate 18 11/05/2023 1:10 PM CDT Oxygen Saturation 98% 07/05/2024 2:39 PM FLEECE TIER Inhaled Oxygen Concentration - - Weight 83.9 kg (185 lb) 07/05/2024 2:39 PM FLEECE TIER Height 161.3 cm (5' 3.5) 07/05/2024 2:39 PM FLEECE TIER Body Mass Index 32.26 07/05/2024 2:39 PM FLEECE TIER Plan of Treatment Health Maintenance Due Date Last Done Comments Breast Cancer Screening-Mammogram 1955 Colon Cancer Screening-Colonoscopy 1955 Hepatitis C Screening 1955 Osteoporosis Screening-Bone Density Scan 1955 Well Visit 65+ 2018 Depression Screening 07/08/2024 07/08/2023 Fall Risk Assessment 08/19/2024 08/20/2023 Covid-19 Vaccine (6 - Pfizer risk 2023- season) 2024 04/23/2024, 11/19/2023, 04/17/2021, Additional history exists Influenza Vaccine (#1) 2025 , 04/27/2023, 05/01/2022, Additional history exists DTaP/Tdap/Td Vaccine (4 - Td or Tdap) 09/25/2034 09/25/2024, 05/23/2024, 03/23/2024 Zoster Vaccine Completed 05/23/2024, 03/23/2024 Hepatitis B Screening Completed 09/25/2024 , 05/23/2024, 03/23/2024 Pneumococcal vaccine 65+ Completed 025, 05/23/2024, 03/23/2024 Medical Devices Implanted Type Area Toll Patrolman Device Identifier Shelf Expiration Date Model / Serial / Lot [employer] Power-Trialysis 13fr 15cm 3 Lumen Power Straight Kit Catheter [id number] - [id number] Implanted:Qty: 1 on 05/24/[address] [facility] Isidro Calaveras 05/13/2024 [id number] / / [id number] [place] [address] [place] [address] [place] [id number] TRANSPLANT HU[employer] MEDICARE RISK Advance Directives For more information, please contact: [phone] * Full Code (Latest Code Status on File) Date Activated Date Inactivated Comments 07/27/2023 7:20 PM 08/20/2023 8:12 PM * Full Code Date Activated Date Inactivated Comments 07/26/2023 9:25 AM 07/27/2023 5:35 AM * Full Code Date Activated Date Inactivated Comments 05/24/2023 9:24 AM 05/25/2023 5:41 AM Care Teams Church History Professor Relationship Specialty Start Date End Date Herman Ruff MD PCP - General Family Medicine 10/29/22 Carlos Clark MD [address] [phone] Referring Physician Hematology 11/02/22
--- OUTSIDE RECORDS SUMMARY | 2025-01-02 11:14 | XMS_ITS ---
Author Organization [facility] Address [address] [place] [address] Care Team Providers Care Medical Radiation Therapist Name Role Phone Herman Ruff MD Primary Care Provider [phone] Carlos Clark MD Unavailable [phone] Active Problems Patient Care Coordination No [...] Medical Assistants Post-Discharge Follow-Up Living Situation/Distance from [place], [place] Caregiver Lab/Transfusion Frequency Venous Access & [...] from the original note were not included. [facility] [address] [place] [address] This Survivorship Care Plan is a cancer [...] Contact Information: Referring Provider Carlos Clark MD [phone] Primary Care Physician Herman Ruff MD [phone] BMT Physician/ Advanced Practice Provider Yo Landers MD/Marilin Sanchez, [facility] [phone] Ophthalmology Assistant Snehal Lange RN [phone] Application Administrator Tierra Hammond, [facility] [phone] Oncology History Overview Note 07/22/2022 - Daratumumab/Velcade/Dexamethasone [...] Lab Results Lab Results Component Value Date [id number] 100 12/18/2022 DLCOPREPRED 65 12/18/2022 25HYDROVITD 38 [...] M 40 - 230 mg/dL <25.0 <25 [place]/Lambda light chains free with ratio 0.26 - 1.65 0.26 - 1.65 >1.70 See Comment 0.79 [place] light chain, free 0.33 - 1.94 mg/dL [...] electrophoresis or >=90% reduction in serum M-protein MT = partial response - >=50% reduction of [...] Transplant, to begin after Day 90 Updated (7561-0130 Formula) mRNA vaccine Number of updated ([id number] Formula) mRNA doses indicated Interval between doses Moderna 3 Dose 1 and Dose 2: 4 weeks Dose 2 and Dose 3: At least 4 weeks CritiTech 3 Dose 1 and Dose 2: 3 [...] Resources Resources you may be interested in: [place] [employer] Cancer Survivors Network Cancer Survivors [...] you navigateyour transplant journey. https://bethematch.org National Cancer [place] Accurate, up-to-date, comprehensive cancer information from the U.S. government's principal agency for cancer research. http://www.cancer.gov Eating Hints?? Before, During, and After Cancer Treatment https://www.cancer.gov/publication/patient-education/eating-hints National Coalition for Cancer Survivorship We advocate for quality cancer care for all individuals touched by cancer. https://canceradvocacy.org National Heart, Lung and Blood [place] We provide helpful information and resources designed to help your family stay healthy. https://www.nhlbi.gov/health/educational/webcan/ [facility] http://www.[facility].rust Multiple Myeloma Research Foundation (MMRF) Charitable organization [...] Myeloma Crowd is a division of the [employer], a patient-driven, nonprofit organization that empowers patients with rare diseases at each step of her disease journey--from diagnosis, through Education, care and on to a cure. https://www.myelomacrowd.org/ Resolved Problems Problem Noted Date Diagnosed Date Resolved Date Multiple myeloma in relapse 07/27/2023 08/23/2023
--- OUTSIDE RECORDS SUMMARY | 2025-01-02 11:14 | XMS_ITS | Encounter Summary ---
Author Organization [facility] Address [address] [facility] [place] [address] Care Team Providers Care Observer Gravity Prospecting Name Role Phone Unavailable Primary Care Provider Unavailabl e Encounter Details Date Type Department Care Team (Late st Contact Info) Description 06/16/2022 Lab Requisition [facility] Care Pathology Lab [address] [place] [address] Albino Lagos MD [facility] [address] [address] Illness, unspecified Social History Tobacco [...] MARROW BIOPSY (STL) Routine 06/09/2022 9:30 AM SYSTEM SUPPORT ADMINISTRATOR Illness, unspecified documented in this encounter Results * BONE MARROW BIOPSY (STL) (06/09/2022 9:30 AM SYSTEM SUPPORT ADMINISTRATOR) Case Report Bone Marrow Patholog y Report Case: [id number] Authorizing Provider: Albino Lagos MD Collected: 06/09/2022 09:30 AM Ordering Location: [facility] Care Pathology Lab Received: 06/16/2022 12:33 PM Pathologist: Zoraida Crain Mai, DO Specimen: Bone Marrow Core 06/17/2022 12:54 PM SYSTEM SUPPORT ADMINISTRATOR [facility] PATH[facility] Final Diagnosis Bone marrow, aspirate, touch imprint, core biopsy: - Plasma cell myeloma (80-90% involvement by CD138) - See description Peripheral blood: - Anemia with rouleaux formation - Adequate leukocytes without circulating plasma cells 06/17/2022 12:54 PM [facility] at [address] SYSTEM SUPPORT ADMINISTRATOR AP Comment The bone marrow specimen shows 80-90% involvement by a kappa restricted plasma cell population consistent with plasma cell myeloma. Correlation with clinical findings and relevant cytogenetic/molecular testing is required. 06/17/2022 12:54 PM [facility] Peripheral Smear Description 06/07/22 Short CBC data from provided report Leukocytes: Adequate with no circulating plasma cells Erythrocytes: Decreased (no MCV or MCHC provided), rouleaux formation present Platelets: Adequate with no significant abnormality 06/17/2022 12:54 PM [facility] Bone Marrow Aspirate Aspirate smears [...] insufficient erythroids to evaluate 06/17/2022 12:54 PM [facility] Bone Marrow Core Biopsy and [...] performed on the core biopsy in the [facility] Department of Pathology, with appropriately reactive controls, and demonstrate the following: CD34: No increase in blasts CD138: Stains aggregates of plasma cells, 80-90% of marrow cellularity [place]/lambda in situ hybridization: [place] restriction CD3: Stains scattered background T cells CD20: Stains rare background B cells 06/17/2022 12:54 PM [facility] Flow Cytometry Summary Not provided 06/17/2022 12:54 PM [facility] Clinical History Multiple small lytic lesions throughout the skill suspicious for myeloma 06/17/2022 12:54 PM [facility] Materials Received Received are 14 slides and one block (A1) labeled [id number] along with a copy of the outside pathology report. The materials originate from [place] [id number]. All original materials are returned to the referring institution, along with a copy of our final report. 06/17/2022 12:54 PM [facility] Disclaimer The performance characteristics of all immunohistochemical and indirect immunofluorescence stains (if any) cited in this report were determined by the Histopathology Laboratory of [facility]. Some of these tests were developed [...] the attending (teaching) pathologist. 06/17/2022 12:54 PM [facility] Embedded Images 06/17/2022 12:54 PM [facility] Pathology/Cytolo gy BONE MARROW SPECIMEN / Unknown 06/09/2022 9:30 AM SYSTEM SUPPORT ADMINISTRATOR 06/16/2022 12:33 PM SYSTEM SUPPORT ADMINISTRATOR Albino Lagos MD LAB - PATHOLOGY/CYTOLOGY ORDERAB LES Final Result Performing Organization Address City/State/[facility] Co de Phone Number [facility] PATHOLOGY LAB [address] [place], [place] [id number] [place] [address] documented in this encounter Visit Diagnoses Diagnosis Illness, unspecified documented in this encounter
[2025-01-03 07:09] LABS: Hep Be Antibody Non Reactive (Negative)
== END 2025-01-02 11:11 | disposition home or self-care (01) ==
PROVIDERS: PCP Family Medicine; Visit Provider Nurse Practitioner Family
DX: Z01.84 Encounter for antibody response examination (principal)
CPT/HCPCS: 86707

== ENCOUNTER 2025-01-24 13:53 | Outpatient (CLI) | payer MEDICARE, SELFPAY ==
--- NOTE | 2025-01-24 13:56 | ECG_ITS ---
Test Date: 2025-01-24 14:11:37 Measurements Intervals [place] Rate: 70 P: 58 NE: 150 QRS: -44 QRSD: 105 T: 34 QT: 390 QTc: 423 Interpretive Statements SINUS RHYTHM LEFT AXIS DEVIATION PATTERN CONSISTENT WITH PULMONARY DISEASE BORDERLINE ECG No previous ECG available for comparison Electronically Signed On 01-24-2025 14:36:15 CDT by Dawit Kapadia D.O.
--- OUTSIDE RECORDS SUMMARY | 2025-01-24 13:56 | XMS_ITS | Encounter Summary ---
Author Organization [facility] Address [address] [facility] [place] [address] Care Team Providers Care Network Administrator Name Role Phone Unavailable Primary Care Provider Unavailabl e Encounter Details Date Type Department Care Team (Late st Contact Info) Description 06/12/2022 Lab Requisition [facility] Care Pathology Lab [address] [place] [address] Albino Lagos MD [facility] [address] [address] Social History Tobacco Use Types [...]
--- OUTSIDE RECORDS SUMMARY | 2025-01-24 13:56 | XMS_ITS | Clinical Summary ---
Author Organization [facility] Address [address] [place] [place] [address] Care Team Providers Care Nitriles Lab Technician Name Role Phone Unavailable Primary Care Provider Unavailabl e Source Comments [facility],non-owned Affiliates and Associated Physician Practices is amultiple site organization consisting of ambulatory clinics and hospital sitesin [place], [place], [place] and [place]. This disclosure is being madepursuant to the Care Everywhere program and may not contain all information available regarding this patient. Last updated 18.[facility] [place] Social History Tobacco Use Types Packs/Day Years [...]
--- OUTSIDE RECORDS SUMMARY | 2025-01-24 13:56 | XMS_ITS | Clinical Summary ---
Author Organization [facility] Address [address] [place] [address] Care Team Providers Care Third Officer Name Role Phone Herman Ruff MD Primary Care Provider [phone] Carlos Clark MD Unavailable [phone] Allergies Active Allergy Reactions Criticality Noted Date Comments Meloxicam Palpitations Low 06/22/2022 Medications multivitamin tabletIndications :Multiple myeloma not having achieved remission (HCC) Take 1 tablet by mouth daily Active pantoprazole DR (PROTONIX) 40 mg EC tabletIndications :Multiple myeloma not having achieved remission (HCC) Take 1 tablet (40 mg total) by mouth daily 023 Active calcium carbonate (CALCIUM 600 ORAL) Take 600 mg by mouth 4 (four) times a day Active acyclovir (ZOVIRAX) 400 mg tabletIndications :Prophylaxis, Medical Take 1 tablet (400 mg total) by mouth 3 (three) times a day 90 tablet 024 Active Additional Information Patient taking differently:400 mg oral2 times daily, Indications: Prophylaxis, Medical, Reported on 07/05/2024 nystatin cream Apply topically 024 Active gabapentin (NEURONTIN) 300 mg capsule TAKE 2 CAPSULES (600 MG) BY MOUTH 2 TIMES DAILY. 024 Active dexAMETHasone (DECADRON) 4 mg tablet TAKE 10 TABLETS BY MOUTH EVERY WEDNESDAY. 024 Active ondansetron ODT (ZOFRAN-ODT) 4 mg disintegrating tablet DISSOLVE 1 TABLET ON TOP OF THE TONGUE AND SWALLOW EVERY 8 HOURS NEEDED FOR NAUSEA AND VOMITING Active Pomalyst 4 mg capsule Take 1 capsule (4 mg total) by mouth daily Active sulfamethoxazole- trimethoprim (BACTRIM DS) 800-160 mg per tablet 3 (three) times a week Active magnesium oxide 400 mg magnesium capsule Take by mouth daily Active aspirin 81 mg enteric coated tablet Take 1 tablet (81 mg total) by mouth daily Active zoledronic acid 4 mg/5 mL injection Infuse into a venous catheter every 30 (thirty) days Active daratumumab (DARZALEX) 20 mg/mL solutionIndicatio ns:multiple myeloma Infuse into a venous catheter once a week Active Darzalex Faspro 1,800 mg-30,000 unit/15 mL solution Active ferrous fumarate 89 mg (29 mg iron) tablet 89 mg Active magnesium hydroxide 400 mg (170 mg magnesium) tablet,chewable Take 400 mg by mouth daily Active ascorbic acid (ascorbic acid with barrie hips) 500 mg tablet,chewable Acti ve potassium chloride ER 20 mEq CR tablet TAKE 1 TABLET BY MOUTH 2 TIMES A DAY. 180 tablet 3 Active potassium chloride ER (KLOR-CON) 20 mEq CR tablet Take 1 tablet (20 mEq total) by mouth 2 (two) times a day 60 tablet 11 024 2024 Discontinued Active Problems Patient Care Coordination No te [...] Medical Assistants Post-Discharge Follow-Up Living Situation/Distance from [place], [place] Caregiver Lab/Transfusion Frequency Venous Access & [...] Type Department Care Team Description 12/05/2024 Telephone [facility] Cardiology [facility] Medical Office Building [address] [place] [phone] Familia Lawton MD from Last 3 [...] Tobacco: Never Tobacco Cessation:Counseling Given: Not Answered [facility] Utilities Answer Date Recorded In the past 12 months has [employer], oil, or water Stereotypes threatened to shut off services in your home? No 08/19/2023 Social Connection and Isolation Panel Answer Date Recorded In a typical week, how many times do you talk on the phone with family, friends, or neighbors? More than three times a week 08/19/2023 How often do you get togethe r with friends or relatives? More than three times a week 08/19/2023 How often do you attend chur or cheondoism services? Never 08/19/2023 Do you belong to any clubs o r organizations such as hoahaoism groups, unions, fraternal or athletic groups, or [...] place to sleep or slept in a retirement (including now)? No 08/19/2023 Personal Safety Answer Date Recorded Have you ever been in or are you currently in a harmful physical or emotional relationship or is someone making you feel afraid or unsafe? Denies 08/13/2023 Comments No Sex and Gender Information Value Date Recorded Sex Assigned at Not on file Legal Sex Female 7:37 AM PHOTO MASK INSPECTOR Gender Identity Not on file Sexual Orientation Not on file Obstetrics History Last Filed Vital Signs Vital Sign Reading Time Taken Comments Blood Pressure 135/83 07/05/2024 2:39 PM PHOTO MASK INSPECTOR Pulse 68 07/05/2024 2:39 PM PHOTO MASK INSPECTOR Temperature 36.3 C (97.4 F) 07/05/2024 2:39 PM PHOTO MASK INSPECTOR Respiratory Rate 18 11/05/2023 1:10 PM CDT Oxygen Saturation 98% 07/05/2024 2:39 PM PHOTO MASK INSPECTOR Inhaled Oxygen Concentration - - Weight 83.9 kg (185 lb) 07/05/2024 2:39 PM PHOTO MASK INSPECTOR Height 161.3 cm (5' 3.5) 07/05/2024 2:39 PM PHOTO MASK INSPECTOR Body Mass Index 32.26 07/05/2024 2:39 PM PHOTO MASK INSPECTOR Plan of Treatment Health Maintenance Due Date [...] 05/23/2024, 03/23/2024 Medical Devices Implanted Type Area Cartridge Loading Operator Device Identifier Shelf Expiration Date Model / Serial / Lot Isidro Lincoln Power-Trialysis 13fr 15cm 3 Lumen Power Straight Kit Catheter [id number] - [id number] Implanted:Qty: 1 on 05/24/2023 at [facility] Isidro Artur 05/13/2024 [id number] / / [id number] [place] [address] [place] MEDICARE HMO [facility] [place] [phone] TRANSPLANT [employer] MEDICARE RISK Advance Directives For more information, please contact: [phone] * Full Code (Latest Code Status on File) Date Activated Date Inactivated Comments 07/27/2023 7:20 PM 08/20/2023 8:12 PM * Full Code Date Activated Date Inactivated Comments 07/26/2023 9:25 AM 07/27/2023 5:35 AM * Full Code Date Activated Date Inactivated Comments 05/24/2023 9:24 AM 05/25/2023 5:41 AM Care Teams Third Officer Relationship Specialty Start Date End Date Herman Ruff MD PCP - General Family Medicine 10/29/22 Carlos Clark MD [address] [phone] Referring Physician Hematology 11/02/22
--- OUTSIDE RECORDS SUMMARY | 2025-01-24 13:56 | XMS_ITS | Encounter Summary ---
Author Organization [facility] Address [address] [place] [address] Phone Care Team Providers Care Hvac Service Technician Name Role Phone Herman Ruff MD Primary Care Provider [phone] Carlos Clark MD Unavailable [phone] Encounter Details Date Type Department Care Team (Latest Contact Info) Description 06/09/2022 Orders Only [facility] Scanning, Provider Social History Tobacco Use Types Packs/Day Years Used Date Smoking Tobacco: Never Assessed Comments Unknown Sex and Gender Information Value Date Recorded Sex Assigned at Not on file Legal Sex Female 7:37 AM ANALYTICS LEADER Gender Identity Not on file Sexual Orientation [...] Diarrhea 08/03/2023 08/05/2023 08/05/2023 10:5 9 PM ANALYTICS LEADER Diarrhea 08/10/2023 08/10/2023 08/10/2023 10:5 3 AM ANALYTICS LEADER C. difficile suspected Comment:C diff test pending 08/16/2023 08/16/2023 08/16/2023 8 :24 PM ANALYTICS LEADER Rotavirus suspected 08/16/2023 08/16/2023 08/16/19 10:09 PM ANALYTICS LEADER Norovirus suspected 08/16/2023 08/16/2023 08/16/19 12:02 PM ANALYTICS LEADER documented as of this encounter Care Teams Hvac Service Technician Relationship Specialty Start Date End Date Herman Ruff MD PCP - General Family Medicine 10/29/22 Carlos Clark MD [address] [phone] Referring Physician Hematology 11/02/22 documented as of this encounter
--- OUTSIDE RECORDS SUMMARY | 2025-01-24 13:56 | XMS_ITS | Encounter Summary ---
Author Organization [facility] Address [address] [place] [address] Care Team Providers Care Biometrics Consultant Name Role Phone Herman Ruff MD Primary Care Provider [phone] Carlos Clark MD Unavailable [phone] Encounter Details Date Type Department Care Team (Late st Contact Info) Description 07/22/2023 Telephone [facility] [address] [place] [address] Estela Tomlinson, [place]CHE[place] Social History Tobacco Use [...] on file Legal Sex Female 7:37 AM MACHINE ENGRAVER Gender Identity Not on file Sexual Orientation Not on file documented as of this encounter Plan of Treatment Not on file documented as of this encounter Visit Diagnoses Not on filedocumented in this encounter Additional Health Concerns Infection Onset Date Last Indicated Resolved Time Diarrhea 08/03/2023 08/05/2023 08/05/2023 10:5 9 PM MACHINE ENGRAVER Diarrhea 08/10/2023 08/10/202308/10/2023 10:5 3 AM MACHINE ENGRAVER C. difficile suspected Comment:C diff test pending 08/16/2023 08/16/2023 08/16/2023 8 :24 PM MACHINE ENGRAVER Rotavirus suspected 08/16/2023 08/16/2023 08/16/19 10:09 PM MACHINE ENGRAVER Norovirus suspected 08/16/2023 08/16/2023 08/16/19 12:02 PM MACHINE ENGRAVER documented as of this encounter Care Teams Biometrics Consultant Relationship Specialty Start Date End Date Herman Ruff MD PCP - General Family Medicine 10/29/22 Carlos Clark MD [address] [phone] Referring Physician Hematology 11/02/22 documented as of this encounter
--- OUTSIDE RECORDS SUMMARY | 2025-01-24 13:56 | XMS_ITS | Encounter Summary ---
Author Organization [facility] LITZY Santos [facility] Address [address] [place] [address] Care Team Providers Care Director Of Customer Acquisition Name Role Phone Herman Ruff MD Primary Care Provider [phone] Reason for Visit * Reason Comments Chemotherapy Follow Up Encounter Details Date Type Department Care Team (Late st Contact Info) Description 01/23/2025 9:00 AM CDT Office Visit [facility] Oncology and Hematology - Jakub [address] [place] [address] [facility] [address] [place] [address] Carlos Clark MD [address] [facility] [address] [place] [address] Multiple myeloma not having achieved remission (CMS/HCC) (Primary Dx) Social History Tobacco Use Types Packs/Day Years Used Date Smoking Tobacco: Never Smokeless Tobacco: Never Tobacco Cessation:Counseling Given: Not Answered Alcohol Use Standard Drinks/Week Comments Yes 0 (1 standard drink = 0.6 oz pur e alcohol) social Comments Unknown Sex and Gender Information Value Date Recorded Sex Assigned at Not on file Legal Sex Female 1:21 PM CLEARANCE CENTER MANAGER Gender Identity Not on file Sexual Orientation Not on file documented as of this encounter Last Filed Vital Signs Vital Sign Reading Time Taken Comments Blood Pressure 94/60 01/23/2025 9:08 AM CDT Pulse 66 01/23/2025 9:08 AM CDT Temperature 36.8 C (98.3 F) 01/23/2025 9:08 AM CDT Respiratory Rate 15 01/23/2025 9:08 AM CDT Oxygen Saturation 97% 01/23/2025 9:08 AM CDT Inhaled Oxygen Concentration - - Weight 85.5 kg (188 lb 6.4 oz) 01/23/2025 9:08 A M CDT Height - - Body Mass Index 34.46 08/27/2022 8:45 AM CDT documented in this encounter Progress Notes * Carlos Clark MD - 01/23/2025 12:21 PM CDT HEMATOLOGY / ONCOLOGY PROGRESS NOTE Patient Identification: Name: Evon Sanchez Age: 69 y.o. Sex: female : 1955 DIAGNOSIS Stage III multiple myeloma CURRENT TREATMENT IV IgG on a monthly basis started November 18, 2023. DPD cycle 1/2 started December 21, 2023 Monthly Zometa TREATMENT HISTORY VRD plus Darzalex started July 22, 2021. Revlimid cycle 1 started September 10, 2022. Last chemotherapy was on November 26, 2022 with Velcade. Radiation therapy to the spine T9-L3 Pomalyst and dexamethasone cycle 1 started on February 12, 2023. Darzalex cycle 1 started on February 18, 2023. Patient received last dose of daratumumab on July 01, 2023. Autologous peripheral blood stem cell transplantation done on July 29 2023. D100 bone marrow aspiration and biopsy was performed on November 05, 2023 that showed limited core biopsy with no significant CD138 positive plasma cells seen. SUBJECTIVE Patient came to the office for follow-up visit. She is continuing treatment with Darzalex and Pomalyst. She has been tolerating treatment well. Denies any other new complaints. Review of system Constitutional: Patient did not mention fevers, sweats, denies any tiredness and fatigue, weight and appetite stable HEENT: Patient did not mention sinus congestion, hearing or vision problems Respiratory: Patient did not mention cough, dyspnea, wheeze Cardiovascular: Patient did not mention chest pain, exertional chest pressure/discomfort, nausea, syncope, shortness of breath GI: Patient did not mention dsyphagia, reflux symptoms, vomiting, melena, complain of occasional constipation : Patient did not mention dysuria, frequency, incontinence, urgency Integumentary system: no lymphadenopathy, sweats, flushing Musculoskeletal: Back pain is under control Neurological: Patient did not mention blurry or disturbed vision, stable peripheral neuropathy skin: No lumps, bumps or rashes. 12 point review of system was reviewed Objective: Vital signs in last 24 hours: As per nursing note Exam: General appearance: alert, cooperative, no distress, appears stated age Head: normocephalic, without obvious abnormality, atraumatic Eyes: conjunctivae/corneas clear, EOM's intact Ears: normal external ear canals AU Nose: Nares normal. Septum midline. Mucosa normal. No drainage or sinus tenderness Throat: Lips, mucosa, and tongue normal. Teeth and gums normal Neck: supple, symmetrical, trachea midline. Lungs: clear to auscultation bilaterally Heart: regular rate and rhythm, S1, S2 normal, no murmur, click, rub or gallop Abdomen: soft, non-tender. Bowel sounds normal. No masses, No organomegaly Extremities: extremities normal, atraumatic, no cyanosis or edema Skin: Skin color, texture, turgor normal. No rashes or lesions Lymph nodes: No lymphadenopathy Neuro: No obvious focal deficit Exam as above PATH LABS Labs from June 07, 2022 showed IgG kappa monoclonal band present on serum immunofixation. Labs from June 17 showed WBC 7.2 platelet 310 hemoglobin 8.9 creatinine 1.3 AST 222 ALT 272 Labs from July 27 showed WBC 4.3 hemoglobin 9.8 platelet 192,000 creatinine 0.8 Labs from showed WBC 4.9 hemoglobin 9.8 platelet 179,000 creatinine 0.8 Labs from September 24 show WC 5.3 hemoglobin 9.5 platelet 129,000 creatinine 0.8 Labs from October 22 showed WBC 4.6 hemoglobin 9.7 platelet 156,000 creatinine 0.8 serum protein electrophoresis showed M spike of 1.5 g/dL and IgG level of 1942. Labs from November 26 showed WBC 4.7 hemoglobin 11.3 platelet 137,000 creatinine 0.9. Labs from October 22 showed kappa light chain 8.7 lambda light chain 1.5 M spike of 1.1 g/dL Labs from February 26 showed WBC 6.9 hemoglobin 12.6 platelet 190,000 creatinine 0.7 Labs from March 11 showed creatinine 0.9 serum protein electrophoresis showed M spike of 1.3 g WBC 7.4 hemoglobin 11 platelet 182,000 Labs from April 22 show WBC 7.4 hemoglobin 11 platelet 247,000 creatinine 0.9 Labs from May 14 showed WBC 7.0 hemoglobin 11.3 platelet 236,000 creatinine 0.9 Labs from July 01 showed WBC 4.8 hemoglobin 11.3 platelet 240 creatinine 1.1 Labs from second showed WBC 7.4 hemoglobin 10.2 platelet 249,000 creatinine 0.8 Labs from October 10 showed kappa light chain 3.6 lambda light chain 2.1 ratio 1.7 hemoglobin 10.6 creatinine 0.9 calcium 9.5 IgG 280 serum protein electrophoresis showed faint M spike magnitude of 0.2g. Labs from December 20 showed WBC 5.2 hemoglobin 11.1 platelet 230,000 creatinine 0.8 Labs from January 17 showed WBC 2.1 hemoglobin 10.9 platelet 210,000 creatinine 0.9 Labs from February 21 show WBC 4.8 hemoglobin 10.7 platelet 302,000 creatinine 0.9 IgG 578 Labs from April 11 showed hemoglobin 10.5 platelet 230 WBC 5.5 serum protein electrophoresis showed M spike of 0.1 g/dL. Labs from June 30 showed WBC 3.1 hemoglobin 11.1 platelet 1 63,000 creatinine 1.0 calcium 9.4 serum protein electrophoresis showed no monoclonal spike [place] light chain 8.2 lambda 6.6 ratio 1.2 IgG 289 Labs from October 25 showed WBC 3.5 hemoglobin 11.9 platelet 173,000 creatinine 1.0 IgG 484 lambda light chain 3.2 [place] 6.7 ratio 2.0 serum protein active pheresis showed no monoclonal protein Labs from January 23 showed WBC 4.5 hemoglobin 11.9 platelet 200,000 creatinine 1.0 calcium 9.7 IgG 905 serum protein electrophoresis showed asymmetrical gamma protein. [place] light chain 6.2 Assessment: Plan: Patient Active Problem List Diagnosis Date Noted Metastasis to bone ([facility]) 02/09/2023 Multiple myeloma not having achieved remission ([facility]) 06/22/2022 Stage III multiple myeloma status post bone marrow biopsy done on June 09 showed 80 to 90% involvement with abnormal plasma cells. PET scan done on July 02 showed widespread lytic lesions of the bone. Patient started treatment with VRD plus Darzalex on July 22, 2021. Revlimid started on August. Patient completed cycle 6 of chemotherapy on November 26, 2022. Salvage chemotherapy with Darzalex Pomalyst and dexamethasone was recommended for couple of months by Dr. Landers. She started treatment on February 12. Patient had a stem cell collection done on May 22, 2023. She restarted treatment with Darzalex on June 10. Patient received last treatment with Darzalexon July 01, 2023. Patient underwent bone marrow transplant on July 29, 2023. Patient had the 100 bone marrow aspiration and biopsy done on November 04 that showed limited small corebiopsy with no significant 1 CD138 positive plasma cells. Patient is asymptomatic. Labs showed no evidence of multiple myeloma. She will continue monthly treatment with Darzalex and Pomalyst for 3 weeks on and 1 week off as maintenance. So far she has been tolerating treatment well. I plan to see her back in 3 months with repeat myeloma testing. Bone metastasis status post radiation therapy. She is asymptomatic. Osteoporosis. Patient had recent bone done on November 29, 2024 showed osteoporosis. We will start Reclast.. She will continue vitamin D. Hypogammaglobulinemia. She is asymptomatic. IgG level came back at 905. Currently she is on monthlyIVIG treatment. If her IgG level remains elevated then we will change it to every 3 months basis. Infection prophylaxis. Patient is on Bactrim and acyclovir. She is current on the vaccination. Thrombosis prophylaxis. Stable on aspirin. Follow-up in 3 months 01/23/2025 Carlos Clark MD documented in this encounter Plan of Treatment Upcoming Encounters Date Type Department Care Team (Late st Contact Info) Description 04/24/2025 9:00 AM CLEARANCE CENTER MANAGER Office Visit [facility] Oncology and Hematology [facility] [address] [place] [address] Dinah Tovar MD [address] [place] [address] Scheduled Orders Name Type Priority Associated Diagnoses Orde r Schedule CBC WITH DIFFERENTIAL Lab Stat Multiple myeloma not having achieved remission (CMS/HCC) Expected: 04/25/2025, Expires: 07/24/2025 COMPREHENSIVE METABOLIC PANEL Lab Stat Multiple myeloma not having achieved remission (CMS/HCC) Expected: 04/25/2025, Expires: 07/24/2025 IMMUNOGLOBULINS IGG IGA IGM Lab Routine Multiple myeloma not having achieved remission (CMS/HCC) Expected: 04/25/2025, Expires: 07/24/2025 KAPPA/LAMBDA, FREE LIGHT CHAINS Lab Routine Multiple myeloma not having achieved remission (CMS/HCC) Expected: 04/25/2025, Expires: 07/24/2025 PROTEIN ELECTROPHORESIS W/REFLEX,SERUM Lab Routine Multiple myeloma not having achieved remission (CMS/HCC) Expected: 04/25/2025, Expires: 07/24/2025 documented as of this encounter Visit Diagnoses Diagnosis Multiple myeloma not having achieved remission (CMS/HCC)- Primary Multiple myeloma, without mention of having achieved remission documented in this encounter Care Teams Director Of Customer Acquisition Relationship Specialty Start Date End Date Herman Ruff MD [address] [place] [address] PCP - General Family Practice 06/22/22 documented as of this encounter
--- OUTSIDE RECORDS SUMMARY | 2025-01-24 13:56 | XMS_ITS | Encounter Summary ---
Author Organization [facility] Address [address] [place] [address] Care Team Providers Care Client Retention Specialist Name Role Phone Herman Ruff MD Primary Care Provider [phone] Encounter Details Date Type Department Care Team (Late Contact Info) Description 01/23/2025 Orders Only [facility] Oncology and Hematology - Jakub [address] [place] [address] Carlos Clark MD [address] [facility] [address] [place] [address] Social History Tobacco Use Types Packs/Day Years Used Date Smoking Tobacco: Never Smokeless Tobacco: Never Alcohol Use Standard Drinks/Week Comments Yes 0 (1 standard drink = 0.6 oz pur e alcohol) social Comments Unknown Sex and Gender Information Value Date Recorded Sex Assigned at Not on file Legal Sex Female 1:21 PM PROFESSOR OF PSYCHIATRY Gender Identity Not on file Sexual Orientation Not on file documented as of this encounter Plan of Treatment Upcoming Encounters Date Type Department Care Team (Late Contact Info) Description 04/24/2025 9:00 AM PROFESSOR OF PSYCHIATRY Office Visit [facility] Oncology and Hematology - Jakub [address] [place] [address] Dinah Tovar MD [address] [place] [address] documented as of this encounter Procedures Procedure Name Priority Date/Time Associated Diagnosis Comments CBC WITH AUTODIFFERENTIAL Routine 2024 1:16 PM CDT documented in this encounter Results * CBC WITH AUTODIFFERENTIAL (01/23/2025 1:16 PM CDT) Blood us Carlos Clark MD HEMATOLOGY ORDERABLES Final Res ult documented in this encounter Visit Diagnoses Not on filedocumented in this encounter Care Teams Client Retention Specialist Relationship Specialty Start Date End Date Herman Ruff MD [address] [place] [address] PCP - General Family Practice 06/22/22 documented as of this encounter
--- OUTSIDE RECORDS SUMMARY | 2025-01-24 13:56 | XMS_ITS | Encounter Summary ---
Author Organization [facility] Address [address] [facility] [place] [address] Care Team Providers Care Director Of Primary Care Name Role Phone Unavailable Primary Care Provider Unavailabl e Encounter Details Date Type Department Care Team (Late st Contact Info) Description 06/16/2022 Lab Requisition [facility] Care Pathology Lab [address] [place] [address] Albino Lagos MD [facility] [address] [address] Illness, unspecified Social History Tobacco [...]
--- OUTSIDE RECORDS SUMMARY | 2025-01-24 13:56 | XMS_ITS | Encounter Summary ---
Author Organization [facility] Address [address] [facility] [place] [address] Care Team Providers Care Driver Helper Name Role Phone Unavailable Primary Care Provider Unavailabl e Encounter Details Date Type Department Care Team (Late st Contact Info) Description 06/16/2022 Lab Requisition [facility] Care Pathology Lab [address] [place] [address] Albino Lagos MD [facility] [address] [address] Illness, unspecified Social History Tobacco [...] MARROW BIOPSY (STL) Routine 06/09/2022 9:30 AM TRAFFIC LAW ATTORNEY Illness, unspecified documented in this encounter Results * BONE MARROW BIOPSY (STL) (06/09/2022 9:30 AM TRAFFIC LAW ATTORNEY) Case Report Bone Marrow Patholog y Report Case: [id number] Authorizing Provider: Albino Lagos MD Collected: 06/09/2022 09:30 AM Ordering Location: [facility] Care Pathology Lab Received: 06/16/2022 12:33 PM Pathologist: Zoraida Crain Mai, DO Specimen: Bone Marrow Core 06/17/2022 12:54 PM TRAFFIC LAW ATTORNEY U PATHOLOGY LAB Final Diagnosis Bone marrow, aspirate, touch imprint, core biopsy: - Plasma cell myeloma (80-90% involvement by CD138) - See description Peripheral blood: - Anemia with rouleaux formation - Adequate leukocytes without circulating plasma cells 06/17/2022 12:54 PM [facility] PATHOLOGY LAB at [address] TRAFFIC LAW ATTORNEY AP Comment The bone marrow specimen shows 80-90% involvement by a kappa restricted plasma cell population consistent with plasma cell myeloma. Correlation with clinical findings and relevant cytogenetic/molecular testing is required. 06/17/2022 12:54 PM [facility] PATH[facility] Peripheral Smear Description 06/07/22 Short CBC data from provided report Leukocytes: Adequate with no circulating plasma cells Erythrocytes: Decreased (no MCV or MCHC provided), rouleaux formation present Platelets: Adequate with no significant abnormality 06/17/2022 12:54 PM [facility] PATH[facility] Bone Marrow Aspirate Aspirate [...] insufficient erythroids to evaluate 06/17/2022 12:54 PM [facility] PATHOLOGY LAB Bone Marrow Core Biopsy [...] performed on the core biopsy in the [facility] Department of Pathology, with appropriately reactive controls, and demonstrate the following: CD34: No increase in blasts CD138: Stains aggregates of plasma cells, 80-90% of marrow cellularity [place]/lambda in situ hybridization: [place] restriction CD3: Stains scattered background T cells CD20: Stains rare background B cells 06/17/2022 12:54 PM [facility] PATH[facility] Flow Cytometry Summary Not provided 06/17/2022 12:54 PM [facility] PATH[facility] Clinical History Multiple small lytic lesions throughout the skill suspicious for myeloma 06/17/2022 12:54 PM [facility] PATH[facility] Materials Received Received are 14 slides and one block (A1) labeled [id number] along with a copy of the outside pathology report. The materials originate from [place] [id number]. All original materials are returned to the referring institution, along with a copy of our final report. 06/17/2022 12:54 PM [facility] PATH[facility] Disclaimer The performance characteristics of all immunohistochemical and indirect immunofluorescence stains (if any) cited in this report were determined by the Histopathology Laboratory of [facility]. Some of these tests were [...] the attending (teaching) pathologist. 06/17/2022 12:54 PM [facility] PATH[facility] Embedded Images 06/17/2022 12:54 PM [facility] PATHOLOGY LAB Pathology/Cytolo gy BONE MARROW SPECIMEN / Unknown 06/09/2022 9:30 AM TRAFFIC LAW ATTORNEY 06/16/2022 12:33 PM TRAFFIC LAW ATTORNEY Albino Lagos MD LAB - PATHOLOGY/CYTOLOGY ORDERAB LES Final Result Performing Organization Address City/State/[facility] Co de Phone Number [facility] PATHOLOGY LAB [address] [place], [place] [id number] [place] [address] documented in this encounter Visit Diagnoses Diagnosis Illness, unspecified documented in this encounter
--- OUTSIDE RECORDS SUMMARY | 2025-01-24 13:56 | XMS_ITS | Clinical Summary ---
Author Organization [facility] antonella [facility] Address [address] [place] [address] Care Team Providers Care Auto Battery Builder Name Role Phone Herman Ruff MD Primary Care Provider [phone] Allergies Active Allergy Reactions Criticality Noted Date [...] TWICE DAILY 360 Capsule 3 5 Active acyclovir (ZOVIRAX) 400 mg tablet [...] 7 DAYS OFF 21 Capsule 5 Active sulfamethoxazo le-trimethopri m (BACTRIM DS) 800-160 mg tablet TAKE 1 TABLET BY MOUTH WEDNESDAY, WEDNESDAY, WEDNESDAY. 15 Tablet 2 5 Active sulfamethoxazo le-trimethopri m (BACTRIM DS) 800-160 mg tablet Take 1 tablet by mouth Wednesday, Wednesday, Wednesday. 15 Tablet 2 5 025 Discontinued pomalidomide (Pomalyst) 4 mg capsuleIndicat ions:Multiple myeloma not having achieved remission (CMS/HCC) TAKE 1 CAPSULE BY MOUTH EVERY DAY FOR 21 DAYS ON, FOLLOWED BY 7 DAYS OFF 21 Capsule 5 025 Discontinued Active Problems Problem Noted Date Diagnosed Date Metastasis to bone 02/09/2023 Multiple myeloma not having achieved remission 0 06/22/2022 Encounters Date Type Department Care Team Description 01/23/2025 9:00 AM CDT Office Visit [facility] Oncology and Hematology - Jakub [address] Carlos Clark MD Multiple myeloma not having achieved remission (CMS/HCC) (Primary Dx) 01/23/2025 Orders Only [facility] Oncology and Hematology - Jakub [address] [place] [phone] Carlos Clark MD 01/18/2025 Refill [facility] Oncology and Hematology - Jakub [address] [place] [phone] Dinah Tovar MD 01/16/2025 External Device Data STL ABSTRACTION Provider, Abstract 01/16/2025 Orders Only [facility] Oncology and Hematology - Jakub [address] [place] [phone] Carlos Clark MD 01/15/2025 Orders Only [facility] Oncology and Hematology - Jakub [address] [place] [phone] Carlos Clark MD Multiple myeloma not having achieved remission (CMS/HCC) 01/09/2025 Refill [facility] Oncology [facility] [address] [place] [phone] Carlos Clark MD Multiple myeloma not having achieved remission (CMS/HCC) 01/08/2025 Orders Only [facility] Oncology and Hematology - Jakub [address] [place] [address] Carlos Clark MD Multiple myeloma not having achieved remission (CMS/HCC) 01/03/2025 Orders Only [facility] Oncology and Hematology - Jakub [address] [place] [phone] Carlos Clark MD 01/02/2025 Telephone [facility] Oncology and Hematology - Jakub [address] [place] [phone] Carlos Clark MD Bone Density 01/02/2025 Orders Only [facility] Oncology and Hematology - Jakub [address] [place] [id number] Carlos Clark MD Multiple myeloma not having achieved remission (CMS/HCC) (Primary Dx) 12/27/2024 External Device Data STL ABSTRACTION Provider, Abstract 12/26/2024 External Device Data STL ABSTRACTION Provider, Abstract 12/25/2024 Orders Only [facility] Oncology and Hematology - Jakub [address] [place] [address] Carlos Clark MD Multiple myeloma not having achieved remission (CMS/HCC) 12/21/2024 Abstract [facility] [address] [place] [address] Carlos Clark MD 12/18/2024 Orders Only [facility] Oncology and Hematology - Jakub [address] [place] [id number] Carlos Clark MD Multiple myeloma not having achieved remission (CMS/HCC) 12/11/2024 Orders Only [facility] On[facility] [address] [place] [id number] Carlos Clark MD Multiple myeloma not having achieved remission (CMS/HCC) 12/10/2024 Refill [facility] Oncology and Hematology - Jakub [address] Carlos Clark MD Multiple myeloma not having achieved remission (CMS/HCC) 12/06/2024 Orders Only [facility] Oncology and Hematology - Jakub [address] [place] [address] Carlos Clark MD 12/05/2024 Orders Only [facility] Oncology and Hematology - Jakub [address] [place] [address] Carlos Clark MD 12/04/2024 Orders Only [facility] Oncology and Hematology - Jak[address] [place] [address] Carlos Clark MD Multiple myeloma not having achieved remission (CMS/HCC) 11/27/2024 Orders Only [facility] Oncology and Hematology - Jak[address] [place] [address] Carlos Clark MD Multiple myeloma not having achieved remission (CMS/HCC) 11/22/2024 Abstract [facility] Oncology and Hematology - Jak[address] [place] [address] Carlos Clark MD 11/20/2024 Orders Only [facility] Oncology and Hematology - Jakub [address] [place] [address] Carlos Clark MD Multiple myeloma not having achieved remission (CMS/HCC) 11/13/2024 Orders Only [facility] Oncology and Hematology - Jakub [address] [place] [address] Carlos Clark MD Multiple myeloma not having achieved remission (CMS/HCC) 11/12/2024 Refill [facility] Oncology and Hematology - Jakub [address] [place] [address] Carlos Clark MD Multiple myeloma not having achieved remission (CMS/HCC) 11/10/2024 Orders Only [facility] Oncology and Hematology - Jakub [address] [place] [address] Carlos Clark MD 11/06/2024 Refill [facility] Oncology and Hematology - Jakub [address] [place] [address] Carlos Clark MD Multiple myeloma not having achieved remission (CMS/HCC) 11/06/2024 Orders Only [facility] Oncology and Hematology - Jakub [address] [place] [address] Carlos Clark MD Multiple myeloma not having achieved remission (CMS/HCC) 11/02/2024 Orders Only [facility] Oncology and Hematology - Jak[address] [place] [phone] Carlos Clark MD 11/02/2024 External Device Data STL ABSTRACTION Provider, Abstract 11/01/2024 External Device Data STL ABSTRACTION Provider, Abstract 11/01/2024 External Device Data STL ABSTRACTION Provider, Abstract 10/31/2024 9:30 AM CDT Office Visit [facility] Oncology and Hematology - [address] [place] [address] Carlos Clark MD Multiple myeloma not having achieved remission (CMS/HCC) (Primary Dx) 10/31/2024 External Device Data STL ABSTRACTION Provider, Abstract 10/31/2024 Orders Only [facility] Oncology and Hematology - Jakub [address] [place] [phone] Carlos Clark MD 10/30/2024 Orders Only [facility] Oncology and Hematology - Jak[address] [place] [phone] Carlos Clark MD Multiple myeloma not having achieved remission (CMS/HCC) 10/27/2024 Orders Only [facility] Oncology and Hematology - Jakub [address] [place] [phone] Carlos Clark MD 10/26/2024 Orders Only [facility] Oncology and Hematology - Jakub [address] [place] [address] Carlos Clark MD from Last 3 Months Family History Medical [...] on file Legal Sex Female 1:21 PM 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 AND 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 Gender Identity Not on file Sexual Orientation [...] oz) 01/23/2025 9:08 A M CDT Height 157.5 cm (5' 2) 08/27/2022 8:45 AM CDT Body Mass Index 34.46 08/27/2022 8:45 AM CDT Plan of Treatment Upcoming Encounters Date Type Department Care Team (Late st Contact Info) Description 04/24/2025 9:00 AM ADZING AND BORING MACHINE FEEDER Office Visit [facility] Oncology and Hematology - [place] [address] [place] [address] Dinah Tovar MD [address] [place] [address] Health Maintenance Due Date Last [...] years 1-dose series) 2013 OSTEOPOROSIS SCREENING 2018 [place] Preventative Visit/Annual Wellness Visit 06/14/2024 INFLUENZA VACCINE (#1) 2025 3, 05/01/2022, 05/19/2021, Additional history exists Procedures Procedure Name Priority Date/Time Associated Diagnosis Comments CBC WITH AUTODIFFERENTIAL Routine 2024 1:16 PM CDT PROTEIN ELECTROPHORESIS, CSF Routine 01/15/2025 3:46 PM CDT COMPREHENSIVE METABOLIC PANEL Routine 01/15/2025 11:28 AM CDT CBC WITH DIFFERENTIAL Routine 01/02/2025 4:46 PM CDT BASIC METABOLIC PANEL Routine 01/02/2025 4:46 PM CDT COMPREHENSIVE METABOLIC PANEL Routine 01/02/2025 4:29 PM CDT BASIC METABOLIC PANEL Routine 12/05/2024 12:59 PM CDT CBC WITH DIFFERENTIAL Routine 12/05/2024 12:53 PM CDT COMPREHENSIVE METABOLIC PANEL Routine 12/05/2024 10:57 AM CDT NM BONE DENSITY Routine 11/29/2024 2:43 PM CDT IMMUNOGLOBULINS IGG IGA IGM Routine 02/2025 3:17 PM CDT BASIC METABOLIC PANEL Routine 11/07/2024 3:58 PM CDT COMPREHENSIVE METABOLIC PANEL Routine 11/07/2024 3:57 PM CDT PROTEIN ELECTROPHORESIS, CSF Routine 10/30/2024 1:26 PM CDT IGG Routine 10/25/2024 2:49 PM CDT KAPPA/LAMBDA LIGHT CHAINS Routine 2024 1:38 PM CDT COMPREHENSIVE METABOLIC PANEL Routine 10/25/2024 11:43 AM CDT from Last 3 Months Results * CBC WITH AUTODIFFERENTIAL (01/23/2025 1:16 PM CDT) Blood us Carlos Clark MD HEMATOLOGY ORDERABLES Final Res ult * PROTEIN ELECTROPHORESIS, CSF (01/15/2025 3:46 PM CDT) Only the most recent of2 resultswithin the time period is included. Cerebrospinal fluid CEREBROSPINAL FLUID / Unknown us Carlos Clark MD BODY FLUIDS AND STOOLS Final Re sult * COMPREHENSIVE METABOLIC PANEL (01/15/2025 11:28 AM CDT) Only the most recent of5 resultswithin the time period is included. Blood Result [facility] us Carlos Clark MD CHEMISTRY ORDERABLES Final Resu lt * CBC WITH DIFFERENTIAL (01/02/2025 4:46 PM CDT) Only the most recent of2 resultswithin the time period is included. Blood Result Elda Clark MD HEMATOLOGY ORDERABLES Final Res ult * BASIC METABOLIC PANEL (01/02/2025 4:46 PM CDT) Only the most recent of3 resultswithin the time period is included. Blood Result [facility] us Carlos Clark MD CHEMISTRY ORDERABLES Final Resu lt * NM BONE DENSITY (11/29/2024 2:43 PM CDT) Anatomical Region Laterality Modality Nuclear Medicine Result Elda Clark MD NM ORDERABLES Final Result * IMMUNOGLOBULINS IGG IGA IGM (11/20/2024 3:17 PM CDT) Blood Result Elda Clark MD CHEMISTRY ORDERABLES Final Resu lt * IGG (10/25/2024 2:49 PM CDT) Blood Result Elda Clark MD CHEMISTRY ORDERABLES Final Resu lt * KAPPA/LAMBDA, FREE LIGHT CHAINS (10/25/2024 1:38 PM CDT) Blood Result Elda Clark MD CHEMISTRY ORDERABLES Final Resu lt from Last 3 [place] [address] [employer] [facility] Member Subscriber Plan / Payer (Ef fective 2018-Present) Name:Evon Sanchez P Relation to Subscriber:Self Name:Evon Sanchez P Payer ID:Not on file Type:HMO Address: [place] [id number] [place] [address] [employer] [facility] Member Subscriber Plan / Payer (Ef fective 2018-Present) Name:Evon Sanchez P Relation to Subscriber:Self Name:Evon Sanchez Payer ID:Not on file Type:HMO Address: [place] [id number] Care Teams Auto Battery Builder Relationship Specialty Start Date End Date Herman Ruff MD [address] [place] [address] PCP - General Family Practice 06/22/22
--- OUTSIDE RECORDS SUMMARY | 2025-01-24 13:56 | XMS_ITS ---
Author Organization [facility] Address [address] [place] [address] Care Team Providers Care Transcription Name Role Phone Herman Ruff MD Primary Care Provider [phone] Carlos Clark MD Unavailable [phone] Active Problems Patient Care Coordination No [...] Medical Assistants Post-Discharge Follow-Up Living Situation/Distance from [place], [place] Caregiver Lab/Transfusion Frequency Venous Access & [...] from the original note were not included. [facility] [address] [place] [address] This Survivorship Care Plan is a cancer [...] Contact Information: Referring Provider Carlos Clark MD [phone] Primary Care Physician Herman Ruff MD [phone] BMT Physician/ Advanced Practice Provider Yo Landers MD/Marilin Sanchez, [facility] [phone] Sheepskin Pickler Snehal Lange RN [phone] Buoy Tender Tierra Hammond, [facility] [phone] Oncology History Overview Note 07/22/2022 - Daratumumab/Velcade/Dexamethasone [...] Lab Results Lab Results Component Value Date [id number] 100 12/18/2022 DLCOPREPRED 65 12/18/2022 25HYDROVITD 38 [...] M 40 - 230 mg/dL <25.0 <25 [place]/Lambda light chains free with ratio 0.26 - 1.65 0.26 - 1.65 >1.70 See Comment 0.79 [place] light chain, free 0.33 - 1.94 mg/dL [...] electrophoresis or >=90% reduction in serum M-protein NC = partial response - >=50% reduction of [...] Transplant, to begin after Day 90 Updated ([id number] Formula) mRNA vaccine Number of updated ([id number] Formula) mRNA doses indicated Interval between doses Moderna 3 Dose 1 and Dose 2: 4 weeks Dose 2 and Dose 3: At least 4 weeks Dakim 3 Dose 1 and Dose 2: 3 [...] Resources Resources you may be interested in: [place] Cancer Society Cancer Survivors Network Cancer Survivors [...] you navigateyour transplant journey. https://bethematch.org National Cancer Llewellyn Accurate, up-to-date, comprehensive cancer information from the U.S. government's principal agency for cancer research. http://www.cancer.gov Eating Hints?? Before, During, and After Cancer Treatment https://www.cancer.gov/publication/patient-education/eating-hints National Coalition for Cancer Survivorship We advocate for quality cancer care for all individuals touched by cancer. https://canceradvocacy.org National Heart, Lung and Blood Llewellyn We provide helpful information and resources designed to help your family stay healthy. https://www.nhlbi.gov/health/educational/webcan/ [facility] http://www.[facility] Multiple Myeloma Research Foundation (MMRF) Charitable [...] Myeloma Crowd is a division of the [employer], a patient-driven, nonprofit organization that empowers patients with rare diseases at each step of her disease journey--from diagnosis, through Education, care and on to a cure. https://www.myelomacrowd.org/ Resolved Problems Problem Noted Date Diagnosed Date Resolved Date Multiple myeloma in relapse 07/27/2023 08/23/2023
== END 2025-01-24 13:54 | disposition home or self-care (01) ==
PROVIDERS: PCP Family Medicine; Visit Provider Nurse Practitioner Family
DX: Z01.818 Encounter for other preprocedural examination (principal); R94.31 Abnormal electrocardiogram [ECG] [EKG]
CPT/HCPCS: 93005

== ENCOUNTER 2025-03-06 15:31 | Outpatient (CLI) | payer MEDICARE, SELFPAY ==
--- OUTSIDE RECORDS SUMMARY | 1999-12-17 08:30 | XMS_ITS | Continuity of Care Document ---
Author Organization [facility] Address [address] [place] [address] [address] [place] [address] Phone Care Team Providers Care Business Investor Name Role Phone Sanjeev Martinez Unavailable Unavailable Advance Directives Directive Yes / No Effective Date File Name No Information Encounters Encounter Description Practice Location Reason(s) For Visit Diagnoses Date Provider Providers Copied on Encounter [facility], [id number] [place] [address] [address], [place], [place], [id number], [place] tel:[phone] [facility] No Information [address] , [address], [place], [address], [place]. tel:[phone] Family History Family Member Type Diagnosis Age At Onset No Information Payers Payer name Insurance type Covered democrat ID Authoriza tion(s) [place] [id number] Social History Type Description Quantity Date Captured Comments Sex Female Smoking Status No Information Chief Complaint And Reason For Visit No Information Reason For Referral Reason For Referral No Information History Of Present Illness Encounter Date Complaint History Of Prese nt Illness No Information Functional Status Date Functional Assessmen t No Information Instructions Date Instruction Additional Infor mation No Information Assessments Type Assessment Date No Information Patient Care Teams Name Effective Dates (start - stop) Status Members No Information
--- OUTSIDE RECORDS SUMMARY | 2025-03-06 15:35 | XMS_ITS | Encounter Summary ---
Author Organization [facility] [employer] [facility] Address [address] [place] [address] Care Team Providers Care Surgical Instrument Technician Name Role Phone Herman Ruff MD Primary Care Provider [phone] Encounter Details Date Type Department Care Team (Late Contact Info) Description 03/01/2025 Orders Only [facility] Oncology and Hematology - Jakub [address] [place] [address] Carlos Clark MD [address] [place] [address] Social History Tobacco Use Types Packs/Day Years Used Date Smoking Tobacco: Never Smokeless Tobacco: Never Alcohol Use Standard Drinks/Week Comments Yes 0 (1 standard drink = 0.6 oz pur e alcohol) social Comments Unknown Sex and Gender Information Value Date Recorded Sex Assigned at Not on file Legal Sex Female 1:21 PM HARDWOOD SAWYER Gender Identity Not on file Sexual Orientation Not on file documented as of this encounter Plan of Treatment Upcoming Encounters Date Type Department Care Team (Late st Contact Info) Description 04/24/2025 9:00 AM HARDWOOD SAWYER Office Visit [facility] Oncology and Hematology - Jakub [address] [place] [address] Dinah Tovar MD [address] [place] [address] documented as of this encounter Procedures Procedure Name Priority Date/Time Associated Diagnosis Comments BASIC METABOLIC PANEL Routine 02/27/2025 7:54 AM CDT documented in this encounter Results * BASIC METABOLIC PANEL (02/27/2025 7:54 AM CDT) Blood Carlos Clark MD CHEMISTRY ORDERABLES Final Resu lt documented in this encounter Visit Diagnoses Not on filedocumented in this encounter Care Teams Surgical Instrument Technician Relationship Specialty Start Date End Date Herman Ruff MD [address] [place] [address] PCP - General Family Practice 06/22/22 documented as of this encounter
--- OUTSIDE RECORDS SUMMARY | 2025-03-06 15:35 | XMS_ITS | Encounter Summary ---
Author Organization [facility] [employer] [facility] Address [address] [place] [address] Care Team Providers Care Environmental Issues Instructor Name Role Phone Herman Ruff MD Primary Care Provider Encounter Details Date Type Department Care Team (Late Contact Info) Description 02/28/2025 Orders Only [facility] Oncology and Hematology - Jakub [address] [place] [address] Carlos Clark MD [address] [place] [address] Social History Tobacco Use Types Packs/Day Years Used Date Smoking Tobacco: Never Smokeless Tobacco: Never Alcohol Use Standard Drinks/Week Comments Yes 0 (1 standard drink = 0.6 oz pur e alcohol) social Comments Unknown Sex and Gender Information Value Date Recorded Sex Assigned at Not on file Legal Sex Female 1:21 PM 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 Gender Identity Not on file Sexual Orientation Not on file documented as of this encounter Plan of Treatment Upcoming Encounters Date Type Department Care Team (Late st Contact Info) Description 04/24/2025 9:00 AM 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 Office Visit [facility] Oncology and Hematology - Jakub [address] [place] [address] Dinah Tovar MD [address] [place] [address] documented as of this encounter Procedures Procedure Name Priority Date/Time Associated Diagnosis Comments COMPREHENSIVE METABOLIC PANEL Routine 02/27/2025 3:41 PM CDT CBC WITH AUTODIFFERENTIAL Routine 2024 12:57 PM CDT documented in this encounter Results * COMPREHENSIVE METABOLIC PANEL (02/27/2025 3:41 PM CDT) Blood us Carlos Clark MD CHEMISTRY ORDERABLES Final Resu lt * CBC WITH AUTODIFFERENTIAL (02/27/2025 12:57 PM CDT) Blood us Carlos Clark MD HEMATOLOGY ORDERABLES Final Res ult documented in this encounter Visit Diagnoses Not on filedocumented in this encounter Care Teams Environmental Issues Instructor Relationship Specialty Start Date End Date Herman Ruff MD [address] [place] [address] PCP - General Family Practice 06/22/22 documented as of this encounter
--- OUTSIDE RECORDS SUMMARY | 2025-03-06 15:35 | XMS_ITS | Encounter Summary ---
Author Organization [facility] Address [address] [place] [address] Care Team Providers Care Waxer Name Role Phone Unavailable Primary Care Provider Unavailabl e Encounter Details Date Type Department Care Team (Late st Contact Info) Description 06/16/2022 Lab Requisition [facility] Care Pathology Lab [address] [place] [address] Albino Lagos MD [facility] [address] [address] Illness, unspecified Social History Tobacco [...]
--- OUTSIDE RECORDS SUMMARY | 2025-03-06 15:35 | XMS_ITS ---
Author Organization [facility] Address [address] [place] [address] Care Team Providers Care Benefits Advisor Name Role Phone Herman Ruff MD Primary Care Provider [phone] Carlos Clark MD Unavailable [phone] Active Problems Patient Care Coordination No [...] Medical Assistants Post-Discharge Follow-Up Living Situation/Distance from [place], [place] Caregiver Lab/Transfusion Frequency Venous Access & [...] from the original note were not included. [address] [id number] This Survivorship Care Plan is a cancer [...] Contact Information: Referring Provider Carlos Clark MD [phone] Primary Care Physician Herman Ruff MD [phone] BMT Physician/ Advanced Practice Provider Yo Landers MD/Marilin Sanchez [facility] [phone] Golf Course Keeper Snehal Lange RN [phone] Used Car Lot Attendant Tierra Hammond, [facility] [phone] Oncology History Overview Note 07/22/2022 - Daratumumab/Velcade/Dexamethasone [...] 1 cycle Administration: 320 mg (07/27/2023) filgrastim-sndz (BRIANRXIO) syringe 480 mcg, 480 mcg (100 % [...] Lab Results Lab Results Component Value Date [id number] 100 12/18/2022 DLCOPREPRED 65 12/18/2022 25HYDROVITD 38 [...] M 40 - 230 mg/dL <25.0 <25 [place]/Lambda light chains free with ratio 0.26 - 1.65 0.26 - 1.65 >1.70 See Comment 0.79 [place] light chain, free 0.33 - 1.94 mg/dL [...] electrophoresis or >=90% reduction in serum M-protein MI = partial response - >=50% reduction of [...] Transplant, to begin after Day 90 Updated ([id number] Formula) mRNA vaccine Number of updated ([id number] Formula) mRNA doses indicated Interval between doses Moderna 3 Dose 1 and Dose 2: 4 weeks Dose 2 and Dose 3: At least 4 weeks Perk 3 Dose 1 and Dose 2: 3 [...] Resources Resources you may be interested in: [place] Cancer Society Cancer Survivors Network Cancer Survivors [...] you navigateyour transplant journey. https://bethematch.org National Cancer Harlan Accurate, up-to-date, comprehensive cancer information from the U.S. government's principal agency for cancer research. http://www.cancer.gov Eating Hints?? Before, During, and After Cancer Treatment https://www.cancer.gov/publication/patient-education/eating-hints National Coalition for Cancer Survivorship We advocate for quality cancer care for all individuals touched by cancer. https://canceradvocacy.org National Heart, Lung and Blood Harlan We provide helpful information and resources designed to help your family stay healthy. https://www.nhlbi.gov/health/educational/webcan/ [facility] http://www.[facility] Multiple Myeloma Research Foundation (MMRF) [...] Myeloma Crowd is a division of the [employer], a patient-driven, nonprofit organization that empowers patients with rare diseases at each step of her disease journey--from diagnosis, through Education, care and on to a cure. https://www.myelomacrowd.org/ Resolved Problems Problem Noted Date Diagnosed Date Resolved Date Multiple myeloma in relapse 07/27/2023 08/23/2023
--- OUTSIDE RECORDS SUMMARY | 2025-03-06 15:35 | XMS_ITS | Encounter Summary ---
Author Organization [facility] Address [address] [address] Care Team Providers Care Implementation Advisor Name Role Phone Unavailable Primary Care Provider Unavailabl e Encounter Details Date Type Department Care Team (Late st Contact Info) Description 06/12/2022 Lab Requisition [facility] Care Pathology Lab [address] [place] [address] Albino Lagos MD [facility] [address] [address] Social History Tobacco Use Types [...]
--- OUTSIDE RECORDS SUMMARY | 2025-03-06 15:35 | XMS_ITS | Encounter Summary ---
Author Organization [facility] Address [address] [place] [address] Care Team Providers Care Utility Tech Name Role Phone Unavailable Primary Care Provider Unavailabl e Encounter Details Date Type Department Care Team (Late st Contact Info) Description 06/16/2022 Lab Requisition [facility] Care Pathology Lab [address] [place] [address] Albino Lagos MD [facility] [address] [address] Illness, unspecified Social History Tobacco [...] MARROW BIOPSY (STL) Routine 06/09/2022 9:30 AM RESIDENTIAL BUILDER Illness, unspecified documented in this encounter Results * BONE MARROW BIOPSY (STL) (06/09/2022 9:30 AM RESIDENTIAL BUILDER) Case Report Bone Marrow Patholog y Report Case: [id number] Authorizing Provider: Albino Lagos MD Collected: 06/09/2022 09:30 AM Ordering Location: [facility] Care Pathology Lab Received: 06/16/2022 12:33 PM Pathologist: Zoraida Crain Mai, DO Specimen: Bone Marrow Core 06/17/2022 12:54 PM RESIDENTIAL BUILDER [facility] Final Diagnosis Bone marrow, aspirate, touch imprint, core biopsy: - Plasma cell myeloma (80-90% involvement by CD138) - See description Peripheral blood: - Anemia with rouleaux formation - Adequate leukocytes without circulating plasma cells 06/17/2022 12:54 PM [facility] at [address] RESIDENTIAL BUILDER AP Comment The bone marrow specimen shows 80-90% involvement by a kappa restricted plasma cell population consistent with plasma cell myeloma. Correlation with clinical findings and relevant cytogenetic/molecular testing is required. 06/17/2022 12:54 PM [facility] Peripheral Smear Description 06/07/22 Short CBC data from provided report Leukocytes: Adequate with no circulating plasma cells Erythrocytes: Decreased (no MCV or MCHC provided), rouleaux formation present Platelets: Adequate with no significant abnormality 06/17/2022 12:54 PM [facility] Bone Marrow Aspirate Aspirate [...] insufficient erythroids to evaluate 06/17/2022 12:54 PM [facility] Bone Marrow Core Biopsy [...] performed on the core biopsy in the [facility] Department of Pathology, with appropriately reactive controls, and demonstrate the following: CD34: No increase in blasts CD138: Stains aggregates of plasma cells, 80-90% of marrow cellularity Acequia/lambda in situ hybridization: Acequia restriction CD3: Stains scattered background T cells CD20: Stains rare background B cells 06/17/2022 12:54 PM [facility] Flow Cytometry Summary Not provided 06/17/2022 12:54 PM [facility] Clinical History Multiple small lytic lesions throughout the skill suspicious for myeloma 06/17/2022 12:54 PM [facility] Materials Received Received are 14 slides and one block (A1) labeled [id number] along with a copy of the outside pathology report. The materials originate from [place] [id number]. All original materials are returned to the referring institution, along with a copy of our final report. 06/17/2022 12:54 PM [facility] Disclaimer The performance characteristics of all immunohistochemical and indirect immunofluorescence stains (if any) cited in this report were determined by the [facility] of [facility]. Some of these tests were [...] the attending (teaching) pathologist. 06/17/2022 12:54 PM [facility] Embedded Images 06/17/2022 12:54 PM [facility] Pathology/Cytolo gy BONE MARROW SPECIMEN / Unknown 06/09/2022 9:30 AM RESIDENTIAL BUILDER 06/16/2022 12:33 PM RESIDENTIAL BUILDER Albino Lagos MD LAB - PATHOLOGY/CYTOLOGY ORDERAB LES Final Result Performing Organization Address City/State/[facility] Co de Phone Number [facility] [address] [place], [place] [id number] [place] [address] documented in this encounter Visit Diagnoses Diagnosis Illness, unspecified documented in this encounter
--- OUTSIDE RECORDS SUMMARY | 2025-03-06 15:35 | XMS_ITS | Clinical Summary ---
Author Organization [facility] Address [address] [place] [address] Care Team Providers Care Service Delivery Supervisor Name Role Phone Herman Ruff MD Primary Care Provider [phone] Allergies Active Allergy Reactions Criticality Noted Date Comments Meloxicam Palpitations Low 06/22/2022 Medications multivitamin (DAILY-TREVOR) tablet Take 1 Tablet by mouth daily. Active lidocaine (LIDODERM) 5 % Adhesive Patch, Medicated Apply 1 Patch to affected area every 24 hours. Active methocarbamoL (ROBAXIN) 750 mg tabletIndicatio ns:Multiple myeloma not having achieved remission (CMS/HCC) Take 1 Tablet (750 mg) by mouth 4 times daily. 120 Tablet 023 Active HYDROcodone-johnny taminophen (NORCO) 7.5-325 mg TabletIndicatio ns:Multiple myeloma not having achieved remission (CMS/HCC) Take 1 Tablet by mouth every 4 hours as needed for Pain, Moderate. Max Daily Amount: 4 Tablets 120 Tablet 023 Active Calcium Carb-Vit D3-Magnesium 250-200-125 mg-unit-mg Capsule Take 1 Tablet by mouth 4 times daily. Active Magnesium Hydroxide 400 mg (170 mg magnesium) Tablet, Chewable Take 400 mg by mouth daily. Active dexAMETHasone (DECADRON) 4 mg tablet Take 10 tablets by mouth every Wednesday. 120 Tablet 2 024 Active ondansetron (ZOFRAN ODT) 4 mg Tablet, Rapid DissolveIndicat ions:Multiple myeloma not having achieved remission (CMS/HCC) Take 1 Tablet (4 mg) by mouth every 8 hours as needed for Nausea/Emesis. Dissolve tablet on top of tongue, then swallow with saliva. 30 Tablet 3 024 Active aspirin (ECOTRIN EC) 81 mg Tablet, Delayed Release (E.C.) Take 81 mg by mouth daily. Active pantoprazole (PROTONIX) 40 mg Tablet, Delayed Release (E.C.)Indicatio ns:Multiple myeloma not having achieved remission (CMS/HCC) take 1 tablet every day 90 Tablet 3 024 Active ferrous fumarate 89 mg (29 mg iron) Tablet 89 mg. Active acyclovir (ZOVIRAX) 200 mg capsuleIndicati ons:Multiple myeloma not having achieved remission (CMS/HCC) TAKE 2 CAPSULES TWICE DAILY 360 Capsule 3 025 Active acyclovir (ZOVIRAX) 400 mg tablet TAKE 1 TABLET BY MOUTH TWICE A DAY 180 Tablet 1 025 Active pomalidomide (Pomalyst) 4 mg capsuleIndicati ons:Multiple myeloma not having achieved remission (CMS/HCC) TAKE 1 CAPSULE BY MOUTH EVERY DAY FOR 21 DAYS ON, FOLLOWED BY 7 DAYS OFF 21 Capsule 025 Active sulfamethoxazol e-trimethoprim (BACTRIM DS) 800-160 mg tablet TAKE 1 TABLET BY MOUTH WEDNESDAY, WEDNESDAY, WEDNESDAY. 15 Tablet 2 025 Active daratumumab-[facility] l[facility]idase[facility] (Darzalex Faspro) 1,800 mg-30,000 unit/15 mL Solution subcutaneous injectionIndica tions:Gastro-es ophageal reflux disease with esophagitis,Sec ondary malignant neoplasm of bone (CMS/HCC) INJECT 1800MG (15ML) SUBCUTANEOUSLY EVERY 28 DAYS 15 mL 8 025 Active cyclobenzaprine (FLEXERIL) 10 mg tablet Take 1 Tablet (10 mg) by mouth 3 times daily as needed for Spasm. 60 Tablet 1 025 Active gabapentin (NEURONTIN) 300 mg capsuleIndicati ons:Multiple myeloma not having achieved remission (CMS/HCC) TAKE 2 CAPSULES (600 MG) BY MOUTH 2 TIMES DAILY. 120 Capsule 2 025 Active gabapentin (NEURONTIN) 300 mg capsuleIndicati ons:Multiple myeloma not having achieved remission (CMS/HCC) TAKE 2 CAPSULES (600 MG) BY MOUTH 2 TIMES DAILY. 120 Capsule 2 025 2024 Discontinued Active Problems Problem Noted Date Diagnosed Date Metastasis to bone 02/09/2023 Multiple myeloma not having achieved remission 0 06/22/2022 Encounters Date Type Department Care Team Description 03/06/[address] [facility] Oncology and Hematology - [place] [address] Carlos Clark MD Multiple myeloma not having achieved remission (CMS/HCC) 03/06/[address] [facility] Oncology and Hematology - [place] [address] Carlos Clark MD Multiple myeloma not having achieved remission (CMS/HCC) 03/01/[address] [facility] Oncology and Hematology - [place] [address] Carlos Clark MD 02/28/[address] [facility] Oncology and Hematology - [place] [address] Carlos Clark MD 02/28/[address] [facility] Oncology and Hematology - [place] [address] [place] [phone] Carlos Clark MD [facility] 02/26/[address] [facility] Oncology and Hematology - [place] [address] [place] [phone] Carlos Clark MD Multiple myeloma not having achieved remission ([facility]/HCC) 02/14/[address] [facility] Oncology and Hematology - [place] [address] [place] [phone] Carlos Clark MD 02/12/[address] [facility] Oncology and Hematology - [place] [address] Carlos Clark MD Multiple myeloma not having achieved remission (CMS/HCC) 02/10/[address] [facility] Oncology and Hematology - [place] [address] [place] [address] Carlos Clark MD Gastro-esophageal reflux disease with esophagitis; Secondary malignant neoplasm of bone (CMS/HCC) 02/07/[address] [facility] Oncology and Hematology - [place] [address] [place] [address] Carlos Clark MD 02/06/[address] [facility] Oncology and Hematology [facility] [address] [place] [id number] Carlos Clark MD Multiple myeloma not having achieved remission (CMS/HCC) 02/01/[address] [facility] Oncology and Hematology [facility] [address] [place] [id number] Carlos Clark MD 01/30/2025 External Device Data STL ABSTRACTION Provider, Abstract 01/30/[address] [facility] Oncology and Hematology [facility] [address] [place] [address] Carlos Clark MD Multiple myeloma not having achieved remission (CMS/HCC) (Primary Dx) 01/29/[address] [facility] Oncology and Hematology - [place] [address] [place] [address] Carlos Clark MD Multiple myeloma not having achieved remission (CMS/HCC) 01/25/[address] [facility] Oncology and Hematology - [place] [address] [place] [address] Carlos Clark MD 01/23/2025 9:00 AM CDT Office Visit [facility] Hemat[facility] [address] [place] [address] Carlos Clark MD Multiple myeloma not having achieved remission (CMS/HCC) (Primary Dx) 01/23/[address] [facility] Oncology and Hematology - [place] [address] Carlos Clakr MD 01/18/[address] [facility] Oncology and Hematology - [place] [address] [place] [phone] Dinah Tovar MD 01/16/2025 External Device Data STL ABSTRACTION Provider, Abstract 01/16/[address] [facility] Hematology - [place] [address] Carlos Clark MD 01/15/[address] [facility]cology and Hematology - [place] [address] [place] [phone] Carlos Clark MD Multiple myeloma not having achieved remission (CMS/HCC) 01/09/[address] [facility] Oncology and Hematology - [place] [address] Carlos Clark MD Multiple myeloma not having achieved remission ([facility]/HCC) 01/08/[address] [facility] Oncology and Hematology - [place] [address] [place] [phone] Carlos Clark MD Multiple myeloma not having achieved remission (CMS/HCC) 01/03/[address] [facility] Oncology and Hematology - [place] [address] [place] [id number] Carlos Clark MD 01/02/[address] [facility] Oncology and Hematology - [place] [address] [place] [phone] Carlos Clark MD Bone Density 01/02/[address] [facility] Oncology and Hematology - [place] [address] Carlos Clark MD Multiple myeloma not having achieved remission (CMS/HCC) (Primary Dx) 12/27/2024 External Device Data STL ABSTRACTION Provider, Abstract 12/26/2024 External Device Data STL ABSTRACTION Provider, Abstract 12/25/[address] [facility] Oncology and Hematology - [place] [address] [place] [phone] Carlos Clark MD Multiple myeloma not having achieved remission (CMS/HCC) 12/21/[address] [facility] Oncology and Hematology [facility] [address] [place] [phone] Carlos Clark MD 12/18/[address] [facility] On[facility] Hematology [facility] [address] [place] [phone] Carlos Clark MD Multiple myeloma not having achieved remission (CMS/HCC) 12/11/[address] [facility] Oncology and Hematology [place] [address] Carlos Clark MD Multiple myeloma not having achieved remission (CMS/HCC) 12/10/[address] [facility] Hematology [facility] [address] [place] [phone] Carlos Clark MD Multiple myeloma not having achieved remission (CMS/HCC) 12/06/[address] [facility] Oncology and Hematology - [place] [address] [place] [phone] Carlos Clark MD 12/05/[address] [facility] Oncology and Hematology - [place] [address] [place] [phone] Carlos Clark MD 12/04/[address] [facility] Oncology and Hematology - [place] [address] [place] [address] Carlos Clark MD Multiple myeloma not having [...] on file Legal Sex Female 1:21 PM LABELER Gender Identity Not on file Sexual Orientation [...] st Contact Info) Description 04/24/2025 9:00 AM LABELER Office Visit [facility] Oncology and Hematology - [place] [address] [place] [address] Dinah Tovar MD [address] [place] [address] Health Maintenance Due Date Last [...] 2013 OSTEOPOROSIS SCREENING 2018 INFLUENZA VACCINE (#1) 2025 , 05/01/2022, 05/19/2021, Additional history exists Procedures Procedure Name Priority Date/Time Associated Diagnosis Comments COMPREHENSIVE METABOLIC PANEL Routine 02/27/2025 3:41 PM CDT CBC WITH AUTODIFFERENTIAL Routine 2024 12:57 PM CDT BASIC METABOLIC PANEL Routine 02/27/2025 7:54 AM CDT IMMUNOGLOBULINS IGG IGA IGM Routine 08/2024 3:13 PM CDT COMPREHENSIVE METABOLIC PANEL Routine 02/14/2025 3:10 PM CDT BASIC METABOLIC PANEL Routine 01/30/2025 9:55 AM CDT COMPREHENSIVE METABOLIC PANEL Routine 01/30/2025 9:54 AM CDT CBC WITH AUTODIFFERENTIAL Routine 2024 1:16 PM [...] METABOLIC PANEL Routine 12/05/2024 10:57 AM CDT from Last 3 Months Results * COMPREHENSIVE METABOLIC PANEL (02/27/2025 3:41 PM CDT) Only the most recent of6 resultswithin the time period is included. Blood us Carlos Clark MD CHEMISTRY ORDERABLES Final Resu lt * CBC WITH AUTODIFFERENTIAL (02/27/2025 12:57 PM CDT) Only the most recent of2 resultswithin the time period is included. Blood us Carlos Clark MD HEMATOLOGY ORDERABLES Final Res ult * BASIC METABOLIC PANEL (02/27/2025 7:54 AM CDT) Only the most recent of4 resultswithin the time period is included. Blood Result Elda Clark MD CHEMISTRY ORDERABLES Final Resu lt * IMMUNOGLOBULINS IGG IGA IGM (02/14/2025 3:13 PM CDT) Blood Result Elda Clark MD CHEMISTRY ORDERABLES Final Resu lt * PROTEIN ELECTROPHORESIS, CSF (01/15/2025 3:46 PM CDT) Cerebrospinal fluid CEREBROSPINAL FLUID / Unknown Result Elda Clark MD BODY FLUIDS AND STOOLS Final Re sult * CBC WITH DIFFERENTIAL (01/02/2025 4:46 PM CDT) Only the most recent of2 resultswithin the time period is included. Blood us Carlos Clark MD HEMATOLOGY ORDERABLES Final Res ult from Last 3 Months Insurance [facility] [place] [address] MCR Care Teams Service Delivery Supervisor Relationship Specialty Start Date End Date Herman Ruff MD [address] [place] [address] PCP - General Family Practice 06/22/22
--- OUTSIDE RECORDS SUMMARY | 2025-03-06 15:35 | XMS_ITS | Encounter Summary ---
Author Organization [facility] Address [address] [place] [address] Care Team Providers Care Director Of Rehabilitative Services Name Role Phone Herman Ruff MD Primary Care Provider [phone] Reason for Visit * Reason Comments Med Refill Encounter Details Date Type Department Care Team ([facility] Contact Info) Description 03/06/2025 Refill [facility] Oncology and Hematology [facility] [address] [place] [address] Carlos Clark MD [address] [place] [address] Multiple myeloma not having achieved remission (CMS/HCC) Social History Tobacco Use Types Packs/Day Years Used Date Smoking Tobacco: Never Smokeless Tobacco: Never Alcohol Use Standard Drinks/Week Comments Yes 0 (1 standard drink = 0.6 oz pur e alcohol) social Comments Unknown Sex and Gender Information Value Date Recorded Sex Assigned at Not on file Legal Sex Female 1:21 PM COMMUNICATION INSTRUCTOR Gender Identity Not on file Sexual Orientation Not on file documented as of this encounter Plan of Treatment Upcoming Encounters Date Type Department Care Team (Late Contact Info) Description 04/24/2025 9:00 AM COMMUNICATION INSTRUCTOR Office Visit [facility] Oncology and Hematology [place] [address] [place] [address] Dinah Tovar MD [address] [place] [phone] documented as of this encounter Visit Diagnoses Diagnosis Multiple myeloma not having achieved remission (CMS/HCC) Multiple myeloma, without mention of having achieved remission documented in this encounter Care Teams Director Of Rehabilitative Services Relationship Specialty Start Date End Date Herman Ruff MD [address] [place] [address] PCP - General Family Practice 06/22/22 documented as of this encounter
--- OUTSIDE RECORDS SUMMARY | 2025-03-06 15:35 | XMS_ITS | Clinical Summary ---
Author Organization [facility] Address [address] [place] [address] Care Team Providers Care County Superintendent Of Schools Name Role Phone Unavailable Primary Care Provider Unavailabl e Source Comments [facility],non-owned Affiliates and Associated Physician Practices is amultiple site organization consisting of ambulatory clinics and hospital sitesin [place], [place], [place] and [place]. This disclosure is being madepursuant to the Care Everywhere program and may not contain all information available regarding this patient. Last updated 18.[facility] [employer] Social History Tobacco Use Types Packs/Day Years [...] 08/13/2003 ZOSTER VACCINE (1 of 2) 08/13/2003 DEPRESSION SCREENING 06/14/2024 COVID-19 VACCINE (1 - 2023-2 5 season) 2025 INFLUENZA VACCINE (#1) 2025 Respiratory Syncytial Virus [...]
--- OUTSIDE RECORDS SUMMARY | 2025-03-06 15:35 | XMS_ITS | Encounter Summary ---
Author Organization [facility] Address [address] [place] [address] Phone Care Team Providers Care Gun Numberer Name Role Phone Herman Ruff MD Primary Care Provider [phone] Carlos Clark MD Unavailable [phone] Encounter Details Date Type Department Care Team (Latest Contact Info) Description 06/09/2022 Orders Only [facility] Scanning, Provider Social History Tobacco Use Types Packs/Day Years Used Date Smoking Tobacco: Never Assessed Comments Unknown Sex and Gender Information Value Date Recorded Sex Assigned at Not on file Legal Sex Female 7:37 AM SENIOR TECHNICAL BUSINESS ANALYST Gender Identity Not on file Sexual [...] Diarrhea 08/03/2023 08/05/2023 08/05/2023 10:5 9 PM SENIOR TECHNICAL BUSINESS ANALYST Diarrhea 08/10/2023 08/10/2023 08/10/2023 10:5 3 AM SENIOR TECHNICAL BUSINESS ANALYST C. difficile suspected Comment:C diff test pending 08/16/2023 08/16/2023 08/16/2023 8 :24 PM SENIOR TECHNICAL BUSINESS ANALYST Rotavirus suspected 08/16/2023 08/16/2023 08/16/19 10:09 PM SENIOR TECHNICAL BUSINESS ANALYST Norovirus suspected 08/16/2023 08/16/2023 08/16/19 12:02 PM SENIOR TECHNICAL BUSINESS ANALYST documented as of this encounter Care Teams Gun Numberer Relationship Specialty Start Date End Date Herman Ruff MD PCP - General Family Medicine 10/29/22 Carlos Clark MD [address] [address] Referring Physician Hematology 11/02/22 documented as of this encounter
--- OUTSIDE RECORDS SUMMARY | 2025-03-06 15:35 | XMS_ITS | Clinical Summary ---
Author Organization [facility] o[facility] Address [address] [place] [address] Care Team Providers Care City Library Director Name Role Phone Herman Ruff MD Primary Care Provider [phone] Carlos Clark MD Unavailable [phone] Allergies Active Allergy Reactions Criticality Noted [...] 2 TIMES A DAY. 180 tablet 3 01/12/20 25 Active Active Problems Patient Care Coordination No te [...] Medical Assistants Post-Discharge Follow-Up Living Situation/Distance from [place], [place] Caregiver Lab/Transfusion Frequency Venous Access & [...] Type Department Care Team Description 12/05/2024 Telephone [facility] Medicine Cardiology [address] [facility] Medical Office Building [address] [place] [address] Familia Lawton MD from Last [...] Former Cigarettes 1 2002 Smokeless Tobacco: Never Tobacco Cessation:Counseling Given: Not Answered [facility] Utilities Answer Date Recorded In the past 12 months has e electric, gas, oil, or water company threatened to shut off services in your [...] often do you attend chur ch or yarsanism services? Never 08/19/2023 Do you belong to any clubs o r organizations such as buddhism groups, unions, fraternal or athletic groups, or [...] on file Legal Sex Female 7:37 AM APPLICATION SECURITY ENGINEER Gender Identity Not on file Sexual Orientation Not on file Obstetrics History Last Filed Vital Signs Vital Sign Reading Time Taken Comments Blood Pressure 135/83 07/05/2024 2:39 PM APPLICATION SECURITY ENGINEER Pulse 68 07/05/2024 2:39 PM APPLICATION SECURITY ENGINEER Temperature 36.3 C (97.4 F) 07/05/2024 2:39 PM APPLICATION SECURITY ENGINEER Respiratory Rate 18 11/05/2023 1:10 PM CDT Oxygen Saturation 98% 07/05/2024 2:39 PM APPLICATION SECURITY ENGINEER Inhaled Oxygen Concentration - - Weight 83.9 kg (185 lb) 07/05/2024 2:39 PM APPLICATION SECURITY ENGINEER Height 161.3 cm (5' 3.5) 07/05/2024 2:39 PM APPLICATION SECURITY ENGINEER Body Mass Index 32.26 07/05/2024 2:39 PM APPLICATION SECURITY ENGINEER Plan of Treatment Health Maintenance Due Date Last Done Comments Breast Cancer Screening-Mammogram 1955 Colon Cancer Screening-Colonoscopy 1955 Hepatitis C Screening 1955 Osteoporosis Screening-Bone Density Scan 1955 Well Visit 65+ 2018 Depression Screening 07/08/2024 07/08/2023 Fall Risk Assessment 08/19/2024 08/20/2023 Covid-19 Vaccine (6 - Pfizer risk 2023- season) 2025 04/23/2024, 11/19/2023, 04/17/2021, Additional history exists Influenza Vaccine (#1) 2025 , 04/27/2023, 05/01/2022, Additional history exists DTaP/Tdap/Td Vaccine (4 - Td or Tdap) 09/25/2034 09/25/2024, 05/23/2024, 03/23/2024 Zoster Vaccine Completed 05/23/2024, 03/23/2024 Hepatitis B Screening Completed 09/25/2024 , 05/23/2024, 03/23/2024 Pneumococcal vaccine 65+ Completed 09/25/ 025, 05/23/2024, 03/23/2024 Medical Devices Implanted Type Area Rn Oncology Device Identifier Shelf Expiration Date Model / Serial / Lot Isidro [employer] Power-Trialysis 13fr 15cm 3 Lumen Power Straight Kit Catheter [id number] - [id number] Implanted:Qty: 1 on 05/24/2023 at [facility] Isidro [place] 05/13/2024 [id number] / / [id number] [address] DR GLEZ [address] MED[address]ARE HMO [address] NEWT[place] [id number] MEDICARE HMO DR GLEZ [place] [address] TRANSPLANT [employer] MEDICARE RISK Advance Directives For more information, please contact: [phone] * Full Code (Latest Code Status on File) Date Activated Date Inactivated Comments 07/27/2023 7:20 PM 08/20/2023 8:12 PM * Full Code Date Activated Date Inactivated Comments 07/26/2023 9:25 AM 07/27/2023 5:35 AM * Full Code Date Activated Date Inactivated Comments 05/24/2023 9:24 AM 05/25/2023 5:41 AM Care Teams City Library Director Relationship Specialty Start Date End Date Herman Ruff MD PCP - General Family Medicine 10/29/22 Carlos Clark MD [address] [address] Referring Physician Hematology 11/02/22
--- OUTSIDE RECORDS SUMMARY | 2025-03-06 15:35 | XMS_ITS | Encounter Summary ---
Author Organization [facility] [employer] [facility] Address [address] [place] [address] Care Team Providers Care Apprentice Carpenter Name Role Phone Herman Ruff MD Primary Care Provider [phone] Reason for Visit * Reason Comments Med Refill Encounter Details Date Type Department Care Team ([facility] Contact Info) Description 03/06/2025 Refill [facility] Oncology and Hematology [facility] [address] [place] [address] Carlos Clark MD [address] [facility] [address] [place] [address] Multiple myeloma not having achieved remission (CMS/HCC) Social History Tobacco Use Types Packs/Day Years Used Date Smoking Tobacco: Never Smokeless Tobacco: Never Alcohol Use Standard Drinks/Week Comments Yes 0 (1 standard drink = 0.6 oz pur e alcohol) social Comments Unknown Sex and Gender Information Value Date Recorded Sex Assigned at Not on file Legal Sex Female 1:21 PM TRIMMER MACHINE OPERATOR Gender Identity Not on file Sexual Orientation Not on file documented as of this encounter Plan of Treatment Upcoming Encounters Date Type Department Care Team (Late Contact Info) Description 04/24/2025 9:00 AM TRIMMER MACHINE OPERATOR Office Visit [facility] Oncology and Hematology Jakub [address] [place] [address] Dinah Tovar MD [address] [place] [id number] documented as of this encounter Visit Diagnoses Diagnosis Multiple myeloma not having achieved remission (CMS/HCC) Multiple myeloma, without mention of having achieved remission documented in this encounter Care Teams Apprentice Carpenter Relationship Specialty Start Date End Date Herman Ruff MD [address] [place] [address] PCP - General Family Practice 06/22/22 documented as of this encounter
--- OUTSIDE RECORDS SUMMARY | 2025-03-06 15:35 | XMS_ITS | Encounter Summary ---
Author Organization [facility] Healthcare Address [address] [place] [address] Care Team Providers Care Chief Medical Technologist Name Role Phone Herman Ruff MD Primary Care Provider [phone] Carlos Clark MD Unavailable [phone] Encounter Details Date Type Department Care Team (Late st Contact Info) Description 07/22/2023 Telephone [facility] Radiology [address] [place] [address] Estela Tomlinson RN Social History Tobacco Use Types Packs/Day Years Used Date Smoking Tobacco: Former Cigarettes 2002 Smokeless Tobacco: Never AUDIT-C Answer Date [...] on file Legal Sex Female 7:37 AM BAG PATCHER Gender Identity Not on file Sexual Orientation Not on file documented as of this encounter Plan of Treatment Not on file documented as of this encounter Visit Diagnoses Not on filedocumented in this encounter Additional Health Concerns Infection Onset Date Last Indicated Resolved Time Diarrhea 08/03/2023 08/05/2023 08/05/2023 10:5 9 PM BAG PATCHER Diarrhea 08/10/2023 08/10/2023 08/10/2023 10:5 3 AM BAG PATCHER C. difficile suspected Comment:C diff test pending 08/16/2023 08/16/2023 08/16/2023 8 :24 PM BAG PATCHER Rotavirus suspected 08/16/2023 08/16/2023 08/16/19 24 10:09 PM BAG PATCHER Norovirus suspected 08/16/2023 08/16/2023 08/16/19 12:02 PM BAG PATCHER documented as of this encounter Care Teams Chief Medical Technologist Relationship Specialty Start Date End Date Herman Ruff MD PCP - General Family Medicine 10/29/22 Carlos Clark MD [address] [id number] Referring Physician Hematology 11/02/22 documented as of this encounter
--- NOTE | 2025-03-06 15:44 | ECHO_ITS ---
Patient Info Name: Evon Sanchez Age: 69 years : 1955 Gender: Female Ht: 62 in Wt: 180 lbs BSA: 1.92 m2 HR: 59 bpm BP: 109 / 74 mmHg Technical Quality: Good Exam Date: 03/06/2025 4:04 PM Patient Status: O Admit Date: 03/06/2025 Exam Type: CA echo doppler color flow Strain analysis performed. Complete two-dimensional, color flow and Doppler transthoracic echocardiogram is performed. Easement Worker: Svetlana Oakley Attending Provider: Zakiya Gregory Summary 1. Complete two-dimensional, color flow and Doppler transthoracic echocardiogram is performed. 2. Left ventricular chamber dimension is normal. 3. Left ventricular systolic function is normal, estimated at 60-65. 4. The left ventricular diastolic function is grade I diastolic dysfunction. 5. E/e' 9 is minimally elevated. 6. Global longitudinal strain is normal at -18.6%. 7. Left atrial chamber dimension is mildly enlarged. 8. There is moderate aortic valve sclerosis. 9. There is mild to moderate aortic valve stenosis with a peak velocity of 272 cm/s, mean gradient of 16 mmHg, and aortic valve area of 1.3 cm2. 10. There is mild aortic valve regurgitation. 11. The mitral valve has a moderately calcified annulus. 12. There is trace mitral valve regurgitation. 13. There is mild tricuspid valve regurgitation. 14. No pulmonary hypertension, estimated pulmonary arterial systolic pressure is 30 mmHg. 15. There is trace pulmonic regurgitation. Left Ventricle E/e' 9 is minimally elevated. Left ventricular chamber dimension is normal. Left ventricular systolic function is normal, estimated at 60-65. The left ventricular diastolic function is grade I diastolic dysfunction. Global longitudinal strain is normal at -18.6%. Right Ventricle Right ventricular chamber dimension is normal. Right ventricular systolic function is normal and with normal TAPSE 2.1 cm. Left Atria Left atrial chamber dimension is mildly enlarged. Right Atria Right atrial chamber dimension is normal. Aortic Valve The aortic valve is trileaflet. There is moderate aortic valve sclerosis. There is mild to moderate aortic valve stenosis with a peak velocity of 272 cm/s, mean gradient of 16 mmHg, and aortic valve area of 1.3 cm2. There is mild aortic valve regurgitation. Pulmonic Valve There is trace pulmonic regurgitation. Mitral Valve The mitral valve has a moderately calcified annulus. There is no mitral valve stenosis. There is trace mitral valve regurgitation. Tricuspid Valve There is mild tricuspid valve regurgitation. No pulmonary hypertension, estimated pulmonary arterial systolic pressure is 30 mmHg. Pericardium/Pleural There is no pericardial effusion. Inferior Vena Cava Normal inferior vena cava with >50% collapse upon inspiration consistent with normal right atrial pressure, 5 mmHg. Aorta The aortic root size at the sinus of Valsalva is normal. Left Ventricular Outflow Tract Name Value Normal LVOT 2D LVOT Diameter 1.9 cm LVOT Doppler LVOT Peak Velocity 124 cm/s LVOT Peak Gradient 6 mmHg LVOT Mean Gradient 4 mmHg LVOT VTI 28 cm LVOT VTI/AV VTI Ratio 0.5 LVOT Stroke Volume 77 ml LVOT CO 15.6 l/min LVOT CI 8.1 l/min/m2 Pulmonic Valve Name Value Normal PV Doppler PV Peak Velocity 109 cm/s PV Peak Gradient 5 mmHg Mitral Valve Name Value Normal MV Diastolic Function MV E Peak Velocity 95 cm/s MV A Peak Velocity 128 cm/s MV E/A 0.7 MV Decel Time (PW) 250 ms MV Annular TDI MV E/e' (Septal) 12.7 MV E/e' (Lateral) 8.0 MV E/e' (Average) 10.3 Tricuspid Valve Name Value Normal TV Regurgitation Doppler TR Peak Velocity 250 cm/s TR Peak Gradient 25 mmHg Estimated PAP/RSVP RA Pressure 5 mmHg <=5 PA Systolic Pressure 30 mmHg <36 RV Systolic Pressure 30 mmHg <36 TV Annular TDI TV Lateral Kathy s' Velocity 12.2 cm/s >=9.5 Aorta Name Value Normal Ascending Aorta Ao Root Diameter (MM) 2.9 cm Ao Root Diam Index (MM) 1.5 cm/m2 Aortic Valve Name Value Normal AV Doppler AV Peak Velocity 272 cm/s AV Peak Gradient 30 mmHg AV Mean Gradient 16 mmHg AV VTI 58 cm AV Area (Cont Eq VTI) 1.3 cm2 >=3.0 AV Area (Cont Eq Sina) 1.2 cm2 AV DI (Sina) 0.46 AV Regurgitation 2D LVOT Area 2.7 cm2 Ventricles Name Value Normal LV Dimensions 2D/MM IVS Diastolic Thickness (2D) 0.9 cm 0.6-1.0 LVID Diastole (2D) 3.8 cm 3.8-5.2 LVIW Diastolic Thickness (2D) 0.9 cm 0.6-0.9 LVID Systole (2D) 2.2 cm 2.2-3.5 LVOT Diameter 1.9 cm LV Mass (2D Cubed) 100.80 g 67.00-162.00 LV Mass Index (2D Cubed) 52 g/m2 43-95 Relative Wall Thickness (2D) 0.45 <=0.42 LV Fractional Shortening/Ejection Fraction 2D/MM LV Fractional Shortening (2D) 42 % 27-45 LV EF (2D Teichholz) 73 % LV Diastolic Volume (4C MOD) 87 ml LV EF (4C MOD) 73 % LV Diastolic Length (4C) 7.4 cm LV Systolic Length (4C) 5.9 cm LV Stroke Volume (4C MOD) 64 ml RV Dimensions 2D/MM RVID Diastole (2D) 3.4 cm 2.1-3.5 Atria Name Value Normal LA Dimensions LA Dimension (MM) 3.2 cm 2.7-3.8 LA Volume (4C A-L) 53 ml LA Volume (BP A-L) 54 ml RA Dimensions RA Systolic Major Matlock Length (4C) 3.9 cm 2.2-2.8 RA Area (4C) 10.7 cm2 <=18.0 EchoPAC Name Value Normal AutoEF HR_4Ch_Q (Dbqo8TCT) 55 bpm LVCO_4Ch_Q (Tlzg1DFT) 2.4 l/min LVEF_4Ch_Q (Uasf1OLW) 62 % LVLd_4Ch_Q (Nitb9JBR) 7.2 cm LVLs_4Ch_Q (Hnhk4VXH) 5.9 cm LVSV_4Ch_Q (Vezq5XXY) 44 ml LVVED_4Ch_Q (Vivh0TYD) 71 ml LVVES_4Ch_Q (Ozry1KDD) 27 ml HR_2Ch_Q (Upsl8KYV) 59 bpm LVCO_2Ch_Q (Celr8QYK) 3.0 l/min LVEF_2Ch_Q (Cise0SXE) 62 % LVLd_2Ch_Q (Movw6VPL) 7.3 cm LVLs_2Ch_Q (Ysfc4ILS) 6.0 cm LVSV_2Ch_Q (Psue6SGM) 51 ml LVVED_2Ch_Q (Qvrd5HHZ) 82 ml LVVES_2Ch_Q (Fcyu5SQN) 31 ml CORNEL LV Apical Anterior Longitudinal Strain (CORNEL) -22.7 % LV Apical Anteroseptal Longitudinal Strain (CORNEL) -27.4 % LV Apical Inferior Longitudinal Strain (CORNEL) -27.8 % LV Apical Lateral Longitudinal Strain (CORNEL) -19.0 % LV Apical Posterior Longitudinal Strain (CRONEL) -21.0 % LV Apical Septal Longitudinal Strain (CORNEL) -20.3 % AV Closure (CORNEL) 391 ms LV Basal Anterior Longitudinal Strain (CORNEL) -14.2 % LV Basal Anteroseptal Longitudinal Strain (CORNEL) -20.2 % LV Basal Inferior Longitudinal Strain (CORNEL) -15.6 % LV Basal Anterolateral Longitudinal Strain (CORNEL) -13.4 % LV Basal Inferolateral Longitudinal Strain (CORNEL) -5.0 % LV Basal Inferoseptal Longitudinal Strain (CORNEL) -17.8 % LV Global Longitudinal Strain (2C CORNEL) -19.9 % LV Global Longitudinal Strain (4C CORNEL) -17.9 % LV Global Longitudinal Strain (APLAX CORNEL) -18.2 % LV Global Longitudinal Strain (CORNEL) -18.7 % LV Mid Anterior Longitudinal Strain (CORNEL) -17.8 % LV Mid Anteroseptal Longitudinal Strain (CORNEL) -26.0 % LV Mid Inferior Longitudinal Strain (CORNEL) -24.2 % LV Mid Anterolateral Longitudinal Strain (CORNEL) -11.3 % LV Mid Inferolateral Longitudinal Strain (CORNEL) -13.6 % LV Mid Inferoseptal Longitudinal Strain (CORNEL) -26.9 % Report Signatures
== END 2025-03-06 15:32 | disposition home or self-care (01) ==
LOC: ANHCARD 15:33
PROVIDERS: PCP Family Medicine; Visit Provider Nurse Practitioner Family
DX: Z12.11 Encounter for screening for malignant neoplasm of colon (principal); R94.31 Abnormal electrocardiogram [ECG] [EKG]; I34.0 Nonrheumatic mitral (valve) insufficiency; I35.1 Nonrheumatic aortic (valve) insufficiency; I36.1 Nonrheumatic tricuspid (valve) insufficiency
CPT/HCPCS: 93306

== ENCOUNTER 2025-03-30 10:52 | Outpatient (CLI) | payer MEDICARE, SELFPAY ==
--- OUTSIDE RECORDS SUMMARY | 1999-12-17 08:30 | XMS_ITS | Continuity of Care Document ---
Author Organization [facility] Address [address] [place] [address] [address] [place] [address] Phone Care Team Providers Care Quill Winder Name Role Phone Sanjeev Martinez Unavailable Unavailable Advance Directives Directive Yes / No Effective Date File Name No Information Encounters Encounter Description Practice Location Reason(s) For Visit Diagnoses Date Provider Providers Copied on Encounter [facility], [id number] [place] [address] [address], [place], [place], [id number], [place] tel:[phone] [facility] No Information [address] , [address], [place], [address], [place]. tel:[phone] Family History Family Member Type Diagnosis Age At Onset No Information Payers Payer name Insurance type Covered democrat ID Authoriza tion(s) [place] [id number] Social History Type Description Quantity Date Captured [...]
--- OUTSIDE RECORDS SUMMARY | 2025-03-30 11:31 | XMS_ITS | Encounter Summary ---
Author Organization [facility] Address [address] [place] [address] Phone Care Team Providers Care Arcgis Developer Name Role Phone Herman Ruff MD Primary Care Provider [phone] Carlos Clark MD Unavailable [phone] Encounter Details Date Type Department Care Team (Latest Contact Info) Description 06/09/2022 Orders Only [facility] Scanning, Provider Social History Tobacco Use Types Packs/Day Years Used Date Smoking Tobacco: Never Assessed Comments Unknown Sex and Gender Information Value Date Recorded Sex Assigned at Not on file Legal Sex Female 7:37 AM GREEN CHAINER Gender Identity Not on file Sexual Orientation [...] Diarrhea 08/03/2023 08/05/2023 08/05/2023 10:5 9 PM GREEN CHAINER Diarrhea 08/10/2023 08/10/2023 08/10/2023 10:5 3 AM GREEN CHAINER C. difficile suspected Comment:C diff test pending 08/16/2023 08/16/2023 08/16/2023 8 :24 PM GREEN CHAINER Rotavirus suspected 08/16/2023 08/16/2023 08/16/19 10:09 PM GREEN CHAINER Norovirus suspected 08/16/2023 08/16/2023 08/16/19 12:02 PM GREEN CHAINER documented as of this encounter Care Teams Arcgis Developer Relationship Specialty Start Date End Date Herman Ruff MD PCP - General Family Medicine 10/29/22 Carlos Clark MD [address] [address] Referring Physician Hematology 11/02/22 documented as of this encounter
--- OUTSIDE RECORDS SUMMARY | 2025-03-30 11:31 | XMS_ITS ---
Author Organization [facility] o[facility]ital Address [address] [place] [address] Care Team Providers Care State Editor Name Role Phone Herman Ruff MD Primary Care Provider [phone] Carlos Clark MD Unavailable [phone] Active Problems Patient Care Coordination No [...] Medical Assistants Post-Discharge Follow-Up Living Situation/Distance from [place], [place] Caregiver Lab/Transfusion Frequency Venous Access & [...] from the original note were not included. [address] [id number] This Survivorship Care Plan is a cancer [...] Contact Information: Referring Provider Carlos Clark MD [phone] Primary Care Physician Herman Ruff MD [phone] BMT Physician/ Advanced Practice Provider Yo Landers MD/Marilin Sanchez [facility] [phone] Duct Layer Supervisor Snehal Lange RN [phone] Surgeon'S Assistant Tierra Hammond, [facility] [phone] Oncology History Overview Note 07/22/2022 - Daratumumab/Velcade/Dexamethasone [...] Lab Results Lab Results Component Value Date PTL1JZDEEIS 100 12/18/2022 DLCOPREPRED 65 12/18/2022 25HYDROVITD 38 [...] M 40 - 230 mg/dL <25.0 <25 [place]/Lambda light chains free with ratio 0.26 - 1.65 0.26 - 1.65 >1.70 See Comment 0.79 [place] light chain, free 0.33 - 1.94 mg/dL [...] electrophoresis or >=90% reduction in serum M-protein OK = partial response - >=50% reduction of [...] Transplant, to begin after Day 90 Updated ([id number] Formula) mRNA vaccine Number of updated ([id number] Formula) mRNA doses indicated Interval between doses Moderna 3 Dose 1 and Dose 2: 4 weeks Dose 2 and Dose 3: At least 4 weeks Xquva 3 Dose 1 and Dose 2: 3 [...] Resources Resources you may be interested in: [employer] Cancer Survivors Network Cancer Survivors [...] you navigateyour transplant journey. https://bethematch.org National Cancer [place] Accurate, up-to-date, comprehensive cancer information from the U.S. government's principal agency for cancer research. http://www.cancer.gov Eating Hints?? Before, During, and After Cancer Treatment https://www.cancer.gov/publication/patient-education/eating-hints National Coalition for Cancer Survivorship We advocate for quality cancer care for all individuals touched by cancer. https://canceradvocacy.org National Heart, Lung and Blood [place] We provide helpful information and resources designed to help your family stay healthy. https://www.nhlbi.gov/health/educational/webcan/ [facility] http://www.[facility] Multiple Myeloma Research Foundation [...] Myeloma Crowd is a division of the [employer], a patient-driven, nonprofit organization that empowers patients with rare diseases at each step of her disease journey--from diagnosis, through Education, care and on to a cure. https://www.myelomacrowd.org/ Resolved Problems Problem Noted Date Diagnosed Date Resolved Date Multiple myeloma in relapse 07/27/2023 08/23/2023
--- OUTSIDE RECORDS SUMMARY | 2025-03-30 11:31 | XMS_ITS | Encounter Summary ---
Author Organization [facility] Healthcare Address [address] [place] [address] Care Team Providers Care Axle Inspector Name Role Phone Herman Ruff MD Primary Care Provider [phone] Carlos Clark MD Unavailable [phone] Encounter Details Date Type Department Care Team (Late st Contact Info) Description 07/22/[address] [facility] Radiology [address] [place] [address] Estela Tomlinson RN Social History Tobacco Use [...] on file Legal Sex Female 7:37 AM PAPER COLORER Gender Identity Not on file Sexual Orientation Not on file documented as of this encounter Plan of Treatment Not on file documented as of this encounter Visit Diagnoses Not on filedocumented in this encounter Additional Health Concerns Infection Onset Date Last Indicated Resolved Time Diarrhea 08/03/2023 08/05/2023 08/05/2023 10:5 9 PM PAPER COLORER Diarrhea 08/10/2023 08/10/2023 08/10/2023 10:5 3 AM PAPER COLORER C. difficile suspected Comment:C diff test pending 08/16/2023 08/16/2023 08/16/2023 8 :24 PM PAPER COLORER Rotavirus suspected 08/16/2023 08/16/2023 08/16/19 24 10:09 PM PAPER COLORER Norovirus suspected 08/16/2023 08/16/2023 08/16/19 12:02 PM PAPER COLORER documented as of this encounter Care Teams Axle Inspector Relationship Specialty Start Date End Date Herman Ruff MD PCP - General Family Medicine 10/29/22 Carlos Clark MD [address] [phone] Referring Physician Hematology 11/02/22 documented as of this encounter
--- OUTSIDE RECORDS SUMMARY | 2025-03-30 11:31 | XMS_ITS | Clinical Summary ---
Author Organization [facility] Address [address] [place] [address] Care Team Providers Care Lamp Replacer Name Role Phone Herman Ruff MD Primary Care Provider [phone] Carlos Clark MD Unavailable [phone] Allergies Active Allergy Reactions Criticality Noted [...] Medical Assistants Post-Discharge Follow-Up Living Situation/Distance from [place], [place] Caregiver Lab/Transfusion Frequency Venous Access & [...] Encounters Date Type Department Care Team Description 03/07/2025 Telephone [facility] Medicine Cardiology [address] [facility] 8th [place] [address] [place] [address] Rater, KEEGAN Chance Medical Records Request from Last 3 Months Immunizations Immunization Administration [...] Date Smoking Tobacco: Former Cigarettes 1 3 2002 Smokeless Tobacco: Never Tobacco Cessation:Counseling Given: Not Answered [facility] Utilities Answer Date Recorded In the past 12 months has [employer] electric, gas, oil, or water company threatened [...] often do you attend chur ch or orthodox services? Never 08/19/2023 Do you belong to any clubs o r organizations such as tenriism groups, unions, fraternal or athletic groups, or [...] on file Legal Sex Female 7:37 AM SLD EDUCATIONAL AIDE Gender Identity Not on file Sexual Orientation Not on file Obstetrics History Last Filed Vital Signs Vital Sign Reading Time Taken Comments Blood Pressure 135/83 07/05/2024 2:39 PM SLD EDUCATIONAL AIDE Pulse 68 07/05/2024 2:39 PM SLD EDUCATIONAL AIDE Temperature 36.3 C (97.4 F) 07/05/2024 2:39 PM SLD EDUCATIONAL AIDE Respiratory Rate 18 11/05/2023 1:10 PM CDT Oxygen Saturation 98% 07/05/2024 2:39 PM SLD EDUCATIONAL AIDE Inhaled Oxygen Concentration - - Weight 83.9 kg (185 lb) 07/05/2024 2:39 PM SLD EDUCATIONAL AIDE Height 161.3 cm (5' 3.5) 07/05/2024 2:39 PM SLD EDUCATIONAL AIDE Body Mass Index 32.26 07/05/2024 2:39 PM SLD EDUCATIONAL AIDE Plan of Treatment Health Maintenance Due Date [...] 05/23/2024, 03/23/2024 Medical Devices Implanted Type Area Emt Basic Device Identifier Shelf Expiration Date Model / Serial / Lot Isidro [employer] Power-Trialysis 13fr 15cm 3 Lumen Power Straight Kit Catheter [id number] - [id number] Implanted:Qty: 1 on 05/24/2023 at [facility] Isidro Artur 05/13/2024 [id number] / / [id number] [address] GLEZ [address] MED[address] HMO [address] [id number] MEDICARE HMO DR GLEZ [place] [address] TRANSPLANT [employer] MEDICARE RISK Advance Directives For more information, please contact: [phone] * Full Code (Latest Code Status on File) Date Activated Date Inactivated Comments 07/27/2023 7:20 PM 08/20/2023 8:12 PM * Full Code Date Activated Date Inactivated Comments 07/26/2023 9:25 AM 07/27/2023 5:35 AM * Full Code Date Activated Date Inactivated Comments 05/24/2023 9:24 AM 05/25/2023 5:41 AM Care Teams Lamp Replacer Relationship Specialty Start Date End Date Herman Ruff MD PCP - General Family Medicine 10/29/22 Carlos Clark MD [address] [address] Referring Physician Hematology 11/02/22
--- OUTSIDE RECORDS SUMMARY | 2025-03-30 11:32 | XMS_ITS | Encounter Summary ---
Author Organization [facility] Address [address] [facility] [place] [address] Care Team Providers Care Compensation Vice President Name Role Phone Unavailable Primary Care Provider Unavailabl e Encounter Details Date Type Department Care Team (Late st Contact Info) Description 06/16/2022 Lab Requisition [facility] [address] [place] [address] Albino Lagos MD [facility] [address] [address] Illness, unspecified Social History Tobacco [...] MARROW BIOPSY (STL) Routine 06/09/2022 9:30 AM ELEMENT BURNER Illness, unspecified documented in this encounter Results * BONE MARROW BIOPSY (STL) (06/09/2022 9:30 AM ELEMENT BURNER) Case Report Bone Marrow Patholog y Report Case: [id number] Authorizing Provider: Albino Lagos MD Collected: 06/09/2022 09:30 AM Ordering Location: [facility] Received: 06/16/2022 12:33 PM Pathologist: Zoraida Crain Mai, DO Specimen: Bone Marrow Core 06/17/2022 12:54 PM [facility] Final Diagnosis Bone marrow, aspirate, touch imprint, core biopsy: - Plasma cell myeloma (80-90% involvement by CD138) - See description Peripheral blood: - Anemia with rouleaux formation - Adequate leukocytes without circulating plasma cells 06/17/2022 12:54 PM [facility] at [address] ELEMENT BURNER AP Comment The bone marrow specimen shows 80-90% involvement by a kappa restricted plasma cell population consistent with plasma cell myeloma. Correlation with clinical findings and relevant cytogenetic/molecular testing is required. 06/17/2022 12:54 PM [facility] Peripheral Smear Description 06/07/22 Short CBC data from provided report Leukocytes: Adequate with no circulating plasma cells Erythrocytes: Decreased (no MCV or MCHC provided), rouleaux formation present Platelets: Adequate with no significant abnormality 06/17/2022 12:54 PM [facility] Bone Marrow Aspirate Aspirate smears [...] insufficient erythroids to evaluate 06/17/2022 12:54 PM [facility] Bone Marrow Core Biopsy and [...] performed on the core biopsy in the [facility] Department of Pathology, with appropriately reactive controls, and demonstrate the following: CD34: No increase in blasts CD138: Stains aggregates of plasma cells, 80-90% of marrow cellularity [place]aina/lambda in situ hybridization: [place] restriction CD3: Stains scattered background T cells CD20: Stains rare background B cells 06/17/2022 12:54 PM [facility] Flow Cytometry Summary Not provided 06/17/2022 12:54 PM [facility] Clinical History Multiple small lytic lesions throughout the skill suspicious for myeloma 06/17/2022 12:54 PM [facility] Materials Received Received are 14 slides and one block (A1) labeled [id number] along with a copy of the outside pathology report. The materials originate from [place] [id number]. All original materials are returned to the referring institution, along with a copy of our final report. 06/17/2022 12:54 PM [facility] Disclaimer The performance characteristics of all immunohistochemical and indirect immunofluorescence stains (if any) cited in this report were determined by the Histopathology Laboratory of [facility]. Some of these tests were developed by [...] the attending (teaching) pathologist. 06/17/2022 12:54 PM [facility] Embedded Images 06/17/2022 12:54 PM [facility] Pathology/Cytolo gy BONE MARROW SPECIMEN / Unknown 06/09/2022 9:30 AM ELEMENT BURNER 06/16/2022 12:33 PM ELEMENT BURNER Albino Lagos MD LAB - PATHOLOGY/CYTOLOGY ORDERAB LES Final Result Performing Organization Address City/State/[facility] Co de Phone Number [facility] [address] [place], [place] [id number] [place] [address] documented in this encounter Visit Diagnoses Diagnosis Illness, unspecified documented in this encounter
--- OUTSIDE RECORDS SUMMARY | 2025-03-30 11:32 | XMS_ITS | Encounter Summary ---
Author Organization [facility] [employer] [facility] Address [address] [place] [address] Care Team Providers Care Technical Stenographer Name Role Phone Herman Ruff MD Primary Care Provider [phone] Encounter Details Date Type Department Care Team (Late Contact Info) Description 03/27/2025 Orders Only [facility] Oncology and Hematology - Jakub [address] [place] [address] Carlos Clark MD [address] [facility] [address] [place] [address] Social History Tobacco Use Types Packs/Day Years Used Date Smoking Tobacco: Never Smokeless Tobacco: Never Alcohol Use Standard Drinks/Week Comments Yes 0 (1 standard drink = 0.6 oz pur e alcohol) social Comments Unknown Sex and Gender Information Value Date Recorded Sex Assigned at Not on file 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 Sex 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 Gender Identity Not on file Sexual Orientation Not on file documented as of this encounter Plan of Treatment Upcoming Encounters Date Type Department Care Team (Late st Contact Info) Description 04/24/2025 9:00 AM HUB CUTTER APPRENTICE Office Visit [facility] Oncology and Hematology - Jak[address] [place] [address] Dinah Tovar MD [address] [place] [address] documented as of this encounter Procedures Procedure Name Priority Date/Time Associated Diagnosis Comments COMPREHENSIVE METABOLIC PANEL Routine 03/27/2025 2:55 PM CDT CBC WITH AUTODIFFERENTIAL Routine 2024 2:51 PM CDT documented in this encounter Results * COMPREHENSIVE METABOLIC PANEL (03/27/2025 2:55 PM CDT) Blood us Carlos Clark MD CHEMISTRY ORDERABLES Final Resu lt * CBC WITH AUTODIFFERENTIAL (03/27/2025 2:51 PM CDT) Blood us Carlos Clark MD HEMATOLOGY ORDERABLES Final Res ult documented in this encounter Visit Diagnoses Not on filedocumented in this encounter Care Teams Technical Stenographer Relationship Specialty Start Date End Date Herman Ruff MD [address] [place] [address] PCP - General Family Practice 06/22/22 documented as of this encounter
--- OUTSIDE RECORDS SUMMARY | 2025-03-30 11:32 | XMS_ITS | Clinical Summary ---
Author Organization [facility] Address [address] [place] [address] Care Team Providers Care Thread Inspector Name Role Phone Herman Ruff MD Primary Care Provider Allergies Active Allergy Reactions Criticality Noted Date [...] Take 81 mg by mouth daily. Active ferrous fumarate 89 mg (29 mg iron) Tablet 89 mg. Active acyclovir (ZOVIRAX) 200 mg capsuleIndicati ons:Multiple myeloma not having achieved remission (CMS/HCC) TAKE 2 CAPSULES TWICE DAILY 360 Capsule 3 025 Active acyclovir (ZOVIRAX) 400 mg tablet TAKE 1 TABLET BY MOUTH TWICE A DAY 180 Tablet 1 025 Active sulfamethoxazol e-trimethoprim (BACTRIM DS) 800-160 mg tablet TAKE 1 TABLET BY MOUTH WEDNESDAY, WEDNESDAY, WEDNESDAY. 15 Tablet 2 025 Active daratumumab-hya eloyronidase-fij (Darzalex Faspro) 1,800 mg-30,000 unit/15 mL Solution subcutaneous injectionIndica tions:Gastro-es ophageal reflux disease with esophagitis,Sec ondary malignant neoplasm of bone INJECT 1800MG (15ML) SUBCUTANEOUSLY EVERY 28 DAYS 15 mL 8 025 Active cyclobenzaprine (FLEXERIL) 10 mg tablet Take 1 Tablet (10 mg) by mouth 3 times daily as needed for Spasm. 60 Tablet 1 025 Active gabapentin (NEURONTIN) 300 mg capsuleIndicati ons:Multiple myeloma not having achieved remission (CMS/HCC) TAKE 2 CAPSULES (600 MG) BY MOUTH 2 TIMES DAILY. 120 Capsule 2 025 Active pomalidomide (Pomalyst) 4 mg capsuleIndicati ons:Multiple myeloma not having achieved remission (CMS/HCC) TAKE 1 CAPSULE BY MOUTH EVERY DAY FOR 21 DAYS ON FOLLOWED BY 7 DAYS OFF 21 Capsule 025 Active pantoprazole (PROTONIX) 40 mg Tablet, Delayed Release (E.C.)Indicatio ns:Multiple myeloma not having achieved remission (CMS/HCC) TAKE 1 TABLET EVERY DAY 90 Tablet 3 025 Active pantoprazole (PROTONIX) 40 mg Tablet, Delayed Release (E.C.)Indicatio ns:Multiple myeloma not having achieved remission (CMS/HCC) take 1 tablet every day 90 Tablet 3 024 2024 Discontinued gabapentin (NEURONTIN) 300 mg capsuleIndicati ons:Multiple myeloma not having achieved remission (CMS/HCC) TAKE 2 CAPSULES (600 MG) BY MOUTH 2 TIMES DAILY. 120 Capsule 2 025 2024 Discontinued pomalidomide (Pomalyst) 4 mg capsuleIndicati ons:Multiple myeloma not having achieved remission (CMS/HCC) TAKE 1 CAPSULE BY MOUTH EVERY DAY FOR 21 DAYS ON, FOLLOWED BY 7 DAYS OFF 21 Capsule 025 2024 Discontinued Active Problems Problem Noted Date Diagnosed Date Metastasis to bone 02/09/2023 Multiple myeloma not having achieved remission 0 06/22/2022 Encounters Date Type Department Care Team Description 03/27/2025 Orders Only [facility] Oncology and Hematology [facility] [address] [place] [phone] Carlos Clark MD 03/26/2025 Orders Only [facility] Oncology and Hematology [facility] [address] [place] [phone] Carlos Clark MD Multiple myeloma not having achieved remission (CMS/HCC) 03/12/2025 Refill [facility] Oncology and Hematology [facility] [address] [place] [address] Carlos Clark MD Multiple myeloma not having achieved remission (CMS/HCC) 03/12/2025 Orders Only [facility] Oncology and Hematology - Jakub [address] [place] [address] Carlos Clark MD Multiple myeloma not having achieved remission (CMS/HCC) 03/06/2025 Refill [facility] Oncology and Hematology [facility] [address] [place] [address] Carlos Clark MD Multiple myeloma not having achieved remission (CMS/HCC) 03/06/2025 Refill [facility] Oncology and Hematology [facility] [address] [place] [phone] Carlos Clark MD Multiple myeloma not having achieved remission (CMS/HCC) 03/01/2025 Orders Only [facility] Oncology and Hematology - Jakub [address] [place] [phone] Carlos Clark MD 02/28/2025 Orders Only [facility] Oncology and Hematology - Jakub [address] [place] [address] Carlos Clark MD 02/28/2025 Telephone [facility] Oncology and Hematology - Jak[address] [place] [address] Carlos Clark MD [facility] 02/26/2025 Orders Only [facility] Oncology and Hematology - Jakub [address] [place] [address] Carlos Clark MD Multiple myeloma not having achieved remission (CMS/HCC) 02/14/2025 Orders Only [facility] Oncology and Hematology - Jakub [address] [place] [address] Carlos Clark MD 02/12/2025 Orders Only [facility] Oncology and Hematology - Jakub [address] [place] [address] Carlos Clark MD Multiple myeloma not having achieved remission (CMS/HCC) 02/10/2025 Refill [facility] Oncology and Hematology - Jakub [address] [place] [address] Carlos Clark MD Gastro-esophageal reflux disease with esophagitis; Secondary malignant neoplasm of bone (CMS/HCC) 02/07/2025 Abstract [facility] Oncology and Hematology - Jak[address] [place] [address] Carlos Clark MD 02/06/2025 Refill [facility] Oncology and Hematology - Jakub [address] [place] [phone] Carlos Clark MD Multiple myeloma not having achieved remission (CMS/HCC) 02/01/2025 Orders Only [facility] Oncology and Hematology [facility] [address] [place] [phone] Carlos Clark MD 01/30/2025 External Device Data STL ABSTRACTION Provider, Abstract 01/30/2025 Orders Only [facility] Oncology and Hematology [facility] [address] [place] [phone] Carlos Clark MD Multiple myeloma not having achieved remission (CMS/HCC) (Primary Dx) 01/29/2025 Orders Only [facility] Oncology and Hematology [facility] [address] [place] [phone] Carlos Clark MD Multiple myeloma not having achieved remission (CMS/HCC) 01/25/2025 Abstract [facility] Oncology [facility] Hematology [facility] [address] [place] [address] Carlos Clark MD 01/23/2025 9:00 AM CDT Office Visit [facility] Oncology [facility] Hematology [facility] [address] [place] [address] Carlos Clark MD Multiple myeloma not having achieved remission (CMS/HCC) (Primary Dx) 01/23/2025 Orders Only [facility] Oncology and Hematology [facility] [address] [place] [address] Carlos Clark MD 01/18/2025 Refill [facility] Oncology and Hematology [facility] [address] [place] [phone] Dinah Tovar MD 01/16/2025 External Device Data STL ABSTRACTION Provider, Abstract 01/16/2025 Orders Only [facility] Oncology and Hematology [facility] [address] [place] [phone] Carlos Clark MD 01/15/2025 Orders Only [facility] Oncology and Hematology - Jakub [address] [place] [address] Carlos Clark MD Multiple myeloma not having achieved remission (CMS/HCC) 01/09/2025 Refill [facility] Oncology and Hematology - Jak[address] [place] [phone] Carlos Clark MD Multiple myeloma not having achieved remission (CMS/HCC) 01/08/2025 Orders Only [facility] Oncology and Hematology - Jakub [address] [place] [address] Carlos Clark MD Multiple myeloma not having achieved remission (CMS/HCC) 01/03/2025 Orders Only [facility] Oncology and Hematology - Jak[address] [place] [phone] Carlos Clark MD 01/02/2025 Telephone [facility] Oncology and Hematology - Jak[address] [place] [address] Carlos Clark MD Bone Density 01/02/2025 Orders Only [facility] Oncology and Hematology - Jak[address] [place] [address] Carlos Clark MD Multiple myeloma not having achieved remission (CMS/HCC) (Primary Dx) from Last 3 Months Family History Medical [...] on file Legal Sex Female 1:21 PM 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 Gender Identity Not on file Sexual Orientation [...] st Contact Info) Description 04/24/2025 9:00 AM 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 Office Visit [facility] Oncology and Hematology [facility] [address] [place] [address] Dinah Tovar MD [address] [place] [address] Health Maintenance Due Date Last [...] OSTEOPOROSIS SCREENING 2018 INFLUENZA VACCINE (#1) 2025 3, 05/01/2022, 05/19/2021, Additional history exists Procedures Procedure Name Priority Date/Time Associated Diagnosis Comments COMPREHENSIVE METABOLIC PANEL Routine 03/27/2025 2:55 PM CDT CBC WITH AUTODIFFERENTIAL Routine 2024 2:51 PM CDT COMPREHENSIVE METABOLIC PANEL Routine 02/27/2025 3:41 PM [...] METABOLIC PANEL Routine 01/02/2025 4:29 PM CDT from Last 3 Months Results * COMPREHENSIVE METABOLIC PANEL (03/27/2025 2:55 PM CDT) Only the most recent of6 resultswithin the time period is included. Blood us Carlos Clark MD CHEMISTRY ORDERABLES Final Resu lt * CBC WITH AUTODIFFERENTIAL (03/27/2025 2:51 PM CDT) Only the most recent of3 resultswithin the time period is included. Blood us Carlos Clark MD HEMATOLOGY ORDERABLES Final Res ult * BASIC METABOLIC PANEL (02/27/2025 7:54 AM CDT) Only the most recent of3 resultswithin the time period is included. Blood us Carlos Clark MD CHEMISTRY ORDERABLES Final Resu lt * IMMUNOGLOBULINS IGG IGA IGM (02/14/2025 3:13 PM CDT) Blood us Carlos Clark MD CHEMISTRY ORDERABLES Final Resu lt * PROTEIN ELECTROPHORESIS, CSF (01/15/2025 3:46 PM CDT) Cerebrospinal fluid CEREBROSPINAL FLUID / Unknown us Carlos Clark MD BODY FLUIDS AND STOOLS Final Re sult * CBC WITH DIFFERENTIAL (01/02/2025 4:46 PM CDT) Blood us Carlos Clark MD HEMATOLOGY ORDERABLES Final Res ult from Last [address] Care Teams Thread Inspector Relationship Specialty Start Date End Date Herman Ruff MD [address] [place] [address] PCP - General Family Practice 06/22/22
--- OUTSIDE RECORDS SUMMARY | 2025-03-30 11:32 | XMS_ITS | Clinical Summary ---
Author Organization [facility] Address [address] [facility] [place] [address] Care Team Providers Care Film Crew Member Name Role Phone Unavailable Primary Care Provider Unavailabl e Source Comments [facility],non-owned Affiliates and Associated Physician Practices is amultiple site organization consisting of ambulatory clinics and hospital sitesin [place], [place], [place] and [place]. This disclosure is being madepursuant to the Care Everywhere program and may not contain all information available regarding this patient. Last updated 18.[employer] [facility] Social History Tobacco Use Types Packs/Day Years [...]
--- OUTSIDE RECORDS SUMMARY | 2025-03-30 11:32 | XMS_ITS | Encounter Summary ---
Author Organization [facility] [employer] [facility] Address [address] [place] [address] Care Team Providers Care Medical Referral Coordinator Name Role Phone Herman Ruff MD Primary Care Provider [phone] Encounter Details Date Type Department Care Team (Late Contact Info) Description 03/26/2025 Orders Only [facility] Oncology and Hematology - Jakub [address] [place] [address] Carlos Clark MD [address] [facility] [address] [place] [address] Multiple myeloma not having achieved remission ([facility]) Social History Tobacco Use Types Packs/Day Years Used Date Smoking Tobacco: Never Smokeless Tobacco: Never Alcohol Use Standard Drinks/Week Comments Yes 0 (1 standard drink = 0.6 oz pur e alcohol) social Comments Unknown Sex and Gender Information Value Date Recorded Sex Assigned at Not on file 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 Sex 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 Gender Identity Not on file Sexual Orientation Not on file documented as of this encounter Plan of Treatment Upcoming Encounters Date Type Department Care Team (Late Contact Info) Description 04/24/2025 9:00 AM PROGRAM SCHEDULER Office Visit [facility] Oncology and Hematology - Jak[address] [place] [address] Dinah Tovar MD [address] [place] [address] documented as of this encounter Visit Diagnoses Diagnosis Multiple myeloma not having achieved remission (CMS/HCC) Multiple myeloma, without mention of having achieved remission documented in this encounter Care Teams Medical Referral Coordinator Relationship Specialty Start Date End Date Herman Ruff MD [address] [place] [address] PCP - General Family Practice 06/22/22 documented as of this encounter
--- OUTSIDE RECORDS SUMMARY | 2025-03-30 11:32 | XMS_ITS | Encounter Summary ---
Author Organization [facility] Address [address] [facility] [place] [address] Care Team Providers Care Rv Technician Name Role Phone Unavailable Primary Care Provider Unavailabl e Encounter Details Date Type Department Care Team (Late st Contact Info) Description 06/12/2022 Lab Requisition [facility] Care Pathology Lab [address] [place] [address] Albino Lagos MD [facility] [address] [place] [address] [address] Social History Tobacco Use Types [...]
--- OUTSIDE RECORDS SUMMARY | 2025-03-30 11:32 | XMS_ITS | Encounter Summary ---
Author Organization [facility] Address [address] [facility] [place] [address] Care Team Providers Care Brim Pouncer Name Role Phone Unavailable Primary Care Provider Unavailabl e Encounter Details Date Type Department Care Team (Late st Contact Info) Description 06/16/2022 Lab Requisition [facility] Care Pathology Lab [address] [place] [address] Albino Lagos MD [facility] [address] [address] Illness, unspecified Social History Tobacco [...]
[2025-03-31 06:08] LABS: Hep Be Antibody Non Reactive (Negative)
[2025-03-31 06:08] LABS: Hep B Core Ab, Total Negative (Negative); Measles Antibodies, IgG 120.0 AU/mL (Immune >16.4)
== END 2025-03-30 10:53 | disposition home or self-care (01) ==
LOC: ANHLAB 10:52
PROVIDERS: PCP Family Medicine; Visit Provider Nurse Practitioner Family
DX: Z01.818 Encounter for other preprocedural examination (principal); Z23 Encounter for immunization; Z01.84 Encounter for antibody response examination
CPT/HCPCS: 86704; 86707; 86735; 86765; 90471

== ENCOUNTER 2025-04-12 02:12 | Day surgery (SDC) | payer MEDICARE, SELFPAY ==
--- OUTSIDE RECORDS SUMMARY | 1999-12-17 08:30 | XMS_ITS | Continuity of Care Document ---
Author Organization [facility] Address [address] [place] [address] [address] [place] [address] Phone Care Team Providers Care Welder Machine Operator Name Role Phone Sanjeev Martinez Unavailable Unavailable Advance Directives Directive Yes / No Effective Date File Name No Information Encounters Encounter Description Practice Location Reason(s) For Visit Diagnoses Date Provider Providers Copied on Encounter [facility], [address] [place] [address] [address], [place], [place], [id number], [place] tel:[phone] [facility] No Information [address] , [address], [place], [address], [place]. tel:[phone] Family History Family Member Type Diagnosis Age At Onset No Information Payers Payer name Insurance type Covered alliance party ID Authoriza tion(s) [place] [id number] Social History Type Description Quantity Date Captured [...]
[2025-04-02 13:36] VITALS: BMI 33.0
--- OUTSIDE RECORDS SUMMARY | 2025-04-12 02:14 | XMS_ITS | Clinical Summary ---
Author Organization [facility] Address [address] [place] [address] Care Team Providers Care Work Order Sorting Clerk Name Role Phone Unavailable Primary Care Provider Unavailabl e Source Comments [facility],non-owned Affiliates and Associated Physician Practices is amultiple site organization consisting of ambulatory clinics and hospital sitesin [place], [place], [place] and [place]. This disclosure is being madepursuant to the Care Everywhere program and may not contain all information available regarding this patient. Last updated 18.[facility] [employer] Social History Tobacco Use Types Packs/Day Years [...]
--- OUTSIDE RECORDS SUMMARY | 2025-04-12 02:14 | XMS_ITS | Encounter Summary ---
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 difficile suspected Comment:C diff test pending 08/16/2023 08/16/2023 08/16/2023 8 :24 PM ASSEMBLER [employer] Rotavirus suspected 08/16/2023 08/16/2023 08/16/19 24 10:09 PM ASSEMBLER [employer] Norovirus suspected 08/16/2023 08/16/2023 08/16/19 12:02 PM ASSEMBLER [employer] documented as of this encounter Care Teams Recruitment Advertising Manager Relationship Specialty Start Date End Date Herman Ruff MD PCP - General Family Medicine 10/29/22 Carlos Clark MD [address] [phone] Referring Physician Hematology 11/02/22 documented as of this encounter
--- OUTSIDE RECORDS SUMMARY | 2025-04-12 02:14 | XMS_ITS ---
Author Organization [facility] Address [address] [place] [address] Care Team Providers Care Clod Puller Name Role Phone Herman Ruff MD Primary Care Provider [phone] Carlos Clark MD Unavailable [phone] Active Problems Patient Care Coordination No [...] Medical Assistants Post-Discharge Follow-Up Living Situation/Distance from [place], [place] Caregiver Lab/Transfusion Frequency Venous Access & [...] Therapy Plan* Plan Start Date:08/13/2023 Plan Provider:Yo Landres MD Linked Problems Multiple myeloma not having [...] from the original note were not included. [address] [id number] This Survivorship Care Plan is a cancer [...] Contact Information: Referring Provider Carlos Clark MD [phone] Primary Care Physician Herman Ruff MD [phone] BMT Physician/ Advanced Practice Provider Yo Landers MD/Marilin Sanchez [facility] [phone] Possum Trapper Snehal Lange RN [phone] Strategic Business Development Tierra Hammond, [facility] [phone] Oncology History Overview Note 07/22/2022 - Daratumumab/Velcade/Dexamethasone [...] Lab Results Lab Results Component Value Date GUI2HGBIVLJ 100 12/18/2022 DLCOPREPRED 65 12/18/2022 25HYDROVITD 38 [...] M 40 - 230 mg/dL <25.0 <25 [place]/Lambda light chains free with ratio 0.26 - 1.65 0.26 - 1.65 >1.70 See Comment 0.79 [place] light chain, free 0.33 - 1.94 mg/dL [...] electrophoresis or >=90% reduction in serum M-protein [place] = partial response - >=50% reduction of [...] GI recommendation (whichever comes first) Bone Health: Carlso Clark MD Zometa - For a total [...] Transplant, to begin after Day 90 Updated ([id number] Formula) mRNA vaccine Number of updated ([id number] Formula) mRNA doses indicated Interval between doses Moderna 3 Dose 1 and Dose 2: 4 weeks Dose 2 and Dose 3: At least 4 weeks [employer] 3 Dose 1 and Dose 2: 3 [...] Resources Resources you may be interested in: [employer] Cancer Society Cancer Survivors Network Cancer Survivors [...] you navigateyour transplant journey. https://bethematch.org National Cancer Amagon Accurate, up-to-date, comprehensive cancer information from the U.S. government's principal agency for cancer research. http://www.cancer.gov Eating Hints?? Before, During, and After Cancer Treatment https://www.cancer.gov/publication/patient-education/eating-hints National Coalition for Cancer Survivorship We advocate for quality cancer care for all individuals touched by cancer. https://canceradvocacy.org National Heart, Lung and Blood Amagon We provide helpful information and resources designed to help your family stay healthy. https://www.nhlbi.gov/health/educational/webcan/ [facility] http://www.[facility] Multiple Myeloma Research Foundation (MMRF) Charitable organization [...] Myeloma Crowd is a division of the Dispop Foundation, a patient-driven, nonprofit organization that empowers patients with rare diseases at each step of her disease journey--from diagnosis, through Education, care and on to a cure. https://www.myelomacrowd.org/ Resolved Problems Problem Noted Date Diagnosed Date Resolved Date Multiple myeloma in relapse 07/27/2023 08/23/2023
--- OUTSIDE RECORDS SUMMARY | 2025-04-12 02:14 | XMS_ITS | Encounter Summary ---
Author Organization [facility] Address [address] [facility] [place] [address] Care Team Providers Care Sales And Service Consultant Name Role Phone Unavailable Primary Care Provider Unavailabl e Encounter Details Date Type Department Care Team (Late st Contact Info) Description 06/16/2022 Lab Requisition [facility] Care Pathology Lab [address] [place] [address] Albino Lagos MD [facility] [address] [address] Illness, unspecified Social History Tobacco [...]
--- OUTSIDE RECORDS SUMMARY | 2025-04-12 02:14 | XMS_ITS | Encounter Summary ---
Author Organization [facility] Address [address] [place] [address] Care Team Providers Care Dynamics Ax Developer Name Role Phone Unavailable Primary Care Provider Unavailabl e Encounter Details Date Type Department Care Team (Late st Contact Info) Description 06/12/2022 Lab Requisition [facility] Care Pathology Lab [address] [place] [address] Albino Lagos MD [facility] [address] [address] Social History Tobacco Use Types [...]
--- OUTSIDE RECORDS SUMMARY | 2025-04-12 02:14 | XMS_ITS | Encounter Summary ---
Author Organization [facility] Address [address] [place] [address] Phone Care Team Providers Care Rewind Operator Name Role Phone Herman Ruff MD Primary Care Provider [phone] Carlos Clark MD Unavailable [phone] Encounter Details Date Type Department Care Team (Latest Contact Info) Description 06/09/2022 Orders Only [facility] Scanning, Provider Social History Tobacco Use Types Packs/Day Years Used Date Smoking Tobacco: Never Assessed Comments Unknown Sex and Gender Information Value Date Recorded Sex Assigned at Not on file Legal Sex Female 7:37 AM PROPERTY PORTFOLIO OFFICER Gender Identity Not on file Sexual Orientation [...] Diarrhea 08/03/2023 08/05/2023 08/05/2023 10:5 9 PM PROPERTY PORTFOLIO OFFICER Diarrhea 08/10/2023 08/10/2023 08/10/2023 10:5 3 AM PROPERTY PORTFOLIO OFFICER C. difficile suspected Comment:C diff test pending 08/16/2023 08/16/2023 08/16/2023 8 :24 PM PROPERTY PORTFOLIO OFFICER Rotavirus suspected 08/16/2023 08/16/2023 08/16/19 10:09 PM PROPERTY PORTFOLIO OFFICER Norovirus suspected 08/16/2023 08/16/2023 08/16/19 12:02 PM PROPERTY PORTFOLIO OFFICER documented as of this encounter Care Teams Rewind Operator Relationship Specialty Start Date End Date Herman Ruff MD PCP - General Family Medicine 10/29/22 Carlos Clark MD [address] [address] Referring Physician Hematology 11/02/22 documented as of this encounter
--- OUTSIDE RECORDS SUMMARY | 2025-04-12 02:14 | XMS_ITS | Encounter Summary ---
Author Organization [facility] Address [address] [place] [address] Care Team Providers Care Human Resources Intern Name Role Phone Herman Ruff MD Primary Care Provider [phone] Encounter Details Date Type Department Care Team (Late Contact Info) Description 04/09/2025 Orders Only [facility] Oncology and Hematology - [address] [place] [address] Carlos Clark MD [address] [facility] [address] [place] [address] Multiple myeloma not having achieved remission ([facility]) Social History Tobacco Use Types Packs/Day Years Used Date Smoking Tobacco: Never Smokeless Tobacco: Never Alcohol Use Standard Drinks/Week Comments Yes 0 (1 standard drink = 0.6 oz pur e alcohol) social Comments Unknown Sex and Gender Information Value Date Recorded Sex Assigned at Not on file Legal Sex Female 1:21 PM MACHINE OPERATORS Gender Identity Not on file Sexual Orientation Not on file documented as of this encounter Plan of Treatment Upcoming Encounters Date Type Department Care Team (Late Contact Info) Description 04/24/2025 9:00 AM MACHINE OPERATORS Office Visit [facility] Oncology and Hematology - Jak[address] [place] [address] Dinah Tovar MD [address] [place] [address] documented as of this encounter Visit Diagnoses Diagnosis Multiple myeloma not having achieved remission (CMS/HCC) Multiple myeloma, without mention of having achieved remission documented in this encounter Care Teams Human Resources Intern Relationship Specialty Start Date End Date Herman Ruff MD [address] [place] [address] PCP - General Family Practice 06/22/22 documented as of this encounter
--- OUTSIDE RECORDS SUMMARY | 2025-04-12 02:14 | XMS_ITS | Encounter Summary ---
Author Organization [facility] Address [address] [facility] [place] [address] Care Team Providers Care Security System Administrator Name Role Phone Unavailable Primary Care Provider Unavailabl e Encounter Details Date Type Department Care Team (Late st Contact Info) Description 06/16/2022 Lab Requisition [facility] Care Pathology Lab [address] [place] [address] Albino Lagos MD [facility] [address] [address] Illness, unspecified Social History Tobacco [...] MARROW BIOPSY (STL) Routine 06/09/2022 9:30 AM BALL MACHINE OPERATOR Illness, unspecified documented in this encounter Results * BONE MARROW BIOPSY (STL) (06/09/2022 9:30 AM BALL MACHINE OPERATOR) Case Report Bone Marrow Patholog y Report Case: [id number] Authorizing Provider: Albino Lagos MD Collected: 06/09/2022 09:30 AM Ordering Location: [facility] Care Pathology Lab Received: 06/16/2022 12:33 PM Pathologist: Zoraida Crain Mai, DO Specimen: Bone Marrow Core 06/17/2022 12:54 PM BALL MACHINE OPERATOR [facility] PATHOLOG[facility] Final Diagnosis Bone marrow, aspirate, touch imprint, core biopsy: - Plasma cell myeloma (80-90% involvement by CD138) - See description Peripheral blood: - Anemia with rouleaux formation - Adequate leukocytes without circulating plasma cells 06/17/2022 12:54 PM [facility] PATH[facility] at [address] BALL MACHINE OPERATOR AP Comment The bone marrow specimen shows 80-90% involvement by a kappa restricted plasma cell population consistent with plasma cell myeloma. Correlation with clinical findings and relevant cytogenetic/molecular testing is required. 06/17/2022 12:54 PM [facility] Peripheral Smear Description 06/07/22 Short CBC data from provided report Leukocytes: Adequate with no circulating plasma cells Erythrocytes: Decreased (no MCV or MCHC provided), rouleaux formation present Platelets: Adequate with no significant abnormality 06/17/2022 12:54 PM [facility] Bone Marrow Aspirate Aspirate smears [...] insufficient erythroids to evaluate 06/17/2022 12:54 PM [facility] Bone Marrow Core Biopsy and [...] performed on the core biopsy in the [facility] Department of Pathology, with appropriately reactive controls, and demonstrate the following: CD34: No increase in blasts CD138: Stains aggregates of plasma cells, 80-90% of marrow cellularity [place]/lambda in situ hybridization: [place] restriction CD3: Stains scattered background T cells CD20: Stains rare background B cells 06/17/2022 12:54 PM [facility] Flow Cytometry Summary Not provided 06/17/2022 12:54 PM [facility] Clinical History Multiple small lytic lesions throughout the skill suspicious for myeloma 06/17/2022 12:54 PM [facility] Materials Received Received are 14 slides and one block (A1) labeled [id number] along with a copy of the outside pathology report. The materials originate from [place] [id number]. All original materials are returned to the referring institution, along with a copy of our final report. 06/17/2022 12:54 PM [facility] Disclaimer The performance characteristics of all immunohistochemical and indirect immunofluorescence stains (if any) cited in this report were determined by the Histopathology Laboratory of [facility]. Some of these tests [...] the attending (teaching) pathologist. 06/17/2022 12:54 PM [facility] Embedded Images 06/17/2022 12:54 PM [facility] Pathology/Cytolo gy BONE MARROW SPECIMEN / Unknown 06/09/2022 9:30 AM BALL MACHINE OPERATOR 06/16/2022 12:33 PM BALL MACHINE OPERATOR Albino Lagos MD LAB - PATHOLOGY/CYTOLOGY ORDERAB LES Final Result Performing Organization Address City/State/[facility] Co de Phone Number [facility] [address] [place], [place] [address] [place] [address] documented in this encounter Visit Diagnoses Diagnosis Illness, unspecified documented in this encounter
--- OUTSIDE RECORDS SUMMARY | 2025-04-12 02:14 | XMS_ITS | Clinical Summary ---
Author Organization [facility] o[facility] Address [address] [place] [address] Care Team Providers Care Parts Facilitator Name Role Phone Herman Ruff MD Primary Care Provider [phone] Carlos Clark MD Unavailable [phone] Allergies Active Allergy Reactions Criticality Noted [...] times daily, Indications: Prophylaxis, Medical, Reported on 04/10/2025 nystatin cream Apply topically 08/23/19 24 Active [...] DAY. 180 tablet 3 01/12/20 25 Active cyclobenzaprine (FLEXERIL) 10 mg tablet Take 1 tablet (10 mg total) by mouth 3 (three) times a day as needed 02/28/20 25 Active Sutab 1.479-0.188- 0.225 gram tablet 04/09/20 25 Active Active Problems Patient Care Coordination [...] Medical Assistants Post-Discharge Follow-Up Living Situation/Distance from [place], [place] Caregiver Lab/Transfusion Frequency Venous Access & [...] Encounters Date Type Department Care Team Description 04/10/2025 8:30 AM CDT Office Visit [facility] Medicine Cardiology [address] [facility] Floor [address], [address] [place] [address] Familia Lawton MD Nonrheumatic aortic valve stenosis (Primary Dx); Stress-induced cardiomyopathy; High risk medication use 04/05/2025 2:54 PM CDT - 04/05/2025 11:59 PM CDT Hospital Encounter [facility] [address] [place] [address] Discharge Disposition: Discharge to home or self care 03/07/2025 Telephone [facility] Cardiology [address] [facility] 8th [place] [address] [place] [address] Rater, KEEGAN Chance Medical Records Request from [...] Tobacco: Never Tobacco Cessation:Counseling Given: Not Answered [facility] Utilities Answer Date Recorded In the past 12 months has th e electric, gas, oil, or water company [...] often do you attend chur ch or anabaptist services? Never 08/19/2023 Do you belong to any clubs o r organizations such as christian groups, unions, fraternal or athletic groups, or [...] place to sleep or slept in a intermediate (including now)? No 08/19/2023 Personal Safety Answer Date Recorded Have you ever been in or are you currently in a harmful physical or emotional relationship or is someone making you feel afraid or unsafe? Denies 08/13/2023 Comments No Sex and Gender Information Value Date Recorded Sex Assigned at Not on file Legal Sex Female 7:37 AM CHAIN MAKER Gender Identity Not on file Sexual Orientation Not on file Obstetrics History Last Filed Vital Signs Vital Sign Reading Time Taken Comments Blood Pressure 112/65 04/10/2025 8:22 AM CDT Pulse 67 04/10/2025 8:22 AM CDT Temperature 36.4 C (97.6 F) 04/10/2025 8:22 AM CDT Respiratory Rate 16 04/10/2025 8:22 AM CDT Oxygen Saturation 98% 07/05/2024 2:39 PM CHAIN MAKER Inhaled Oxygen Concentration - - Weight 86.6 kg (191 lb) 04/10/2025 8:22 AM CDT Height 160.3 cm (5' 3.1) 04/10/2025 8:22 AM CDT Body Mass Index 33.73 04/10/2025 8:22 AM CDT Plan of Treatment Health Maintenance Due Date Last Done Comments Breast Cancer Screening-Mammogram 1955 Colon Cancer Screening-Colonoscopy 1955 Hepatitis C Screening 1955 Osteoporosis Screening-Bone Density Scan 1955 Well Visit 65+ 2018 Depression Screening 07/08/2024 07/08/2023 Fall Risk Assessment 08/19/2024 08/20/2023 Covid-19 Vaccine (6 - Pfizer risk season) 2025 04/23/2024, 11/19/2023, 04/17/2021, Additional history exists Influenza Vaccine (#1) 2025 , 04/27/2023, 05/01/2022, Additional history exists DTaP/Tdap/Td Vaccine (4 - Td or Tdap) 09/25/2034 09/25/2024, 05/23/2024, 03/23/2024 Zoster Vaccine Completed 05/23/2024, 03/14, 06/01/2014 Hepatitis B Screening Completed 09/25/2024 , 05/23/2024, 03/23/2024 Pneumococcal vaccine 65+ Completed 025, 05/23/2024, 03/23/2024 Medical Devices Implanted Type Area [employer] Retailer Sales Consultant Device Identifier Shelf Expiration Date Model / Serial / Lot [employer] Power-Trialysis 13fr 15cm 3 Lumen Power Straight Kit Catheter [id number] - [id number] Implanted:Qty: 1 on 05/24/2023 at [facility] [employer] 05/13/2024 [id number] / / [id number] Procedures Procedure Name Priority Date/Time Associated Diagnosis Comments US OUTSIDE CONSULT Routine 04/05/2025 2: 54 PM CDT from Last 3 Months Results * US Outside Consult (04/05/2025 2:54 PM CDT) Anatomical Region Laterality Modality Ultrasound 04/05/2025 2:58 PM CDT Impressions 04/05/2025 2:58 PM CDT This ultrasound study was initially nominated as a consult on outside images via Image Sharing Service. However, a consult was not performed because echocardiography not interpreted by diagnostic radiology. Accordingly, there will be no separate report of this study generated by a [facility] Radiologist. Electronically signed by: Isabel Montano M.D. Narrative 04/05/2025 2:58 PM CDT EXAMINATION: CHANGE CONSULT ON OUTSIDE IMAGES TO REFERENCE IMAGES Procedure Note Isabel Montano MD - 04/05/2025 EXAMINATION: CHANGE CONSULT ON OUTSIDE IMAGES TO REFERENCE IMAGES IMPRESSION: This ultrasound study was initially nominated as a consult on outside images via Image Sharing Service. However, a consult was not performed because echocardiography not interpreted by diagnostic radiology. Accordingly, there will be no separate report of this study generated by a [facility] Radiologist. Electronically signed by: Isabel Montano M.D. us Familia Lawton MD IMG US PROCEDURES Fin al Result from Last [address] [place] [address] [place] [address] [place] [address] [place] [address] [place] [address] TRANSPLANT [employer] MEDICARE RISK Advance Directives For more information, please contact: [phone] * Full Code (Latest Code Status on File) Date Activated Date Inactivated Comments 07/27/2023 7:20 PM 08/20/2023 8:12 PM * Full Code Date Activated Date Inactivated Comments 07/26/2023 9:25 AM 07/27/2023 5:35 AM * Full Code Date Activated Date Inactivated Comments 05/24/2023 9:24 AM 05/25/2023 5:41 AM Care Teams Parts Facilitator Relationship Specialty Start Date End Date Herman Ruff MD PCP - General Family Medicine 10/29/22 Carlos Clark MD [address] [address] Referring Physician Hematology 11/02/22
--- OUTSIDE RECORDS SUMMARY | 2025-04-12 02:15 | XMS_ITS | Clinical Summary ---
Author Organization [facility] antonella [facility] [place] Address [address] [facility] [place] [address] Care Team Providers Care Telegraph Repeater Installer Name Role Phone Herman Ruff MD Primary Care Provider [phone] Allergies Active Allergy Reactions Criticality Noted Date [...] TIMES DAILY. 120 Capsule 2 025 Active pantoprazole (PROTONIX) 40 mg Tablet, Delayed Release (E.C.)Indicatio ns:Multiple myeloma not having achieved remission (CMS/HCC) TAKE 1 TABLET EVERY DAY 90 Tablet 3 025 Active pomalidomide (Pomalyst) 4 mg capsuleIndicati ons:Multiple myeloma not having achieved remission (CMS/HCC) TAKE 1 CAPSULE BY MOUTH EVERY DAY FOR 21 DAYS ON FOLLOWED BY 7 DAYS OFF 21 Capsule 025 Active pomalidomide (Pomalyst) 4 mg capsuleIndicati ons:Multiple myeloma not having achieved remission (CMS/HCC) TAKE 1 CAPSULE BY MOUTH EVERY DAY FOR 21 DAYS ON FOLLOWED BY 7 DAYS OFF 21 Capsule 025 2024 Discontinued Active Problems Problem Noted Date Diagnosed Date Metastasis to bone 02/09/2023 Multiple myeloma not having achieved remission 0 06/22/2022 Encounters Date Type Department Care Team Description 04/09/2025 Orders Only [facility] Oncology and Hemat[facility] [address] [place] [phone] Carlos Clark MD Multiple myeloma not having achieved remission (CMS/HCC) 04/05/2025 Abstract [facility] Oncology and Hematology [facility] [address] [place] [id number] Carlos Clark MD 04/01/2025 Refill [facility] Oncology and Hematology - [address] [place] [id number] Carlos Clark MD Multiple myeloma not having achieved remission (CMS/HCC) 03/30/2025 Abstract [facility] Oncology and Hematology [facility] [address] [place] [id number] Carlos Clark MD 03/27/2025 Orders Only [facility] Oncology and Hematology [address] [place] [id number] Carlos Clark MD 03/26/2025 Orders Only [facility] Oncology and Hematology - [address] [place] [id number] Carlos Clark MD Multiple myeloma not having achieved remission (CMS/HCC) 03/12/2025 Refill [facility] Oncology and Hematology - [address] [place] [address] Carlos Clark MD Multiple myeloma not having achieved remission (CMS/HCC) 03/12/2025 Orders Only [facility] Oncology and Hematology - [address] [place] [id number] Carlos Clark MD Multiple myeloma not having achieved remission (CMS/HCC) 03/06/2025 Refill [facility] Oncology and Hematology - [address] [place] [address] Carlos Clark MD Multiple myeloma not having achieved remission (CMS/HCC) 03/06/2025 Refill [facility] Oncology and Hematology - [address] [place] [id number] Carlos Clark MD Multiple myeloma not having achieved remission (CMS/HCC) 03/01/2025 Orders Only [facility] Oncology and Hematology - [address] [place] [phone] Carlos Clark MD 02/28/2025 Orders Only [facility] Oncology and Hematology - [address] [place] [phone] Carlos Clark MD 02/28/2025 Telephone [facility] Oncology and Hematology - [address] [place] [phone] Carlos Clark MD [facility] 02/26/2025 Orders Only [facility] Oncology and Hematology - [address] [place] [id number] Carlos Clark MD Multiple myeloma not having achieved remission (CMS/HCC) 02/14/2025 Orders Only [facility] Oncology and Hematology - [address] [place] [address] Carlos Clark MD 02/12/2025 Orders Only [facility] Oncology and Hematology - [address] [place] [address] Carlos Clark MD Multiple myeloma not having achieved remission (CMS/HCC) 02/10/2025 Refill [facility] Oncology and Hematology - [address] [place] [address] Carlos Clark MD Gastro-esophageal reflux disease with esophagitis; Secondary malignant neoplasm of bone (CMS/HCC) 02/07/2025 Abstract [facility] [address] [place] [phone] Carlos Clark MD 02/06/2025 Refill [facility] Oncology and Hematology [facility] [address] [place] [phone] Carlos Clark MD Multiple myeloma not having achieved remission (CMS/HCC) 02/01/2025 Orders Only [facility] [address] [place] [phone] Carlos Clark MD 01/30/2025 External Device Data STL ABSTRACTION Provider, Abstract 01/30/2025 Orders Only [facility] [address] Carlos Clark MD Multiple myeloma not having achieved remission (CMS/HCC) (Primary Dx) 01/29/2025 Orders Only [facility] [address] [place] [phone] Carlos Clark MD Multiple myeloma not having achieved remission (CMS/HCC) 01/25/2025 Abstract [facility] [address] [place] [address] Carlos Clark MD 01/23/2025 9:00 AM CDT Office Visit [facility] [address] [place] [phone] Carlos Clark MD Multiple myeloma not having achieved remission (CMS/HCC) (Primary Dx) 01/23/2025 Orders Only [facility] [address] [place] [phone] Carlos Clark MD 01/18/2025 Refill [facility] Oncology and Hematology - [address] [place] [address] Dinah Tovar MD 01/16/2025 External Device Data STL ABSTRACTION Provider, Abstract 01/16/2025 Orders Only [facility] Oncology and Hematology - [address] [place] [phone] Carlos Clark MD 01/15/2025 Orders Only [facility] Oncology and Hematology - [address] [place] [address] Carlos Clark MD Multiple myeloma not having [...] on file Legal Sex Female 1:21 PM CART PUSHER Gender Identity Not on file Sexual Orientation [...] st Contact Info) Description 04/24/2025 9:00 AM CART PUSHER Office Visit [facility] Oncology and Hematology - [address] [place] [address] Dinah Tovar MD [address] [place] [address] Health Maintenance Due Date Last [...] VACCINE (60+ or ) (1 - Risk 50-74 years 1-dose series) 08/13/2003 OSTEOPOROSIS SCREENING 2018 INFLUENZA VACCINE (#1) 2025 [...] METABOLIC PANEL Routine 01/15/2025 11:28 AM CDT from Last 3 Months Results * COMPREHENSIVE METABOLIC PANEL (03/27/2025 2:55 PM CDT) Only the most recent of5 resultswithin the time period is included. Blood us Carlos Clark MD CHEMISTRY ORDERABLES Final Resu lt * CBC WITH AUTODIFFERENTIAL (03/27/2025 2:51 PM CDT) Only the most recent of3 resultswithin the time period is included. Blood Result Elda Clark MD HEMATOLOGY ORDERABLES Final Res ult * BASIC METABOLIC PANEL (02/27/2025 7:54 AM CDT) Only the most recent of2 [...] BODY FLUIDS AND STOOLS Final Re sult from Last [address] [place], [place] [address]O [facility] [address] [facility] M[facility] Care Teams Telegraph Repeater Installer Relationship Specialty Start Date End Date Herman Ruff MD [address] [place] [address] PCP - General Family Practice 06/22/22
[2025-04-12 08:34] VITALS: BP 122/90; PULSE 63; RESP 18; TEMP 36.1; O2SAT 96; BMI 34.3
[2025-04-12] MEDS: LACTATED RINGERS 1,000 ML 150 ML IV CONT (08:48)
--- NOTE | 2025-04-12 09:34 | WPDANESEPPF ---
Anes - Initial Pre Proc Eval Procedure: Operation Date: 04/12/25 09:30 Proposed Procedures p Screening Colonoscopy - Ulises Ha MD Date/Time: 04/12/25 09:34 Surgeon: Ulises Ha MD Pre Op Diagnosis: screening/+ Cologuard Patient Data Age: 69 Gender: F Height: 1.57 m Weight: 85.2 kg Last Vital Signs Temp 97 F L 04/12/25 08:34 Pulse 63 04/12/25 08:34 Resp 18 04/12/25 08:34 BP 122/90 04/12/25 08:34 Pulse Ox 96 04/12/25 08:34 O2 Del Method Room Air 04/12/25 08:34 Allergies Allergy/AdvReac Type Severity Reaction Status Date / Time meloxicam AdvReac Palpitations, Verified 04/12/25 08:31 SHORTNESS OF BREATH Home Medications ?Medication ?Instructions ?Recorded ?Confirmed ?Type calcium carb-ergocalciferol (vit 1 tablet PO QID 06/03/22 04/12/25 History D2) 600 mg calcium-200 unit tablet multivitamin 1 tablet PO DAILY 06/03/22 04/12/25 History acyclovir 200 mg capsule 400 mg PO BID 02/16/23 04/12/25 History ondansetron 4 mg disintegrating 4 mg PO Q8H PRN nausea and vomiting 02/16/23 04/02/25 History tablet aspirin 81 mg tablet,delayed 81 mg PO DAILY 05/23/24 04/12/25 History release (Adult Aspirin Regimen) ferrous sulfate 325 mg (65 mg 325 mg PO DAILY 05/23/24 04/12/25 History iron) tablet gabapentin 300 mg capsule 600 mg PO BID 05/23/24 04/12/25 History magnesium aspart,citrate,oxide 400 mg PO DAILY 05/23/24 04/12/25 History potassium chloride 20 mEq/15 mL 20 meq PO BID 05/23/24 04/12/25 History oral liquid sodium sul 1.479 gram-potas ch See Rx Instructions PO PER PKG DIR 11/24/24 04/02/25 Rx 0.188 gram-magnes sul 0.225 gram #24 tabs tablet (Sutab) pomalidomide 4 mg capsule 4 mg PO Q21D 01/01/25 04/12/25 History (Pomalyst) cyclobenzaprine 10 mg tablet 10 mg PO TID PRN muscle spasm 03/27/25 04/02/25 History lidocaine 5 % topical patch 1 patch transdermal DAILY PRN pain 04/02/25 04/02/25 History (Lidoderm) nystatin 100,000 unit/gram topical 1 applic topical TID PRN itching 04/02/25 04/02/25 History cream pantoprazole 40 mg tablet,delayed 40 mg PO DAILY 04/02/25 04/12/25 History release (Protonix) Patient hx anesthesia problems: none Family hx anesthesia problems: none Results Review: All pre-operative results and documents have been reviewed as part of the pre-operative evaluation. 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 Family History Family History Father Lung cancer Mother Sibling No problems noted. Other Diabetes mellitus Family history of coronary artery disease Family history of lung cancer Family history of osteoarthritis Social History Social History Social History: The patient is and has no children. The patient is retired from [employer]. Surrogate medical decision maker: Polly Seth, sister. Code status: Full code. Smoking packs per day: 1 Smoking cigarettes per day: 20.0 Years smoked: 30 Smoking pack-years: 30.00 Smoking status: Former smoker Tobacco type: cigarettes Second hand tobacco smoke exposure: Yes Smoking end date: 03/23/03 Alcohol intake: never Alcohol use details: Occasional alcohol use in moderation. Substance use: never Substance use type: does not use Do You Feel Safe in your Home?: Yes Lack of Transportation: No Lack of Food: Never True Current Housing: I Have Housing Concerned About Future Housing: No Difficulty Paying Gas/Electric Bills: No Difficulty Paying for Meds: No Currently Unemployed: No Education: High School Diploma/GED Difficulty w/ Childcare or Family Care: No Living arrangements: alone Additional living arrangements comments: Patient lives alone in [place]. 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 Gender identity (if verbalized by the patient): Female Spiritual care concerns: No Anes - Eval Final PreProcedure Day of Procedure 04/12/25 09:34 Patient weight: obese Lungs: normal air movement Airway: Mallampati scale class II Neurological: alert and oriented Last oral intake: >/= 8 hours ASA classification: III Emergent: no Anesthetic plan: proceed Anesthesia type and monitoring: general GIVS and standard monitoring Results Review: All pre-operative results and documents have been reviewed as part of the pre-operative evaluation. 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 Informed Consent: The patient's anesthetic plan and its attendant risks and benefits were discussed with the patient/family/POA. Questions were solicited and answers provided to the satisfaction of the patient/family/POA.
--- NOTE | 2025-04-12 09:47 | PM.IMHP ---
H&P: HPI History of Present Illness Date/Time: 04/12/25 09:47 Chief Complaint: Positive Cologuard test Narrative: This is the patient's 2nd colonoscopy after more than 10 years. He was recently found to have a Cologuard positive test. There are no GI symptoms and there is no family history of colorectal cancer. 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 Family History Family History Father Lung cancer Mother Sibling No problems noted. Other Diabetes mellitus Family history of coronary artery disease Family history of lung cancer Family history of osteoarthritis Social History Social History Social History: The patient is and has no children. The patient is retired from [employer]. Surrogate medical decision maker: Polly Seth, sister. Code status: Full code. Smoking packs per day: 1 Smoking cigarettes per day: 20.0 Years smoked: 30 Smoking pack-years: 30.00 Smoking status: Former smoker Tobacco type: cigarettes Second hand tobacco smoke exposure: Yes Smoking end date: 03/23/03 Alcohol intake: never Alcohol use details: Occasional alcohol use in moderation. Substance use: never Substance use type: does not use Do You Feel Safe in your Home?: Yes Lack of Transportation: No Lack of Food: Never True Current Housing: I Have Housing Concerned About Future Housing: No Difficulty Paying Gas/Electric Bills: No Difficulty Paying for Meds: No Currently Unemployed: No Education: High School Diploma/GED Difficulty w/ Childcare or Family Care: No Living arrangements: alone Additional living arrangements comments: Patient lives alone in [place]. 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 Gender identity (if verbalized by the patient): Female Spiritual care concerns: No Meds Home Medications and Allergies Home Medications ?Medication ?Instructions ?Recorded ?Confirmed ?Type calcium carb-ergocalciferol (vit 1 tablet PO QID 06/03/22 04/12/25 History D2) 600 mg calcium-200 unit tablet multivitamin 1 tablet PO DAILY 06/03/22 04/12/25 History acyclovir 200 mg capsule 400 mg PO BID 02/16/23 04/12/25 History ondansetron 4 mg disintegrating 4 mg PO Q8H PRN nausea and vomiting 02/16/23 04/02/25 History tablet aspirin 81 mg tablet,delayed 81 mg PO DAILY 05/23/24 04/12/25 History release (Adult Aspirin Regimen) ferrous sulfate 325 mg (65 mg 325 mg PO DAILY 05/23/24 04/12/25 History iron) tablet gabapentin 300 mg capsule 600 mg PO BID 05/23/24 04/12/25 History magnesium aspart,citrate,oxide 400 mg PO DAILY 05/23/24 04/12/25 History potassium chloride 20 mEq/15 mL 20 meq PO BID 05/23/24 04/12/25 History oral liquid sodium sul 1.479 gram-potas ch See Rx Instructions PO PER PKG DIR 11/24/24 04/02/25 Rx 0.188 gram-magnes sul 0.225 gram #24 tabs tablet (Sutab) pomalidomide 4 mg capsule 4 mg PO Q21D 01/01/25 04/12/25 History (Pomalyst) cyclobenzaprine 10 mg tablet 10 mg PO TID PRN muscle spasm 03/27/25 04/02/25 History lidocaine 5 % topical patch 1 patch transdermal DAILY PRN pain 04/02/25 04/02/25 History (Lidoderm) nystatin 100,000 unit/gram topical 1 applic topical TID PRN itching 04/02/25 04/02/25 History cream pantoprazole 40 mg tablet,delayed 40 mg PO DAILY 04/02/25 04/12/25 History release (Protonix) Allergies Allergy/AdvReac Type Severity Reaction Status Date / Time meloxicam AdvReac Palpitations, Verified 04/12/25 08:31 SHORTNESS OF BREATH Vital Signs Vital Signs - 24 hr 04/12/25 08:34 Temperature 97 F L Pulse Rate 63 Respiratory Rate 18 Blood Pressure 122/90 Pulse Oximetry 96 Oxygen Delivery Room Air Exam Const: General: cooperative and healthy appearing Resp: Effort & Inspection: normal respiratory effort and able to speak in complete sentences Auscultation: clear to auscultation bilaterally Cardio: Rate: regular rate Rhythm: regular rhythm GI: Inspection: normal to inspection GI Palp: No No hepatosplenomegaly present Auscultation: normal bowel sounds Rectal Exam: deferred Skin: General skin exam: normal color Psych: Appearance: grossly normal Mental Status: mental status grossly normal Assessment and Plan Assessment and plan (1) Positive colorectal cancer screening using Cologuard test: Code(s): R19.5 - Other fecal abnormalities Status: Acute Assessment and Plan: The patient is deemed a good candidate for the procedure. Consent signed. Will proceed.
[2025-04-12 10:17] VITALS: BP 91/52; PULSE 74; RESP 19; O2SAT 97
[2025-04-12 10:27] VITALS: BP 98/57; PULSE 69; RESP 17; O2SAT 98
[2025-04-12 10:37] VITALS: BP 111/70; PULSE 67; RESP 16; O2SAT 100
== END 2025-04-12 10:52 | disposition home or self-care (01) ==
PROVIDERS: PCP Family Medicine; Referring Provider Nurse Practitioner Family; Visit Provider Internal Medicine Gastroenterology
PROC: 0DJD8ZZ Inspection of Lower Intestinal Tract, Via Natural or Artificial Opening Endoscopic (ICD-10-PCS; CPT 45378; principal; 2025-04-12 09:30)
DX: Z12.11 Encounter for screening for malignant neoplasm of colon (principal); R19.5 Other fecal abnormalities; K57.30 Diverticulosis of large intestine without perforation or abscess without bleeding; Z87.891 Personal history of nicotine dependence; E66.9 Obesity, unspecified; Z68.34 Body mass index [BMI] 34.0-34.9, adult
CPT/HCPCS: G0121; J2003; J2704; J7120